=== PATIENT | male | born 1935 | race Caucasian/White ===

== ENCOUNTER 2017-10-12 10:30 | Inpatient (IN) | payer MEDICARE, OTHER, SELFPAY ==
[2017-10-12] VITALS (10 sets, daily range): BP systolic 127–189; BP diastolic 65–103; PULSE 82–114; RESP 14–20; TEMP 36.4–37.7; O2SAT 91–97; BMI 28.0
--- NOTE | 2017-10-12 10:38 | ED.ABDPAIN ---
HPI - Abdominal Pain General Chief Complaint: Abdominal Pain Stated Complaint: STOMACH PAIN Time Seen by Provider: 10/12/17 10:48 Source: patient Mode of arrival: ambulatory Limitations: no limitations History of Present Illness HPI narrative: 82-year-old male with a history of recently diagnosed metastatic prostate cancer now on 2 weeks of hormonal therapy presents with abdominal pain and distention that started last night. The pain has been increasingly worse and when he arrived he rated at a 5/10. He had 2-3 normal bowel movements last night that were not hard or loose/watery. Denies blood in the stool. He feels nauseous but has not vomited. He denies fevers or chills. He has not had troubles like this before. He states that he ate some 1-week-old birthday cake last night which may have contributed. He is a diabetic and has hypertension. He has had an appendectomy when he was 15-year-old but no other previous abdominal surgeries. Related Data Home Medications Medication Instructions Recorded Confirmed bicalutamide 50 mg PO DAILY 10/12/17 10/12/17 brinzolamide [Azopt] 2 drp EYE-LEFT BID 10/12/17 10/12/17 dorzolamide-timolol 22.3 drp EYE-LEFT BEDTIME 10/12/17 10/12/17 erythromycin 1 drp OPHTHALMIC (EYE) BEDTIME 10/12/17 10/12/17 latanoprost 0.005 drp EYE-LEFT BEDTIME 10/12/17 10/12/17 metformin 500 mg PO BID 10/12/17 10/12/17 Previous Rx's Medication Instructions Recorded diltiazem HCl 300 mg PO Q DAY #90 cap 08/06/17 glyburide 5 mg PO TID #270 tab 09/11/17 lisinopril 40 mg PO BID #180 tab 09/11/17 Allergies Allergy/AdvReac Type Severity Reaction Status Date / Time aspirin [ASPIRIN] Allergy Severe gi bleed Verified 10/12/17 10:38 Review of Systems Review of Systems All systems reviewed & are unremarkable except as noted in HPI and below Constitutional Denies chills, Denies fever(s), Denies lethargy and Denies weakness Eyes Denies change in vision, Denies eye discharge, Denies irritation and Denies loss of vision ENT Ears, Nose, Mouth, and Throat: Denies change in voice, Denies neck pain and Denies sore throat Cardiovascular Denies chest pain, Denies irregular heart rhythm, Denies lightheadedness, Denies palpitations, Denies dyspnea, Denies dyspnea on exertion and Denies orthopnea Respiratory Denies cough, Denies dyspnea, Denies dyspnea on exertion and Denies wheezing Gastrointestinal Gastrointestinal: Reports abdominal pain, Denies melena, Reports bloating, Denies change in bowel habits, Denies diarrhea, Denies loose stools, Reports nausea and Denies vomiting Genitourinary Denies hematuria, Denies flank pain, Denies urinary incontinence and Denies urinary urgency Musculoskeletal Denies neck pain Integumentary/Breasts Denies pruritus, Denies erythema, Denies rash and Denies wounds Neurologic Denies confusion, Denies loss of vision and Denies weakness Psychiatric Denies anxiety, Denies confusion, Denies depression, Denies homicidal ideation and Denies suicidal ideation Endocrine Denies palpitations Hematologic/Lymphatic Denies easy bruising Allergic/Immunologic Denies wheezing PFSH Medical History GI bleed (Acute) Glaucoma (Acute) Hypertension (Acute) Surgical History Hx of appendectomy (Acute) Family History Grandfather Diabetes mellitus Mother Diabetes mellitus Cancer Sister Age: 76 Cancer Sister Age: 69 Heart disease Social History household members: spouse Smoking Status: Former smoker alcohol intake: current Exam Initial Vital Signs Initial Vital Signs: Vital Signs Temperature 99.8 F H 10/12/17 10:38 Pulse Rate 114 H 10/12/17 10:38 Respiratory Rate 18 10/12/17 10:38 Blood Pressure 177/91 H 10/12/17 10:38 Pulse Oximetry 97 10/12/17 10:38 Const General: cooperative and well developed Nutritional Appearance: well nourished Orientation: alert, awake, oriented x3 and not confused [facility] Head: normocephalic and atraumatic Ears: external ears normal and TM's normal bilaterally Nose: external nose normal and No nasal discharge Face and sinus: sinuses nontender, face symmetric, no sinus tenderness and No dry mucous membranes Mouth: oral mucosae normal and moist mucous membranes Teeth and gingiva: dentition normal Throat: tonsils normal and uvula midline Eyes General: appearance normal, both eyes and all related structures Eyelids: eyelids normal Conjunctivae: conjunctivae normal Sclera: sclerae normal Pupils: PERRL EOM: EOM intact bilaterally Neck Neck: normal visual inspection, trachea midline, No lymphadenopathy, No midline deformity and No JVD Lymphatic: No lymphedema Chest Chest: normal inspection of the chest Resp Effort & Inspection: normal respiratory effort, able to speak in complete sentences, no respiratory distress and no use of accessory muscles Auscultation: clear to auscultation bilaterally, no rales, no rhonchi and no wheezes Cardio Rate: regular rate Rhythm: regular rhythm Heart Sounds: no click, no gallops, no murmurs and no rubs Pulses: normal peripheral pulses GI Inspection: distended (tympatic) Palpation: soft, No guarding, No pulsatile mass and tender (right upper quadrant with pos murphys sign) Auscultation: normal bowel sounds Back/Spine/Pelvis Back: No CVA tenderness Cervical Spine: cervical ROM normal and No pain with cervical ROM Thoracic/Lumbar Spine: thoracic and lumbar spine normal to inspection Skin General: no rashes or lesions noted, No jaundice and No petechiae Neuro General: alert, oriented x3, gait normal and no focal motor deficits Cranial Nerves: CN's II-XI intact bilaterally Speech: speech normal Motor: strength 5/5 throughout Sensory Exam: no sensory deficits noted Extrem General: full ROM, no clubbing, cyanosis or edema, no pedal edema and no calf tenderness Psych Appearance: well kempt Mental Status: mental status grossly normal Attitude: cooperative Thought Content: normal and suicidality Judgment: judgment good Course Orders Ordered: ED Orders 10/12/17 13:08 US abdomen limited Stat 10/12/17 13:22 Urinalysis and Microscopic Stat 10/12/17 16:47 EKG-12 Lead Stat 10/12/17 16:53 Consult to General Surgery Routine Bicalutamide (Casodex) 50 mg PO 1600 TILA Dextrose (D50w) 25 gm IV PRN PRN; Protocol PRN Reason: Hypoglycemia Piperacillin/Tazobactam/Dextrose (Zosyn) 3.375 gm in 50 mls @ 100 mls/hr IV Q8H [facility] Last Infusion: 10/12/17 20:04 Dose: 0 mls/hr Admin: 10/12/17 19:15 Dose: 100 mls/hr Ondansetron HCl 8 mg/ Sodium (Chloride) 54 mls @ 108 mls/hr IV Q6HR [facility] Last Admin: 10/12/17 20:04 Dose: 108 mls/hr Sodium Chloride (Normal Saline 0.9%) 1,000 mls @ 125 mls/hr IV CONT TILA Last Admin: 10/12/17 18:24 Dose: 125 mls/hr 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 PSYCHOLOGIST EXPERIMENTAL (Dilaudid 6 Mg/30 Ml) 6 mg in 30 mls @ 0 mls/hr IV Q8HR [facility] Last Admin: 10/12/17 20:11 Dose: 0 mls/hr Insulin Aspart (Novolog Flexpen) 0 unit SUBCUT Q6H TILA; Protocol Last Admin: 10/12/17 19:18 Dose: Not Given Lisinopril (Zestril) 40 mg PO BID [facility] Last Admin: 10/12/17 18:22 Dose: 40 mg Naloxone HCl (Narcan) 0.2 mg IV Q2MIN PRN; Protocol PRN Reason: Opiate Reversal Nicotine (Nicoderm) 14 mg TOP DAILY [facility] Discontinued Medications Hydromorphone HCl (Dilaudid) 0.5 mg IV NOW ONE Stop: 10/12/17 10:49 Last Admin: 10/12/17 10:58 Dose: 0.5 mg Hydromorphone HCl (Dilaudid) 0.5 mg IV NOW ONE Stop: 10/12/17 14:43 Last Admin: 10/12/17 13:30 Dose: 0.5 mg Hydromorphone HCl (Dilaudid) 0.5 mg IV Q1H PRN PRN Reason: Pain, Moderate Last Admin: 10/12/17 19:05 Dose: 0.5 mg Sodium Chloride (Normal Saline 0.9%) 1,000 mls @ 1,000 mls/hr IV BOLUS ONE Stop: 10/12/17 11:47 Last Infusion: 10/12/17 12:18 Dose: 0 mls/hr Admin: 10/12/17 10:58 Dose: 1,000 mls/hr Sodium Chloride (Normal Saline 0.9%) 1,000 mls @ 150 mls/hr IV CONT [facility] Last Admin: 10/12/17 12:07 Dose: Not Given Ondansetron HCl (Zofran) 4 mg IV NOW ONE Stop: 10/12/17 10:49 Last Admin: 10/12/17 10:58 Dose: 4 mg Vital Signs - 8 hr 10/12/17 14:15 10/12/17 14:57 10/12/17 16:06 Pulse Rate 91 H 107 H 91 H Respiratory Rate 18 16 16 Blood Pressure Blood Pressure [Right Arm] 171/86 H 165/70 H 156/78 H Pulse Oximetry 96 97 93 10/12/17 16:43 10/12/17 18:22 Pulse Rate 96 H 98 H Respiratory Rate 18 Blood Pressure 182/89 H 189/103 H Blood Pressure [Right Arm] Pulse Oximetry 96 MDM - Abdominal Pain Differential Diagnosis Differential diagnosis: Likely constipation, diverticulitis, gastroenteritis, pancreatitis and small bowel obstruction Medical Records Attestation: I reviewed the patient's medical records. Lab Data Attestation: I reviewed the patient's lab results. Result diagrams: 10/12/17 10:40 10/12/17 10:40 Lab Results 10/12/17 10/12/17 10/12/17 Range/Units 10:40 10:40 13:22 WBC 14.3 H (4.5-11.0) X10^3/uL RBC 4.83 (4.5-5.9) X10^6/uL Hgb 14.6 (13.5-17.5) g/dL Hct 43.7 (41-53) % MCV 90.6 (80-100) fL MCH 30.3 (26-34) PG MCHC 33.4 (30-36) % RDW 13.7 (11.6-14.8) % Plt Count 293 (150-400) X10^3/uL Neut % (Auto) 77.6 H (50-75) % Lymph % (Auto) 14.4 L (25-40) % Arthur % (Auto) 7.6 (3-14) % Eos % (Auto) 0.1 L (2-4) % Baso % (Auto) 0.3 (0-2) % Neut # (Auto) 93198 H (3904-4844) /uL Sodium 137 (137-145) mmol/L Potassium 3.8 (3.4-5.1) mmol/L Chloride 99.0 (98-107) mmol/L Carbon Dioxide 21.0 L (22-32) mmol/L BUN 16.0 (9-20) mg/dL Creatinine 1.00 (0.66-1.25) mg/dL Estimated GFR > 60.0 (>60) mL/min BUN/Creatinine Ratio 16.0 (6-22) Glucose 259 H (80-110) mg/dL Calcium 9.2 (8.4-10.2) mg/dL Total Bilirubin 0.6 (0.2-1.3) mg/dL AST 35 (17-59) IU/L ALT 16 L (21-72) IU/L Alkaline Phosphatase 126 (38-126) U/L Total Protein 7.5 (6.3-8.2) g/dL Albumin 4.4 (3.5-5.0) g/dL Globulin 3.1 (1.7-4.1) g/dL Albumin/Globulin Ratio 1.4 (1.0-2.8) Lipase 39 (23-300) U/L Urine Color Yellow Urine Appearance Clear Urine pH 6.0 (4.5-8.0) Ur Specific Jackson 1.010 (1.000-1.035) Urine Protein 1+ (Negative) Urine Glucose (UA) 1+ (Normal) g/dL Urine Ketones Negative (NEGATIVE) Urine Occult Blood Trace-lysed (Negative) Urine Nitrate Negative (NEGATIVE) Urine Bilirubin Negative (NEGATIVE) Urine Urobilinogen 0.2 (0.2) E.U./dL Ur Leukocyte Esterase Negative (NEGATIVE) Urine Sperm 0-5 present Ur Culture Indicated? Cult not indicated Micro UA Comment Not Reportable Imaging Data US - abdomen: My impression: Per recreation technician patient has cholecystitis with multiple gallstones, thickened gallbladder wall, normal bile duct. Radiologist's impression: PROCEDURE: US ABDOMEN LIMITED INDICATIONS: ruq abd pain TECHNIQUE: Real-time focused scanning was performed of the abdomen, with image documentation. COMPARISON: None. FINDINGS: Cholelithiasis is present. Mild gallbladder wall thickening is present measuring 5 mm. IMPRESSION: 1. Cholelithiasis. 2. Mild gallbladder wall thickening. Early cholecystitis cannot be excluded. Clinical correlation recommended. Dictated by: Suzi Barcenas M.D. on 10/12/2017 at 14:58 Approved by: Suzi Barcenas M.D. on 10/12/2017 at 15:00 CT scan - abdomen: Radiologist's impression: PROCEDURE: CT ABDOMEN PELVIS W CON INDICATIONS: abd pain and distension, h/o metstatic prostate ca TECHNIQUE: After the administration of oral and intravenous contrast, 5 mm thick sections acquired from the diaphragms to the symphysis. 5 mm thick coronal and sagittal reformats were performed. For radiation dose reduction, the following was used: automated exposure control, adjustment of mA and/or kV according to patient size. COMPARISON: [facility], CT, CHEST/ABD/PEL WITH CONTRAST, 09/12/2017, 10:05. FINDINGS: Image quality: Excellent. ABDOMEN: Lung bases: Lung bases are clear. Heart size is normal. Solid organs: Liver is normal in size and enhancement. Gallbladder demonstrates high density material within its lumen. Biliary system is non-dilated. Pancreas enhances normally. Spleen is normal in size and enhancement. No change in left greater than right adrenal nodules. Kidneys are normal in size and enhancement, without hydronephrosis. Peritoneum and bowel: Stomach, small bowel, and colon loops are normal in caliber and wall thickness. No pneumoperitoneum. Small amount of perihepatic ascites is present, new since the prior examination. Nodes and vessels: No retroperitoneal or mesenteric adenopathy. Aorta and inferior vena cava are normal in caliber. Miscellaneous: No ventral hernias. PELVIS: Genitourinary: Bladder wall thickness is normal. Prostate is enlarged. Previously seen mass extending posteriorly from the prostate into the left seminal vesicle base has increased, measuring 27 mm. Miscellaneous: No change in left inguinal lymph node enlargement. Bones: No change in T9 sclerotic focus. No vertebral body compression fractures. IMPRESSION: 1. New small amount of perihepatic ascites. 2. Progressive extraprostatic extension of prostate cancer involving the left seminal vesicle base. 3. No change in mildly enlarged left inguinal lymph node. 4. Appendix not seen. No evidence of appendicitis. 5. Cholelithiasis. 6. No change in left greater than right adrenal nodules, possibly indicating metastatic disease. This could be further assessed with non-emergent adrenal protocol MRI, if clinically indicated.. 7. No change in T9 sclerotic focus, suggestive of metastatic disease. Dictated by: Suzi Barcenas M.D. on 10/12/2017 at 12:46 Approved by: Suzi Barcenas M.D. on 10/12/2017 at 12:52 ECG Data Attestation: I personally reviewed and interpreted this ECG as follows: Prior ECG tracings: available for review Interpretation: EKG performed at 4:37 p.m. shows sinus rhythm with a right bundle branch block. No previous EKG available for comparison. MDM Narrative Medical decision making narrative: disucssed with dr max who will admit, and requests I order SSI, stop home dm meds, pain control, clear liquid diet until midnight, surgery in AM with NPO status, zosyn for abx coverage 82-year-old male with metastatic prostate cancer presenting with acute abdominal pain that started less than 1 day ago and is predominantly in the right upper quadrant. He is tender and has Turner sign. His white blood cell count is elevated. He does have gallstones on CT scan and with his pain I ordered an ultrasound. supervisor microbiology technologists felt his exam was consistent with cholecystitis, and official radiology read states this could be mild and cannot rule out cholecystitis. Clinically the patient does have cholecystitis. Discussed with surgeon who will admit the patient. Discharge Plan Departure Patient Disposition: Admitted As Inpatient Clinical Impression: Abdominal pain, Leukocytosis, Nausea & vomiting, Acute cholecystitis, Malignant neoplasm of prostate metastatic to bone Discharge Date/Time: 10/12/17 16:55 Interventions: ED Discharge Assessment Last Done: 10/12/17 16:43 Admit Date/Time: 10/12/17 16:45 Admit Provider: Jennifer Max
--- NOTE | 2017-10-12 10:49 | DI.CT.S_ITS ---
PROCEDURE: CT ABDOMEN PELVIS W CON INDICATIONS: abd pain and distension, h/o metstatic prostate ca TECHNIQUE: After the administration of oral and intravenous contrast, 5 mm thick sections acquired from the diaphragms to the symphysis. 5 mm thick coronal and sagittal reformats were performed. For radiation dose reduction, the following was used: automated exposure control, adjustment of mA and/or kV according to patient size. COMPARISON: [facility], CT, CHEST/ABD/PEL WITH CONTRAST, 09/12/2017, 10:05. FINDINGS: Image quality: Excellent. ABDOMEN: Lung bases: Lung bases are clear. Heart size is normal. Solid organs: Liver is normal in size and enhancement. Gallbladder demonstrates high density material within its lumen. Biliary system is non-dilated. Pancreas enhances normally. Spleen is normal in size and enhancement. No change in left greater than right adrenal nodules. Kidneys are normal in size and enhancement, without hydronephrosis. Peritoneum and bowel: Stomach, small bowel, and colon loops are normal in caliber and wall thickness. No pneumoperitoneum. Small amount of perihepatic ascites is present, new since the prior examination. Nodes and vessels: No retroperitoneal or mesenteric adenopathy. Aorta and inferior vena cava are normal in caliber. Miscellaneous: No ventral hernias. PELVIS: Genitourinary: Bladder wall thickness is normal. Prostate is enlarged. Previously seen mass extending posteriorly from the prostate into the left seminal vesicle base has increased, measuring 27 mm. Miscellaneous: No change in left inguinal lymph node enlargement. Bones: No change in T9 sclerotic focus. No vertebral body compression fractures. IMPRESSION: 1. New small amount of perihepatic ascites. 2. Progressive extraprostatic extension of prostate cancer involving the left seminal vesicle base. 3. No change in mildly enlarged left inguinal lymph node. 4. Appendix not seen. No evidence of appendicitis. 5. Cholelithiasis. 6. No change in left greater than right adrenal nodules, possibly indicating metastatic disease. This could be further assessed with non-emergent adrenal protocol MRI, if clinically indicated.. 7. No change in T9 sclerotic focus, suggestive of metastatic disease. Dictated by: Suzi Barcenas M.D. on 10/12/2017 at 12:46 Approved by: Suzi Barcenas M.D. on 10/12/2017 at 12:52
--- NOTE | 2017-10-12 10:51 | PC.NURSE ---
pt c/o abd pain started about 8pm yesterday, states since has had 4 bowelmovents. pt reports he is recieving treatment for prostate ca that has mets to bone. pt's abd obviously distented, and firm to touch.
[2017-10-12] MEDS: ONDANSETRON 4 MG/2 ML INJ IV (10:58)
[2017-10-12] MEDS: HYDROMORPHONE 1 MG INJ 0.5 MG IV (10:58)
[2017-10-12] MEDS: SODIUM CHLORIDE 0.9% 1,000 ML 1000 ML IV (10:58)
[2017-10-12 11:08] LABS: Add Manual Diff / Slide Review NO; Basophils Percent Auto 0.3 % (0-2); Eosinophils Percent Auto 0.1 % (2-4); Hematocrit 43.7 % (41-53); Hemoglobin 14.6 g/dL (13.5-17.5); Lymphocytes Percent Auto 14.4 % (25-40); Mean Corpuscular HGB Conc 33.4 % (30-36); Mean Corpuscular Hemoglobin 30.3 PG (26-34); Mean Corpuscular Volume 90.6 fL (80-100); Monocytes Percent Auto 7.6 % (3-14); Neutrophils Absolute Auto 11100 /uL (3000-5900); Neutrophils Percent Auto 77.6 % (50-75); Platelet Count 293 X10^3/uL (150-400); Red Blood Cell Count 4.83 X10^6/uL (4.5-5.9); Red Cell Distribution Width 13.7 % (11.6-14.8); White Blood Cell Count 14.3 X10^3/uL (4.5-11.0)
[2017-10-12 11:13] LABS: Alanine Aminotransferase 16 IU/L (21-72); Albumin 4.4 g/dL (3.5-5.0); Albumin Globulin Ratio 1.4 (1.0-2.8); Alkaline Phosphatase 126 U/L (38-126); Aspartate Aminotransferase 35 IU/L (17-59); Bilirubin Total 0.6 mg/dL (0.2-1.3); Calcium 9.2 mg/dL (8.4-10.2); Estimated Glomerular Filt Rate > 60.0 mL/min (>60); Globulin 3.1 g/dL (1.7-4.1); Glucose 259 mg/dL (80-110); HEMOLYSIS 16 (0-50); Lipase 39 U/L (23-300); Potassium 3.8 mmol/L (3.4-5.1); Sodium 137 mmol/L (137-145); Total Protein 7.5 g/dL (6.3-8.2)
--- NOTE | 2017-10-12 13:08 | DI.US.S_ITS ---
PROCEDURE: US ABDOMEN LIMITED INDICATIONS: ruq abd pain TECHNIQUE: Real-time focused scanning was performed of the abdomen, with image documentation. COMPARISON: None. FINDINGS: Cholelithiasis is present. Mild gallbladder wall thickening is present measuring 5 mm. IMPRESSION: 1. Cholelithiasis. 2. Mild gallbladder wall thickening. Early cholecystitis cannot be excluded. Clinical correlation recommended. Dictated by: Suzi Barcenas M.D. on 10/12/2017 at 14:58 Approved by: Suzi Barcenas M.D. on 10/12/2017 at 15:00
[2017-10-12 13:25] LABS: Appearance Urine UA CLEAR; Bilirubin Urine UA NEGATIVE (NEGATIVE); Color Urine UA YELLOW; Glucose Urine UA 1+ g/dL (Normal); Ketones Urine UA NEGATIVE (NEGATIVE); Leukocyte Esterase Urine UA NEGATIVE (NEGATIVE); Nitrite Urine UA NEGATIVE (NEGATIVE); Occult Blood Urine UA TRACE-LYSED (Negative); Protein Urine UA 1+ (Negative); Urobilinogen Urine UA 0.2 E.U./dL (0.2)
[2017-10-12] MEDS: HYDROMORPHONE 0.5 MG INJ IV ×2 (13:30→19:05)
[2017-10-12 13:33] LABS: Culture Indicated Urine Cult Not Indicated; Sperm Urine 0-5 PRESENT
[2017-10-12] MEDS: LISINOPRIL 20 MG TABLET 40 MG PO (18:22)
[2017-10-12] MEDS: SODIUM CHLORIDE 0.9% 1,000 ML 125 ML IV (18:24)
[2017-10-12] MEDS: PIPERACILLIN-TAZO 3.375 GM/50 ML FROZ.PIGGY IV (19:15)
[2017-10-12] MEDS: ONDANSETRON 8 MG in SODIUM CHLORIDE 0.9% 50 ML 108 ML IV (20:04)
[2017-10-12] MEDS: 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 PCA 6 MG/30 ML PCA.VIAL IV ×2 (20:11→22:33)
[2017-10-12] MEDS: BICALUTAMIDE 50 MG TABLET PO (21:35)
[2017-10-13] VITALS (15 sets, daily range): BP systolic 114–173; BP diastolic 65–93; PULSE 82–114; RESP 16–20; TEMP 36.4–37.7; O2SAT 91–98; BMI 28.0
--- NOTE | 2017-10-13 | PATH_ITS ---
[facility] Accession Number: [id number] . 01 Material submitted: . GALL BLADDER AND CONTENTS . 02 Diagnosis: Gallbladder and Contents, Cholecystectomy: Chronic active cholecystitis with mural suppurative inflammation and serositis. Cholelithiasis. Negative for dysplasia or malignancy. MRV/10/16/2017 . 02 Electronically signed: . Chase Braga MD, PhD, Pathologist NPI- [id number] . 01 Gross description: . Received in formalin, labeled 1-gallbladder + contents, is an opened gallbladder (length-8.7 cm, diameter-4.5 cm) with yepez-brown, smooth, shiny serosa and a patent cystic duct. No lymph nodes are identified. The mucosa is yepez-green, smooth, and flat. The wall is up to 0.1 cm thick. The content is also submitted and consists of a yellow-lyle, smooth, multifaceted, hard calculus (1.6 x 1.5 x 1.2 cm) with a clear crystalline cut surface. No nodules, masses, or lesions are identified. Section code: (A1) cystic duct resection margin and two serial sections from the body; (A2) two longitudinal sections from the fundus. ([id number]) /FRR . 02 Pathologist provided ICD-10: K80.60 . 02 CPT . 161499 Performed at: 01 [facility] [address], [place], [place] [id number] MD Richard Barreto MD Phone: [phone] Performed at: [facility] [address] [place], [place] [id number] MD David Cervantes MD Phone: [phone]
[2017-10-13] MEDS: ONDANSETRON 8 MG in SODIUM CHLORIDE 0.9% 50 ML 108 ML IV (00:05)
[2017-10-13] MEDS: PIPERACILLIN-TAZO 3.375 GM/50 ML FROZ.PIGGY IV ×2 (02:09→09:03)
[2017-10-13] MEDS: SODIUM CHLORIDE 0.9% 1,000 ML 125 ML IV (03:55)
[2017-10-13] MEDS: 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 PCA 6 MG/30 ML PCA.VIAL IV ×2 (06:50→21:06)
[2017-10-13] MEDS: DEXTROSE 50 % IN WATER 25 GM/50 ML SYRINGE IV ×2 (10:34→11:20)
--- NOTE | 2017-10-13 11:04 | PC.NURSE ---
1030: BG 55, PT DENIES S/S OF HYPOGLYCEMIA. DR. BOWEN NOTIFIED. PER DR. BOWEN GIVE 1/2 AMP OF D50 VIA IV PER EMAR. AND RECHECK CBG IN 20 MIN. DIRK-OPERATIVE NURSE ARRIVED AT APPROX 1145 TO TAKE PT FOR SURGERY. BG WILL BE RECHECKED IN SURGICAL DEPT. PT OFF UNIT AT 1100.
[2017-10-13] MEDS: LACTATED RINGERS 1,000 ML 42 ML IV (11:15)
--- NOTE | 2017-10-13 11:43 | PM.HP.1 ---
History of Present Illness Chief complaint: STOMACH PAIN Narrative: Marek Massey is a 82 year old male who presented to the ED yesterday afternoon complaining of abdominal pain and bloating on and off for the past 2 weeks. He reports the bloating became so sever that he was not able to manage it at home and came to the ED. [facility] Medical History GI bleed (Acute) Glaucoma (Acute) Hypertension (Acute) Surgical History Hx of appendectomy (Acute) Family History Grandfather Diabetes mellitus Mother Diabetes mellitus Cancer Sister Age: 76 Cancer Sister Age: 69 Heart disease Social History household members: spouse Smoking Status: Former smoker alcohol intake: current Meds Home Medications Medication Instructions Recorded Confirmed Type bicalutamide 50 mg PO DAILY 10/12/17 10/12/17 History brinzolamide [Azopt] 2 drp EYE-LEFT BID 10/12/17 10/12/17 History dorzolamide-timolol 22.3 drp EYE-LEFT BEDTIME 10/12/17 10/12/17 History erythromycin 1 drp OPHTHALMIC (EYE) BEDTIME 10/12/17 10/12/17 History latanoprost 0.005 drp EYE-LEFT BEDTIME 10/12/17 10/12/17 History metformin 500 mg PO BID 10/12/17 10/12/17 History Generic Name Dose Route Start Last Admin Trade Name Freq PRN Reason Stop Dose Admin Bicalutamide 50 mg 10/12/17 20:00 10/12/17 21:35 Casodex PO 50 mg 1600 TILA Administration Dextrose 25 gm 10/12/17 16:47 10/13/17 11:20 D50w IV 12.5 gm PRN PRN Administration Hypoglycemia Protocol Piperacillin/Tazobactam/Dextrose 3.375 gm in 50 mls @ 100 mls/hr 10/12/17 17:00 10/13/17 10:56 Zosyn IV Infused Q8H TILA Infusion Ondansetron HCl 8 mg/ Sodium 54 mls @ 108 mls/hr 10/12/17 18:00 10/13/17 08:57 Chloride IV Not Given Q6HR TILA Sodium Chloride 1,000 mls @ 125 mls/hr 10/12/17 16:53 10/13/17 03:55 Normal Saline 0.9% IV 125 mls/hr CONT TILA Administration 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 SMALL 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 6 mg in 30 mls @ 0 mls/hr 10/12/17 22:00 10/13/17 06:50 Dilaudid 6 Mg/30 Ml IV 0.2 mls/hr Q8HR TILA Administration Insulin Aspart 0 unit 10/12/17 17:00 10/13/17 12:25 Novolog Flexpen SUBCUT Not Given Q6H [facility] Protocol Lisinopril 40 mg 10/12/17 21:00 10/13/17 08:59 Zestril PO Not Given BID [facility] Naloxone HCl 0.2 mg 10/12/17 19:40 Narcan IV Q2MIN PRN Opiate Reversal Protocol Nicotine 14 mg 10/13/17 09:00 10/13/17 08:59 Nicoderm TOP Not Given DAILY [facility] Non-Formulary Medication 0 each 10/14/17 09:00 Patient's Own Medication PO DAILY [facility] Allergies Allergy/AdvReac Type Severity Reaction Status Date / Time aspirin [ASPIRIN] Allergy Severe gi bleed Verified 10/12/17 10:38 Review of Systems Review of Systems All systems reviewed & are unremarkable except as noted in HPI and below Exam Vital Signs (past 8 hours): Vital Signs - 8 hr 10/13/17 05:52 10/13/17 07:44 10/13/17 11:16 Temperature 98.7 F 99.4 F 99.8 F H Pulse Rate 82 87 86 Respiratory Rate 18 18 16 Blood Pressure 143/65 H 114/66 173/76 H Pulse Oximetry 91 93 94 Pulse Oximetry 94 Oxygen Delivery Method Room Air Oxygen Flow Rate 0 Narrative Exam Narrative: Very pleasant 82-year-old gentleman who just had a birthday. He reports that he feels much less bloated today. HEENT: Normocephalic and atraumatic, pupils equal round reactive to light and accommodation with anicteric sclera Lungs: Essentially clear to auscultation bilaterally. O2 saturation is 93% on room air currently. Denies any shortness of breath Heart: Regular rate and rhythm. Somewhat distant heart sounds. No murmur Abdomen: Soft, distended, tympanic, active bowel sounds. Well-healed McBurney's incision without defect. No umbilical or inguinal hernias appreciated. Tender to palpation in the right upper quadrant and right flank. Somewhat less tenderness to palpation in the midepigastrium. No true rebound. Some voluntary guarding. Extremities: Warm and well perfused. Nonpalpable pulses at the posterior tibial and dorsalis pedis positions Objective Labs Result Diagrams: 10/12/17 10:40 10/12/17 10:40 Labs: Laboratory Results - last 24 hr 10/12/17 13:22 Urine Color Yellow Urine Appearance Clear Urine pH 6.0 Ur Specific [place] 1.010 Urine Protein 1+ Urine Glucose (UA) 1+ Urine Ketones Negative Urine Occult Blood Trace-lysed Urine Nitrate Negative Urine Bilirubin Negative Urine Urobilinogen 0.2 Ur Leukocyte Esterase Negative Urine Sperm 0-5 present Ur Culture Indicated? Cult not indicated Micro UA Comment Not Reportable Assessment & Plan Plan: Plan: Very pleasant 82-year-old gentleman with a new diagnosis of metastatic prostate cancer. Admitted with acute cholecystitis and cholelithiasis. We discussed the risks and benefits of laparoscopic cholecystectomy and the patient expressed a desire to have the procedure.
--- NOTE | 2017-10-13 11:59 | SUR.OPER ---
Supine on padded OR bed, head on pillow, safety belt at thigh, left arm padded and tucked at side. Right arm secured on padded arm oard <90 degrees abduction. Legs uncrossed. Tape over blanket to secure lower legs.
--- NOTE | 2017-10-13 12:34 | P.HP_ITS ---
History of Present Illness Chief complaint: STOMACH PAIN Narrative: Marek Massey is a 82 year old male who presented to the ED yesterday afternoon complaining of abdominal pain and bloating on and off for the past 2 weeks. He reports the bloating became so sever that he was not able to manage it at home and came to the ED. [facility] Medical History GI bleed (Acute) Glaucoma (Acute) Hypertension (Acute) Surgical History Hx of appendectomy (Acute) Family History Grandfather Diabetes mellitus Mother Diabetes mellitus Cancer Sister Age: 76 Cancer Sister Age: 69 Heart disease Social History household members: spouse Smoking Status: Former smoker alcohol intake: current Meds Home Medications Medication Instructions Recorded Confirmed Type bicalutamide 50 mg PO DAILY 10/12/17 10/12/17 History brinzolamide [Azopt] 2 drp EYE-LEFT BID 10/12/17 10/12/17 History dorzolamide-timolol 22.3 drp EYE-LEFT BEDTIME 10/12/17 10/12/17 History erythromycin 1 drp OPHTHALMIC (EYE) BEDTIME 10/12/17 10/12/17 History latanoprost 0.005 drp EYE-LEFT BEDTIME 10/12/17 10/12/17 History metformin 500 mg PO BID 10/12/17 10/12/17 History Generic Name Dose Route Start Last Admin Trade Name Freq PRN Reason Stop Dose Admin Bicalutamide 50 mg 10/12/17 20:00 10/12/17 21:35 Casodex PO 50 mg 1600 TILA Administration Dextrose 25 gm 10/12/17 16:47 10/13/17 11:20 D50w IV 12.5 gm PRN PRN Administration Hypoglycemia Protocol Piperacillin/Tazobactam/Dextrose 3.375 gm in 50 mls @ 100 mls/hr 10/12/17 17: 00 10/13/17 10:56 Zosyn IV Infused Q8H TILA Infusion Ondansetron HCl 8 mg/ Sodium 54 mls @ 108 mls/hr 10/12/17 18:00 10/13/17 08: 57 Chloride IV Not Given Q6HR TILA Sodium Chloride 1,000 mls @ 125 mls/hr 10/12/17 16:53 10/13/17 03:55 Normal Saline 0.9% IV 125 mls/hr CONT TILA Administration 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 6 mg in 30 mls @ 0 mls/hr 10/12/17 22:00 10/13/17 06:50 Dilaudid 6 Mg/30 Ml IV 0.2 mls/hr Q8HR TILA Administration Insulin Aspart 0 unit 10/12/17 17:00 10/13/17 12:25 Novolog Flexpen SUBCUT Not Given Q6H [facility] Protocol Lisinopril 40 mg 10/12/17 21:00 10/13/17 08:59 Zestril PO Not Given BID [facility] Naloxone HCl 0.2 mg 10/12/17 19:40 Narcan IV Q2MIN PRN Opiate Reversal Protocol Nicotine 14 mg 10/13/17 09:00 10/13/17 08:59 Nicoderm TOP Not Given DAILY [facility] Non-Formulary Medication 0 each 10/14/17 09:00 Patient's Own Medication PO DAILY [facility] Allergies Allergy/AdvReac Type Severity Reaction Status Date / Time aspirin [ASPIRIN] Allergy Severe gi bleed Verified 10/12/17 10:38 Review of Systems Review of Systems All systems reviewed & are unremarkable except as noted in HPI and below Exam Vital Signs (past 8 hours): Vital Signs - 8 hr 3 10/13/17 05:52 10/13/17 07:44 10/13/17 11:16 Temperature 98.7 F 99.4 F 99.8 F H Pulse Rate 82 87 86 Respiratory Rate 18 18 16 Blood Pressure 143/65 H 114/66 173/76 H Pulse Oximetry 91 93 94 Pulse Oximetry 94 Oxygen Delivery Method Room Air Oxygen Flow Rate 0 Narrative Exam Narrative: Very pleasant 82-year-old gentleman who just had a birthday. He reports that he feels much less bloated today. HEENT: Normocephalic and atraumatic, pupils equal round reactive to light and accommodation with anicteric sclera Lungs: Essentially clear to auscultation bilaterally. O2 saturation is 93% on room air currently. Denies any shortness of breath Heart: Regular rate and rhythm. Somewhat distant heart sounds. No murmur Abdomen: Soft, distended, tympanic, active bowel sounds. Well-healed McBurney' s incision without defect. No umbilical or inguinal hernias appreciated. Tender to palpation in the right upper quadrant and right flank. Somewhat less tenderness to palpation in the midepigastrium. No true rebound. Some voluntary guarding. Extremities: Warm and well perfused. Nonpalpable pulses at the posterior tibial and dorsalis pedis positions Objective Labs Result Diagrams: 10/12/17 10:40 10/12/17 10:40 Labs: Laboratory Results - last 24 hr 10/12/17 13:22 Urine Color Yellow Urine Appearance Clear Urine pH 6.0 Ur Specific [place] 1.010 Urine Protein 1+ Urine Glucose (UA) 1+ Urine Ketones Negative Urine Occult Blood Trace-lysed Urine Nitrate Negative Urine Bilirubin Negative Urine Urobilinogen 0.2 Ur Leukocyte Esterase Negative Urine Sperm 0-5 present Ur Culture Indicated? Cult not indicated Micro UA Comment Not Reportable Assessment & Plan Plan: Plan: Very pleasant 82-year-old gentleman with a new diagnosis of metastatic prostate cancer. Admitted with acute cholecystitis and cholelithiasis. We discussed the risks and benefits of laparoscopic cholecystectomy and the patient expressed a desire to have the procedure.
[2017-10-13] MEDS: BUPIVACAINE 0.5% (PF) 30 ML VIAL 20 ML INJ (13:05)
[2017-10-13] MEDS: LIDOCAINE 1% W/EPI INJ 20 ML INJ (13:07)
--- NOTE | 2017-10-13 13:27 | CM.DANOTE ---
DCP Initial: Chart review done. Patient admit via the ED w/ abd pain and bloating. Work-up was positive for Cholelithiasis. Plan: To OR today for lap choli. Insur: TITI/ELIZABETH Hx: GI Bleed, met prostate CA Tomorrow: Plan to do the initial assessment. Postponed today due to surgery. Griselda Marie RN
--- NOTE | 2017-10-13 13:34 | P.OP_ITS ---
Operative Date/Time/Diagnoses - Date of procedure: 10/13/17 Time of procedure: 13:30 Pre-op diagnosis: Acute cholecystitis and cholelithiasis Post-op diagnosis: same Procedure & Clinicians Procedure: Laparoscopic cholecystectomy with drain placement Same procedure as scheduled: Yes Indications: Acute cholecystitis and cholelithiasis Surgeon: Jennifer Max Anesthesia Type: General (Bertoni) and Local Operative Notes Findings: Necrotic gallbladder without gross perforation. A stone lodged in the neck of the gallbladder. Closure Type: primary Implants & Drains: Nineteen [place] Jassi drain in the gallbladder fossa Estimated Blood Loss (mL): 100 Procedure in detail: After obtaining informed consent, the patient was brought to the operating room and placed in the supine position on the operating table. Following successful induction of general endotracheal anesthesia, appropriate padding of all bony prominences, and placement of appropriate monitors, the abdomen was prepped and draped in a standard surgical fashion. A timeout was held per SCOAP protocol. Following infiltration with local anesthetic to create a field block, an incision was created superior to the umbilicus and carried down through the skin and subcutaneous tissue to reveal the fascia below. 2-0 Vicryl retention sutures are placed on either side of the midline and the abdomen was entered under direct vision using a 15 blade scalpel. A 10 mm blunt trocar was placed in the abdominal cavity and it was insufflated to 15 mm of Hg pressure. The patient was placed in reverse Trendelenburg position with the left side rotated toward the floor. A second 5 mm trocar was placed in the midepigastrium and 2 more in the right upper quadrant, again after infiltration with local anesthetic and under direct vision with the camera. The gallbladder was grasped in the fundus and elevated up over the liver. This revealed the cholecysto-hepatoduodenal ligament. We noted severe edema in this region. Very careful dissection was undertaken to reveal the cystic duct and artery. As we were able to clearly see the structures and the cholecysto hepato duodenal ligament was so short as to not allow safe proximal dissection, we did not perform a cholangiogram. 3 clips were placed proximally on the cystic duct and one distally. The duct was divided between these clips. 2 clips were placed proximally on the cystic artery and one distally. The artery was divided between these clips. The gallbladder was then liberated from its bed in the liver using Bovie cautery. The fundus of the gallbladder was acutely necrotic and was peeled from the gallbladder fossa without the help of cautery. It was placed in an Endoscopic bag and removed via the umbilical port. The camera was returned to the abdominal cavity and the operative site examined carefully. Hemostasis was obtained with cautery. The abdomen was irrigated copiously with warm saline solution and then aspirated free of all particulate matter and fluid. Due to the severity of the infection, we elected to place a right upper quadrant drain. This was tucked into the gallbladder fossa and brought out through right upper quadrant port. It was sewn into place with nylon suture. Trochars were then removed under direct vision and the abdomen desufflated by giving the patient a Valsalva maneuver. The umbilical incision was closed with interrupted Vicryl suture and Monocryl sutures were placed in the skin. The remaining skin incisions were closed with Monocryl suture. All sponge, needle, and instrument counts were correct at the conclusion of the case. The patient was allowed to awaken from anesthesia without difficulty and taken to the post anesthesia care unit in good condition. Complications: none Condition: stable Disposition: PACU Plan for aftercare: Return to [facility] for continued convalescence, drain placement, and IV antibiotic therapy.
--- NOTE | 2017-10-13 15:19 | PC.NURSE ---
PT ARRIVED FROM PACU AT APPROX 1415. AWAKE, A/OX3. VSS. O2 SATS 93% 4L NC. DESATS ON RA. LAP X4 WELL APPROXIMATED WITH DERMABOND. LATRICIA DRAIN WITH SERO-SANG DRAINAGE. DRSG TO BLACK DRAIN C/D/I. PT DENIES PAIN. DR. 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 ORDERS WRITTEN BY HAND AND WILL BE ENTERED VTO.
[2017-10-13] MEDS: BICALUTAMIDE 50 MG TABLET PO (16:44)
[2017-10-13] MEDS: LISINOPRIL 20 MG TABLET 40 MG PO ×2 (16:45→17:09)
[2017-10-13] MEDS: SODIUM CHLORIDE 0.9% 1,000 ML 50 ML IV (16:52)
[2017-10-13] MEDS: METFORMIN HCL 500 MG TABLET PO (17:10)
[2017-10-13] MEDS: glyBURIDE 5 MG TABLET PO (17:11)
--- NOTE | 2017-10-13 21:12 | PC.NURSE ---
Faustina shift - HEAD OF DESIGN for faustina shift=1.6mg, and left from day shift 0.6mg, total of 2.2mg from 1400 to 5. a change of orders after pt arrived from PACU caused a delay in clinical/medication documentation. Pt weaned from 4L nc to RA for 94% RA. using urinal indep for clear yellow/jacey urine. ABD large round distended firm and tender, 4 lap sites well approximated with dermabond, CDI, yury drain gauze drsg CDI. bed alarm on.
[2017-10-14] VITALS (14 sets, daily range): BP systolic 115–181; BP diastolic 63–104; PULSE 69–155; RESP 14–26; TEMP 36.6–37.4; O2SAT 89–95
--- NOTE | 2017-10-14 | DI.ECHO.S_ITS ---
[facility] +---------+ [facility] +---------+ : : [address] : : : [place], [place] : : : : [id number] : : : : Phone: [phone]+ Echocardiogram Report + + :Name: CHAS WOLFE Study Date: 10/14/2017 Height: 69 in : :[facility] Weight: 190 lb : : Gender: Male BSA: 2.0 m2 : :: 1935 Age: 82 yrs BP: 158/67 mmHg: :Reason For Study: Atrial fibrillation : : Performed By: Mahsa Gómez : :Referring: VINCE SOOD : + + Interpretation Summary Normal sinus rhythm. Normal LV size, wall thickness, wall motion and left ventricular systolic function. Ejection fraction is 60??65 percent. Mild LA enlargement; otherwise normal chamber sizes. No valvular abnormalities. No prior study available for comparison. Procedure: A two-dimensional transthoracic echocardiogram with color flow and Doppler was performed. The study quality was technically adequate. Most of the acoustic windows were suboptimal, but the best imaging was obtained from the subcostal window. Left Ventricle: The left ventricle is normal in size, wall thickness, and systolic function without any focal wall motion abnormalities. The ejection fraction is estimated to be 60-65%. Right Ventricle: The right ventricle grossly appears normal in size with probable normal systolic function. Atria: The left atrium is mildly dilated. Right atrial size is normal. The interatrial septum is intact with no evidence for an atrial septal defect. Mitral Valve: The mitral valve is normal in structure and function. There is no mitral regurgitation noted. Aortic Valve: The aortic valve is trileaflet. Leaflet mobility is minimally reduced. No aortic regurgitation is present. Tricuspid Valve: The tricuspid valve is normal in structure and function. There is trace tricuspid regurgitation. The right ventricular systolic pressure is estimated at 42 mmHg assuming a right atrial pressure of 8 mm Hg. Pulmonic Valve: The pulmonic valve is not well seen, but is grossly normal. There is no pulmonic valvular regurgitation. Great Vessels: The aortic root is normal size. The dimensions of the ascending aorta are normal. The IVC is dilated (diameter is greater than 2.1 cm) yet it collapses greater than 50% with a sniff. This suggests a right atrial pressure of 8 mm Hg. Pericardium/ Pleura There is no pericardial effusion. There is no pleural effusion. MMode/2D Measurements & Calculations LVIDd: 5.0 cm Ao root diam: 3.5 cm LVIDs: 3.1 cm Aortic Jxn: 2.3 cm FS: 38.6 % asc Aorta Diam: 3.0 cm EPSS: 0.68 cm Ao Arch Diam (Prox Trans): 3.5 cm IVSd: 0.88 cm LVPWd: 0.75 cm LV cho. diameter/BSA (cm/m^2): 2.5 LV sys. diameter/BSA (cm/m^2): 1.5 LA dimension: 3.9 cm RA long axis: 4.8 cm LA A2 area: 20.7 cm2 RA area: 20.0 cm2 LA A4 area: 23.1 cm2 RA vol: 71.8 ml LA length (vol): 5.3 cm RA : 35.5 ml/m2 LA vol: 76.3 ml IVC diam: 2.1 cm LA vol index: 37.7 ml/m2 RVDd major: 5.5 cm RVD1 (basal): 4.2 cm RVD2 (mid): 3.2 cm Doppler Measurements & Calculations Ao V2 max: 137.6 cm/sec MV E max akira: 93.8 cm/sec Ao V2 mean: 94.3 cm/sec MV A max akira: 104.4 cm/sec Ao max P.6 mmHg MV E/A: 0.90 Ao mean P.1 mmHg Med Peak E' Akira: 6.5 cm/sec Ao V2 VTI: 31.9 cm E/E' med: 14.5 Lat Peak E' Akira: 6.6 cm/sec E/E' lat: 14.2 E/e' average: 14.4 MV dec time: 0.20 sec MV P1/2t: 59.6 msec TR max akira: 291.0 cm/sec MV P1/2t max akira: 95.4 cm/sec TR max P.9 mmHg MVA(P1/2t): 3.7 cm2 PA V2 max: 77.7 cm/sec PA V2 mean: 53.2 cm/sec PA mean P.3 mmHg PA Accel Time: 0.13 sec Reading Physician:07:15 PM
--- NOTE | 2017-10-14 | DI.RAD.S_ITS ---
PROCEDURE: XR ACUTE ABDOMEN SERIES INDICATIONS: ?sbo TECHNIQUE: One view chest and two views of the abdomen were acquired. COMPARISON: None. FINDINGS: Surgical changes and devices: NG tube in position. Short catheter projects over the right upper quadrant.. Cholecystectomy clips. Chest: Bibasilar atelectasis and probable infiltrate. Small left subpulmonic effusion suspected. Heart size is normal. Aortic calcifications. No pneumoperitoneum. Nasogastric tube is present with tip in the stomach. Abdomen: Bowel gas pattern shows considerable fecal loading in the proximal colon and diffuse large and small bowel gaseous distention. No suspicious calcifications. Visualized solid organ contours appear normal. Bones: No suspicious bony lesions. IMPRESSION: 1. Bilateral lower lobe atelectasis/consolidation suspect for pneumonia. Possible small left subpulmonic effusion. 2. Nasogastric tube is present within the stomach. Short catheter overlies the right upper quadrant. 3. Nonspecific bowel pattern with prominent air-filled large and small intestine. Possible ileus. Possible constipation. Dictated by: Rudy Sandoval M.D. on 10/14/2017 at 14:10 Approved by: Rudy Sandoval M.D. on 10/14/2017 at 14:15
[2017-10-14 05:34] LABS: Add Manual Diff / Slide Review NO; Basophils Percent Auto 0.3 % (0-2); Eosinophils Percent Auto 0.4 % (2-4); Hematocrit 38.9 % (41-53); Lymphocytes Percent Auto 13.5 % (25-40); Mean Corpuscular HGB Conc 33.5 % (30-36); Mean Corpuscular Hemoglobin 30.5 PG (26-34); Mean Corpuscular Volume 91.1 fL (80-100); Monocytes Percent Auto 8.2 % (3-14); Neutrophils Absolute Auto 8900 /uL (3000-5900); Neutrophils Percent Auto 77.6 % (50-75); Platelet Count 214 X10^3/uL (150-400); Red Blood Cell Count 4.27 X10^6/uL (4.5-5.9); Red Cell Distribution Width 13.9 % (11.6-14.8); White Blood Cell Count 11.5 X10^3/uL (4.5-11.0)
[2017-10-14 05:50] LABS: Alanine Aminotransferase 125 IU/L (21-72); Albumin 3.4 g/dL (3.5-5.0); Albumin Globulin Ratio 1.2 (1.0-2.8); Alkaline Phosphatase 118 U/L (38-126); Aspartate Aminotransferase 108 IU/L (17-59); Calcium 8.1 mg/dL (8.4-10.2); Estimated Glomerular Filt Rate > 60.0 mL/min (>60); Globulin 2.9 g/dL (1.7-4.1); Glucose 106 mg/dL (80-110); HEMOLYSIS < 15 (0-50); Potassium 3.4 mmol/L (3.4-5.1); Sodium 137 mmol/L (137-145); Total Protein 6.3 g/dL (6.3-8.2)
[2017-10-14] MEDS: 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 PCA 6 MG/30 ML PCA.VIAL IV ×3 (06:55→21:07)
[2017-10-14] MEDS: LISINOPRIL 20 MG TABLET 40 MG PO (08:57)
[2017-10-14] MEDS: dilTIAZem CD 120 MG CAP PO (08:59)
[2017-10-14] MEDS: dilTIAZem CD 180 MG CAP PO (08:59)
--- NOTE | 2017-10-14 09:19 | CM.DANOTE ---
Addendum entered by Riya Resendiz LPN 10/14/17 09:52: Per RN coordinator: pt is being considered for transfer to ICU setting. Original Note: DCP: assessment: case received, EMR reviewed and met with pt. Pt is found sitting up in bedside chair, drain in place, emesis bag nearby. Pt confirms he has been nauseated. Pt lives with his Liliana in [place]. He had surgery/lap melany yesterday and says he expects to go home at d/c. Discussion interrupted by KIM Green who arrived with [employer] and stated pt needed to get back to bed [place]. Stated his heart rate was very high. Agreed to check in later when pt's is medically more stable and closer to d/c date.
--- NOTE | 2017-10-14 10:14 | PC.NURSE ---
VOIDING SMALL FREQ AMTS W/ URGENCY. BLADDER SCANNED >999 PVR. STOOD AT BEDSIDE TO ATTEMPT VOID, ANOTHER 115 UOP. SITTING UP IN RECLINER WHILE CALL PLACED TO DR. SOOD'S OFFICE. BECAME DIZZY AND NAUSEATED. DR. SOOD CALLED, ORDERED ZOFRAN. DR. BOWEN NOTIFIED OF PVR AND DAWSON ORDERED. ICU CALLED, NOTIFIED THIS RECONCILIATION ANALYST THAT PATIENT HAS TACHYCARDIA W/ WIDE QRS COMPLEXES IN THE 150'S. SCHEDULED PO DILTIAZEM GIVEN. CALL IN TO DR. SOOD'S OFFICE. CHRIS, LINE SERVICE PERSON CAME UP AND ASSESSED PATIENT, PLACED DAWSON PER ORDER AND PATIENT SENT DOWN TO ICU FLOOR CARE STATUS. REPORT GIVEN TO KIM PEREZ AND DR. SOOD CALLED AND GAVE ORDERS TO CHRIS IN ICU.
[2017-10-14] MEDS: dilTIAZem 25 MG/5 ML SDV 10 MG IV (10:24)
[2017-10-14] MEDS: dilTIAZem 125 MG in DEXTROSE 5 % IN WATER 100 ML 10 ML IV (10:25)
[2017-10-14 10:33] LABS: INR 1.2 (0.9-1.3); Prothrombin Time 12.6 SECONDS (10.1-12.7)
[2017-10-14 10:38] LABS: Alanine Aminotransferase 122 IU/L (21-72); Albumin 3.9 g/dL (3.5-5.0); Albumin Globulin Ratio 1.3 (1.0-2.8); Alkaline Phosphatase 142 U/L (38-126); Aspartate Aminotransferase 96 IU/L (17-59); BUN Creatinine Ratio 12.2 (6-22); Bilirubin Total 1.3 mg/dL (0.2-1.3); Calcium 8.5 mg/dL (8.4-10.2); Creatine Kinase 426 U/L (55-170); Estimated Glomerular Filt Rate > 60.0 mL/min (>60); Globulin 3.1 g/dL (1.7-4.1); Glucose 171 mg/dL (80-110); HEMOLYSIS < 15 (0-50); Magnesium 1.7 mg/dL (1.6-2.3); Potassium 3.5 mmol/L (3.4-5.1); Sodium 133 mmol/L (137-145)
[2017-10-14 10:54] LABS: CKMB % Relative Index 0.7 % (1.5-5.0); Creatine Kinase MB 2.95 ng/mL (<2.37)
[2017-10-14] MEDS: ONDANSETRON 8 MG in SODIUM CHLORIDE 0.9% 50 ML 108 ML IV (11:56)
[2017-10-14] MEDS: INSULIN ASPART 100 UNIT/ML INSULN PEN SUBCUT ×2 (12:32→18:43)
[2017-10-14] MEDS: SODIUM CHLORIDE 0.9% 1,000 ML 125 ML IV ×2 (12:46→21:06)
--- NOTE | 2017-10-14 13:08 | PM.CN ---
HPI Date Patient Seen: 10/14/17 Time Patient Seen: 13:11 Chief complaint: STOMACH PAIN Reason for consult: Atrial fibrillation Narrative: Past to see patient by Dr. Max. Patient had onset of atrial fibrillation earlier this morning. Para patient has no known history of atrial fibrillation. He is on diltiazem 300 mg daily he believes this for hypertension he does not recall have been told about atrial fibrillation. That he has had no chest pain no shortness of breath no palpitation. She since surgery has been lightheaded and dizzy yesterday he had problems with vertigo vertigo seemed to have improved today. He still is lightheaded. Additionally complains of nausea and fact has thrown up a couple times. He has not passed gas. He has also had urinary obstruction requiring catheter Has a history of hypertension for which she is on Cardizem. Additionally he has history of diabetes mellitus on 2 medications for that. Being evaluated and treated by urologist for metastatic prostate cancer. This relatively recent diagnosis and treatment. Has no history of cardiac problems in the past.. Initially patient was given Cardizem injection of 10 mg and started on infusion. This had no effect. He was then transferred to the ICU for further monitoring. Because he is vomiting and requiring NG tube he will be placed on IV medications FOR[facility] Medical History GI bleed (Acute) Glaucoma (Acute) Hypertension (Acute) Surgical History Hx of appendectomy (Acute) Family History Grandfather Diabetes mellitus Mother Diabetes mellitus Cancer Sister Age: 76 Cancer Sister Age: 69 Heart disease Social History household members: spouse Smoking Status: Former smoker alcohol intake: current Meds Home Medications Medication Instructions Recorded Confirmed Type bicalutamide 50 mg PO DAILY 10/12/17 10/12/17 History brinzolamide [Azopt] 2 drp EYE-LEFT BID 10/12/17 10/12/17 History dorzolamide-timolol 22.3 drp EYE-LEFT BEDTIME 10/12/17 10/12/17 History erythromycin 1 drp OPHTHALMIC (EYE) BEDTIME 10/12/17 10/12/17 History latanoprost 0.005 drp EYE-LEFT BEDTIME 10/12/17 10/12/17 History metformin 500 mg PO BID 10/12/17 10/12/17 History Generic Name Dose Route Start Last Admin Trade Name Freq PRN Reason Stop Dose Admin Bicalutamide 50 mg 10/12/17 20:00 10/13/17 16:44 Casodex PO 50 mg 1600 TILA Administration Dextrose 25 gm 10/13/17 15:00 D50w IV PRN PRN Hypoglycemia Protocol Diltiazem HCl 180 mg 10/14/17 09:00 10/14/17 08:59 Cardizem Cd PO 180 mg DAILY TILA Administration Diltiazem HCl 120 mg 10/14/17 09:00 10/14/17 08:59 Cardizem Cd PO 120 mg DAILY TILA Administration Glyburide 5 mg 10/13/17 17:00 10/14/17 13:20 Glyburide PO Not Given TIDWM TILA Sodium Chloride 1,000 mls @ 50 mls/hr 10/13/17 15:15 10/13/17 16:52 Normal Saline 0.9% IV 50 mls/hr CONT TILA Administration Ondansetron HCl 8 mg/ Sodium 54 mls @ 108 mls/hr 10/14/17 09:22 10/14/17 11:56 Chloride IV 108 mls/hr Q4H PRN Administration Nausea And Vomiting Diltiazem HCl 125 mg/ Dextrose 125 mls @ 5 mls/hr 10/14/17 10:15 10/14/17 10:25 IV 10 mg/hr TITRATE TILA 10 mls/hr Administration Protocol 5 MG/HR Sodium Chloride 1,000 mls @ 125 mls/hr 10/14/17 12:45 10/14/17 12:46 Normal Saline 0.9% IV 125 mls/hr CONT TILA Administration 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 S[employer]GER 6 mg in 30 mls @ 0 mls/hr 10/12/17 22:00 10/14/17 06:55 Dilaudid 6 Mg/30 Ml IV 0 mls/hr Q8HR TILA Administration Insulin Aspart 0 unit 10/13/17 16:30 10/14/17 12:32 Novolog Flexpen SUBCUT 1 unit ACHS TILA Administration Protocol Lisinopril 40 mg 10/12/17 21:00 10/14/17 08:57 Zestril PO 40 mg BID TILA Administration Metformin HCl 500 mg 10/13/17 17:00 10/14/17 10:08 Glucophage PO Not Given 0800,1700 TILA Metoclopramide HCl 5 mg 10/14/17 12:45 Reglan IV Q6HR PRN Nausea And Vomiting Metoprolol Tartrate 25 mg 10/14/17 12:04 10/14/17 13:21 Lopressor PO Not Given Q6HR TILA Metoprolol Tartrate 5 mg 10/14/17 13:00 Lopressor IV Q6H TILA Naloxone HCl 0.2 mg 10/13/17 14:45 Narcan IV Q2MIN PRN Opiate Reversal Non-Formulary Medication 0 each 10/13/17 16:36 Patient's Own Medication PO Q2HR PRN Nicotine Cravings Non-Formulary Medication 0 each 10/13/17 21:00 10/13/17 21:02 Patient's Own Medication EYE-LEFT Not Given BEDTIME TILA Non-Formulary Medication 0 each 10/13/17 21:00 10/13/17 21:02 Patient's Own Medication EYE-LEFT Not Given BEDTIME TILA Non-Formulary Medication 0 each 10/13/17 21:00 10/14/17 09:01 Patient's Own Medication EYE-LEFT 1 each BID TILA Administration Non-Formulary Medication 0 each 10/14/17 09:00 10/14/17 10:07 Patient's Own Medication PO Not Given DAILY TILA Ondansetron HCl 4 mg 10/14/17 09:10 Zofran IV Q4HR PRN Nausea And Vomiting Allergies Allergy/AdvReac Type Severity Reaction Status Date / Time aspirin [ASPIRIN] Allergy Severe gi bleed Verified 10/12/17 10:38 Review of Systems Review of Systems All systems reviewed & are unremarkable except as noted in HPI and below Exam Vital Signs (past 8 hours): Vital Signs - 8 hr 10/14/17 05:49 10/14/17 07:00 10/14/17 10:24 Temperature 98.6 F 98.3 F Pulse Rate 94 H 90 139 H Respiratory Rate 18 16 Blood Pressure 178/85 H 181/93 H Pulse Oximetry 91 91 10/14/17 10:25 10/14/17 10:37 Temperature 97.9 F Pulse Rate 155 H 155 H Respiratory Rate 17 Blood Pressure 115/68 136/104 H Pulse Oximetry 92 Pulse Oximetry 92 Oxygen Delivery Method Room Air Oxygen Flow Rate 0 Narrative Exam Narrative: His exam is initially this morning and is regular hospital bed appeared in no distress This afternoon seen in the ICU resting quietly in his bed complaining of nausea and lightheadedness when he sits up. Para he has had no significant abdominal discomfort he has not passed gas. He has had no chest pain no shortness of breath no palpitations Cardiac exam irregularly irregular rhythm about 130. Lungs are clear decreased breath sounds does not take a deep breath. Abdominal exam distended no bowel sounds heard. Drainage tube right upper quadrant. Forman catheter present Objective Labs Result Diagrams: 10/14/17 05:10/14/17 10:10 Labs: Laboratory Results - last 24 hr 10/14/17 10/14/17 10/14/17 05:26 05:26 10:10 WBC 11.5 H RBC 4.27 L Hgb 13.0 L Hct 38.9 L MCV 91.1 MCH 30.5 MCHC 33.5 RDW 13.9 Plt Count 214 Neut % (Auto) 77.6 H Lymph % (Auto) 13.5 L [place] % (Auto) 8.2 Eos % (Auto) 0.4 L Baso % (Auto) 0.3 Neut # (Auto) 8900 H PT 12.6 INR 1.2 Sodium 137 Potassium 3.4 Chloride 100.0 Carbon Dioxide 23.0 BUN 11.0 Creatinine 1.00 Estimated GFR > 60.0 BUN/Creatinine Ratio 11.0 Glucose 106 D Calcium 8.1 L Magnesium Total Bilirubin 1.0 AST 108 H ALT 125 H Alkaline Phosphatase 118 Total Creatine Kinase CK-MB (CK-2) CK-MB (CK-2) Rel Index Troponin I Total Protein 6.3 Albumin 3.4 L Globulin 2.9 Albumin/Globulin Ratio 1.2 Prostate Specific Ag Nasal Screen MRSA (PCR) 10/14/17 10/14/17 10:10 10:15 WBC RBC Hgb Hct MCV MCH MCHC RDW Plt Count Neut % (Auto) Lymph % (Auto) [place] % (Auto) Eos % (Auto) Baso % (Auto) Neut # (Auto) PT INR Sodium 133 L Potassium 3.5 Chloride 98.0 Carbon Dioxide 19.0 L BUN 11.0 Creatinine 0.90 Estimated GFR > 60.0 BUN/Creatinine Ratio 12.2 Glucose 171 H Calcium 8.5 Magnesium 1.7 Total Bilirubin 1.3 AST 96 H ALT 122 H Alkaline Phosphatase 142 H Total Creatine Kinase 426 H CK-MB (CK-2) 2.95 H CK-MB (CK-2) Rel Index 0.7 L Troponin I 0.050 H Total Protein 7.0 Albumin 3.9 Globulin 3.1 Albumin/Globulin Ratio 1.3 Prostate Specific Ag 21.200 H D Nasal Screen MRSA (PCR) Negative for mrsa Assessment & Plan (1) A-fib: Problem details: 1. Apparent new onset atrial fibrillation. Qualifiers: Atrial fibrillation type: unspecified Qualified Code(s): I48.91 - Unspecified atrial fibrillation Current visit: Yes Status: Acute 1. New onset atrial fibrillation. 2. Elevated troponin and CK. Concern being postop myocardial infarction. Troponin levels to be rechecked as well as echocardiogram 3. Unresponsive to intravenous Cardizem have switched to metoprolol 5 mg every 6 hr intravenously. With the intent of switching him to p.o.. 4. Presumed postop ileus patient seen by Dr. Max who placed an NG tube. 5. Diabetes mellitus will now be monitored by sliding scale and his insulin as needed.
[2017-10-14] MEDS: METOPROLOL TARTRATE 5 MG/5 ML INJ IV ×2 (13:22→18:43)
[2017-10-14] MEDS: ENOXAPARIN 40 MG/0.4 ML SYRINGE SUBCUT (14:59)
[2017-10-14 15:03] LABS: Troponin I 0.046 ng/mL (0.01-0.034)
--- NOTE | 2017-10-14 15:45 | PC.NURSE ---
Pt rec'd from acute care to room 102 at 1000. Bedside report received. Pt is AO and making needs known. Educated to need for ICU transfer. Called to MD. Reported pt condition, assessment findings, vs (see chart). Orders received and implemented. Updated pt on plan of care. He is anxious, but receptive and easily calms with careful explanation. Dr. Horton and Dr. Max rounded 1245. Discussed pt condition as well as recent emesis x2 unrelieved by anti nausea meds. VO received to place NGT. Pt tolerated well. Verified placement with XR and connected to LIS per verbal order. Pt converted to SR approx 1342. Dilt gtt weaned to off. Family at bedside updated on plan of care.
--- NOTE | 2017-10-14 18:15 | PM.PNPO.1 ---
Subjective Interval history: Mr. Massey is in reasonable spirits considering what he has been through overnight. He developed significant urinary retention and required placement of a Forman catheter. He subsequently developed atrial fibrillation with tachycardia and Dr. Horton has been kind enough to consult and manage that issue. He does not know if he has ever had AFib before and does not recall the reason he was started on diltiazem in the past. He denies any abdominal pain. He says he did not feel nauseated but vomited ???out of the blue???. He is belching quite a bit now but says he still does not feel nauseated. He is sitting up in bed relatively comfortable Date Patient Seen: 10/14/17 Time Patient Seen: 12:15 Exam Vital Signs (past 8 hours): Vital Signs - 8 hr 10/14/17 10:24 10/14/17 10:25 10/14/17 10:37 Temperature 97.9 F Pulse Rate 139 H 155 H 155 H Respiratory Rate 17 Blood Pressure 115/68 136/104 H Pulse Oximetry 92 10/14/17 11:10 10/14/17 13:10 10/14/17 13:30 Temperature Pulse Rate 113 H 118 H 127 H Respiratory Rate 15 20 26 H Blood Pressure 162/86 H 161/74 H 165/83 H Pulse Oximetry 92 89 L 94 10/14/17 14:00 10/14/17 14:30 10/14/17 15:37 Temperature 99.3 F Pulse Rate 69 73 76 Respiratory Rate 21 14 17 Blood Pressure 148/63 H 158/67 H 164/77 H Pulse Oximetry 94 95 95 10/14/17 15:41 Temperature Pulse Rate 74 Respiratory Rate 22 Blood Pressure 146/66 H Pulse Oximetry 94 Pulse Oximetry 94 Oxygen Delivery Method Room Air Oxygen Flow Rate 2 Narrative Exam Narrative: Good spirits. Not particularly ill appearing. Lungs: Somewhat decreased at the bases bilaterally Abdomen: Soft, appropriately tender, few bowel sounds. Right upper quadrant drain is serosanguineous. Extremities: No gross edema Objective Labs Result Diagrams: 10/14/17 05:26 10/14/17 10:10 Labs: Laboratory Results - last 24 hr 10/14/17 10/14/17 10/14/17 05:26 05:26 10:10 WBC 11.5 H RBC 4.27 L Hgb 13.0 L Hct 38.9 L MCV 91.1 MCH 30.5 MCHC 33.5 RDW 13.9 Plt Count 214 Neut % (Auto) 77.6 H Lymph % (Auto) 13.5 L [place] % (Auto) 8.2 Eos % (Auto) 0.4 L Baso % (Auto) 0.3 Neut # (Auto) 8900 H PT 12.6 INR 1.2 Sodium 137 Potassium 3.4 Chloride 100.0 Carbon Dioxide 23.0 BUN 11.0 Creatinine 1.00 Estimated GFR > 60.0 BUN/Creatinine Ratio 11.0 Glucose 106 D Calcium 8.1 L Magnesium Total Bilirubin 1.0 AST 108 H ALT 125 H Alkaline Phosphatase 118 Total Creatine Kinase CK-MB (CK-2) CK-MB (CK-2) Rel Index Troponin I Total Protein 6.3 Albumin 3.4 L Globulin 2.9 Albumin/Globulin Ratio 1.2 Prostate Specific Ag Nasal Screen MRSA (PCR) 10/14/17 10/14/17 10/14/17 10:10 10:15 14:30 WBC RBC Hgb Hct MCV MCH MCHC RDW Plt Count Neut % (Auto) Lymph % (Auto) [place] % (Auto) Eos % (Auto) Baso % (Auto) Neut # (Auto) PT INR Sodium 133 L Potassium 3.5 Chloride 98.0 Carbon Dioxide 19.0 L BUN 11.0 Creatinine 0.90 Estimated GFR > 60.0 BUN/Creatinine Ratio 12.2 Glucose 171 H Calcium 8.5 Magnesium 1.7 Total Bilirubin 1.3 AST 96 H ALT 122 H Alkaline Phosphatase 142 H Total Creatine Kinase 426 H CK-MB (CK-2) 2.95 H CK-MB (CK-2) Rel Index 0.7 L Troponin I 0.050 H 0.046 H Total Protein 7.0 Albumin 3.9 Globulin 3.1 Albumin/Globulin Ratio 1.3 Prostate Specific Ag 21.200 H D Nasal Screen MRSA (PCR) Negative for mrsa Assessment & Plan Post-op Postoperative Procedures One day status post lap choly for necrotizing cholecystitis. Imaging consistent with adynamic ileus. Some concern for bilateral lower lobe pneumonia. I will leave him on Zosyn and leave the drain in place today. Start Lovenox and leave SCDs in place for DVT prophylaxis. Labs and physical exam are reassuring. Continued supportive care and watchful waiting. Very much appreciate Dr. Horton management and assistance. Operation Date: 10/13/17 11:30 Actual Procedures Side Surgeon p Laparoscopic Cholecystectomy Jennifer Max MD Postoperative day: 1 Postoperative status: post-op ileus and urinary retention Time Spent With Patient 25 - 35 minutes
--- NOTE | 2017-10-14 18:20 | P.PN_ITS ---
Subjective Interval history: Mr. Massey is in reasonable spirits considering what he has been through overnight. He developed significant urinary retention and required placement of a Forman catheter. He subsequently developed atrial fibrillation with tachycardia and Dr. Horton has been kind enough to consult and manage that issue. He does not know if he has ever had AFib before and does not recall the reason he was started on diltiazem in the past. He denies any abdominal pain. He says he did not feel nauseated but vomited ?out of the blue?. He is belching quite a bit now but says he still does not feel nauseated. He is sitting up in bed relatively comfortable Date Patient Seen: 10/14/17 Time Patient Seen: 12:15 Exam Vital Signs (past 8 hours): Vital Signs - 8 hr 3 10/14/17 10:24 10/14/17 10:25 10/14/17 10:37 Temperature 97.9 F Pulse Rate 139 H 155 H 155 H Respiratory Rate 17 Blood Pressure 115/68 136/104 H Pulse Oximetry 92 3 10/14/17 11:10 10/14/17 13:10 10/14/17 13:30 Temperature Pulse Rate 113 H 118 H 127 H Respiratory Rate 15 20 26 H Blood Pressure 162/86 H 161/74 H 165/83 H Pulse Oximetry 92 89 L 94 3 10/14/17 14:00 10/14/17 14:30 10/14/17 15:37 Temperature 99.3 F Pulse Rate 69 73 76 Respiratory Rate 21 14 17 Blood Pressure 148/63 H 158/67 H 164/77 H Pulse Oximetry 94 95 95 3 10/14/17 15:41 Temperature Pulse Rate 74 Respiratory Rate 22 Blood Pressure 146/66 H Pulse Oximetry 94 Pulse Oximetry 94 Oxygen Delivery Method Room Air Oxygen Flow Rate 2 Narrative Exam Narrative: Good spirits. Not particularly ill appearing. Lungs: Somewhat decreased at the bases bilaterally Abdomen: Soft, appropriately tender, few bowel sounds. Right upper quadrant drain is serosanguineous. Extremities: No gross edema Objective Labs Result Diagrams: 10/14/17 05:26 10/14/17 10:10 Labs: Laboratory Results - last 24 hr 10/14/17 10/14/17 10/14/17 05:26 05:26 10:10 WBC 11.5 H RBC 4.27 L Hgb 13.0 L Hct 38.9 L MCV 91.1 MCH 30.5 MCHC 33.5 RDW 13.9 Plt Count 214 Neut % (Auto) 77.6 H Lymph % (Auto) 13.5 L [place] % (Auto) 8.2 Eos % (Auto) 0.4 L Baso % (Auto) 0.3 Neut # (Auto) 8900 H PT 12.6 INR 1.2 Sodium 137 Potassium 3.4 Chloride 100.0 Carbon Dioxide 23.0 BUN 11.0 Creatinine 1.00 Estimated GFR > 60.0 BUN/Creatinine Ratio 11.0 Glucose 106 D Calcium 8.1 L Magnesium Total Bilirubin 1.0 AST 108 H ALT 125 H Alkaline Phosphatase 118 Total Creatine Kinase CK-MB (CK-2) CK-MB (CK-2) Rel Index Troponin I Total Protein 6.3 Albumin 3.4 L Globulin 2.9 Albumin/Globulin Ratio 1.2 Prostate Specific Ag Nasal Screen MRSA (PCR) 10/14/17 10/14/17 10/14/17 10:10 10:15 14:30 WBC RBC Hgb Hct MCV MCH MCHC RDW Plt Count Neut % (Auto) Lymph % (Auto) [place] % (Auto) Eos % (Auto) Baso % (Auto) Neut # (Auto) PT INR Sodium 133 L Potassium 3.5 Chloride 98.0 Carbon Dioxide 19.0 L BUN 11.0 Creatinine 0.90 Estimated GFR > 60.0 BUN/Creatinine Ratio 12.2 Glucose 171 H Calcium 8.5 Magnesium 1.7 Total Bilirubin 1.3 AST 96 H ALT 122 H Alkaline Phosphatase 142 H Total Creatine Kinase 426 H CK-MB (CK-2) 2.95 H CK-MB (CK-2) Rel Index 0.7 L Troponin I 0.050 H 0.046 H Total Protein 7.0 Albumin 3.9 Globulin 3.1 Albumin/Globulin Ratio 1.3 Prostate Specific Ag 21.200 H D Nasal Screen MRSA (PCR) Negative for mrsa Assessment & Plan Post-op Postoperative Procedures One day status post lap choly for necrotizing cholecystitis. Imaging consistent with adynamic ileus. Some concern for bilateral lower lobe pneumonia. I will leave him on Zosyn and leave the drain in place today. Start Lovenox and leave SCDs in place for DVT prophylaxis. Labs and physical exam are reassuring. Continued supportive care and watchful waiting. Very much appreciate Dr. Horton management and assistance. Operation Date: 10/13/17 11:30 Actual Procedures Side Surgeon p Laparoscopic Cholecystectomy Jennifer Max MD Postoperative day: 1 Postoperative status: post-op ileus and urinary retention Time Spent With Patient 25 - 35 minutes
[2017-10-14 20:42] LABS: Troponin I 0.055 ng/mL (0.01-0.034)
--- NOTE | 2017-10-14 22:56 | PC.NURSE ---
2245 - Patient states that he is seeing ants on the bed when up to the commode. Remains alert and oriented, but insistent that he sees ants. Dr. Horton notified, see new order for ativan.
[2017-10-15] VITALS (11 sets, daily range): BP systolic 124–176; BP diastolic 53–94; PULSE 53–98; RESP 12–25; TEMP 37–37.6; O2SAT 92–95
[2017-10-15] MEDS: LORazepam 2 MG/ML SYRINGE 1 MG IV (00:13)
[2017-10-15] MEDS: METOPROLOL TARTRATE 5 MG/5 ML INJ IV ×3 (00:13→12:05)
[2017-10-15 04:47] LABS: Add Manual Diff / Slide Review NO; Basophils Percent Auto 0.6 % (0-2); Eosinophils Percent Auto 0.9 % (2-4); Hematocrit 34.7 % (41-53); Hemoglobin 11.8 g/dL (13.5-17.5); Lymphocytes Percent Auto 13.5 % (25-40); Mean Corpuscular Hemoglobin 30.7 PG (26-34); Mean Corpuscular Volume 90.2 fL (80-100); Monocytes Percent Auto 8.4 % (3-14); Neutrophils Absolute Auto 7500 /uL (3000-5900); Neutrophils Percent Auto 76.6 % (50-75); Platelet Count 224 X10^3/uL (150-400); Red Blood Cell Count 3.85 X10^6/uL (4.5-5.9); Red Cell Distribution Width 13.7 % (11.6-14.8); White Blood Cell Count 9.8 X10^3/uL (4.5-11.0)
[2017-10-15 04:56] LABS: BUN Creatinine Ratio 13.3 (6-22); Calcium 7.7 mg/dL (8.4-10.2); Estimated Glomerular Filt Rate > 60.0 mL/min (>60); Glucose 81 mg/dL (80-110); HEMOLYSIS < 15 (0-50); Potassium 3.1 mmol/L (3.4-5.1); Sodium 137 mmol/L (137-145)
[2017-10-15 05:08] LABS: Troponin I 0.058 ng/mL (0.01-0.034)
[2017-10-15] MEDS: SODIUM CHLORIDE 0.9% 1,000 ML 125 ML IV (05:18)
[2017-10-15] MEDS: 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 PCA 6 MG/30 ML PCA.VIAL IV ×2 (05:25→14:24)
[2017-10-15] MEDS: POTASSIUM CHLORIDE 40 MEQ in DEXTROSE 5%-0.9% NS 1,000 ML 150 MEQ IV ×3 (09:15→23:07)
[2017-10-15] MEDS: ENOXAPARIN 40 MG/0.4 ML SYRINGE SUBCUT (09:41)
--- NOTE | 2017-10-15 11:12 | PC.NURSE ---
VERBAL ORDER TAKEN BY DR. BOWEN TO REMOVE NGT- THIS WAS COMPLETED WITHOUT INCIDENT- 100ML DOCUMENTED ON I/O FORM
[2017-10-15] MEDS: METOCLOPRAMIDE 10 MG/2 ML INJ 5 MG IV ×2 (12:05→19:09)
[2017-10-15] MEDS: INSULIN ASPART 100 UNIT/ML INSULN PEN SUBCUT ×2 (12:05→19:09)
--- NOTE | 2017-10-15 12:09 | PT.IIE ---
Physical Therapy Inpatient Evaluation/Re-Eval M1 PT/OT-IP Prior Functional Status Start: 10/15/17 11:46 Freq: NEEDED Status: Active Protocol: Document 10/15/17 11:46 RS (Rec: 10/15/17 12:08 RS [id number]) Medical Review Prior Functional Status Medical History Reviewed Yes Communication no known deficits Mobility and Gait typically completely independent without AD, walks each morning for exercise Activities of Daily Living and IADL's typically is independent with all self care, drives. Social History Household Members spouse Living Arrangements House Number of Floors (Floors) 3 or More Floors Number of Stairs To Enter/Railing? 5STE w/ bilat rails, 12-24 steps inside also with bilat rails Home Environment Standard Height Toilet Tub/Shower Home Equipment Straight Cane Hand Held Shower Employment Status Retired M2 PT-IP Current Condition Start: 10/15/17 11:46 Freq: NEEDED Status: Active Protocol: Document 10/15/17 11:46 RS (Rec: 10/15/17 12:08 RS [id number]) Physical Therapy Current Condition Current Condition Evaluation Date 10/15/17 Treatment Diagnosis decreased activity tolerance s /p lap melany Onset Date 10/13/17 Post Operative Precautions Abdominal Surgery Precautions Log Roll Lifting Restrictions Gait Belt above Incisional Area M3 PT-IP Subjective Start: 10/15/17 11:46 Freq: NEEDED Status: Active Protocol: Document 10/15/17 11:46 RS (Rec: 10/15/17 12:08 RS [id number]) Subjective Physical Therapy Visit Type Type Initial Evaluation Visit Start Time 11:05 Visit Stop Time 11:46 Total Visit Minutes 41 Physical Therapy Visit Comments Patient Comments Pt unsure he wants to trial walking with being attached to so many things, needed encouragement to participate, but ultimately agreeable. Patient/Caregiver Goals go home tomorrow Therapy Pain Assessment Pain When Pain Assessed During Mobility Pain Present Pain Present Denied Pain M4 PT-IP Mobility and Gait Start: 10/15/17 11:46 Freq: NEEDED Status: Active Protocol: Document 10/15/17 11:46 RS (Rec: 10/15/17 12:08 RS [id number]) PT-Transfer Assessment Sit to and From Stand Sit to and from Stand Standby Assistance 1 Person Assistance Use of Upper Extremities Equipment Transfer Assistive Device Gait Belt Transfers Transfer Destination Bed Chair Transfer Technique Stand Step Pivot Transfer Ability Level of Assist Contact Guard Assistance 1 Person Assistance Comments Mobility Comments Pt able to transfer bed<>chair <>BSC without AD with CGA. Gait Assessment Gait Gait Assistance Required: Standby Assistance 1 Person Assist Distance (Feet) (feet) 150 Assistive Devices Assistive Device Gait Belt Front Wheeled Walker Gait Deviations General Gait Pattern Within Normal Limits Comments Gait Comments Pt likely could walk further than he did during this session, but activity was modified to account for this being the first time patient has walked since his surgery and he started with a HR in low 100s. No abnormal reaction to walking at all. PT-Balance Assessment Sitting Balance and Reactions Static Sitting Balance Ability Normal Dynamic Sitting Balance Ability Normal Standing Balance and Reactions Static Standing Balance Ability Normal Dynamic Standing Balance Ability Good Device Used FWW M5 PT-IP Objective Assessments Start: 10/15/17 11:46 Freq: NEEDED Status: Active Protocol: Document 10/15/17 11:46 RS (Rec: 10/15/17 12:08 [id number]) Orientation Orientation/Cognition Level of Alertness Alert Orientation Name Age Birthday Month Date Year Day of Week Place Situation Language Function Ability No Deficits Noted Safety Awareness Understands Safety Issues Memory Description No Deficits Noted Comments The one abnormality is that pt sees ants on his bed and on the floor. He knows they're not there but continues to see them. Gross Range of Motion Upper Extremity ROM Assessment Within Functional Limits Lower Extremity ROM Assessment Within Functional Limits Strength Upper Extremity Strength Assessment Within Functional Limits Lower Extremity Strength Assessment Within Functional Limits Comments Strength Comments strength testing is good, but pt does report feel weak/ fatigued by end of session. M6 PT-IP Treatment Start: 10/15/17 11:46 Freq: NEEDED Status: Active Protocol: Document 10/15/17 11:46 RS (Rec: 10/15/17 12:08 [id number]) Physical Therapy Treatment Education Post-Op Education Precautions Safety M7 PT-IP Assessment and Plan Start: 10/15/17 11:46 Freq: NEEDED Status: Active Protocol: Document 10/15/17 11:46 RS (Rec: 10/15/17 12:08 [id number]) PT Summary Assessment and Plan Potential Rehabilitation Potential Good Status of Condition at Evaluation Stable Summary Impairments Gait Activity Tolerance Goals Bed Mobility Goal Independent Transfer Goal Independent Gait Goal Independent Gait Distance 500 Other Goals ind up/down 24 steps w/ bilat rails Frequency of Treatment Frequency Of Treatment Once a Day Treatment Plan Physical Therapy Treatment Plan Bed Mobility Training Transfer Training Gait Training Other Recommendations and Next Treatment review abdominal precautions Focus and practice bed mobility Recommendations To Nursing Amount of Assist Needed Standby Assistance 1 Person Assist Discharge Recommendations PT Discharge Recommendations Home Visit Care Team Role Provider Type Trey Horton MD Family Provider Physician Other Providers Primary Care Provider Josh Dee DO Emergency Provider Physician Jennifer Max MD Admit Provider Physician Attending Provider Current Diagnoses Unspecified atrial fibrillation (10/12/17) Calculus of gallbladder with acute cholecystitis without obstruction (10/12/17) Medical History (Last Reviewed 10/14/17 @ 13:14 by Trey Horton MD) GI bleed (Acute) Glaucoma (Acute) Hypertension (Acute) Surgery Performed Operation Date: 10/13/17 11:30 Actual Procedures p Laparoscopic Cholecystectomy - Jennifer Max MD Surgical History (Last Reviewed 10/14/17 @ 13:14 by Trey Horton MD) Hx of appendectomy (Acute)
--- NOTE | 2017-10-15 12:15 | PM.PN.1 ---
Subjective Interval history: Much better spirits today. Reports he had 2 bowel movements overnight. One he was able to control and 1 he was not able to control. At any rate, he says his belly feels better. He denies any nausea. Exam Vital Signs (past 8 hours): Vital Signs - 8 hr 10/15/17 06:15 10/15/17 09:15 10/15/17 11:33 Temperature 99.3 F Pulse Rate 65 78 98 H Respiratory Rate 18 12 25 H Blood Pressure 154/64 H 160/79 H 176/92 H Pulse Oximetry 92 95 10/15/17 11:55 Temperature 98.8 F Pulse Rate Respiratory Rate Blood Pressure Pulse Oximetry Pulse Oximetry 95 Oxygen Delivery Method Nasal Cannula Oxygen Flow Rate 0 Narrative Exam Narrative: Elderly gentleman sitting up at the bedside reading and in no distress Abdomen: Distended and tympanic. Minimal tenderness to palpation. Incisions are all clean dry and intact. Right upper quadrant drain is serosanguineous. No bile in the drain. Objective Labs Result Diagrams: 10/15/17 04:30 10/15/17 04:30 Labs: Laboratory Results - last 24 hr 10/14/17 10/14/17 10/15/17 14:30 20:00 04:30 WBC RBC Hgb Hct MCV MCH MCHC RDW Plt Count Neut % (Auto) Lymph % (Auto) [place] % (Auto) Eos % (Auto) Baso % (Auto) Neut # (Auto) Sodium 137 Potassium 3.1 L Chloride 102.0 Carbon Dioxide 23.0 BUN 12.0 Creatinine 0.90 Estimated GFR > 60.0 BUN/Creatinine Ratio 13.3 Glucose 81 Calcium 7.7 L Troponin I 0.046 H 0.055 H 0.058 H 10/15/17 04:30 WBC 9.8 RBC 3.85 L Hgb 11.8 L Hct 34.7 L MCV 90.2 MCH 30.7 MCHC 34.0 RDW 13.7 Plt Count 224 Neut % (Auto) 76.6 H Lymph % (Auto) 13.5 L [place] % (Auto) 8.4 Eos % (Auto) 0.9 L Baso % (Auto) 0.6 Neut # (Auto) 7500 H Sodium Potassium Chloride Carbon Dioxide BUN Creatinine Estimated GFR BUN/Creatinine Ratio Glucose Calcium Troponin I Assessment & Plan Plan: Plan: Postop day 2 after cholecystectomy for necrotic disease. Heart rate is much better controlled and overall he looks much better. 1. Change Reglan to scheduled rather than as needed 2. Remove NG tube 3. Ambulate in the intensive care unit 4. Plan to remove right upper quadrant drain tomorrow if he continues to do well. 5. Appreciate Dr. Kemp help in management.
--- NOTE | 2017-10-15 12:18 | P.PN_ITS ---
Subjective Interval history: Much better spirits today. Reports he had 2 bowel movements overnight. One he was able to control and 1 he was not able to control. At any rate, he says his belly feels better. He denies any nausea. Exam Vital Signs (past 8 hours): Vital Signs - 8 hr 3 10/15/17 06:15 10/15/17 09:15 10/15/17 11:33 Temperature 99.3 F Pulse Rate 65 78 98 H Respiratory Rate 18 12 25 H Blood Pressure 154/64 H 160/79 H 176/92 H Pulse Oximetry 92 95 3 10/15/17 11:55 Temperature 98.8 F Pulse Rate Respiratory Rate Blood Pressure Pulse Oximetry Pulse Oximetry 95 Oxygen Delivery Method Nasal Cannula Oxygen Flow Rate 0 Narrative Exam Narrative: Elderly gentleman sitting up at the bedside reading and in no distress Abdomen: Distended and tympanic. Minimal tenderness to palpation. Incisions are all clean dry and intact. Right upper quadrant drain is serosanguineous. No bile in the drain. Objective Labs Result Diagrams: 10/15/17 04:30 10/15/17 04:30 Labs: Laboratory Results - last 24 hr 10/14/17 10/14/17 10/15/17 14:30 20:00 04:30 WBC RBC Hgb Hct MCV MCH MCHC RDW Plt Count Neut % (Auto) Lymph % (Auto) [place] % (Auto) Eos % (Auto) Baso % (Auto) Neut # (Auto) Sodium 137 Potassium 3.1 L Chloride 102.0 Carbon Dioxide 23.0 BUN 12.0 Creatinine 0.90 Estimated GFR > 60.0 BUN/Creatinine Ratio 13.3 Glucose 81 Calcium 7.7 L Troponin I 0.046 H 0.055 H 0.058 H 10/15/17 04:30 WBC 9.8 RBC 3.85 L Hgb 11.8 L Hct 34.7 L MCV 90.2 MCH 30.7 MCHC 34.0 RDW 13.7 Plt Count 224 Neut % (Auto) 76.6 H Lymph % (Auto) 13.5 L [place] % (Auto) 8.4 Eos % (Auto) 0.9 L Baso % (Auto) 0.6 Neut # (Auto) 7500 H Sodium Potassium Chloride Carbon Dioxide BUN Creatinine Estimated GFR BUN/Creatinine Ratio Glucose Calcium Troponin I Assessment & Plan Plan: Plan: Postop day 2 after cholecystectomy for necrotic disease. Heart rate is much better controlled and overall he looks much better. 1. Change Reglan to scheduled rather than as needed 2. Remove NG tube 3. Ambulate in the intensive care unit 4. Plan to remove right upper quadrant drain tomorrow if he continues to do well. 5. Appreciate Dr. Kemp help in management.
--- NOTE | 2017-10-15 12:45 | PM.PN.1 ---
Subjective Interval history: Much better spirits today. Reports he had 2 bowel movements overnight. One he was able to control and 1 he was not able to control. At any rate, he says his belly feels better. He denies any nausea. Tolerating NG tube No abdominal pain. No chest pain no shortness of breath no palpitation Exam Vital Signs (past 8 hours): Vital Signs - 8 hr 10/15/17 06:15 10/15/17 09:15 10/15/17 11:33 Temperature 99.3 F Pulse Rate 65 78 98 H Respiratory Rate 18 12 25 H Blood Pressure 154/64 H 160/79 H 176/92 H Pulse Oximetry 92 95 10/15/17 11:55 Temperature 98.8 F Pulse Rate Respiratory Rate Blood Pressure Pulse Oximetry Pulse Oximetry 95 Oxygen Delivery Method Nasal Cannula Oxygen Flow Rate 0 Narrative Exam Narrative: Exam today he is sitting up admitted better spirits annoyed with some of the tube discuss sticking out Lungs are clear heart has a regular rhythm no murmur gallop abdomen is benign bowel sounds are present nontender abdominal x-rays yesterday noncontributory Objective Labs Result Diagrams: 10/15/17 04:30 10/15/17 04:30 Labs: Laboratory Results - last 24 hr 10/14/17 10/14/17 10/15/17 14:30 20:00 04:30 WBC RBC Hgb Hct MCV MCH MCHC RDW Plt Count Neut % (Auto) Lymph % (Auto) [place] % (Auto) Eos % (Auto) Baso % (Auto) Neut # (Auto) Sodium 137 Potassium 3.1 L Chloride 102.0 Carbon Dioxide 23.0 BUN 12.0 Creatinine 0.90 Estimated GFR > 60.0 BUN/Creatinine Ratio 13.3 Glucose 81 Calcium 7.7 L Troponin I 0.046 H 0.055 H 0.058 H 10/15/17 04:30 WBC 9.8 RBC 3.85 L Hgb 11.8 L Hct 34.7 L MCV 90.2 MCH 30.7 MCHC 34.0 RDW 13.7 Plt Count 224 Neut % (Auto) 76.6 H Lymph % (Auto) 13.5 L [place] % (Auto) 8.4 Eos % (Auto) 0.9 L Baso % (Auto) 0.6 Neut # (Auto) 7500 H Sodium Potassium Chloride Carbon Dioxide BUN Creatinine Estimated GFR BUN/Creatinine Ratio Glucose Calcium Troponin I troponins have remained had approximately 0.05 Echocardiogram showed no evidence for cardiac disease ejection fraction approximately 65% there was no evidence for a myocardial infarction of any type old or new Assessment & Plan Plan: Plan: 1. Atrial fibrillation has resolved currently in sinus rhythm. Patient has received metoprolol tartrate 25 mg IV every 6 hr. When patient has NG tube pulled we will resume metoprolol but oral version thereof Will discontinue his Cardizem 2. Diabetes management is stable at this time on insulin coverage only presumably will resume oral medication once acute process has resolved. 3. Hypokalemia will be replaced with intravenous potassium as ordered. 4. Presumably continued need for a syn antibiotic nursing staff to discussed with Dr. Max. 5. Treatment for his metastatic prostate cancer then placed on hold again when Lucy NG tube was pulled he will resume his medications for same In ED get an follow-up see his urologist once she recuperated from current process
[2017-10-15] MEDS: LORazepam 2 MG/ML SYRINGE 0.5 MG IV (12:50)
--- NOTE | 2017-10-15 12:51 | P.PN_ITS ---
Subjective Interval history: Much better spirits today. Reports he had 2 bowel movements overnight. One he was able to control and 1 he was not able to control. At any rate, he says his belly feels better. He denies any nausea. Tolerating NG tube No abdominal pain. No chest pain no shortness of breath no palpitation Exam Vital Signs (past 8 hours): Vital Signs - 8 hr 3 10/15/17 06:15 10/15/17 09:15 10/15/17 11:33 Temperature 99.3 F Pulse Rate 65 78 98 H Respiratory Rate 18 12 25 H Blood Pressure 154/64 H 160/79 H 176/92 H Pulse Oximetry 92 95 3 10/15/17 11:55 Temperature 98.8 F Pulse Rate Respiratory Rate Blood Pressure Pulse Oximetry Pulse Oximetry 95 Oxygen Delivery Method Nasal Cannula Oxygen Flow Rate 0 Narrative Exam Narrative: Exam today he is sitting up admitted better spirits annoyed with some of the tube discuss sticking out Lungs are clear heart has a regular rhythm no murmur gallop abdomen is benign bowel sounds are present nontender abdominal x-rays yesterday noncontributory Objective Labs Result Diagrams: 10/15/17 04:30 10/15/17 04:30 Labs: Laboratory Results - last 24 hr 10/14/17 10/14/17 10/15/17 14:30 20:00 04:30 WBC RBC Hgb Hct MCV MCH MCHC RDW Plt Count Neut % (Auto) Lymph % (Auto) [place] % (Auto) Eos % (Auto) Baso % (Auto) Neut # (Auto) Sodium 137 Potassium 3.1 L Chloride 102.0 Carbon Dioxide 23.0 BUN 12.0 Creatinine 0.90 Estimated GFR > 60.0 BUN/Creatinine Ratio 13.3 Glucose 81 Calcium 7.7 L Troponin I 0.046 H 0.055 H 0.058 H 10/15/17 04:30 WBC 9.8 RBC 3.85 L Hgb 11.8 L Hct 34.7 L MCV 90.2 MCH 30.7 MCHC 34.0 RDW 13.7 Plt Count 224 Neut % (Auto) 76.6 H Lymph % (Auto) 13.5 L [place] % (Auto) 8.4 Eos % (Auto) 0.9 L Baso % (Auto) 0.6 Neut # (Auto) 7500 H Sodium Potassium Chloride Carbon Dioxide BUN Creatinine Estimated GFR BUN/Creatinine Ratio Glucose Calcium Troponin I troponins have remained had approximately 0.05 Echocardiogram showed no evidence for cardiac disease ejection fraction approximately 65% there was no evidence for a myocardial infarction of any type old or new Assessment & Plan Plan: Plan: 1. Atrial fibrillation has resolved currently in sinus rhythm. Patient has received metoprolol tartrate 25 mg IV every 6 hr. When patient has NG tube pulled we will resume metoprolol but oral version thereof Will discontinue his Cardizem 2. Diabetes management is stable at this time on insulin coverage only presumably will resume oral medication once acute process has resolved. 3. Hypokalemia will be replaced with intravenous potassium as ordered. 4. Presumably continued need for a Zosyn antibiotic nursing staff to discussed with Dr. Max. 5. Treatment for his metastatic prostate cancer then placed on hold again when Lucy NG tube was pulled he will resume his medications for same In ED get an follow-up see his urologist once she recuperated from current process
[2017-10-15 13:09] LABS: Troponin I 0.038 ng/mL (0.01-0.034)
--- NOTE | 2017-10-15 13:42 | PC.NURSE ---
increasing agitation noted over the course of the day- pt mentioned to PT (saulo) that he was still seeing bugs even tho he knew they weren't real-medicated with 0.5mg iv loraz and pt is resting peacefully at present
[2017-10-15] MEDS: LISINOPRIL 10 MG TABLET PO (19:07)
--- NOTE | 2017-10-15 20:55 | PC.NURSE ---
tiffanie note pt sleepy today. Had not used any pain meds as of 18:00. Lots of bowel tones, small amount of flatus. Abd distended and round.
[2017-10-15] MEDS: METOPROLOL ER 25 MG TABLET PO (22:06)
[2017-10-15] MEDS: LATANOPROST EYE-LEFT (22:08)
[2017-10-16] VITALS (13 sets, daily range): BP systolic 130–195; BP diastolic 88–104; PULSE 77–91; RESP 14–23; TEMP 36.4–37.6; O2SAT 94–97
[2017-10-16] MEDS: METOCLOPRAMIDE 10 MG/2 ML INJ 5 MG IV ×5 (00:33→23:42)
[2017-10-16] MEDS: POTASSIUM CHLORIDE 40 MEQ in DEXTROSE 5%-0.9% NS 1,000 ML 150 MEQ IV ×2 (05:53→16:36)
[2017-10-16] MEDS: INSULIN ASPART 100 UNIT/ML INSULN PEN SUBCUT ×2 (06:16→12:37)
[2017-10-16] MEDS: 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 PCA 6 MG/30 ML PCA.VIAL IV ×2 (07:21→15:22)
[2017-10-16] MEDS: METOPROLOL ER 25 MG TABLET PO ×2 (07:22→20:01)
[2017-10-16] MEDS: LISINOPRIL 10 MG TABLET PO (07:23)
--- NOTE | 2017-10-16 08:46 | P.PN_ITS ---
Subjective Interval history: Much better spirits today. Reports he had 2 bowel movements overnight. One he was able to control and 1 he was not able to control. At any rate, he says his belly feels better. He denies any nausea. Tolerating NG tube No abdominal pain. No chest pain no shortness of breath no palpitation Today on Saturday feeling much better wanting some the drink really has no complaints no nausea tolerating being without the NG tube well. Having some frequent stools mostly is just September. Exam Vital Signs (past 8 hours): Vital Signs - 8 hr 3 10/16/17 04:07 10/16/17 07:22 10/16/17 07:23 Temperature 97.7 F Pulse Rate 78 80 83 Respiratory Rate 14 Blood Pressure 183/88 H 195/100 H 195/100 H Pulse Oximetry 94 3 10/16/17 07:30 Temperature 99.6 F Pulse Rate 85 Respiratory Rate 23 Blood Pressure 195/100 H Pulse Oximetry 95 Pulse Oximetry 95 Oxygen Delivery Method Room Air Oxygen Flow Rate 0 Narrative Exam Narrative: Exam today sitting up in his chair smiling appears his usual self. Lungs clear heart regular rhythm about 80 abdominal exam soft para blood pressures noted and has been persistently elevated Chem BGs have been in the appropriate range requiring very minimal insulin presumably he will need to resume his medications when he start taking oral Objective Labs Result Diagrams: 10/15/17 04:30 10/15/17 04:30 Labs: Laboratory Results - last 24 hr 10/15/17 12:35 Troponin I 0.038 H Today's labs pending Troponin has decreased Echocardiogram is reviewed again and was totally normal Assessment & Plan (1) Hypertension: Current visit: Yes Status: Acute 1. Atrial fibrillation resolved currently on low-dose beta-kayce he will be continued on this as an outpatient. We have discontinued his Cardizem and hopefully control his atrial fibrillation with metoprolol only. 2. Hypertension needs more management we will resume his pre-admission lisinopril dose of 40 mg twice a day anticipating being discharged on this as outpatient. 3. Troponin is decreased echocardiogram normal presumably had stress ischemia side. Really no evidence for any type of myocardial infarction. 4. Status post cholecystectomy doing well white blood cell count is normal he has not been on antibiotics postop. 5. BPH of will going to be pulling his [place] today made need to be resumed yet to be determined 6. Prostate cancer we will resume his oral medications. Apparently has a appointment with urologist next week to resume his Lupron injections details of this are unknown to me 6. Discharge finding forthcoming he needs to be out of bed and move for him go home
[2017-10-16] MEDS: LISINOPRIL 10 MG TABLET 30 MG PO (09:01)
[2017-10-16] MEDS: ENOXAPARIN 40 MG/0.4 ML SYRINGE SUBCUT (09:04)
[2017-10-16 11:14] LABS: Add Manual Diff / Slide Review NO; Basophils Percent Auto 0.5 % (0-2); Eosinophils Percent Auto 1.4 % (2-4); Hematocrit 39.6 % (41-53); Hemoglobin 13.2 g/dL (13.5-17.5); Lymphocytes Percent Auto 18.8 % (25-40); Mean Corpuscular HGB Conc 33.4 % (30-36); Mean Corpuscular Hemoglobin 30.4 PG (26-34); Monocytes Percent Auto 9.4 % (3-14); Neutrophils Absolute Auto 5900 /uL (3000-5900); Neutrophils Percent Auto 69.9 % (50-75); Platelet Count 305 X10^3/uL (150-400); Red Blood Cell Count 4.35 X10^6/uL (4.5-5.9); Red Cell Distribution Width 13.9 % (11.6-14.8); White Blood Cell Count 8.5 X10^3/uL (4.5-11.0)
--- NOTE | 2017-10-16 12:17 | PT.IPTN ---
Current Diagnoses Essential (primary) hypertension (10/12/17) Unspecified atrial fibrillation (10/12/17) Calculus of gallbladder with acute cholecystitis without obstruction (10/12/17) Surgery Performed Operation Date: 10/13/17 11:30 Actual Procedures p Laparoscopic Cholecystectomy - Jennifer Max MD Physical Therapy Treatment Note M2 PT-IP Current Condition Start: 10/15/17 11:46 Freq: NEEDED Status: Active Protocol: Document 10/15/17 11:46 RS (Rec: 10/15/17 12:08 RS [id number]) Physical Therapy Current Condition Current Condition Evaluation Date 10/15/17 Treatment Diagnosis decreased activity tolerance s /p lap melany Onset Date 10/13/17 Post Operative Precautions Abdominal Surgery Precautions Log Roll Lifting Restrictions Gait Belt above Incisional Area M3 PT-IP Subjective Start: 10/15/17 11:46 Freq: NEEDED Status: Active Protocol: Document 10/16/17 12:12 [facility] (Rec: 10/16/17 12:17 [facility] [id number]) Subjective Physical Therapy Visit Type Type Discharge Summary Visit Start Time 10:00 Visit Stop Time 10:20 Total Visit Minutes 20 Number of KNIFE EDGER Visits 0 Physical Therapy Visit Comments Patient Comments Reports he has done a couple walks with nursing today. M4 PT-IP Mobility and Gait Start: 10/15/17 11:46 Freq: NEEDED Status: Active Protocol: Document 10/16/17 12:12 [facility] (Rec: 10/16/17 12:17 [facility] [id number]) PT-Transfer Assessment Sit to and From Stand Sit to and from Stand Standby Assistance Use of Upper Extremities Gait Assessment Gait Gait Assistance Required: Standby Assistance Distance (Feet) (feet) 200 Assistive Devices Assistive Device None Gait Belt Orthotic/Prosthetic Devices or Brace: No Gait Deviations General Gait Pattern Decreased Stride Length Comments Gait Comments Pt improved with gait pattern with inc distance of amb. Slightly dec stride length B but equal strides and no LOB with gait. Stair Climbing Assessment Evaluation Level of Assist On Stairs Standby Assistance Devices Stair Climbing Assistive Devices Left Railing Technique/Endurance Stair Climbing Direction Ascend and Descend Number of Steps Climbed 12 Query Text: Comments Stair Climbing Comments Pt used single step with rail and was able to ascend and descend w/BLEs PT-Balance Assessment Sitting Balance and Reactions Static Sitting Balance Ability Normal Dynamic Sitting Balance Ability Normal Standing Balance and Reactions Static Standing Balance Ability Normal Dynamic Standing Balance Ability Normal M5 PT-IP Objective Assessments Start: 10/15/17 11:46 Freq: NEEDED Status: Active Protocol: Document 10/16/17 12:12 [facility] (Rec: 10/16/17 12:17 [facility] [id number]) Orientation Orientation/Cognition Level of Alertness Alert M6 PT-IP Treatment Start: 10/15/17 11:46 Freq: NEEDED Status: Active Protocol: Document 10/15/17 11:46 RS (Rec: 10/15/17 12:08 RS [id number]) Physical Therapy Treatment Education Post-Op Education Precautions Safety M7 PT-IP Assessment and Plan Start: 10/15/17 11:46 Freq: NEEDED Status: Active Protocol: Document 10/16/17 12:12 [facility] (Rec: 10/16/17 12:17 [facility] [id number]) PT Summary Assessment and Plan Summary Progress Towards Goals Progressing Toward Goals Safe For Discharge Assessment Summary Pt is doing well with his mobility and is SBA. He has been ambulating with nursing and can cont with nursing amb plan. D/C from PT
[2017-10-16 12:20] LABS: Alanine Aminotransferase 67 IU/L (21-72); Albumin 3.5 g/dL (3.5-5.0); Albumin Globulin Ratio 1.3 (1.0-2.8); Alkaline Phosphatase 122 U/L (38-126); Aspartate Aminotransferase 40 IU/L (17-59); Bilirubin Total 0.7 mg/dL (0.2-1.3); Calcium 8.9 mg/dL (8.4-10.2); Estimated Glomerular Filt Rate > 60.0 mL/min (>60); Globulin 2.7 g/dL (1.7-4.1); Glucose 135 mg/dL (80-110); HEMOLYSIS < 15 (0-50); Potassium 4.4 mmol/L (3.4-5.1); Sodium 140 mmol/L (137-145); Total Protein 6.2 g/dL (6.3-8.2)
[2017-10-16] MEDS: BICALUTAMIDE 50 MG TABLET PO (16:35)
--- NOTE | 2017-10-16 17:24 | PM.PN.1 ---
Subjective Interval history: Much better spirits today. Reports he had 2 bowel movements overnight. One he was able to control and 1 he was not able to control. At any rate, he says his belly feels better. He denies any nausea. Tolerating NG tube No abdominal pain. No chest pain no shortness of breath no palpitation Tolerated clear liquids for several without difficulty and drain has been removed Exam Vital Signs (past 8 hours): Vital Signs - 8 hr 10/16/17 12:40 10/16/17 15:47 Temperature 98.6 F 97.6 F Pulse Rate 87 91 H Respiratory Rate 20 20 Blood Pressure 186/98 H 182/104 H Pulse Oximetry 94 97 Pulse Oximetry 97 Oxygen Delivery Method Room Air Oxygen Flow Rate 0 Narrative Exam Narrative: A sitting up talking in no distress Abdomen: Soft, still somewhat distended, active bowel sounds. Incisions are all clean dry and intact. No erythema Objective Labs Result Diagrams: 10/16/17 11:00 10/16/17 11:00 Labs: Laboratory Results - last 24 hr 10/16/17 10/16/17 11:00 11:00 WBC 8.5 RBC 4.35 L Hgb 13.2 L Hct 39.6 L MCV 91.0 MCH 30.4 MCHC 33.4 RDW 13.9 Plt Count 305 Neut % (Auto) 69.9 Lymph % (Auto) 18.8 L [place] % (Auto) 9.4 Eos % (Auto) 1.4 L Baso % (Auto) 0.5 Neut # (Auto) 5900 Sodium 140 Potassium 4.4 D Chloride 102.0 Carbon Dioxide 26.0 BUN 8.0 L Creatinine 1.00 Estimated GFR > 60.0 BUN/Creatinine Ratio 8.0 Glucose 135 H Calcium 8.9 Total Bilirubin 0.7 AST 40 ALT 67 Alkaline Phosphatase 122 Total Protein 6.2 L Albumin 3.5 Globulin 2.7 Albumin/Globulin Ratio 1.3 Assessment & Plan Plan: Plan: Heart rate is controlled and everything else is moving in the right direction. As long as he does not have any nausea tonight, he can have a regular diet in the morning. He will likely be ready for discharge from a surgical perspective in the morning
[2017-10-16] MEDS: LATANOPROST EYE-LEFT (20:00)
[2017-10-16] MEDS: LISINOPRIL 20 MG TABLET 40 MG PO (20:01)
[2017-10-17 00:09] VITALS: BP 154/67; PULSE 59; RESP 18; TEMP 36.7; O2SAT 96
[2017-10-17 05:09] VITALS: BP 169/95; PULSE 67; RESP 18; TEMP 35.9; O2SAT 96
[2017-10-17] MEDS: 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 PCA 6 MG/30 ML PCA.VIAL IV (06:13)
[2017-10-17] MEDS: METOCLOPRAMIDE 10 MG/2 ML INJ 5 MG IV (06:15)
[2017-10-17] MEDS: POTASSIUM CHLORIDE 40 MEQ in DEXTROSE 5%-0.9% NS 1,000 ML 150 MEQ IV (07:16)
[2017-10-17 07:36] VITALS: BP 152/105; PULSE 56; RESP 18; TEMP 37; O2SAT 94
[2017-10-17 08:24] VITALS: BP 183/101
[2017-10-17] MEDS: LISINOPRIL 20 MG TABLET 40 MG PO (08:24)
[2017-10-17] MEDS: ENOXAPARIN 40 MG/0.4 ML SYRINGE SUBCUT (08:24)
[2017-10-17] MEDS: METOPROLOL ER 25 MG TABLET PO (08:25)
--- NOTE | 2017-10-17 08:53 | PM.PN.1 ---
Subjective Interval history: Much better spirits today. Reports he had 2 bowel movements overnight. One he was able to control and 1 he was not able to control. At any rate, he says his belly feels better. He denies any nausea. Tolerating NG tube No abdominal pain. No chest pain no shortness of breath no palpitation Tolerated clear liquids for several without difficulty and drain has been removed Patient feeling much better. Having full meal this morning/much. Having bowel movements normal urine tolerating med of ambulation minimally still somewhat weak to seeing being discharged sometime today Date Patient Seen: 10/17/17 Time Patient Seen: 08:53 Exam Vital Signs (past 8 hours): Vital Signs - 8 hr 10/17/17 05:09 10/17/17 07:36 10/17/17 08:24 Temperature 96.7 F L 98.6 F Pulse Rate 67 56 L Respiratory Rate 18 18 Blood Pressure 169/95 H 152/105 H 183/101 H Pulse Oximetry 96 94 Pulse Oximetry 94 Oxygen Delivery Method Room Air Oxygen Flow Rate 0 Narrative Exam Narrative: Exam today looks well lungs clear heart regular rhythm no murmur gallop Abdominal exam benign. His heart rhythm has been sinus rhythm paragraphs blood pressure better controlled And diabetes management has been well controlled Objective Labs Result Diagrams: 10/16/17 11:00 10/16/17 11:00 Labs: Laboratory Results - last 24 hr 10/16/17 10/16/17 11:00 11:00 WBC 8.5 RBC 4.35 L Hgb 13.2 L Hct 39.6 L MCV 91.0 MCH 30.4 MCHC 33.4 RDW 13.9 Plt Count 305 Neut % (Auto) 69.9 Lymph % (Auto) 18.8 L [place] % (Auto) 9.4 Eos % (Auto) 1.4 L Baso % (Auto) 0.5 Neut # (Auto) 5900 Sodium 140 Potassium 4.4 D Chloride 102.0 Carbon Dioxide 26.0 BUN 8.0 L Creatinine 1.00 Estimated GFR > 60.0 BUN/Creatinine Ratio 8.0 Glucose 135 H Calcium 8.9 Total Bilirubin 0.7 AST 40 ALT 67 Alkaline Phosphatase 122 Total Protein 6.2 L Albumin 3.5 Globulin 2.7 Albumin/Globulin Ratio 1.3 Assessment & Plan (1) Type 2 diabetes mellitus without complication: Current visit: Yes Status: Acute Plan: Plan: 1. Patient medically stable for discharge. 2. Medical issues are 1. Atrial fibrillation patient is on metoprolol succinate 25 mg twice a day has been successful in staying in sinus rhythm he will continue on this indefinitely. 2. Hypertension. Blood pressure is being controlled minimally at this time resuming his lisinopril 40 mg twice a day this was just started yesterday so is too soon to call blood pressure has improved and presumably will improve upon discharge. Para 3. Diabetes mellitus he has not required any of his medications primarily because he has been NPO. Had he had been on 2 medications for his diabetes we will resume glyburide 5 mg at twice a day program as opposed to 3 times a day expecting to resume his baseline medications when he resumes his lifestyle per his usual. 3. Metastatic prostate cancer has resumed his Casodex heel presumably get another injection of Lupron next week when he sees his urologist 4. Postop coli as per Dr. Max
[2017-10-17 09:35] VITALS: PULSE 75
[2017-10-17] MEDS: glyBURIDE 5 MG TABLET PO (10:00)
[2017-10-17 11:53] LABS: Calcium 8.4 mg/dL (8.4-10.2); Estimated Glomerular Filt Rate > 60.0 mL/min (>60); Glucose 171 mg/dL (80-110); HEMOLYSIS < 15 (0-50); Potassium 4.6 mmol/L (3.4-5.1); Sodium 137 mmol/L (137-145)
[2017-10-17 12:22] VITALS: BP 167/107; PULSE 86; RESP 20; TEMP 37.2; O2SAT 95
--- NOTE | 2017-10-17 12:47 | PM.DS.1 ---
History of Present Illness Chief complaint: STOMACH PAIN Narrative: Marek Massey is a 82 year old male who was admitted with acute cholecystitis and cholelithiasis. He was taken to the operating room where he underwent a laparoscopic cholecystectomy. Discharge Providers Date of admission: 10/12/17 16:45 Primary care physician: Trey Horton MD Consults: 10/14/17 10:09 Consult to Physician Routine Comment: Consulting Provider: Trey Horton Reason for consultation: CARDIAC ISSUES Has provider been notified: Yes 10/15/17 08:31 Consult to Physical Therapy Evaluate & Treat Comment: oob Physician Instructions: Evaluate and Treat Discharge provider: Jennifer Max MD Summary Discharge Diagnosis: 1. Necrotizing cholecystitis with cholelithiasis 2. Atrial fibrillation with tachycardia 3. Metastatic prostate cancer 4. Diabetes 5. Hypertension Hospital Course: Approximately 12 hr following operative intervention, the patient was noted to be tachycardic in atrial fibrillation. Dr. Menezes was consulted and he was transferred to the intensive care unit. Laboratory values and films were reassuring. Films were consistent with an ileus pattern and an NG tube was placed for short period of time. Bowel function began to return and Dr. Horton alter the patient's medications to control his rate and rhythm. Today, the patient is eating a regular diet without difficulty. He denies any pain and has not taken any pain medicine in quite some time. He desires discharge so that he can go to his cabin in [facility] [place]. Status at Discharge Functional status at discharge: independent ambulation Overall status at discharge: patient is progressing back to baseline Time Spent with Patient Less than 30 minutes Exam Vital Signs (past 8 hours): Vital Signs - 8 hr 10/17/17 05:09 10/17/17 07:36 10/17/17 08:24 Temperature 96.7 F L 98.6 F Pulse Rate 67 56 L Respiratory Rate 18 18 Blood Pressure 169/95 H 152/105 H 183/101 H Pulse Oximetry 96 94 10/17/17 09:35 10/17/17 12:22 Temperature 98.9 F Pulse Rate 75 86 Respiratory Rate 20 Blood Pressure 167/107 H Pulse Oximetry 95 Pulse Oximetry 95 Oxygen Delivery Method Room Air Oxygen Flow Rate 0 Narrative Exam Narrative: Very pleasant gentleman in no distress. He is eating lunch and denies any discomfort HEENT: Normocephalic and atraumatic, pupils equal round reactive to light and accommodation with anicteric sclera. Lungs: Clear to auscultation bilaterally Heart: Regular rate and rhythm without murmur or gallop. Sinus rhythm currently Abdomen: Soft, minimal tenderness to palpation. All incisions are well approximated without erythema or drainage drain had been removed and the puncture site is closing. Extremities: Warm and well-perfused. No edema Objective Labs Result Diagrams: 10/16/17 11:00 10/17/17 11:05 Labs: Laboratory Results - last 24 hr 10/17/17 11:05 Sodium 137 Potassium 4.6 Chloride 101.0 Carbon Dioxide 27.0 BUN 9.0 Creatinine 1.00 Estimated GFR > 60.0 BUN/Creatinine Ratio 9.0 Glucose 171 H Calcium 8.4 Discharge Plan Discharge Plan Patient Disposition: Home, Self-Care Discharge comment: Patient going to his cabin in [facility]. He is to call the office for any problems or questions Provider Discharge Instructions Diet: Diet as Tolerated Activity: Do not lift more than 15 pounds for at least 3 months. You may shower as desired. Do not soak in water for at least 1 week. Wound Care Report to your healthcare provider any signs of infection, such as:: chills, fever, night sweats, increased pain and unusual drainage Discharge Data Primary Care Provider: Trey Horton Attending Provider: Jennifer Max Admit Date/Time: 10/12/17 16:45
--- NOTE | 2017-10-17 13:42 | PC.NURSE ---
discharge instructions reviewed with pt. pt dc'd home and used [employer].
== END 2017-10-17 13:30 | disposition home or self-care (01) | DRG 418 ==
LOC: ED 16:19 → AC 16:49 → ICU 10-14 11:21
PROVIDERS: Admitting Provider Surgery; Emergency Provider Emergency Medicine; Family Provider Family Medicine; PCP Family Medicine; Visit Provider Surgery
PROC: 0FT44ZZ Resection of Gallbladder, Percutaneous Endoscopic Approach (ICD-10-PCS; CPT 47562; principal; 2017-10-13 11:30)
DX: K80.00 Calculus of gallbladder with acute cholecystitis without obstruction (principal); C79.51 Secondary malignant neoplasm of bone; K56.0 Paralytic ileus; C61 Malignant neoplasm of prostate; Z87.891 Personal history of nicotine dependence; I48.91 Unspecified atrial fibrillation; I10 Essential (primary) hypertension; R33.9 Retention of urine, unspecified; R11.2 Nausea with vomiting, unspecified; E11.9 Type 2 diabetes mellitus without complications; Z79.84 Long term (current) use of oral hypoglycemic drugs; E87.6 Hypokalemia
CPT/HCPCS: 36415; 36591; 74022; 74177; 76705; 80048; 80053; 81001; 82550; 82553; 82962; 83690; 83735; 84153; 84484; 85025; 85610; 87797; 88304; 93005; 93306; 94762; 96361; 96374; 96375; 96376; 97116; 97161; 99283; 99285; J0330; J1170; J1650; J1885; J2060; J2405; J2543; J2704; J2765; J3010; J3480; Q9967

== ENCOUNTER → 2018-04-22 10:46 | Outpatient (CLI) | payer MEDICARE, OTHER, SELFPAY ==
[2017-10-12 17:16] VITALS: BMI 28.0
[2018-04-22 11:12] LABS: Add Manual Diff / Slide Review NO; Basophils Percent Auto 1.4 % (0-2); Hematocrit 39.1 % (41-53); Hemoglobin 13.2 g/dL (13.5-17.5); Lymphocytes Percent Auto 27.9 % (25-40); Mean Corpuscular HGB Conc 33.7 % (30-36); Mean Corpuscular Hemoglobin 31.2 PG (26-34); Mean Corpuscular Volume 92.6 fL (80-100); Monocytes Percent Auto 7.9 % (3-14); Neutrophils Absolute Auto 5900 /uL (3000-5900); Neutrophils Percent Auto 61.8 % (50-75); Platelet Count 310 X10^3/uL (150-400); Red Blood Cell Count 4.22 X10^6/uL (4.5-5.9); Red Cell Distribution Width 13.5 % (11.6-14.8); White Blood Cell Count 9.6 X10^3/uL (4.5-11.0)
[2018-04-22 11:27] LABS: Alanine Aminotransferase 18 IU/L (21-72); Albumin 4.5 g/dL (3.5-5.0); Albumin Globulin Ratio 1.9 (1.0-2.8); Alkaline Phosphatase 54 U/L (38-126); Aspartate Aminotransferase 18 IU/L (17-59); Bilirubin Total 0.5 mg/dL (0.2-1.3); Blood Urea Nitrogen 18 mg/dL (9-20); Calcium 9.1 mg/dL (8.4-10.2); Carbon Dioxide 22 mmol/L (22-32); Chloride 102 mmol/L (98-107); Estimated Glomerular Filt Rate 44.7 mL/min (>60); Globulin 2.4 g/dL (1.7-4.1); Glucose 146 mg/dL (80-110); HEMOLYSIS < 15 (0-50); Potassium 4.5 mmol/L (3.4-5.1); Sodium 140 mmol/L (137-145); Total Protein 6.9 g/dL (6.3-8.2)
[2018-04-22 11:56] LABS: Prostate Specific Antigen 0.113 ng/mL (0.10-4.00)
== END ==
PROVIDERS: Family Provider Family Medicine; PCP Family Medicine; Visit Provider Internal Medicine Hematology & Oncology
DX: C61 Malignant neoplasm of prostate (principal); C79.51 Secondary malignant neoplasm of bone
CPT/HCPCS: 36415; 80053; 84153; 84403; 85025

== ENCOUNTER → 2018-07-14 13:48 | Outpatient (CLI) | payer MEDICARE, OTHER, SELFPAY ==
[2017-10-12 17:16] VITALS: BMI 28.0
[2018-07-14 14:31] LABS: Alanine Aminotransferase 23 IU/L (21-72); Albumin 4.5 g/dL (3.5-5.0); Albumin Globulin Ratio 1.6 (1.0-2.8); Alkaline Phosphatase 66 U/L (38-126); Aspartate Aminotransferase 19 IU/L (17-59); BUN Creatinine Ratio 14.2 (6-22); Bilirubin Total 0.4 mg/dL (0.2-1.3); Blood Urea Nitrogen 17 mg/dL (9-20); Calcium 9.3 mg/dL (8.4-10.2); Carbon Dioxide 24 mmol/L (22-32); Chloride 100 mmol/L (98-107); Estimated Glomerular Filt Rate 57.8 mL/min (>60); Globulin 2.9 g/dL (1.7-4.1); Glucose 154 mg/dL (80-110); HEMOLYSIS < 15 (0-50); Potassium 4.2 mmol/L (3.4-5.1); Sodium 138 mmol/L (137-145); Total Protein 7.4 g/dL (6.3-8.2)
[2018-07-14 15:02] LABS: Prostate Specific Antigen < 0.064 ng/mL (0.10-4.00)
[2018-07-14 15:04] LABS: Testosterone 24.2 ng/dL (71.8-623)
[2018-07-14 15:51] LABS: Add Manual Diff / Slide Review NO; Basophils Absolute Auto 100 /uL (0-100); Basophils Percent Auto 0.5 % (0-2); Eosinophils Absolute Auto 600 /uL (0-450); Eosinophils Percent Auto 6.4 % (2-4); Hematocrit 40.4 % (41-53); Hemoglobin 13.2 g/dL (13.5-17.5); Lymphocytes Absolute Auto 2300 /uL (1100-4500); Mean Corpuscular HGB Conc 32.7 % (30-36); Mean Corpuscular Hemoglobin 30.1 PG (26-34); Mean Corpuscular Volume 92.2 fL (80-100); Monocytes Absolute Auto 1000 /uL (0-900); Monocytes Percent Auto 9.9 % (3-14); Neutrophils Absolute Auto 5900 /uL (1500-7000); Neutrophils Percent Auto 60.2 % (50-75); Platelet Count 307 X10^3/uL (150-400); Red Blood Cell Count 4.39 X10^6/uL (4.5-5.9); Red Cell Distribution Width 13.2 % (11.6-14.8); White Blood Cell Count 9.8 X10^3/uL (4.5-11.0)
--- NOTE | 2018-07-14 16:32 | PC.NURSE ---
labs stable, sees provider 07/17
== END ==
PROVIDERS: Family Provider Family Medicine; PCP Family Medicine; Visit Provider Internal Medicine Hematology & Oncology
DX: C61 Malignant neoplasm of prostate (principal); C79.51 Secondary malignant neoplasm of bone
CPT/HCPCS: 36415; 80053; 84153; 84403; 85025

== ENCOUNTER → 2018-09-01 09:41 | Outpatient (CLI) | payer MEDICARE, OTHER, SELFPAY ==
[2017-10-12 17:16] VITALS: BMI 28.0
--- NOTE | 2018-09-01 09:43 | DI.NM.S_ITS ---
PROCEDURE: CT BONE SCAN WHOLE BODY RADIOPHARMACEUTICAL: 21.3 mCi Tc-99m MDP IV. INDICATIONS: metastatic prostate cancer TECHNIQUE: Delayed whole-body scintigrams were obtained approximately 3-4 hours after intravenous injection of radiotracer. Anterior and posterior views were acquired from vertex to feet. Additional left and right oblique views of the pelvis were obtained. COMPARISON: [place], [place], BONE SCAN WHOLE BODY, 09/12/2017, 13:11. FINDINGS: In the right mastoid region with reference to the prior study from August last year there has been a reduction in isotope asymmetric uptake, potentially a manifestation of resolving metastatic disease or mastoiditis. Odontogenic isotope uptake is noted at the right maxilla and mandible, mild in severity. At the low cervical spine degenerative changes appear stable over time and there is again noted to be asymmetric increased isotope uptake at the sternal clavicular articulations greater on the right than the left. 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 Metastatic disease at the humeral head/neck junction at the left humerus has prominently improved. Posterior imaging shows reduction of isotope uptake at the medial border of the right fourth rib and the posterior border of the right sixth rib at the medial aspect of the left eighth rib a focus of isotope uptake previously present has also markedly improved. A vertebral body area of abnormal uptake, metastatic in appearance, at the ninth vertebral body area has also markedly improved with only a mild degree of residual uptake access. IMPRESSION: Overall there has been a significant interval improvement in the degree of osseous metastatic disease previously present in August. No definite new focus of abnormal isotope deposition is found. Superimposed degenerative changes and asymmetric right mastoid region reduced uptake and right-sided odontogenic increased uptake on is noted. Dictated by: Mynor Browning M.D. on 09/01/2018 at 14:43 Approved by: Mynor Browning M.D. on 09/01/2018 at 15:17
--- NOTE | 2018-09-01 09:43 | DI.MRI.S_ITS ---
PROCEDURE: MR BRAIN (IAC) WWO CON INDICATIONS: Prostate cancer. TECHNIQUE: Noncontrast sagittal T1 spin echo, axial FLAIR, axial gradient echo, axial diffusion and ADC through the brain. Axial thin-slice 3D CISS, coronal TruFISP, axial T1 spin echo with fat saturation through the internal auditory canals. After the administration of contrast, thin slice axial and coronal T1 spin echo with fat saturation through the internal auditory canals, and axial T1 spin echo with fat saturation through the brain. COMPARISON: None. FINDINGS: Image quality: Excellent. Cerebellopontine angles: No cerebellopontine angle masses. Inner ear structures appear normally formed. No suspicious enhancement in the internal auditory canal or along the course of the 7th cranial nerve. CSF spaces: Ventricles are normal in size and shape. No extra-axial fluid collections. Basal cisterns are patent. Brain: No intracranial bleeds or mass effects. Lantigua-white matter interface is intact. No abnormal intracranial enhancement. Diffusion weighted images demonstrate no acute ischemic insults. Brainstem appears normal. Normal intravascular flow voids are present. Skull and face: Calvarial marrow signal is normal. Orbits appear normal. Sinuses: Sinuses and mastoids are clear. IMPRESSION: Mild microvascular atherosclerotic change in the deep white matter of each hemisphere, expected for age. There is no sign of metastatic disease involving the skull base or the brain parenchyma. The cranial nerves visualized appear normal. Dictated by: Mynor Browning M.D. on 09/01/2018 at 12:57 Approved by: Mynor Browning M.D. on 09/01/2018 at 13:01
== END ==
PROVIDERS: Family Provider Family Medicine; PCP Family Medicine; Visit Provider Internal Medicine Hematology & Oncology
DX: C61 Malignant neoplasm of prostate (principal); C79.51 Secondary malignant neoplasm of bone
CPT/HCPCS: 70553; 78306; A9503

== ENCOUNTER → 2019-03-16 10:05 | Outpatient (CLI) | payer MEDICARE, OTHER, SELFPAY ==
[2017-10-12 17:16] VITALS: BMI 28.0
[2019-03-16 12:13] LABS: Add Manual Diff / Slide Review NO; Basophils Absolute Auto 100 /uL (0-100); Basophils Percent Auto 0.7 % (0-2); Eosinophils Absolute Auto 200 /uL (0-450); Hematocrit 41.8 % (41-53); Lymphocytes Absolute Auto 2600 /uL (1100-4500); Lymphocytes Percent Auto 27.6 % (25-40); Mean Corpuscular HGB Conc 33.4 % (30-36); Mean Corpuscular Hemoglobin 30.5 PG (26-34); Mean Corpuscular Volume 91.3 fL (80-100); Monocytes Absolute Auto 800 /uL (0-900); Monocytes Percent Auto 8.8 % (3-14); Neutrophils Absolute Auto 5600 /uL (1500-7000); Neutrophils Percent Auto 60.9 % (50-75); Platelet Count 282 X10^3/uL (150-400); Red Blood Cell Count 4.57 X10^6/uL (4.5-5.9); Red Cell Distribution Width 14.3 % (11.6-14.8); White Blood Cell Count 9.3 X10^3/uL (4.5-11.0)
[2019-03-16 12:34] LABS: Alanine Aminotransferase 17 IU/L (21-72); Albumin 4.5 g/dL (3.5-5.0); Albumin Globulin Ratio 1.8 (1.0-2.8); Alkaline Phosphatase 53 U/L (38-126); Aspartate Aminotransferase 20 IU/L (17-59); BUN Creatinine Ratio 13.8 (6-22); Bilirubin Total 0.6 mg/dL (0.2-1.3); Blood Urea Nitrogen 18 mg/dL (9-20); Calcium 9.4 mg/dL (8.4-10.2); Carbon Dioxide 25 mmol/L (22-32); Chloride 100 mmol/L (98-107); Estimated Glomerular Filt Rate 52.6 mL/min (>60); Globulin 2.5 g/dL (1.7-4.1); Glucose 260 mg/dL (80-110); HEMOLYSIS < 15 (0-50); Potassium 5.3 mmol/L (3.4-5.1); Sodium 138 mmol/L (137-145)
[2019-03-16 13:04] LABS: Prostate Specific Antigen Scrn 0.072 ng/mL (0.1-4.0)
[2019-03-16 13:06] LABS: Testosterone 28.3 ng/dL (71.8-623)
== END ==
PROVIDERS: PCP Family Medicine; Visit Provider Internal Medicine Hematology & Oncology
DX: C61 Malignant neoplasm of prostate (principal); C79.51 Secondary malignant neoplasm of bone
CPT/HCPCS: 36415; 80053; 84153; 84403; 85025; G0103

== ENCOUNTER → 2019-06-10 09:37 | Outpatient (CLI) | payer MEDICARE, OTHER, SELFPAY ==
[2017-10-12 17:16] VITALS: BMI 28.0
[2019-06-10 09:59] LABS: Add Manual Diff / Slide Review NO; Basophils Absolute Auto 0 /uL (0-100); Basophils Percent Auto 0.6 % (0-2); Eosinophils Absolute Auto 100 /uL (0-450); Eosinophils Percent Auto 1.6 % (2-4); Hematocrit 41.3 % (41-53); Hemoglobin 13.7 g/dL (13.5-17.5); Lymphocytes Absolute Auto 2400 /uL (1100-4500); Lymphocytes Percent Auto 28.5 % (25-40); Mean Corpuscular HGB Conc 33.1 % (30-36); Mean Corpuscular Hemoglobin 30.2 PG (26-34); Mean Corpuscular Volume 91.4 fL (80-100); Monocytes Absolute Auto 800 /uL (0-900); Monocytes Percent Auto 9.3 % (3-14); Neutrophils Absolute Auto 5100 /uL (1500-7000); Platelet Count 240 X10^3/uL (150-400); Red Blood Cell Count 4.52 X10^6/uL (4.5-5.9); Red Cell Distribution Width 13.7 % (11.6-14.8); White Blood Cell Count 8.5 X10^3/uL (4.5-11.0)
[2019-06-10 10:07] LABS: Hemoglobin A1C% w Est Avg Glu 9.9 % (4.0-6.0)
[2019-06-10 10:10] LABS: Alanine Aminotransferase 19 IU/L (<50); Albumin 4.4 g/dL (3.5-5.0); Albumin Globulin Ratio 1.6 (1.0-2.8); Alkaline Phosphatase 59 U/L (38-126); Aspartate Aminotransferase 22 IU/L (17-59); BUN Creatinine Ratio 16.9 (6-22); Bilirubin Total 0.6 mg/dL (0.2-1.3); Blood Urea Nitrogen 22 mg/dL (9-20); Calcium 9.4 mg/dL (8.4-10.2); Carbon Dioxide 23 mmol/L (22-32); Chloride 104 mmol/L (98-107); Estimated Glomerular Filt Rate 52.6 mL/min (>60); Globulin 2.8 g/dL (1.7-4.1); Glucose 236 mg/dL (80-110); HEMOLYSIS < 15 (0-50); Potassium 4.2 mmol/L (3.4-5.1); Sodium 137 mmol/L (137-145); Total Protein 7.2 g/dL (6.3-8.2)
[2019-06-10 10:41] LABS: Prostate Specific Antigen Scrn 0.351 ng/mL (0.1-4.0)
[2019-06-10 10:43] LABS: Testosterone 31.2 ng/dL (71.8-623)
== END ==
PROVIDERS: Internal Medicine Hematology & Oncology; PCP Family Medicine; Visit Provider Family Medicine
DX: E11.9 Type 2 diabetes mellitus without complications (principal); C61 Malignant neoplasm of prostate; C79.51 Secondary malignant neoplasm of bone; Z12.5 Encounter for screening for malignant neoplasm of prostate
CPT/HCPCS: 80053; 83036; 84403; 85025; G0103

== ENCOUNTER → 2019-06-22 07:47 | Outpatient (CLI) | payer MEDICARE, OTHER, SELFPAY ==
[2017-10-12 17:16] VITALS: BMI 28.0
[2019-06-22 08:07] LABS: Add Manual Diff / Slide Review NO; Basophils Absolute Auto 0 /uL (0-100); Basophils Percent Auto 0.5 % (0-2); Eosinophils Absolute Auto 200 /uL (0-450); Eosinophils Percent Auto 2.1 % (2-4); Hematocrit 38.9 % (41-53); Hemoglobin 13.1 g/dL (13.5-17.5); Lymphocytes Absolute Auto 2600 /uL (1100-4500); Mean Corpuscular HGB Conc 33.7 % (30-36); Mean Corpuscular Hemoglobin 30.6 PG (26-34); Mean Corpuscular Volume 90.8 fL (80-100); Monocytes Absolute Auto 800 /uL (0-900); Monocytes Percent Auto 8.8 % (3-14); Neutrophils Absolute Auto 5400 /uL (1500-7000); Neutrophils Percent Auto 59.6 % (50-75); Platelet Count 235 X10^3/uL (150-400); Red Blood Cell Count 4.29 X10^6/uL (4.5-5.9); Red Cell Distribution Width 13.7 % (11.6-14.8)
[2019-06-22 08:22] LABS: Alanine Aminotransferase 18 IU/L (<50); Albumin 4.1 g/dL (3.5-5.0); Albumin Globulin Ratio 1.4 (1.0-2.8); Alkaline Phosphatase 57 U/L (38-126); Aspartate Aminotransferase 24 IU/L (17-59); BUN Creatinine Ratio 14.3 (6-22); Bilirubin Total 0.4 mg/dL (0.2-1.3); Blood Urea Nitrogen 20 mg/dL (9-20); Calcium 9.5 mg/dL (8.4-10.2); Carbon Dioxide 22 mmol/L (22-32); Chloride 102 mmol/L (98-107); Estimated Glomerular Filt Rate 48.3 mL/min (>60); Globulin 2.9 g/dL (1.7-4.1); Glucose 239 mg/dL (80-110); HEMOLYSIS < 15 (0-50); Potassium 4.3 mmol/L (3.4-5.1); Sodium 136 mmol/L (137-145)
== END ==
PROVIDERS: PCP Family Medicine; Visit Provider Internal Medicine Hematology & Oncology
DX: C61 Malignant neoplasm of prostate; C79.51 Secondary malignant neoplasm of bone; E11.9 Type 2 diabetes mellitus without complications
CPT/HCPCS: 36415; 80053; 85025

== ENCOUNTER → 2019-06-25 10:25 | Outpatient (CLI) | payer MEDICARE, OTHER, SELFPAY ==
[2017-10-12 17:16] VITALS: BMI 28.0
--- NOTE | 2019-06-25 10:26 | DI.NM.S_ITS ---
PROCEDURE: [place] BONE SCAN WHOLE BODY RADIOPHARMACEUTICAL: 20.5 mCi Tc-99m MDP IV. INDICATIONS: prostate cancer TECHNIQUE: Delayed whole-body scintigrams were obtained approximately 3-4 hours after intravenous injection of radiotracer. Anterior and posterior views were acquired from vertex to feet. Additional left and right oblique views of the pelvis were obtained. COMPARISON: [place], [place], [place] BONE SCAN WHOLE BODY, 09/01/2018, 12:49. FINDINGS: Compared to previous study, again noted is asymmetric increased isotope uptake involving right mastoid region not significantly changed from previous study and may represent metastatic disease versus mastoiditis. Odontogenic isotope uptake in right maxilla and right mandible is again seen, slightly more prominent in right mandible on the current study. Increased isotope uptake involving bilateral sternoclavicular articulation is again seen, more symmetrical on the current study. Bilateral acromioclavicular joint and glenohumeral joint osteoarthritic changes are again seen. Previously described metastatic disease involving proximal left humeral head neck junction is not appreciated on the current study. Moderately increased isotope uptake involving lower cervical spine is again seen, likely represent degenerative disc disease. Similar increased uptake involving thoracic and lumbar spine is also seen. Focal intensely increased uptake involving lower thoracic spine vertebral body at approximately T9 level is again seen, concerning for bony metastasis. This is not significantly changed from prior study. Previously described focal areas of increased isotope uptake involving right posterior fourth rib and left posterior eighth rib are again seen, not significantly changed from previous study. IMPRESSION: 1. Previously described increased isotope uptake involving right mandible is again seen, slightly more prominent on the current study and is concerning for progression of metastatic disease in this area. 2. There is now more symmetric appearing increased isotope uptake in bilateral sternoclavicular joints and more likely to represent osteoarthritic changes rather than bony metastasis. 3. Finding is concerning for focal metastatic disease involving T9 vertebral body not significantly changed from prior study. Previously described left proximal humeral metastatic disease is not well seen. 4. Asymmetric increased uptake in right mastoids are again seen, unchanged from prior study and could represent mastoiditis versus bony metastasis. 5. Stable appearing increased uptake involving bilateral ribs as above, consistent with rib metastases. 6. No new area of abnormal increased radioisotope uptake is noted to suggest additional areas of bony metastasis. Dictated by: Randall Muhammad M.D. on 06/25/2019 at 15:25 Approved by: Randall Muhammad M.D. on 06/25/2019 at 15:40
== END ==
PROVIDERS: PCP Family Medicine; Visit Provider Internal Medicine Hematology & Oncology
DX: C61 Malignant neoplasm of prostate (principal); C79.51 Secondary malignant neoplasm of bone
CPT/HCPCS: 78306; A9503

== ENCOUNTER 2019-08-01 07:27 | Emergency (ER) | payer MEDICARE, OTHER, SELFPAY ==
[2017-10-12 17:16] VITALS: BMI 28.0
[2019-08-01 07:54] VITALS: BP 200/90; PULSE 70; RESP 13; TEMP 36.1; O2SAT 97
--- NOTE | 2019-08-01 07:55 | DI.RAD.S_ITS ---
PROCEDURE: XR RIBS RT MIN 3V W CXR 1V INDICATIONS: fall, right rib pain TECHNIQUE: 4 views of the right ribs were acquired, along with a single view chest. COMPARISON: None. FINDINGS: Surgical changes and devices: None. Bones and chest wall: No fractures or dislocations. No suspicious bony lesions. Overlying soft tissues appear unremarkable. Lungs and pleura: No pleural effusions or pneumothorax. Lungs appear clear. Mediastinum: Mediastinal contours appear normal. Heart size is normal. IMPRESSION: No acute cardiopulmonary findings. No displaced rib fractures. Dictated by: Alba Freed M.D. on 08/01/2019 at 8:07 Approved by: Alba Freed M.D. on 08/01/2019 at 8:07
--- NOTE | 2019-08-01 08:29 | ED.FALL ---
HPI - Fall General Chief Complaint: Fall Stated Complaint: POSS BROKEN RIB RT SIDE Time Seen by Provider: 08/01/19 07:40 Source: patient Mode of arrival: Ambulatory History of Present Illness HPI Narrative: 83-year-old gentleman with stage IV prostate cancer with bony metastases, diabetes, high blood pressure, glaucoma who presents after a fall last night. Apparently a mechanical fall stumbling over a carpet while he was moving a TV landing on his right side. With some assistance he was able to get up. He took some Tylenol p.m. to help with sleep last night. Presents this morning complaining of right-sided/axillary rib pain. He is able to speak in full sentences and take deep breaths. Related Data Home Medications Medication Instructions Recorded Confirmed Azopt 2 drp EYE-LEFT BID 10/12/17 07/16/19 dorzolamide-timolol 22.3 drp EYE-LEFT BEDTIME 10/12/17 07/16/19 erythromycin 1 drp OPHTHALMIC (EYE) BEDTIME 10/12/17 07/16/19 latanoprost 0.005 drp EYE-LEFT BEDTIME 10/12/17 07/16/19 Previous Rx's Medication Instructions Recorded paroxetine HCl 20 mg tablet 20 mg PO DAILY #30 tab 09/16/18 metformin 500 mg tablet 250 mg PO BID #180 tab 06/12/19 bicalutamide [Casodex] 50 mg PO DAILY #90 tab 07/16/19 glyburide 5 mg tablet 5 mg PO TID #270 tab 07/22/19 metoprolol succinate 50 mg 50 mg PO BID #180 tab 07/22/19 tablet,extended release 24 hr diltiazem HCl 300 mg capsule,24 300 mg PO DAILY #90 cap 07/27/19 hr,extended release lisinopril 40 mg tablet See Rx Instructions .ROUTE 07/27/19 .COMPLEX #180 tablet Allergies Allergy/AdvReac Type Severity Reaction Status Date / Time aspirin [ASPIRIN] Allergy Severe gi bleed Verified 04/21/18 15:39 Review of Systems Review of Systems Narrative: His chronic cough and chronic dyspnea are at their baseline Denies ? fever ? cold ? chills ? chest pain ? orthopnea ? wheezing ? abdominal pain ? change to bowel or bladder habits ? nausea vomiting ? skin changes ? rashes Patient History Medical History Ankle pain (Chronic) Carpal tunnel syndrome (Chronic) Chicken pox (Resolved) Chronic back pain (Chronic) Diabetes mellitus (Chronic) Foot pain (Chronic) Fractures (Chronic) GI bleed (Acute) Glaucoma (Acute) Hay fever (Chronic) Hypertension (Acute) Measles (Resolved) Mumps (Resolved) Plantar warts (Chronic) Rosacea (Chronic) Shoulder pain (Chronic) Vision disorder (Chronic) Surgical History Cataract (Resolved ~2011) Hx of appendectomy (Acute) Family History Grandfather Diabetes mellitus Mother Diabetes mellitus Cancer Sister Age: 77 Cancer Sister Age: 70 Heart disease Social History household members: spouse Smoking Status: Former smoker alcohol intake: current Smoking Status: Former smoker alcohol intake frequency: 0-2 drinks per day Substance Use Type: does not use Exam Narrative Exam Narrative: General: Healthy appearing, in no acute distress. Able to give a complete and coherent history. Well-nourished well-developed HEENT: Moist mucous membranes, normal sclera with reactive pupils, Neck: No JVD, supple Respiratory: Lungs are clear to auscultation, no wheezing no rales no rhonchi. Full and symmetrical air movement. There is some minor tenderness in the lower right axillary line but no contusions or abrasions Cardiac: Regular rate and rhythm no murmurs no bruits Abdomen: Soft nontender good bowel tones, no flank pain Skin: Warm and dry, no rashes Neurologic: Grossly neurologically intact with no obvious asymmetries or abnormalities Extremities: No trauma, well perfused Psych: Cooperative, appropriate insight and affect Initial Vital Signs Initial Vital Signs: Vital Signs Temperature 97 F L 08/01/19 07:54 Pulse Rate 70 08/01/19 07:54 Respiratory Rate 13 08/01/19 07:54 Blood Pressure 200/90 H 08/01/19 07:54 Pulse Oximetry 97 08/01/19 07:54 Course Orders Ordered: ED Orders 08/01/19 07:55 XR ribs RT min 3V w CXR1V Stat Vital Signs Vital signs: Vital Signs - 8 hr 08/01/19 07:54 Temperature 97 F L Pulse Rate 70 Respiratory Rate 13 Blood Pressure 200/90 H Pulse Oximetry 97 MDM - Fall Medical Records Attestation: I reviewed the patient's medical records. Imaging Data Chest x-ray: Attestation: I personally reviewed and interpreted this imaging study as follows: Radiologist's Impression: IMPRESSION: No acute cardiopulmonary findings. No displaced rib fractures. Dictated by: Alba Freed M.D. on 08/01/2019 at 8:07 [facility] Narrative Medical decision making narrative: chest x-ray is unremarkable. He has been instructed on use of incentive spirometry as well as given the okay to actually use either Tylenol or ibuprofen to help with pain control and to be able to maintain mobility to avoid complications from atelectasis. Questions are answered and he is safe for home discharge Discharge Plan Departure Patient Disposition: Home Clinical Impression: Fall Qualifiers: Encounter type: initial encounter Qualified Code(s): W19.XXXA - Unspecified fall, initial encounter Contusion of rib Qualifiers: Encounter type: initial encounter Laterality: right Qualified Code(s): S20.211A - Contusion of right front wall of thorax, initial encounter Instructions: DI for Rib Contusion Activity Restrictions/Additional Instructions: Thank you for coming in today Your chest x-ray does not show significant injury. Your lung is fully inflated, there are no obvious rib fractures and there was no blood collecting around her lung. It is okay to use ibuprofen or Tylenol to help with pain control so that you can maintain your mobility. It is also important to continue taking deep breaths using the incentive spirometry(the plastic breathing thing we gave you in the ER) to help keep your lungs fully inflated even though it hurts to take a deep breath. Please make sure you are extra cautious in avoiding falls. You are very archie to not have injured yourself further with your fall yesterday. I hope you heal quickly Prescriptions: No Action metformin 500 mg tablet 250 mg PO BID Qty: 180 RF: 0 metoprolol succinate 50 mg tablet extended release 24 hr 50 mg PO BID Qty: 180 RF: 3 glyburide 5 mg tablet 5 mg PO TID Qty: 270 RF: 1 lisinopril 40 mg tablet See Rx Instructions .ROUTE .COMPLEX Qty: 180 RF: 3 diltiazem HCl 300 mg capsule,extended release 24 hr 300 mg PO DAILY Qty: 90 RF: 3 paroxetine HCl [Paxil] 20 mg tablet 20 mg PO DAILY Qty: 30 RF: 5 bicalutamide [Casodex] 50 mg tablet 50 mg PO DAILY Qty: 90 RF: 3 latanoprost 0.005 % Drops 0.005 drp EYE-LEFT BEDTIME RF: 0 Azopt 1 % Drops,Suspension 2 drp EYE-LEFT BID RF: 0 erythromycin 5 mg/gram (0.5 %) Ointment 1 drp ophthalmic (eye) BEDTIME RF: 0 dorzolamide-timolol 22.3-6.8 mg/mL Drops 22.3 drp EYE-LEFT BEDTIME RF: 0 Referrals: Trey Horton MD [Primary Care Provider] -
--- NOTE | 2019-08-01 09:17 | PC.NURSE ---
rt to instruct on Incentative spirometer
== END 2019-08-01 09:57 | disposition home or self-care (01) ==
PROVIDERS: Emergency Provider Emergency Medicine; PCP Family Medicine
DX: S20.211A Contusion of right front wall of thorax, initial encounter (principal); W19.XXXA Unspecified fall, initial encounter
CPT/HCPCS: 71101; 99283

== ENCOUNTER → 2020-04-06 10:14 | Outpatient (CLI) | payer MEDICARE, OTHER, SELFPAY ==
[2017-10-12 17:16] VITALS: BMI 28.0
--- NOTE | 2020-04-06 10:17 | DI.NM.S_ITS ---
PROCEDURE: [place] BONE SCAN WHOLE BODY RADIOPHARMACEUTICAL: 20.6 mCi Tc-99m MDP IV. INDICATIONS: metastaic prostate cancer TECHNIQUE: Delayed whole-body scintigrams were obtained approximately 3-4 hours after intravenous injection of radiotracer. Anterior and posterior views were acquired from vertex to feet. COMPARISON: [place], [place], BONE SCAN WHOLE BODY, 09/12/2017, 13:11. [place], [place] BONE SCAN WHOLE BODY, 06/25/2019, 13:52. [place], [place] BONE SCAN WHOLE BODY, 09/01/2018, 12:49. FINDINGS: The right mandibular isotope uptake has slowly at increased over time, and by appearance and sales and service change leader time may represent odontogenic inflammatory change rather than metastatic disease. Prior metastatic lesions have improved, including the T9 vertebral body area. A focal finding of new isotope uptake at the right lower rib, likely rib 10 or 11, and not present 06/25/19. This could represent a new metastatic focus or sequela of trauma. There is a mild degree of facet region isotope uptake that has developed at the L3-4 level on the right, also potentially degenerative or metastatic in origin. IMPRESSION: Please correlate clinically for presence or absence of odontogenic disease involving the right mandible. As discussed above there has been improvement in the presumed metastatic focus at the T9 vertebral body but interval worsening at the right mandible, a new lesion at the right lower 10th or 11th lateral rib, and a focus of facet region L3-L4 isotope deposition considered more likely degenerative than metastatic in origin. Dictated by: Mynor Browning M.D. on 04/06/2020 at 16:48 Approved by: Mynor Browning M.D. on 04/06/2020 at 17:39
--- NOTE | 2020-04-06 10:17 | DI.CT.S_ITS ---
PROCEDURE: CT CHEST ABD PEL W CON INDICATIONS: prostate cancer TECHNIQUE: After the administration of oral and intravenous contrast, 5 mm thick sections acquired from the lung apices to the symphysis. 5 mm coronal and sagittal reformats were performed, with additional 7 mm coronal MIP reformats through the lungs. For radiation dose reduction, the following was used: automated exposure control, adjustment of mA and/or kV according to patient size. COMPARISON: [facility], CT, CHEST/ABD/PEL WITH CONTRAST, 09/12/2017, 10:05. FINDINGS: Image quality: Excellent. CHEST: Lungs and pleura: No acute airspace opacities. No pleural effusions or pneumothorax. Central and peripheral airways appear patent and normal in caliber. Mediastinum: Heart size is normal. No pericardial effusion. No mediastinal or hilar adenopathy by size criteria. Thoracic aorta and central pulmonary arteries are normal in size. Esophagus is normal in caliber. No hiatal hernia. Chest wall: No axillary or supraclavicular adenopathy by size criteria. Thyroid gland appears normal where well seen. ABDOMEN: Solid organs: Liver is normal in size and enhancement. Gallbladder appears previously resected. Biliary system is non dilated. Pancreas enhances normally. Spleen is normal in size and enhancement. No adrenal nodules. Kidneys demonstrate normal size and enhancement, without hydronephrosis. Peritoneum and bowel: Bowel loops demonstrate normal wall thickness and caliber. No free fluid or air. Nodes and vessels: No retroperitoneal or mesenteric adenopathy by size criteria. Aorta and inferior vena cava are normal in size. Miscellaneous: No ventral hernias. PELVIS: Genitourinary: Bladder wall thickness is normal. Miscellaneous: No inguinal hernias or enlarging adenopathy. There is a mildly prominent left groin node previously measuring 1.1 cm in maximal short axis dimension. This again measures 1.1 cm transversely and 1.7 cm AP. Bones: No suspicious bony lesions. No vertebral body compression fractures. IMPRESSION: No osseous metastatic disease found. Note is made of a mildly prominent left groin node previously identified, measuring 1.1 x 1.7 cm in maximal dimension. This was previously present in August of 2017 and has not enlarged. Dictated by: Mynor Browning M.D. on 04/06/2020 at 17:40 Approved by: Mynor Browning M.D. on 04/06/2020 at 17:44
== END ==
PROVIDERS: PCP Family Medicine; Referring Provider Internal Medicine Hematology & Oncology; Visit Provider Internal Medicine Hematology & Oncology
DX: C61 Malignant neoplasm of prostate (principal); C79.51 Secondary malignant neoplasm of bone
CPT/HCPCS: 71260; 74177; 78306; A9503; Q9967

== ENCOUNTER → 2020-04-16 10:24 | Outpatient (CLI) | payer MEDICARE, OTHER, SELFPAY ==
[2017-10-12 17:16] VITALS: BMI 28.0
[2020-04-16 10:54] LABS: HEMOLYSIS < 15 (0-50)
[2020-04-16 10:59] LABS: Alanine Aminotransferase 17 IU/L (<50); Albumin 4.3 g/dL (3.5-5.0); Albumin Globulin Ratio 1.4 (1.0-2.8); Alkaline Phosphatase 62 U/L (38-126); Aspartate Aminotransferase 22 IU/L (17-59); BUN Creatinine Ratio 13.8 (6-22); Bilirubin Total 0.6 mg/dL (0.2-1.3); Blood Urea Nitrogen 20 mg/dL (9-20); Carbon Dioxide 26 mmol/L (22-32); Chloride 102 mmol/L (98-107); Estimated Glomerular Filt Rate 46.3 mL/min (>60); Glucose 245 mg/dL (80-110); Potassium 4.5 mmol/L (3.4-5.1); Sodium 134 mmol/L (137-145); Total Protein 7.3 g/dL (6.3-8.2)
[2020-04-16 11:43] LABS: Prostate Specific Antigen 15.8 ng/mL (0.10-4.00)
[2020-04-16 11:45] LABS: Testosterone 22.7 ng/dL (71.8-623)
== END ==
PROVIDERS: PCP Family Medicine; Referring Provider Internal Medicine Hematology & Oncology; Visit Provider Internal Medicine Hematology & Oncology
DX: C61 Malignant neoplasm of prostate (principal); C79.51 Secondary malignant neoplasm of bone
CPT/HCPCS: 36415; 80053; 84153; 84403

== ENCOUNTER → 2020-06-25 10:55 | Outpatient (CLI) | payer MEDICARE, OTHER, SELFPAY ==
[2017-10-12 17:16] VITALS: BMI 28.0
[2020-06-25 11:54] LABS: Add Manual Diff / Slide Review NO; Basophils Absolute Auto 100 /uL (0-100); Basophils Percent Auto 0.9 % (0-2); Eosinophils Absolute Auto 0 /uL (0-450); Eosinophils Percent Auto 0.4 % (2-4); Hematocrit 40.9 % (41-53); Hemoglobin 13.3 g/dL (13.5-17.5); Lymphocytes Absolute Auto 2300 /uL (1100-4500); Lymphocytes Percent Auto 22.2 % (25-40); Mean Corpuscular HGB Conc 32.6 % (30-36); Mean Corpuscular Hemoglobin 30.9 PG (26-34); Mean Corpuscular Volume 94.6 fL (80-100); Monocytes Absolute Auto 600 /uL (0-900); Monocytes Percent Auto 5.9 % (3-14); Neutrophils Absolute Auto 7400 /uL (1500-7000); Neutrophils Percent Auto 70.6 % (50-75); Platelet Count 284 X10^3/uL (150-400); Red Blood Cell Count 4.32 X10^6/uL (4.5-5.9); Red Cell Distribution Width 13.6 % (11.6-14.8); White Blood Cell Count 10.4 X10^3/uL (4.5-11.0)
[2020-06-25 12:09] LABS: Alanine Aminotransferase 19 IU/L (<50); Albumin 4.3 g/dL (3.5-5.0); Albumin Globulin Ratio 1.6 (1.0-2.8); Alkaline Phosphatase 67 U/L (38-126); Aspartate Aminotransferase 24 IU/L (17-59); BUN Creatinine Ratio 15.7 (6-22); Bilirubin Total 0.5 mg/dL (0.2-1.3); Blood Urea Nitrogen 20 mg/dL (9-20); Carbon Dioxide 25 mmol/L (22-32); Chloride 100 mmol/L (98-107); Estimated Glomerular Filt Rate 53.9 mL/min (>60); Globulin 2.7 g/dL (1.7-4.1); Glucose 363 mg/dL (80-110); HEMOLYSIS < 15 (0-50); Potassium 4.3 mmol/L (3.4-5.1); Sodium 134 mmol/L (137-145)
[2020-06-25 12:40] LABS: Prostate Specific Antigen 27.5 ng/mL (0.10-4.00)
== END ==
PROVIDERS: PCP Family Medicine; Referring Provider Internal Medicine Hematology & Oncology; Visit Provider Internal Medicine Hematology & Oncology
DX: C61 Malignant neoplasm of prostate (principal); C79.51 Secondary malignant neoplasm of bone
CPT/HCPCS: 36415; 80053; 84153; 85025

== ENCOUNTER → 2020-08-26 08:51 | Outpatient (CLI) | payer MEDICARE, OTHER, SELFPAY ==
[2017-10-12 17:16] VITALS: BMI 28.0
--- NOTE | 2020-08-26 08:53 | DI.NM.S_ITS ---
PROCEDURE: [place] BONE SCAN WHOLE BODY RADIOPHARMACEUTICAL: 21.6 mCi Tc-99m MDP IV. INDICATIONS: prostate cancer TECHNIQUE: Delayed whole-body scintigrams were obtained approximately 3-4 hours after intravenous injection of radiotracer. Anterior and posterior views were acquired from vertex to feet. COMPARISON: [facility], CT, CT CHEST ABD PEL W CON, 04/06/2020, 11:29. [facility], CT, CT CHEST ABD PEL W CON, 08/26/2020, 9:47. [place], [place], [place] BONE SCAN WHOLE BODY, 04/06/2020, 14:10. FINDINGS: There is focal tracer activity involving the right anterior 11th rib, which corresponds to a subacute or chronic appearing mildly displaced rib fracture. Additional tracer activity involving the right mandible, right L4 facet joint, and at approximately T9. On the comparison CT there is focal sclerosis involving the T9 vertebral body image 46/2 which is grossly unchanged. All of these areas demonstrated tracer uptake on the prior study. No definite new focal tracer activity is seen. Bilateral tracer uptake about the knees is probably arthritic. Mildly prominent tracer activity involving the 5th or 6th rib on the right is grossly unchanged although no definite CT correlate is seen. IMPRESSION: Overall, grossly unchanged examination since 04/06/20 as detailed above. Dictated by: Robson Aguilar M.D. on 08/26/2020 at 13:43 Approved by: Robson gAuilar M.D. on 08/26/2020 at 13:52
--- NOTE | 2020-08-26 10:08 | DI.CT.S_ITS ---
PROCEDURE: CT CHEST ABD PEL W CON INDICATIONS: prostate cancer TECHNIQUE: After the administration of oral and intravenous contrast, 5 mm thick sections acquired from the lung apices to the symphysis. 5 mm coronal and sagittal reformats were performed, with additional 7 mm coronal MIP reformats through the lungs. For radiation dose reduction, the following was used: automated exposure control, adjustment of mA and/or kV according to patient size. COMPARISON: [place], [place], BONE SCAN WHOLE BODY, 09/12/2017, 13:11. MR, L-SPINE WITHOUT CONTRAST, 07/16/2011, 7:10. [facility], CT, CHEST/ABD/PEL WITH CONTRAST, 09/12/2017, 10:05. [facility], CT, CT ABDOMEN PELVIS W CON, 10/12/2017, 12:15. [place], [place] BONE SCAN WHOLE BODY, 04/06/2020, 14:10. [place] BONE SCAN WHOLE BODY, 08/26/2020, 12:30. [facility], CT, CT CHEST ABD PEL W CON, 04/06/2020, 11:29. FINDINGS: Image quality: Excellent. CHEST: Lungs and pleura: There is left hemidiaphragm elevation. There is a 1 cm nodular density in the lingula, unchanged, most likely scar and round atelectasis. No acute airspace opacities. No pleural effusions or pneumothorax. Central and peripheral airways appear patent and normal in caliber. Mediastinum: Heart size is normal. Trace pericardial effusion. There is severe coronary artery calcification. No mediastinal or hilar adenopathy by size criteria. Thoracic aorta and central pulmonary arteries are normal in size. Severe aortic atherosclerosis. Esophagus is normal in caliber. Small hiatal hernia. Chest wall: No axillary or supraclavicular adenopathy by size criteria. Thyroid gland is normal. There is gynecomastia. ABDOMEN: Solid organs: Liver is normal in size and enhancement. Gallbladder is surgically absent . Biliary system is non dilated. Pancreas enhances normally. Spleen is normal in size and enhancement. There is a 1.7 cm left adrenal nodule, unchanged, most likely a adrenal adenoma. Kidneys demonstrate normal size and enhancement, without hydronephrosis. Peritoneum and bowel: Bowel loops demonstrate normal wall thickness and caliber. There are scattered colonic diverticula. A large amount of stool in colon. No free fluid or air. Nodes and vessels: No retroperitoneal or mesenteric adenopathy by size criteria. Aorta and inferior vena cava are normal in size. Severe atherosclerosis. Miscellaneous: No ventral hernias. PELVIS: Genitourinary: Bladder wall thickness is normal. Miscellaneous: Bilateral fat containing inguinal hernias are present, left greater than right. There is a 1.0 x 1.4 cm left inguinal lymph node, stable. Bones: Sclerotic lesion in T9 vertebral body is unchanged. Degenerative changes in thoracic and lumbar spine. No vertebral body compression fractures. IMPRESSION: Stable exam. 1. No change in sclerotic lesion in T9 vertebral body, consistent with treated metastasis. 2. Stable borderline enlarged left inguinal lymph node. 3. A lingular nodule is most likely scars or atelectasis. 4. Stable left adrenal nodule. Dictated by: David Pantoja M.D. on 08/26/2020 at 13:35 Approved by: David Pantoja M.D. on 08/26/2020 at 13:53
== END ==
PROVIDERS: Referring Provider Internal Medicine Hematology & Oncology; Visit Provider Internal Medicine Hematology & Oncology
DX: C61 Malignant neoplasm of prostate (principal); C79.51 Secondary malignant neoplasm of bone; R59.0 Localized enlarged lymph nodes
CPT/HCPCS: 71260; 74177; 78306; A9503

== ENCOUNTER 2021-03-03 15:28 | Observation (INO) | payer MEDICARE, OTHER, SELFPAY ==
[2020-11-04 14:43] VITALS: BMI 28.0
[2021-03-03] VITALS (18 sets, daily range): BP systolic 140–177; BP diastolic 74–115; PULSE 49–63; RESP 16–25; TEMP 35.9–37.1; O2SAT 93–99; BMI 28.1
--- NOTE | 2021-03-03 15:33 | DI.RAD.S_ITS ---
PROCEDURE: XR CHEST 1V INDICATIONS: Possible stroke TECHNIQUE: One view of the chest was acquired. COMPARISON: None. FINDINGS: Surgical changes and devices: None. Lungs and pleura: Lungs are clear. No pleural effusions or pneumothorax. Mediastinum: Mediastinal contours appear normal. Heart size is normal. Bones and chest wall: No suspicious bony lesions. Overlying soft tissues appear unremarkable. IMPRESSION: No acute process. Dictated by: Suzi Barcenas M.D. on 03/03/2021 at 16:26 Approved by: Suzi Barcenas M.D. on 03/03/2021 at 16:26
[2021-03-03 15:53] LABS: Alanine Aminotransferase 17 IU/L (<50); Albumin 4.2 g/dL (3.5-5.0); Albumin Globulin Ratio 1.6 (1.0-2.8); Alkaline Phosphatase 64 U/L (38-126); Aspartate Aminotransferase 21 IU/L (17-59); Bilirubin Total 0.5 mg/dL (0.2-1.3); Blood Urea Nitrogen 16 mg/dL (9-20); Calcium 9.2 mg/dL (8.4-10.2); Carbon Dioxide 26 mmol/L (22-32); Chloride 100 mmol/L (98-107); Creatine Kinase 55 U/L (55-170); Globulin 2.6 g/dL (1.7-4.1); Glucose 314 mg/dL (80-110); HEMOLYSIS < 15 (0-50); Potassium 3.7 mmol/L (3.4-5.1); Sodium 136 mmol/L (137-145); Total Protein 6.8 g/dL (6.3-8.2)
--- NOTE | 2021-03-03 15:57 | DI.CT.S_ITS ---
PROCEDURE: CT STROKE INDICATIONS: right leg weakness, right sensation difficulty, word searchi TECHNIQUE: Noncontrast 4.5 mm thick angled axial sections acquired from the foramen magnum to the vertex, with coronal reformats. For radiation dose reduction, the following was used: automated exposure control, adjustment of mA and/or kV according to patient size. COMPARISON: None. FINDINGS: Image quality: Excellent. CSF spaces: Basal cisterns are patent. No extra-axial fluid collections. The ventricles are symmetric in size and shape. Brain: No intracranial bleeds or masses. There is cerebral volume loss for age, with resultant ventricular and sulcal prominence. There are periventricular and deep white matter chronic small vessel ischemic changes. There is intracranial internal carotid artery atherosclerosis. Skull and face: Calvarium and visualized facial bones appear intact, without suspicious lesions. Sinuses: Visualized sinuses and mastoids are clear. IMPRESSION: No acute intracranial abnormality. Findings discussed with Dr. Dela Cruz on 03/03/2021 at 16:14 hours. This study fulfills neurological imaging criteria for inclusion or exclusion of acute stroke therapies based on available published neurological guidelines. Dictated by: Suzi Barcenas M.D. on 03/03/2021 at 16:13 Approved by: Suzi Barcenas M.D. on 03/03/2021 at 16:14
[2021-03-03 16:00] LABS: Add Manual Diff / Slide Review NO; Basophils Absolute Auto 0 /uL (0-100); Basophils Percent Auto 0.2 % (0-2); Eosinophils Absolute Auto 100 /uL (0-450); Eosinophils Percent Auto 0.5 % (2-4); Hematocrit 38.8 % (41-53); Hemoglobin 12.8 g/dL (13.5-17.5); Lymphocytes Absolute Auto 4400 /uL (1100-4500); Lymphocytes Percent Auto 34.6 % (25-40); Mean Corpuscular Hemoglobin 30.7 PG (26-34); Mean Corpuscular Volume 93.2 fL (80-100); Monocytes Absolute Auto 900 /uL (0-900); Neutrophils Absolute Auto 7300 /uL (1500-7000); Neutrophils Percent Auto 57.7 % (50-75); Platelet Count 294 X10^3/uL (150-400); Red Blood Cell Count 4.16 X10^6/uL (4.5-5.9); Red Cell Distribution Width 13.7 % (11.6-14.8); White Blood Cell Count 12.7 X10^3/uL (4.5-11.0)
[2021-03-03 16:04] LABS: Troponin I < 0.012 ng/mL (0.01-0.034)
--- NOTE | 2021-03-03 16:04 | DI.CT.S_ITS ---
PROCEDURE: CT ANGIO HEAD AND NECK INDICATIONS: ? stroke, weakness TECHNIQUE: After the administration of intravenous contrast, 1 mm thick sections acquired from the aortic arch through the [place]. Post-contrast 4.5 mm thick sections then re-acquired from the foramen magnum to the vertex. 3-dimensional gyprwaa-qbzgilozo-flfakvdtoi (MIP) and/or volume rendering reformats were acquired of the central intracranial vasculature and neck separately. COMPARISON: [facility], CT, CT STROKE, 03/03/2021, 16:06. FINDINGS: Image quality: Excellent. BRAIN: The ventricular system and cortical sulci demonstrate atrophy, consistent for the patient's stated age. There are areas of hypodensity within the periventricular and subcortical white matter. There is no acute intra-or extra axial fluid collection. No acute hemorrhage, mass lesion or midline shift. Brainstem is unremarkable. Globes are symmetrical. Sinuses are aerated. Osseous structures are intact. HEAD CT ANGIOGRAPHY: Anterior circulation: Intracranial internal carotid arteries are normal in size and flow. The flow within the paired anterior cerebral arteries is normal and symmetric. The flow within the middle cerebral arteries is normal and symmetric. The anterior communicating artery is seen. No aneurysms are seen. Posterior circulation: Visualized portions of the vertebral arteries demonstrate normal caliber, and join to form a normal appearing basilar artery. Flow within the posterior cerebral arteries is normal and symmetric. No aneurysms are seen. NECK CT ANGIOGRAPHY: The origins of the left and right common, and right external carotid arteries demonstrate no areas of hemodynamically significant stenosis, vascular occlusion or aneurysmal dilation. There is approximate 40% narrowing at the origin of the right internal carotid artery. There is approximate 30-40% narrowing at the origin of the left internal carotid artery. There is a short segment focus of narrowing at the origin of the left external carotid artery measuring approximately 55%. Origins of the left and right vertebral arteries demonstrate no areas of hemodynamically significant stenosis, vascular occlusion or aneurysmal dilation. Aortic arch demonstrates conventional anatomy. Limited, visualized portions of the subclavian vasculature are unremarkable. IMPRESSION: 1. No acute intracranial process. 2. Moderate atrophy and chronic microvascular ischemic changes. 3. No areas of hemodynamically significant stenosis, vascular occlusion or aneurysmal dilation within the anterior or posterior circulation. 4. 30-40% narrowing at the origin of the internal carotid arteries bilaterally. 5. Short-segment stenosis at the origin of the left internal carotid artery measuring approximately 55%. Any quantitative measurements of stenosis were performed using NASCET criteria. Dictated by: Kenzie Zheng M.D. on 03/03/2021 at 16:49 Approved by: Kenzie Zheng M.D. on 03/03/2021 at 16:57
--- NOTE | 2021-03-03 16:20 | ED_ITS ---
HPI - Neuro Symptoms/Deficit General Chief Complaint: Neuro Symptoms/Deficit Stated Complaint: Weakness Time Seen by Provider: 03/03/21 15:59 Source: patient and EMS Mode of arrival: EMS Limitations: no limitations History of Present Illness HPI Narrative: This is an 85-year-old male comes emergency department with complaint of weakness. Patient and his state he was normal earlier today. After multiple conversations back and forth his can not pin down is 10:00 a.m. this his last name normal. Possibly around noon today he was normal but they can not really confirm this timing. Patient appreciates weakness in his right lower extremity. He appreciates speech changes. History describes his speech is being more quite. And not so much slurred. Patient at this time states his speech is still off although his states it seems not completely. He denies headache, no chest pain or shortness of breath. He appreciates some mild sensation changes in his right lower extremity. He does not really appreciate any his face or upper extremity at this time. Patient has a history of diabetes and hypertension, he is on metoprolol, diltiazem as well as metformin and glyburide and has known prostate cancer and is on Zytiga. He is not anticoagulated. He denies any allergies to medications. Patient lives at home with his . Related Data Previous Rx's Medication Instructions Recorded abiraterone 250 mg tablet (Zytiga) 250 mg PO DAILY #30 tab 07/14/20 lisinopril 40 mg tablet See Rx Instructions .ROUTE 08/22/20 .COMPLEX #180 tablet diltiazem HCl 300 mg capsule,24 300 mg PO DAILY #90 cap 09/06/20 hr,extended release glyburide 5 mg tablet 5 mg PO TID #270 tab 11/04/20 metformin 500 mg tablet 1,000 mg PO BID #360 tab 11/07/20 metoprolol succinate 100 mg 100 mg PO DAILY #90 tab 11/07/20 tablet,extended release 24 hr Allergies Allergy/AdvReac Type Severity Reaction Status Date / Time aspirin [ASPIRIN] AdvReac Severe gi bleed Verified 03/03/21 16:40 Review of Systems Review of Systems ROS Unobtainable: All systems reviewed & are unremarkable except as noted in HPI and below Patient History Medical History Abdominal pain Acute cholecystitis Ankle pain Carpal tunnel syndrome Chicken pox Chronic back pain Diabetes mellitus Foot pain Fractures Frequent urination at night GI bleed Glaucoma Hay fever Hypertension Leukocytosis Measles Mumps Plantar warts Rosacea Shoulder pain Vision disorder Surgical History Cataract (~2011) Hx of appendectomy Family History Grandfather Diabetes mellitus Mother Diabetes mellitus Cancer Sister Age: 79 Cancer Sister Age: 72 Heart disease Social History household members: spouse Smoking Status: Former smoker alcohol intake: current Smoking Status: Former smoker alcohol intake frequency: 0-2 drinks per day Substance Use Type: does not use Exam Narrative Exam Narrative: GEN: well nourished, well appearing male, alert and oriented x 3, patient appears to be in mild distress. HEENT: Atraumatic, pupils are equal round reactive to light, extraocular movements are intact, nares are clear, TMs are clear with no fluid, there is no conjunctival pallor. Throat is clear without any exudates, erythema, tonsillar enlargement or uvular deviation, no facial droop. HEART: Regular rate and rhythm without murmur, clicks, rubs. Pulses are equal in upper and lower extremities LUNGS:Lungs clear to auscultation, no wheezes, rales, crackles, chest moves symmetrically ABD:bowel sounds normal, soft, non-tender, no guarding, rebound, rigidity, no masses noted, no hepatosplenomegaly :No CVA tenderness MSCL: Non-tender, no muscle atrophy. Patient has equal muscle strength in upper extremities and is able to hold for count of 10, patient is unable to lift his right leg off the bed but is with his left although some difficulty. NEURO:CN 2-12 intact, sensation normal, reflexes 2/4 upper and lower extremities. finger nose finger test normal bilaterally, heel galindo test normal with right leg, unable with left leg, + dysarthria. SKIN: No obvious rash or skin changes. Initial Vital Signs Initial Vital Signs: Vital Signs Temperature 98.7 F 03/03/21 15:29 Pulse Rate 54 L 03/03/21 15:29 Respiratory Rate 18 03/03/21 15:29 Blood Pressure 177/74 H 03/03/21 15:29 Pulse Oximetry 99 03/03/21 15:29 Scores NIH Stroke Scale Level of Conciousness: Alert, keenly responsive Ask month/age: Answers both questions correctly. Open/close eyes, close hand: Performs both tasks correctly Best gaze horizontal: Normal Visual juárez: No visual loss Facial palsy: Normal symetrical movement Left arm drift: No drift for full 10 sec Right arm drift: No drift for full 10 sec Left leg drift: No drift for full 5 sec Right leg drift: Some effort against gravity, cannot maintain, drifts down to bed Limb ataxia: Present in one limb Sensory on face/arms/legs: Mild to moderate sensory loss, can tell touch Best language: Mild to moderate, slurs some words Dysarthria: Mild to mod,some slurring Extinction or inattention: No abnormality Total NIH Stroke scale score: 6 Course Orders Ordered: ED Orders 03/03/21 15:30 Complete Blood Count AUTO DIFF Stat Comprehensive Metabolic Panel Stat Troponin & CK Cardiac Panel Stat 03/03/21 15:33 XR chest 1V Stat 03/03/21 15:56 EKG-12 Lead Stat 03/03/21 15:57 CT Stroke Stat 03/03/21 16:04 CT angio head and neck Stat 03/03/21 16:47 COVID19 - ADMIT ([employer] swab/PCR) Stat 03/03/21 19:21 Urine Drug Screen, Rapid Stat Acetaminophen (Acetaminophen 325 Mg Tablet) 650 mg PO Q6HR PRN PRN Reason: Fever/Mild Pain (1-3) Aspirin (Aspirin Ec 81 Mg Tablet) 81 mg PO DAILY [facility] Atorvastatin Calcium (Atorvastatin 20 Mg Tablet) 80 mg PO BEDTIME [facility] Clopidogrel Bisulfate (Clopidogrel 75 Mg Tablet) 75 mg PO DAILY [facility] Enoxaparin Sodium (Enoxaparin 40 Mg/0.4 Ml Syringe) 40 mg SUBCUT DAILY [facility] Sodium Chloride (Normal Saline 0.9%) 1,000 mls @ 150 mls/hr IV CONT TILA Last Admin: 03/03/21 19:23 Dose: 150 mls/hr Documented by: Infusion: 03/03/21 18:05 Dose: 0 mls/hr Documented by: Admin: 03/03/21 16:24 Dose: 150 mls/hr Documented by: PARI Sodium Chloride (Normal Saline 0.9%) 1,000 mls @ 100 mls/hr IV CONT TILA Discontinued Medications Aspirin (Aspirin 81 Mg Chew Tab) 324 mg PO NOW ONE Stop: 03/03/21 16:36 Last Admin: 03/03/21 16:44 Dose: 324 mg Documented by: PARI Clopidogrel Bisulfate (Clopidogrel 75 Mg Tablet) 300 mg PO NOW ONE Stop: 03/03/21 17:18 Last Admin: 03/03/21 17:29 Dose: 300 mg Documented by: PARI Reevaluation(s) Reevaluation #1: Patient I reviewed his exam he has better movement his right lower extremity but still not full strength and in comparison to his left is still different. His speech does seem a little bit better. Reviewed recommendations from Neurology, plan for dual platelet therapy which includes 2 medications including Plavix and aspirin and plan for admission. Patient and are agreeable all questions answered. Consultations Consultation #1: Dr. Shrestha, CT negative. Angio-pending. Call back with results. Called back with CT angio results. Recommends 300 mg loading dose of Plavix. Followed by Plavix 75 mg and aspirin 81 mg. No additional intervention at this time. Consultation #2: Dr. Luu, accepts patient for admission. I would we did note that patient's right lower extremity weakness has improved it is not completely resolved but he cannot lift it off the bed although still with difficulty. Vital Signs Vital signs: Vital Signs - 8 hr 03/03/21 15:29 03/03/21 15:37 03/03/21 15:45 Temperature 98.7 F Pulse Rate 54 L 52 L 52 L Respiratory Rate 18 22 23 Blood Pressure 177/74 H Pulse Oximetry 99 98 98 03/03/21 16:00 03/03/21 16:19 03/03/21 16:30 Temperature Pulse Rate 53 L 51 L 51 L Respiratory Rate 21 22 Blood Pressure Pulse Oximetry 98 98 98 03/03/21 16:45 03/03/21 17:00 03/03/21 17:15 Temperature Pulse Rate 49 L 50 L 51 L Respiratory Rate 19 23 25 H Blood Pressure Pulse Oximetry 98 99 99 03/03/21 17:30 03/03/21 17:33 03/03/21 17:45 Temperature Pulse Rate 52 L 52 L 53 L Respiratory Rate 22 21 23 Blood Pressure 173/115 H Pulse Oximetry 99 98 98 MDM - Neuro Symptoms/Deficit Lab Data Result diagrams: 03/03/21 15:30 03/03/21 15:30 Labs: Lab Results 03/03/21 03/03/21 03/03/21 Range/Units 15:30 15:30 16:47 WBC 12.7 H (4.5-11.0) X10^3/uL RBC 4.16 L (4.5-5.9) X10^6/uL Hgb 12.8 L (13.5-17.5) g/dL Hct 38.8 L (41-53) % MCV 93.2 (80-100) fL MCH 30.7 (26-34) PG MCHC 33.0 (30-36) % RDW 13.7 (11.6-14.8) % Plt Count 294 (150-400) X10^3/uL Neut % (Auto) 57.7 (50-75) % Lymph % (Auto) 34.6 (25-40) % [place] % (Auto) 7.0 (3-14) % Eos % (Auto) 0.5 L (2-4) % Baso % (Auto) 0.2 (0-2) % Neut # (Auto) 7300 H (1393-4625) /uL Lymph # (Auto) 4400 (8655-8051) /uL [place] # (Auto) 900 (0-900) /uL Eos # (Auto) 100 (0-450) /uL Baso # (Auto) 0 (0-100) /uL Sodium 136 L (137-145) mmol/L Potassium 3.7 (3.4-5.1) mmol/L Chloride 100 (98-107) mmol/L Carbon Dioxide 26 (22-32) mmol/L BUN 16 (9-20) mg/dL Creatinine 1.33 H (0.66-1.25) mg/dL Estimated GFR 51.0 L (>60) mL/min BUN/Creatinine Ratio 12.0 (6-22) Glucose 314 H (80-110) mg/dL Calcium 9.2 (8.4-10.2) mg/dL Total Bilirubin 0.5 (0.2-1.3) mg/dL AST 21 (17-59) IU/L ALT 17 (<50) IU/L Alkaline Phosphatase 64 (38-126) U/L Total Creatine Kinase 55 (55-170) U/L CK-MB (CK-2) TNP CK-MB (CK-2) Rel Index TNP Troponin I < 0.012 (0.01-0.034) ng/mL Total Protein 6.8 (6.3-8.2) g/dL Albumin 4.2 (3.5-5.0) g/dL Globulin 2.6 (1.7-4.1) g/dL Albumin/Globulin Ratio 1.6 (1.0-2.8) SARS-CoV-2 (PCR) Negative (Negative) Point of Care Testing Glucose POC [address] scan - head: Radiologist's Impression: Marek Massey??85??M??1935 ? Allergy/Adv: aspirin Close Brain CT (Signed) Suzi Barcenas - 03/03/21 Chest X-Ray (Signed) Suzi Barcenas - 03/03/21 Chest/Abdomen/Pelvis CT (Signed) Jenna Pantoja - 08/26/20 Bone Scan Nuclear Medicine (Signed) Robson Aguilar - 08/26/20 Chest/Abdomen/Pelvis CT (Signed) Mynor Browning - 04/06/20 Bone Scan Nuclear Medicine (Signed) Mynor Browning - 04/06/20 Ribs X-Ray (Signed) Alba Freed - 08/01/19 Bone Scan Nuclear Medicine (Signed) Randall Muhammad - 06/25/19 MRI Orbit/Face/Neck/IAC (Signed) Mynor Browning - 09/01/18 Bone Scan Nuclear Medicine (Signed) Mynor Browning - 09/01/18 Echocardiogram Ultrasound (Signed) Carmen Bianchi - 10/14/17 Chest/Abdomen X-ray (Signed) Rudy Sandoval - 10/14/17 Telemetry Strips 10/12/17 Abdomen Ultrasound (Signed) Suzi Barcenas - 10/12/17 Abdomen/Pelvis CT (Signed) Suzi Barcenas - 10/12/17 Launch?[address] [address] [address] Scan Report Signed Patient: Marek Massey MR#: [id number] : 1935 Acct:[id number] Age/Sex: 85 / M Date of Service: 03/03/21 Loc: ED Accession Number: [id number] ?? Procedure: CT Stroke Ordering Provider: Uzma Dela Cruz D.O. PROCEDURE:? CT STROKE ? INDICATIONS:? right leg weakness, right sensation difficulty, word searchi ? TECHNIQUE:? Noncontrast 4.5 mm thick angled axial sections acquired from the foramen magnum to the vertex, with coronal reformats.? For radiation dose reduction, the following was used:? automated exposure control, adjustment of mA and/or kV according to patient size.? ? COMPARISON:? None. ? FINDINGS:? Image quality:? Excellent.? ? CSF spaces:? Basal cisterns are patent.? No extra-axial fluid collections.? The ventricles are symmetric in size and shape.? ? Brain:? No intracranial bleeds or masses.? There is cerebral volume loss for age, with resultant ventricular and sulcal prominence.? There are periventricular and deep white matter chronic small vessel ischemic changes.? There is intracranial internal carotid artery atherosclerosis.? ? Skull and face:? Calvarium and visualized facial bones appear intact, without suspicious lesions.? ? Sinuses:? Visualized sinuses and mastoids are clear.? ? IMPRESSION:? No acute intracranial abnormality.? Findings discussed with Dr. Dela Cruz on 03/03/2021 at 16:14 hours. ? This study fulfills neurological imaging criteria for inclusion or exclusion of acute stroke therapies based on available published neurological guidelines.? ? ? Dictated by: Suzi Barcenas M.D. on 03/03/2021 at 16:13 ? ? Approved by: Suzi Barcenas M.D. on 03/03/2021 at 16:14?? CTA - brain/neck: Radiologist's Impression: [address] [address]PM Scan ReportSigned Patient: Marek Massey JMR#: [id number]: 5Acct:[id number]/Sex: 85 / MDate of Service: 03/03/21Loc: EDAccession Number: [id number]? ? Procedure: CT angio head and neck Ordering Provider: Uzma Dela Cruz D.O. PROCEDURE:? CT ANGIO HEAD AND NECK ? INDICATIONS:? ? stroke, weakness ? TECHNIQUE:? After the administration of intravenous contrast, 1 mm thick sections acquired from the aortic arch through the [place] of [place].? Post-contrast 4.5 mm thick sections then re-acquired from the foramen magnum to the vertex.? 3-dimensional rngsmbb-wukklluxa-reakxvoshx (MIP) and/or volume rendering reformats were acquired of the central intracranial vasculature and neck separately. ? COMPARISON:? [facility], CT, CT STROKE, 03/03/2021, 16:06. ? FINDINGS:? Image quality:? Excellent.? ? BRAIN:? The ventricular system and cortical sulci demonstrate atrophy, consistent for the patient's stated age. There are areas of hypodensity within the periventricular and subcortical white matter.? There is no acute intra-or extra axial fluid collection. No acute hemorrhage, mass lesion or midline shift. Brainstem is unremarkable. Globes are symmetrical. Sinuses are aerated. Osseous structures are intact. ? HEAD CT ANGIOGRAPHY:? Anterior circulation:? Intracranial internal carotid arteries are normal in size and flow.? The flow within the paired anterior cerebral arteries is normal and symmetric.? The flow within the middle cerebral arteries is normal and symmetric.? The anterior communicating artery is seen.? No aneurysms are seen.? ? Posterior circulation:? Visualized portions of the vertebral arteries demonstrate normal caliber, and join to form a normal appearing basilar artery.? Flow within the posterior cerebral arteries is normal and symmetric.? No aneurysms are seen.? ? NECK CT ANGIOGRAPHY:? The origins of the left and right common, and right external carotid arteries demonstrate no areas of hemodynamically significant stenosis, vascular occlusion or aneurysmal dilation.? There is approximate 40% narrowing at the origin of the right i nternal carotid artery.? There is approximate 30-40% narrowing at the origin of the left internal carotid artery.? There is a short segment focus of narrowing at the origin of the left external carotid artery measuring approximately 55%.? Origins of the left and right vertebral arteries demonstrate no areas of hemodynamically significant stenosis, vascular occlusion or aneurysmal dilation. Aortic arch demonstrates conventional anatomy. Limited, visualized portions of the subclavian vasculature are unremarkable. ? ? IMPRESSION:? ? 1. No acute intracranial process. ? 2. Moderate atrophy and chronic microvascular ischemic changes. ? 3. No areas of hemodynamically significant stenosis, vascular occlusion or aneurysmal dilation within the anterior or posterior circulation.? ? 4. 30-40% narrowing at the origin of the internal carotid arteries bilaterally. ? 5. Short-segment stenosis at the origin of the left internal carotid artery measuring approximately 55%. ? Any quantitative measurements of stenosis were performed using NASCET criteria.? ? ? Dictated by: Kenzie Zheng M.D. on 03/03/2021 at 16:49? ?? Approved by: Kenzie Zheng M.D. on 03/03/2021 at 16:57?? ECG Data Attestation: I personally reviewed and interpreted this ECG as follows: Prior ECG tracings: available for review Interpretation: Rate of 53 QRS of 152 QTC 471. Right bundle branch clear nonspecific change. Prior from 10/14/20 had atrial tachycardia but similar ST segments as today. MDM Narrative Medical decision making narrative: This is an 85-year-old male who comes emergency department with complaint of weakness. Patient has dysarthria small amount of aphasia. He has significant weakness with his right lower extremity unable to lift it off the bed or perform heel-galindo. And notes some mild changes to sensation. Both patient and his have difficulty giving in an exact onset and the only clearly last known normal I can establish is 10:00 a.m. today putting patient outside the window for tPA. While here in the department his symptoms were improving. He received aspirin, loading dose of Plavix after cons ultation with telestroke in reviewing his CT angiography findings. Patient's case was discussed with our hospitalist who accepts for admission. Stroke Core Measures Exclusion Criteria TPA in CVA: Symptom Onset >3 or 4.5 Hours Discharge Plan Departure Patient Disposition: Admitted As Inpatient Clinical Impression: Acute CVA (cerebrovascular accident) Admit Date/Time: 03/03/21 17:50 Admit Provider: Jason Luu
[2021-03-03] MEDS: SODIUM CHLORIDE 0.9% 1,000 ML 150 ML IV ×2 (16:24→19:23)
[2021-03-03] MEDS: ASPIRIN 81 MG CHEW TAB 324 MG PO (16:44)
[2021-03-03] MEDS: CLOPIDOGREL 75 MG TABLET 300 MG PO (17:29)
[2021-03-03 18:01] LABS: COVID19 - ADMIT (NP swab/PCR) Negative (Negative)
--- NOTE | 2021-03-03 18:33 | DI.MRI.S_ITS ---
PROCEDURE: MR STROKE Pre- and post-contrast brain MRI, non-contrast brain MR angiogram, pre- and postcontrast neck MR angiogram INDICATIONS: CVA TECHNIQUE: Brain: Noncontrast axial T1 spin echo, axial T2 fast spin echo, sagittal and axial FLAIR, coronal T2 fast spin echo, axial gradient echo, axial diffusion and ADC through the brain. After the administration of contrast, axial 3D VIBE of the cranial vasculature and brain. Brain MRA: Non-contrast 3-D time of flight MR angiogram, with multiple vebbrzs-xiybjgqmk-wdmzauydgq (MIP) reformats performed. Neck MRA: Axial and sagittal TruFISP through the neck. Coronal dynamic MR angiogram during administration of contrast in the arterial and venous phases, with 3-dimenstional hrcwwlk-hfbvzcxeg-sfrauafzhj (MIP) reformats constructed from subtraction images. COMPARISON: [facility], CT, CT ANGIO HEAD AND NECK, 03/03/2021, 16:12. [facility], CT, CT STROKE, 03/03/2021, 16:06. FINDINGS: Image quality: This examination is limited by involuntary motion artifact. BRAIN: CSF spaces: Ventricles are normal in size and shape. Basal cisterns are patent. No extra-axial fluid collections. Brain: No intracranial bleeds or mass effects. [place]-white matter interface is normal. Diffusion weighted images show no acute ischemic insults. Brainstem appears normal. Normal intravascular flow voids are present. No abnormal intracranial enhancement. Note is made of age-appropriate brain parenchymal volume loss and chronic small vessel ischemic changes. Skull and face: Calvarial marrow signal is normal. Orbits appear normal. A left lens replacement can be seen. Sinuses: Sinuses and mastoids are clear. BRAIN MR ANGIOGRAM: Anterior circulation: Intracranial internal carotid arteries are normal in size and enhancement. The flow within the paired anterior cerebral arteries is normal and symmetric. The flow within the middle cerebral arteries is normal and symmetric. The anterior communicating artery is seen. No stenoses, occlusions, or aneurysms. Posterior circulation: The visualized portions of the vertebral arteries demonstrate normal caliber, and join to form a normal appearing basilar artery. The flow within the posterior cerebral arteries is normal and symmetric. No stenoses, occlusions, or aneurysms. NECK MR ANGIOGRAM: Carotids: Great vessels demonstrate a conventional anatomy as they arise from the aortic arch. The origins of the common carotid arteries appear patent. The calibers and courses of both common carotid arteries are normal. The bifurcation regions demonstrate atherosclerotic irregularity. There is 30-40% narrowing seen involving the origins of both the left and the right internal carotid arteries. There is approximately 50% stenosis seen involving the origin of the left external carotid artery. The more distal internal carotid arteries demonstrate normal course and caliber. Posterior circulation: The origins of the vertebral arteries appear patent. More superior portions of both vertebral arteries demonstrate normal course and caliber, and join to form a normal appearing basilar artery. Miscellaneous: Subclavian arteries appear patent. Pre-contrast images through the neck show no soft tissue abnormalities. IMPRESSION: BRAIN MRI: No findings of acute or subacute infarction can be seen. Note is made of age-appropriate brain parenchymal volume loss and chronic small vessel ischemic changes. No masses or abnormal enhancement can be seen. BRAIN MR ANGIOGRAM: No significant intracranial arterial abnormality is seen. NECK MR ANGIOGRAM: 30-40% narrowing can be seen involving the origins of each INTERNAL carotid artery. There is approximately 50% stenosis seen involving the origin of the left EXTERNAL carotid artery. No significant vertebral artery abnormality is seen. Dictated by: Raman Connolly M.D. on 03/04/2021 at 10:11 Approved by: Raman Connolly M.D. on 03/04/2021 at 10:18
[2021-03-03 19:37] LABS: UR Morphine/Opiate cutoff 300 Negative (Negative); Ur Creatinine Normal (Normal); Ur Specific Gravity Normal (Normal); Urine Amphetamines Negative (Negative); Urine Barbiturates Negative (Negative); Urine Benzodiazepines Negative (Negative); Urine Cocaine Negative (Negative); Urine MDMA Negative (Negative); Urine Methadone Negative (Negative); Urine Methamphetamines Negative (Negative); Urine Oxycodone Negative (Negative); Urine Phencyclidine Negative (Negative); Urine Tetrahydrocannabinol Negative (Negative); Urine Tricyclic Antidepressant Negative (Negative); Urine pH Normal (Normal)
[2021-03-03] MEDS: SODIUM CHLORIDE 0.9% 1,000 ML 100 ML IV (19:57)
[2021-03-03] MEDS: ATORVASTATIN 20 MG TABLET 80 MG PO (20:04)
[2021-03-03] MEDS: lisinopriL 20 MG TABLET 40 MG PO (22:23)
[2021-03-03] MEDS: METFORMIN HCL 500 MG TABLET 1000 MG PO (22:23)
--- NOTE | 2021-03-03 23:28 | PC.ADMIT ---
Addendum entered by Mena Richardson R.N. 03/03/21 23:32: Dressing to back saturated with blood through to reid-pad. Re-inforced with ABD pad and tape. Dr. Mohamud aware and stated she will see him tomorrow. Original Note: [email or web address] Admission Note: Patient arrived to floor from PACU @ 16:55, oriented to room and shown how to use call light, breaks on bed are locked. The patient,Marek Massey,85 y/o, was given written information regarding hospital policies, unit procedures and contact persons. Patient's smoking status: Former smoker. Vital Signs - 8 hr 03/03/21 15:29 03/03/21 15:37 03/03/21 15:45 Temperature 98.7 F Pulse Rate 54 L 52 L 52 L Respiratory Rate 18 22 23 Blood Pressure 177/74 H Pulse Oximetry 99 98 98 03/03/21 16:00 03/03/21 16:19 03/03/21 16:30 Temperature Pulse Rate 53 L 51 L 51 L Respiratory Rate 21 22 Blood Pressure Pulse Oximetry 98 98 98 03/03/21 16:45 03/03/21 17:00 03/03/21 17:15 Temperature Pulse Rate 49 L 50 L 51 L Respiratory Rate 19 23 25 H Blood Pressure Pulse Oximetry 98 99 99 03/03/21 17:30 03/03/21 17:33 03/03/21 17:45 Temperature Pulse Rate 52 L 52 L 53 L Respiratory Rate 22 21 23 Blood Pressure 173/115 H Pulse Oximetry 99 98 98 03/03/21 18:28 03/03/21 18:32 03/03/21 18:57 Temperature 96.7 F L 96.7 F L Pulse Rate 60 60 Respiratory Rate 16 17 Blood Pressure 140/74 140/74 Pulse Oximetry 95 95 95 03/03/21 22:08 03/03/21 22:23 Temperature Pulse Rate 63 Respiratory Rate Blood Pressure 146/74 H Pulse Oximetry 94
[2021-03-04 02:00] VITALS: O2SAT 97
--- NOTE | 2021-03-04 02:03 | PC.NURSE ---
patient urinating ~100mL multiple times throughout shift. bladder scan showed 700mL +. straight cath resulted in 750mL output per verbal order from Dr. Paredes. rescanning in 1 hour to determine need for indwelling langford catheter.
--- NOTE | 2021-03-04 02:14 | PM.HP.1 ---
History of Present Illness History of Present Illness Date Patient Seen: 03/03/21 Time Patient Seen: 20:30 Chief complaint: Weakness Narrative: Patient is a 85-year-old male Marek Massey with a medical history of invasive adenocarcinoma of prostate Bethany score 8, essential hypertension, atrial fibrillation, chronic edema, and non insulin-dependent type 2 diabetes who came into the ED with complaint of weakness of the right leg, and speech difficulties. Patient and his stated his last known normal was at 10am ealier today.?Patient demonstrated weakness in his right lower extremity and speech changes in the ED, initial NIH :6. He is not anticoagulated.? He denies any allergies to medications.? Patient lives at home with his . Upon admit to the floor patient continues to have mild speech difficulties and confusion with an NIH score of 1 but extremity weakness has resolved. Currently patient denies chest pain, shortness of breath, numbness, tingling, weakness, headache, changes in vision, difficulty swallowing, abdominal pain, nausea, vomiting, fever, body aches, chills, recent illness injury or trauma. Upon admit initial labs demonstrate WBC 12.7, neutrophils 7300, HGB 12.8, HCT 38.8, creatinine 1.33, last 1.24 no YASMEEN, GFR 51. SOFA:2, NIH:1. Patient's initial troponin WNL and tox screen is negative. Brain CT is negative for any acute intracranial abnormalities, and chest x-ray is negative for any acute cardiopulmonary processes. Patient's EKG had a rate of 53 with a right bundle-branch block, clear nonspecific changes as compared with EKG on 10/14/2020 that had atrial tachycardia but similar ST segment changes. Head/Neck CTA demonstrated no acute intracranial process,moderate atrophy and chronic microvascular ischemic changes.There are no areas of hemodynamically significant stenosis, vascular occlusion or aneurysmal dilation within the anterior or posterior circulation.?There is noted 30-40% narrowing at the origin of the internal carotid arteries bilaterally, and short-segment stenosis at the origin of the left internal carotid artery measuring approximately 55%. Patient's last echo 2018 normal LV, with mild LA enlargement, EF 60-65%. ED consulted Dr. Shrestha Tele-Stroke neurologist who recommended dual platelet therapy 300 mg loading dose of Plavix.? Followed by Plavix 75 mg and aspirin 81 mg.? No further additional intervention at this time.? Patient admitted for acute CVA, neurological deficit and Sepsis without septic shock. Patient History Medical History (Updated 03/04/21 @ 02:41 by JAKE Mcdermott) Abdominal pain Acute cholecystitis Adenocarcinoma of prostate with Bethany score X Ankle pain Atrial fibrillation Carpal tunnel syndrome Chicken pox Chronic back pain Diabetes mellitus Foot pain Fractures Frequent urination at night GI bleed Glaucoma Hay fever Hypertension Leukocytosis Measles Mumps Non-insulin dependent type 2 diabetes mellitus Plantar warts Rosacea Shoulder pain Vision disorder Surgical History Cataract (~2011) Hx of appendectomy Family & Social History Family History Grandfather Diabetes mellitus Mother Diabetes mellitus Cancer Sister Age: 79 Cancer Sister Age: 72 Heart disease Social History: household members spouse Prior Living Arrangements House Safety & Behavioral: Feels Safe in Current Yes Environment Been Physically Hurt or No Threatened By a Person Suicidal Ideation Description None Suicide Plan Description No Plan Tobacco & Substance use: Tobacco type cigarettes Smoking Status Former smoker alcohol intake current alcohol intake frequency 0-2 drinks per day Substance Use Type does not use Meds Home Medications and Allergies Home Medications Medication Instructions Recorded Confirmed Type abiraterone 250 mg tablet (Zytiga) 250 mg PO DAILY #30 tab 07/14/20 03/03/21 Rx lisinopril 40 mg tablet See Rx Instructions .ROUTE 08/22/20 03/03/21 Rx .COMPLEX #180 tablet diltiazem HCl 300 mg capsule,24 300 mg PO DAILY #90 cap 09/06/20 03/03/21 Rx hr,extended release glyburide 5 mg tablet 5 mg PO TID #270 tab 11/04/20 03/03/21 Rx metformin 500 mg tablet 1,000 mg PO BID #360 tab 11/07/20 03/03/21 Rx metoprolol succinate 100 mg 100 mg PO DAILY #90 tab 11/07/20 03/03/21 Rx tablet,extended release 24 hr Allergies Allergy/AdvReac Type Severity Reaction Status Date / Time aspirin [ASPIRIN] AdvReac Severe gi bleed Verified 03/03/21 16:40 Review of Systems Review of Systems Narrative: All 12 point systems reviewed with the patient and are negative except otherwise documented. Exam Vital Signs (past 8 hours): - 03/03/21 18:28 03/03/21 18:32 03/03/21 18:57 Temperature 96.7 F L 96.7 F L Pulse Rate 60 60 Respiratory Rate 16 17 Blood Pressure 140/74 140/74 Pulse Oximetry 95 95 95 03/03/21 22:08 03/03/21 22:23 03/03/21 23:28 Temperature 98.4 F Pulse Rate 63 60 Respiratory Rate 16 Blood Pressure 146/74 H 165/93 H Pulse Oximetry 94 93 03/04/21 02:00 Temperature Pulse Rate Respiratory Rate Blood Pressure Pulse Oximetry 97 Oxygen Delivery Method Room Air Oxygen Flow Rate 0 Narrative Exam Narrative: GEN: well nourished, well appearing male, in no distress at this time. HEENT: Atraumatic, pupils are equal round reactive to light, extraocular movements are intact, nares are clear, TMs are clear with no fluid, there is no conjunctival pallor.? Throat is clear without any exudates, erythema, tonsillar enlargement or uvular deviation, no facial droop.? HEART: Regular rate and rhythm without murmur, clicks, rubs.? Pulses are equal in upper and lower extremities LUNGS:Lungs clear in all juárez auscultation, no wheezes, rales, crackles, chest moves symmetrically ABD:bowel sounds normal x4 soft, non-tender, no guarding, rebound, rigidity, no masses noted, no hepatosplenomegaly :No CVA tenderness MSCL: Non-tender, no muscle atrophy.? Patient has equal muscle strength in upper & lower extremities and is able to hold for count of 10, bilateral equal nonpitting +2 edema NEURO: sensation normal with the exception slight decrease to medial calfs bilaterally but equal, + dysarthria. SKIN:? No obvious rash or skin changes. Psych: Patient able to answer simple question but unable to extrapolate or navigate a multilayer or complex questions. Noted word-finding difficulties. Patient express's that this is his baseline. Objective Labs Result Diagrams: 03/03/21 15:30 03/03/21 15:30 Labs: Laboratory Results - last 24 hr 03/03/21 03/03/21 03/03/21 15:30 15:30 16:47 WBC 12.7 H RBC 4.16 L Hgb 12.8 L Hct 38.8 L MCV 93.2 MCH 30.7 MCHC 33.0 RDW 13.7 Plt Count 294 Neut % (Auto) 57.7 Lymph % (Auto) 34.6 Carbon % (Auto) 7.0 Eos % (Auto) 0.5 L Baso % (Auto) 0.2 Neut # (Auto) 7300 H Lymph # (Auto) 4400 Carbon # (Auto) 900 Eos # (Auto) 100 Baso # (Auto) 0 Sodium 136 L Potassium 3.7 Chloride 100 Carbon Dioxide 26 BUN 16 Creatinine 1.33 H Estimated GFR 51.0 L BUN/Creatinine Ratio 12.0 Glucose 314 H Calcium 9.2 Total Bilirubin 0.5 AST 21 ALT 17 Alkaline Phosphatase 64 Total Creatine Kinase 55 CK-MB (CK-2) TNP CK-MB (CK-2) Rel Index TNP Troponin I < 0.012 Total Protein 6.8 Albumin 4.2 Globulin 2.6 Albumin/Globulin Ratio 1.6 U Opiates 300ng/mL cut Ur Oxycodone Screen Urine Methadone Screen Ur Barbiturates Screen U Tricyclic Antidepress Ur Phencyclidine Scrn Ur Amphetamines Screen U Methamphetamines Scrn Ur MDMA Scrn (Ecstasy) U Benzodiazepines Scrn Urine Cocaine Screen U Marijuana (THC) Screen SARS-CoV-2 (PCR) Negative 03/03/21 19:21 WBC RBC Hgb Hct MCV MCH MCHC RDW Plt Count Neut % (Auto) Lymph % (Auto) Carbon % (Auto) Eos % (Auto) Baso % (Auto) Neut # (Auto) Lymph # (Auto) Carbon # (Auto) Eos # (Auto) Baso # (Auto) Sodium Potassium Chloride Carbon Dioxide BUN Creatinine Estimated GFR BUN/Creatinine Ratio Glucose Calcium Total Bilirubin AST ALT Alkaline Phosphatase Total Creatine Kinase CK-MB (CK-2) CK-MB (CK-2) Rel Index Troponin I Total Protein Albumin Globulin Albumin/Globulin Ratio U Opiates 300ng/mL cut Negative Ur Oxycodone Screen Negative Urine Methadone Screen Negative Ur Barbiturates Screen Negative U Tricyclic Antidepress Negative Ur Phencyclidine Scrn Negative Ur Amphetamines Screen Negative U Methamphetamines Scrn Negative Ur MDMA Scrn (Ecstasy) Negative U Benzodiazepines Scrn Negative Urine Cocaine Screen Negative U Marijuana (THC) Screen Negative SARS-CoV-2 (PCR) Assessment & Plan Assessment & Plan narrative: Patient is a 85-year-old male Marek Massey with a medical history of invasive adenocarcinoma of prostate Bethany score 8, essential hypertension, atrial fibrillation, chronic edema, and non insulin-dependent type 2 diabetes who came into the ED with complaint of weakness of the right leg, and speech difficulties.With an initial NIH Score:6. Patient admitted for acute CVA, neurological deficit, with sepsis without septic shock. 1. Acute CVA, neurological deficit (right leg extremity weakness, speech difficulties, slurred speech), acute, present on admission -ED:NIH:6, Initial on admit:NIH:1 (this may be patient's base line) -Head/Neck CTA demonstrated no acute intracranial process,moderate atrophy and chronic microvascular ischemic changes.There are no areas of hemodynamically significant stenosis, vascular occlusion or aneurysmal dilation within the anterior or posterior circulation.?There is noted 30-40% narrowing at the origin of the internal carotid arteries bilaterally, and short-segment stenosis at the origin of the left internal carotid artery measuring approximately 55%. -ED consulted Dr. Shrestha Tele-Stroke neurologist who recommended dual platelet therapy 300 mg loading dose of Plavix.? Followed by Plavix 75 mg and aspirin 81 mg.? No further additional intervention at this time.? -differential diagnosis TIA, stroke symptoms lasting greater than 24 hours, ischemic stroke, intracranial hemorrhage, subdural hematoma, epidural hematoma, seizure, brain tumor, migraine, vertigo, hypoglycemia, [place] syndrome, multiple sclerosis, aortic dissection -risk stratification- Labs:A1C, Lipids, CRP, ESR, TSH, CBC, BNP -echo and MR ordered for tomorrow 2. Essential hypertension, Acute on chronic, in the setting of atrial fibrillation (no chronic anticoagulation),chronic, present on admission -Initial 173/115, 165/93, 140/74-patient stable, asymptomatic, no atrial fibrillation demonstrated on telemetry -Place on telemed -continue patient's metoprolol, lisinopril, diltiazem -last echo 2018 normal LV, mildly enlarged LA, EF 60-65% 3.Sepsis with Leukocytosis-left shift, acute, without septic shock, present on admission- Unknown Etiology -initial WBC 12.7, Neut# 7300, SOFA score:2 -chest x-ray is negative, May be UTI due to urinary retention -Blood cultures, urine cultures, CRP, ESR, Procalc ordered 4. Invasive and no carcinoma of prostate, acute on chronic, present on admission -patient experiencing urinary retention, will place Forman catheter if urinary retention greater than 500 per bladder scan -u/a ordered. -managed by Dr. Blank oncology -continue patient's Lupron, prednisone, Flomax, and Zytiga 5. Peripheral edema chronic , chronic, present on admission -Monitor for fluid overload 6. Non insulin-dependent type 2 diabetes, acute on chronic, present on admission- uncontrolled -A1C ordered -initial BS 314 -patient placed on diabetic protocol, with low-dose sliding scale ACHS blood sugar checks, monitor for hypoglycemia Code status:DNR Surrogate decision maker: Spouse Liliana Massey COVID PCR:Negative COVID vaccination: Covid-19 2020 DVT/VTE prophylaxis:Lovenox 40 & SCD's Disposition: Patient admitted for observation, acute CVA, estimated length of stay less than 2 midnights I have utilized all available immediate resources to obtain, update, or review the patient's current medications. I confirmed that the patient's advanced care plan is present, Code status is documented and/or surrogate decision maker is listed in the patient's medical record. Time Spent With Patient Critical Care time: I spent a total of [] minutes of critical care time on this patient's care today; this time is exclusive of procedural time. Scores GCS [place] coma scale eye opening: Spontaneous [place] coma scale verbal response: Orientated [place] coma scale motor response: Obey commands [place] coma scale total score: 15 NIHSS Level of Conciousness: Alert, keenly responsive Ask month/age: Answers both questions correctly. Open/close eyes, close hand: Performs both tasks correctly Best gaze horizontal: Normal Visual juárez: No visual loss Facial palsy: Normal symetrical movement Left arm drift: No drift for full 10 sec Right arm drift: No drift for full 10 sec Left leg drift: No drift for full 5 sec Right leg drift: No drift for full 5 sec Limb ataxia: Absent Sensory on face/arms/legs: Normal, no sensory loss Best language: No aphasia, normal Dysarthria: Mild to mod,some slurring Extinction or inattention: No abnormality Total NIH Stroke scale score: 1 Quality VTE Deep Vein Thrombosis/Pulmonary Embolism Present on Admission: No
[2021-03-04 03:29] VITALS: BP 144/66; PULSE 63; RESP 16; TEMP 37.1; O2SAT 94
--- NOTE | 2021-03-04 03:36 | PC.NURSE ---
14 fr coude catheter placed secondary to urinary retention of > 500mL in one hour per verbal order from Reggie. immediate return of 625 mL, no evidence of traumatic pain during insertion. UA send to lab. patient resting comfortably.
[2021-03-04] MEDS: SODIUM CHLORIDE 0.9% 1,000 ML 100 ML IV (04:55)
[2021-03-04 05:22] LABS: Appearance Urine UA CLEAR; Bilirubin Urine UA NEGATIVE (NEGATIVE); Color Urine UA YELLOW; Glucose Urine UA NEGATIVE (Negative); Ketones Urine UA NEGATIVE (NEGATIVE); Leukocyte Esterase Urine UA NEGATIVE (NEGATIVE); Nitrite Urine UA NEGATIVE (Negative); Occult Blood Urine UA 2+ (Negative); Protein Urine UA NEGATIVE (Negative); Specific Gravity Urine UA 1.015 (1.000-1.035); Urobilinogen Urine UA 0.2 E.U./dL (0.2); pH Urine UA 7.5 (4.5-8.0)
[2021-03-04 06:00] VITALS: O2SAT 94
[2021-03-04 06:10] LABS: RBC Urine 1-5/HPF (0-5/HPF)
[2021-03-04 06:11] LABS: Bacteria Urine None Seen; WBC Urine None Seen (0-5/HPF)
[2021-03-04 07:15] VITALS: BP 169/94; PULSE 79; RESP 16; TEMP 36.1; O2SAT 94
[2021-03-04] MEDS: CLOTRIMAZOLE 1% CRM 30 GM 1 APPLIC TOP (08:20)
[2021-03-04] MEDS: ENOXAPARIN 40 MG/0.4 ML SYRINGE SUBCUT (08:20)
[2021-03-04] MEDS: dilTIAZem CD 180 MG CAP PO (08:21)
[2021-03-04] MEDS: dilTIAZem CD 120 MG CAP PO (08:21)
[2021-03-04] MEDS: METOPROLOL ER 50 MG TABLET 100 MG PO (08:21)
[2021-03-04] MEDS: lisinopriL 20 MG TABLET 40 MG PO (08:21)
[2021-03-04] MEDS: CLOPIDOGREL 75 MG TABLET PO (08:21)
[2021-03-04] MEDS: METFORMIN HCL 500 MG TABLET 1000 MG PO (08:21)
[2021-03-04] MEDS: ASPIRIN EC 81 MG TABLET PO (08:21)
[2021-03-04] MEDS: glyBURIDE 2.5 MG TABLET 5 MG PO (08:22)
[2021-03-04 09:31] LABS: Add Manual Diff / Slide Review NO; Basophils Absolute Auto 0 /uL (0-100); Basophils Percent Auto 0.4 % (0-2); Eosinophils Absolute Auto 100 /uL (0-450); Eosinophils Percent Auto 1.1 % (2-4); Hematocrit 36.7 % (41-53); Hemoglobin 12.2 g/dL (13.5-17.5); Lymphocytes Absolute Auto 1900 /uL (1100-4500); Lymphocytes Percent Auto 16.8 % (25-40); Mean Corpuscular HGB Conc 33.3 % (30-36); Mean Corpuscular Hemoglobin 30.7 PG (26-34); Mean Corpuscular Volume 92.1 fL (80-100); Monocytes Absolute Auto 800 /uL (0-900); Monocytes Percent Auto 6.8 % (3-14); Neutrophils Absolute Auto 8600 /uL (1500-7000); Neutrophils Percent Auto 74.9 % (50-75); Platelet Count 256 X10^3/uL (150-400); Red Blood Cell Count 3.98 X10^6/uL (4.5-5.9); Red Cell Distribution Width 13.7 % (11.6-14.8); White Blood Cell Count 11.5 X10^3/uL (4.5-11.0)
[2021-03-04 09:44] LABS: Hemoglobin A1C% w Est Avg Glu 8.3 % (4.0-6.0)
[2021-03-04 09:46] LABS: BUN Creatinine Ratio 10.4 (6-22); Blood Urea Nitrogen 10 mg/dL (9-20); C-Reactive Protein Quant 1.6 mg/dL (<1.0); Calcium 8.5 mg/dL (8.4-10.2); Carbon Dioxide 27 mmol/L (22-32); Chloride 103 mmol/L (98-107); Cholesterol 138 mg/dL (140-199); Estimated Glomerular Filt Rate > 60.0 mL/min (>60); Glucose 141 mg/dL (80-110); HDL Cholesterol 27 mg/dL (40-60); HEMOLYSIS < 15 (0-50); LDL Cholesterol Calculated 64 mg/dL (<100); Sodium 138 mmol/L (137-145); Triglycerides 237 mg/dL (35-150)
[2021-03-04 09:59] LABS: Procalcitonin 0.05 ng/mL (<0.5)
[2021-03-04 10:04] LABS: Culture Indicated Urine Cult Not Indicated; Urine Comments Microscopic Normal
[2021-03-04 10:08] LABS: Potassium 2.7 mmol/L (3.4-5.1)
[2021-03-04 10:10] LABS: Erythrocyte Sedimentation Rate 15 MM/HR (0-15)
[2021-03-04 10:26] LABS: TSH w/ Reflex to FT4 1.77 uIU/mL (0.47-4.68)
--- NOTE | 2021-03-04 10:45 | PT.IIE ---
Surgical History (Last Reviewed 03/04/21 @ 02:41 [facility]) Cataract (~2011) Medical History (Last Updated 03/04/21 @ 02:41 by [facility]) Abdominal pain Acute cholecystitis 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 Ankle pain Atrial fibrillation Carpal tunnel syndrome Chicken pox Chronic back pain Diabetes mellitus Foot pain Fractures Frequent urination at night GI bleed Glaucoma Hay fever Hypertension Leukocytosis Measles Mumps Non-insulin dependent type 2 diabetes mellitus Plantar warts Rosacea Shoulder pain Vision disorder Physical Therapy Inpatient Evaluation/Re-Eval M1 PT/OT-IP Prior Functional Status Start: 03/04/21 12:02 Freq: NEEDED Status: Active Protocol: Document 03/04/21 10:45 AB (Rec: 03/04/21 12:14 AB [id number]) Medical Review Prior Functional Status Medical History Reviewed Yes Communication able to make needs known Mobility and Gait pt stated that he is independent with all mobilities and ambulation without AD Social History Household Members spouse Living Arrangements House Number of Floors (Floors) 3 or More Floors Number of Stairs To Enter/Railing? 4 steps to enter with L rail 13 steps L rail to bedroom level Home Environment Standard Height Toilet,Walk in Shower Home Equipment Hand Held Shower Employment Status Retired M2 PT-IP Current Condition Start: 03/04/21 12:02 Freq: NEEDED Status: Active Protocol: Document 03/04/21 10:45 AB (Rec: 03/04/21 12:14 AB [id number]) Physical Therapy Current Condition Current Condition Evaluation Date 03/04/21 Treatment Diagnosis r/o CVA; difficulty in walking Onset Date 03/03/21 Precautions Other Precautions falls M3 PT-IP Subjective Start: 03/04/21 12:02 Freq: NEEDED Status: Active Protocol: Document 03/04/21 10:45 AB (Rec: 03/04/21 12:14 AB [id number]) Subjective Physical Therapy Visit Type Type Initial Evaluation Visit Start Time 10:45 Visit Stop Time 11:15 Total Visit Minutes 30 Number of LABORER MINE Visits 0 Physical Therapy Visit Comments Patient Comments agreeable to do PT Therapy Pain Assessment Pain Present Pain Present Denied Pain M4 PT-IP Mobility and Gait Start: 03/04/21 12:02 Freq: NEEDED Status: Active Protocol: Document 03/04/21 10:45 AB (Rec: 03/04/21 12:14 AB [id number]) PT-Bed Mobility Assessment Supine to Sit Supine to Sit Maximum Assistance,1 Person Assistance Sit to Supine Sit to Supine Minimal Assistance PT-Transfer Assessment Sit to and From Stand Sit to and from Stand Maximum Assistance,1 Person Assistance,Use of Upper Extremities Equipment Transfer Assistive Device Gait Belt,Front Wheeled Walker Orthotic/Prosthetic Devices or Brace: No Transfers Transfer Destination Bed Transfer Technique ambulated Transfer Ability Level of Assist Moderate Assistance,1 Person Assistance,Use of Upper Extremities Comments Mobility Comments pt sitting on chair and agreed to do PT. required repeated instructions. completed sit < >stand x 4 attempts and required max A and cues. ambulated in room using FWW 25 ft mod A and cues. presents with increase forward flexion, lateral trunk lean to the R, decrease step elevation and step length. pt ambulated to the bed. completed sit to supine x 2 attempts to elevate LE requiring min A and cues. completed supine to sit x 2 attempts requiring max A and max cues. initially increase posterior trunk LOB requiring max A for steadiness. completed sit to stand from bed max A and cues and step transfer to chair mod A and cues. positioned pt on chair. call light and table placed within reach. Pt stated that he might has a walker at home but is not sure. Gait Assessment Gait Gait Assistance Required: Moderate Assistance,1 Person Assist Distance (Feet) 25 Able to Maintain Weight Bearing Status Yes During Gait Assistive Devices Assistive Device Gait Belt,Front Wheeled Walker Orthotic/Prosthetic Devices or Brace: No Gait Deviations General Gait Pattern Antalgic,Decreased Stride Length,Decreased Feet Clearance,Flexed Trunk,Step-to Gait Factors Limiting Gait Function Factors Limiting Gait Function Decreased Activity Tolerance, Decreased Strength,Difficulty Following Directions,Limited Range of Motion,Poor Balance, Poor Safety Awareness PT-Balance Assessment Sitting Balance and Reactions Static Sitting Balance Ability Fair Dynamic Sitting Balance Ability Fair Standing Balance and Reactions Static Standing Balance Ability Poor Dynamic Standing Balance Ability Poor Device Used FWW M5 PT-IP Objective Assessments Start: 03/04/21 12:02 Freq: NEEDED Status: Active Protocol: Document 03/04/21 10:45 AB (Rec: 03/04/21 12:14 AB [id number]) Orientation Orientation/Cognition Level of Alertness Alert Orientation Name,Place,Situation Language Function Ability No Deficits Noted Safety Awareness Decreased Safety Awareness Memory Description Short Term Impaired Gross Range of Motion Lower Extremity ROM Assessment Within Functional Limits Strength Lower Extremity Strength Assessment Right Impaired Comments Strength Comments LLE: 4-/5 RLE 3+/5 Coordination Assessment Gross Coordination Gross Coordination WNL Sensation Assessment Sensation Gross Sensation WNL Muscle Tone Muscle Tone WNL Yes M6 PT-IP Treatment Start: 03/04/21 12:02 Freq: NEEDED Status: Active Protocol: Document 03/04/21 10:45 AB (Rec: 03/04/21 12:14 AB [id number]) Physical Therapy Treatment Education Education Provided Safety M7 PT-IP Assessment and Plan Start: 03/04/21 12:02 Freq: NEEDED Status: Active Protocol: Document 03/04/21 10:45 AB (Rec: 03/04/21 12:14 AB [id number]) PT Summary Assessment and Plan Potential Rehabilitation Potential Fair Status of Condition at Evaluation Evolving Summary Impairments Pain,ROM,Strength,Balance, Coordination,Sensation,Tone, Cognition,Bed Mobility, Transfers,Gait,Activity Tolerance Assessment Summary pt requiring mod to max A for mobility and ambulation using FWW. d/c plan depending on progress but at this time, may require SNF rehab. will conduct caregiver training when appropriate as well as complete stair climbing training. will continue to assess progress for safe d/c plan. Goals Bed Mobility Goal Standby Assistance Transfer Goal Standby Assistance,Front Wheeled Walker Gait Goal Standby Assistance,Front Wheel Walker Gait Distance 125 Other Goals up/down 13 steps L rail ascending SBA Frequency of Treatment Frequency Of Treatment Once a Day Treatment Plan Physical Therapy Treatment Plan Bed Mobility Training,Transfer Training,Gait Training, Therapeutic Exercise,Balance Retraining,Discharge Planning, Neuromuscular Re-ed, Coordination Retraining,Manual Therapy Precautions Other Precautions falls Recommendations To Nursing Amount of Assist Needed 1 Person Assist Discharge Recommendations PT Discharge Recommendations Home with 17/12 Assist Available,Home Health,SNF Rehab,Home vs SNF Equipment Needed for Home Before FWW Discharge Transportation Needs at Discharge Private Vehicle,Wheelchair/ Cabulance
[2021-03-04 10:55] VITALS: O2SAT 96
--- NOTE | 2021-03-04 11:18 | ST.IPIE ---
Visit Care Team Role Provider Type CHELSI Lopez Primary Care Provider Advanced Sinter Press Operator Specialty: Family Practice Address: [address] [place] [address], [id number] Email: [email or web address] Uzma Dela Cruz DO Emergency Provider Physician Referring Provider Specialty: Emergency Medicine Address: [address] [place] [address], [id number] Email: [email or web address] Jason Luu MD Admit Provider Physician Attending Provider Specialty: Hospitalist Address: [address] [place] [address], [id number] Fax: Email: [email or web address] Medical History (Last Updated 03/04/21 @ 02:41 by Vicki Paredes [facility]) Abdominal pain (Medical) Acute cholecystitis (Medical) 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 (Medical) [place] score:8 Ankle pain (Medical) Atrial fibrillation (Medical) Carpal tunnel syndrome (Medical) Chicken pox (Medical) Chronic back pain (Medical) [id number] Diabetes mellitus (Medical) In the Foot pain (Medical) Fractures (Medical) Frequent urination at night (Medical) GI bleed (Medical) Glaucoma (Medical) Hay fever (Medical) When young Hx of appendectomy (Medical) Hypertension (Medical) Leukocytosis (Medical) Measles (Medical) Mumps (Medical) Non-insulin dependent type 2 diabetes mellitus (Medical) Plantar warts (Medical) Rosacea (Medical) Shoulder pain (Medical) Vision disorder (Medical) ST IP Initial Evaluation Report CHARTING CLERK Motor Speech Evaluation Start: 03/04/21 11:03 Freq: Status: Active Protocol: Document 03/04/21 11:03 MG (Rec: 03/04/21 11:18 MG [id number]) Motor Speech Evaluation Session Time Visit Start Time 09:15 Visit Stop Time 09:35 Total Visit Minutes 20 Visit Information Visit Number 1 Setting Setting Acute Care Next Note Type Next Note Type Treatment Note Patient History Source: [employer] ([facility]). 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 Patient and his stated his last known normal was at 10am earlier yesterday.?Patient demonstrated weakness in his right lower extremity and speech changes in the ED, initial NIH :6. Patient lives at home with his . Upon admit to the floor patient continues to have mild speech difficulties and confusion with an NIH score of 1 but extremity weakness has resolved. Currently patient denies chest pain, shortness of breath, numbness, tingling, weakness, headache, changes in vision, difficulty swallowing, abdominal pain, nausea, vomiting, fever, body aches, chills, recent illness injury or trauma. Mental Status Mental Status Alert,Responsive,Cooperative Subjective Observations Subjective Pt was sitting upright in bed when CHARTING CLERK entered the room. Pt was agreeable to speech therapy entering and doing initial assessment. Per nurse, pt has some garbled speech, but consumed breakfast with no difficulties. Pt reported to this CHARTING CLERK that he has not noticed a change in his speech pattern, but that he is having difficulty finding words. Oral Motor Lips Function WFL Tongue Function WFL Jaw Function WFL Soft Palate Function WFL Respiration/Phonation Conversation Quality WFL Duration WFL Function WFL Loudness WFL Diadochokinetic Rates P^ Quality WFL T^ Quality WFL K^ Quality WFL P^T^K^ Quality WFL Speech Intelligibility Awareness/Strategy Use Description Type of awareness/use Uses consistently Findings Details Motor Speech Function WFL Type of Impairment No impairment noted at this time Assessment Details Assessment Per assessment finding, pt demonstrates oral motor movements that are WFL for consumption of solids/liquids and speaking. Laryngeal palpation indicated WFL movement of the larynx and hyoid bone. CHARTING CLERK and pt discussed word finding strategies to try as pt currently has word finding difficulties that are new to him. Prognosis Rehabilitation Potential Good Recommendations Treatment Recommended Yes Frequency x1-x2 Therapy Recommendations Treatment should focus on word finding strategies and diet tolerance. Short Term Goals Pt will participate in further education re: word finding strategies. Service Secretary Goals Pt will utilize word finding strategies independently in moments where he is experiencing difficulty. Pt will tolerate least restrictive diet and not demonstrate any overt s/sx of aspiration. Patient/Family Education Education Described results of evaluation,Patient Understanding,Patient Demonstration,Patient Needs More Info
[2021-03-04 11:26] VITALS: BP 178/68; PULSE 77; RESP 17; TEMP 36.2; O2SAT 97
[2021-03-04] MEDS: TAMSULOSIN 0.4 MG CAPSULE PO (11:29)
[2021-03-04] MEDS: POTASSIUM CHLORIDE 20 MEQ TAB 60 MEQ PO (11:29)
--- NOTE | 2021-03-04 11:54 | CM.DANOTE ---
Addendum entered by Huong Parrish R.N. 03/04/21 14:43: This casework specialist was informed that patient discharged, and son was upset about plan. Patient was home, son concerned about some of his care needs. Jamila, DISPLAY DIRECTOR, had originally spoken to son as this menu planner was unavailable. He had been given discharge instructions already by the nurse, Catalina. Jamila indicated that home health could be ordered if patient was having increased weakness. He also went home with a langford catheter. This casework specialist had briefly spoken to patient here at the hospital, confirmed briefly with him that he resided with his , Liliana. Son was not mentioned, and then, he worked with P.T. P.T. notes indicated that patient would benefit with home health, and should have 24/ care. , Liliana, does live with patient. Called son to follow up, discussed home health services. Asked him about patient's , and if she could help patient, as son lives a few blocks away. He indicated, they weren't really talking. Let him know that this casework specialist can order home health, but would not be able to be there between 24-48 hours. He also stated, can't you make him a urology appointment, that's one thing you can do for him so he wouldn't have to. He stated, can't you pretend that he's still a patient there? Let him know that case management can't make appointment, he will need to follow up with primary care provider at [facility], as he is already discharged. Spoke to nurse, Catalina, who stated that she had already explained this to son. Son also asked this menu planner if his medications, Flomax, were ordered at the pharmacy. Confirmed with Catalina that she had already told son that they were ordered at [facility]. In the conversation, let son know that he was not listed as the main garbage person, was his . Did order [facility] for patient, including nursing, for patient has urinary obstruction and now has a langford, and ordered P.T, and O.T. Spoke to Rima at [facility] and she indicated that the team should be able to review referral tomorrow, and see him between 24-48 hours. Faxed over face sheet, signed face to face, orders, DC Summary, H&P, P.T. notes. Let son know that patient will need to call primary care provider Saturday. Original Note: DCP: Case received, EMR reviewed and met with patient. Introduced self and role. Was able to obtain some information from patient regarding his baseline activity status and current living situation, but he was getting ready to work with P.T, and information was brief. Patient is an 85 year old male who admitted yesterday afternoon to the care of the hospitalist team. PCP: Millie GAGNON. Payer: confirmed: Medicare/[employer] Patient came to the hospital via private vehicle secondary to having some weakness to his right extremity, as well as speech difficulties. Most of patient's symptoms had resolved. He is here for CVA work up, and having MRI today. Patient has history of Diabetes. Met briefly with patient. [place] Physical Therapist was getting ready to work with him. He is alert and oriented. Confirmed that he resides in [place] with his spouse, Liliana. He also indicated that he drives short distances. P: DCP to continue to follow closely for any needs. Will see how he does with P.T. MRI notes no acute infarctions. He may benefit with home health. Huong Parrish RN/City Editor Discharge Planning/Care Management Advanced directive, confirm from FAMILY Start: 03/03/21 18:46 Freq: Q24H Status: Active Protocol: Document 03/03/21 18:46 (Rec: 03/03/21 19:56 [id number]) Advance Directive, confirm on record Time 19:50 Person contacted Marek Massey Copy received No CM Discharge Assessment Start: 03/04/21 11:48 Freq: Status: Active Protocol: Document 03/04/21 11:48 (Rec: 03/04/21 11:50 [id number]) Discharge Planning Assessment Assigned Manager Floral Huong Parrish RN/City Editor Advance Directives? No Advance Directives on File No History Provided By Patient,Medical Record Prior Living Arrangements House Household Members spouse Type of transporation used prior to Drives own vehicle admit Independent with ADL's Yes Is patient alert and oriented? Yes Needs Assistance With Home Chores / Shopping Caregiver for Another No DME Already Rented / Owned Cane Comment Will see how he does with P.T, as far as his mobility. He may benefit with home health. Barriers to Discharge No Discharge Plan Home Transportation Arrangement Family Referrals Initiated None needed Additional Comment Will see how he does with P.T. before making determination. Whiteboard Updated in Patient Room with Yes name and ext. # of Manager Floral Review Status In Process Next Review Type Continued Stay Review
--- NOTE | 2021-03-04 11:55 | PM.DS.1 ---
History of Present Illness History of Present Illness Date Patient Seen: 03/04/21 Time Patient Seen: 11:55 Chief complaint: Weakness Narrative: Per Vicki Paredes, NAUMKEAG OPERATOR-BC: Patient is a 85-year-old male Marek Massey with a medical history of invasive adenocarcinoma of prostate Nipton score 8, essential hypertension, atrial fibrillation, chronic edema, and non insulin-dependent type 2 diabetes who came into the ED with complaint of weakness of the right leg, and speech difficulties. Patient and his stated his last known normal was at 10am ealier today.?Patient demonstrated weakness in his right lower extremity and speech changes in the ED, initial NIH :6. He is not anticoagulated.? He denies any allergies to medications.? Patient lives at home with his .? Upon admit to the floor patient continues to have mild speech difficulties and confusion with an NIH score of 1 but extremity weakness has resolved.? Currently patient denies chest pain, shortness of breath, numbness, tingling, weakness, headache, changes in vision, difficulty swallowing, abdominal pain, nausea, vomiting, fever, body aches, chills, recent illness injury or trauma. Upon admit initial labs demonstrate WBC 12.7, neutrophils 7300, HGB 12.8, HCT 38.8, creatinine 1.33, last 1.24 no YASMEEN, GFR 51. SOFA:2, NIH:1. Patient's initial troponin WNL and tox screen is negative.? Brain CT is negative for any acute intracranial abnormalities, and chest x-ray is negative for any acute cardiopulmonary processes.? Patient's EKG had a rate of 53 with a right bundle-branch block, clear nonspecific changes as compared with EKG on 10/14/2020 that had atrial tachycardia but similar ST segment changes.? Head/Neck CTA demonstrated no acute intracranial process,moderate atrophy and chronic microvascular ischemic changes.There are no areas of hemodynamically significant stenosis, vascular occlusion or aneurysmal dilation within the anterior or posterior circulation.?There is noted 30-40% narrowing at the origin of the internal carotid arteries bilaterally, and short-segment stenosis at the origin of the left internal carotid artery measuring approximately 55%.? Patient's last echo 2018 normal LV, with mild LA enlargement, EF 60-65%.? ED consulted Dr. Shrestha Tele-Stroke neurologist who recommended dual platelet therapy 300 mg loading dose of Plavix.? Followed by Plavix 75 mg and aspirin 81 mg.? No further additional intervention at this time.? Patient admitted for acute CVA, neurological deficit and Sepsis without septic shock. Discharge Providers Provider Date of admission: 03/03/21 17:50 Discharge Date: 03/04/21 Primary care physician: CHELSI Lopez Consults: 03/03/21 18:33 Consult to Discharge Planning Routine Comment: Consult to Occupational Therapy Evaluate & Treat Comment: Physician Instructions: Evaluate and treat Consult to Physical Therapy Evaluate & Treat Comment: Physician Instructions: Evaluate and Treat Consult to Speech Therapy Evaluate & Treat Comment: Physician Instructions: Evaluate and treat Discharge provider: Narciso Brice DO Summary Hospital Course Discharge Diagnosis: 1. TIA. acute, improved. 2. Essential hypertension, Acute on chronic, in the setting of 3. chronic atrial fibrillation (no chronic anticoagulation),chronic, present on admission 4. history of prostate cancer, with LUTS symptoms and acute urinary obstruction. 5. Peripheral edema chronic , chronic, present on admission 6. Non insulin-dependent type 2 diabetes, acute on chronic, present on admission- uncontrolled Exam Vital Signs (past 8 hours): - 03/04/21 06:00 03/04/21 07:15 03/04/21 10:55 Temperature 96.9 F L Pulse Rate 79 Respiratory Rate 16 Blood Pressure 169/94 H Pulse Oximetry 94 94 96 03/04/21 11:26 Temperature 97.2 F L Pulse Rate 77 Respiratory Rate 17 Blood Pressure 178/68 H Pulse Oximetry 97 Oxygen Delivery Method Room Air Oxygen Flow Rate 0 Narrative Exam Narrative: GEN: well nourished, well appearing male, in no distress at this time. HEENT: Atraumatic, pupils are equal round reactive to light, extraocular movements are intact, nares are clear, TMs are clear with no fluid, there is no conjunctival pallor.? Throat is clear without any exudates, erythema, tonsillar enlargement or uvular deviation, no facial droop.? HEART: Regular rate and rhythm without murmur, clicks, rubs.? Pulses are equal in upper and lower extremities LUNGS:Lungs clear in all juárez auscultation, no wheezes, rales, crackles, chest moves symmetrically ABD:bowel sounds normal x4? soft, non-tender, no guarding, rebound, rigidity, no masses noted, no hepatosplenomegaly :No CVA tenderness MSCL: Non-tender, no muscle atrophy.? Patient has equal muscle strength in upper & lower extremities and is able to hold for count of 10, bilateral equal nonpitting +2 edema NEURO: sensation normal with the exception slight decrease to medial calfs bilaterally but equal, + dysarthria. SKIN:? No obvious rash or skin changes. Psych:? Patient able to answer simple question but unable to extrapolate or navigate a multilayer or complex questions.? Noted word-finding difficulties.? Patient express's that this is his baseline. Objective Labs Result Diagrams: 03/04/21 09:15 03/04/21 09:15 Labs: Laboratory Results - last 24 hr 03/03/21 03/03/21 03/03/21 15:30 15:30 16:47 WBC 12.7 H RBC 4.16 L Hgb 12.8 L Hct 38.8 L MCV 93.2 MCH 30.7 MCHC 33.0 RDW 13.7 Plt Count 294 Neut % (Auto) 57.7 Lymph % (Auto) 34.6 [place] % (Auto) 7.0 Eos % (Auto) 0.5 L Baso % (Auto) 0.2 Neut # (Auto) 7300 H Lymph # (Auto) 4400 [place] # (Auto) 900 Eos # (Auto) 100 Baso # (Auto) 0 ESR Sodium 136 L Potassium 3.7 Chloride 100 Carbon Dioxide 26 BUN 16 Creatinine 1.33 H Estimated GFR 51.0 L BUN/Creatinine Ratio 12.0 Glucose 314 H Hemoglobin A1c Calcium 9.2 Total Bilirubin 0.5 AST 21 ALT 17 Alkaline Phosphatase 64 Total Creatine Kinase 55 CK-MB (CK-2) TNP CK-MB (CK-2) Rel Index TNP Troponin I < 0.012 C-Reactive Protein Total Protein 6.8 Albumin 4.2 Globulin 2.6 Albumin/Globulin Ratio 1.6 Triglycerides Cholesterol LDL Cholesterol, Calc HDL Cholesterol Procalcitonin TSH Urine Color Urine Appearance Urine pH Ur Specific [place] Urine Protein Urine Glucose (UA) Urine Ketones Urine Occult Blood Urine Nitrate Urine Bilirubin Urine Urobilinogen Ur Leukocyte Esterase Urine RBC Urine WBC Urine Bacteria Ur Culture Indicated? Micro UA Comment U Opiates 300ng/mL cut Ur Oxycodone Screen Urine Methadone Screen Ur Barbiturates Screen U Tricyclic Antidepress Ur Phencyclidine Scrn Ur Amphetamines Screen U Methamphetamines Scrn Ur MDMA Scrn (Ecstasy) U Benzodiazepines Scrn Urine Cocaine Screen U Marijuana (THC) Screen SARS-CoV-2 (PCR) Negative 03/03/21 03/04/21 03/04/21 19:21 03:30 09:15 WBC RBC Hgb Hct MCV MCH MCHC RDW Plt Count Neut % (Auto) Lymph % (Auto) [place] % (Auto) Eos % (Auto) Baso % (Auto) Neut # (Auto) Lymph # (Auto) [place] # (Auto) Eos # (Auto) Baso # (Auto) ESR Sodium Potassium Chloride Carbon Dioxide BUN Creatinine Estimated GFR BUN/Creatinine Ratio Glucose Hemoglobin A1c 8.3 H Calcium Total Bilirubin AST ALT Alkaline Phosphatase Total Creatine Kinase CK-MB (CK-2) CK-MB (CK-2) Rel Index Troponin I C-Reactive Protein Total Protein Albumin Globulin Albumin/Globulin Ratio Triglycerides Cholesterol LDL Cholesterol, Calc HDL Cholesterol Procalcitonin TSH Urine Color Yellow Urine Appearance Clear Urine pH 7.5 Ur Specific [place] 1.015 Urine Protein Negative Urine Glucose (UA) Negative Urine Ketones Negative Urine Occult Blood 2+ H Urine Nitrate Negative Urine Bilirubin Negative Urine Urobilinogen 0.2 Ur Leukocyte Esterase Negative Urine RBC 1-5/hpf Urine WBC None seen Urine Bacteria None seen Ur Culture Indicated? Cult not indicated Micro UA Comment Microscopic normal U Opiates 300ng/mL cut Negative Ur Oxycodone Screen Negative Urine Methadone Screen Negative Ur Barbiturates Screen Negative U Tricyclic Antidepress Negative Ur Phencyclidine Scrn Negative Ur Amphetamines Screen Negative U Methamphetamines Scrn Negative Ur MDMA Scrn (Ecstasy) Negative U Benzodiazepines Scrn Negative Urine Cocaine Screen Negative U Marijuana (THC) Screen Negative SARS-CoV-2 (PCR) 03/04/21 03/04/21 03/04/21 09:15 09:15 09:15 WBC 11.5 H RBC 3.98 L Hgb 12.2 L Hct 36.7 L MCV 92.1 MCH 30.7 MCHC 33.3 RDW 13.7 Plt Count 256 Neut % (Auto) 74.9 Lymph % (Auto) 16.8 L [place] % (Auto) 6.8 Eos % (Auto) 1.1 L Baso % (Auto) 0.4 Neut # (Auto) 8600 H Lymph # (Auto) 1900 [place] # (Auto) 800 Eos # (Auto) 100 Baso # (Auto) 0 ESR Sodium 138 Potassium 2.7 L* Chloride 103 Carbon Dioxide 27 BUN 10 Creatinine 0.96 Estimated GFR > 60.0 BUN/Creatinine Ratio 10.4 Glucose 141 H D Hemoglobin A1c Calcium 8.5 Total Bilirubin AST ALT Alkaline Phosphatase Total Creatine Kinase CK-MB (CK-2) CK-MB (CK-2) Rel Index Troponin I C-Reactive Protein 1.6 H Total Protein Albumin Globulin Albumin/Globulin Ratio Triglycerides Cancelled 237 H Cholesterol Cancelled 138 L LDL Cholesterol, Calc Cancelled 64 HDL Cholesterol Cancelled 27 L Procalcitonin 0.05 TSH Urine Color Urine Appearance Urine pH Ur Specific [place] Urine Protein Urine Glucose (UA) Urine Ketones Urine Occult Blood Urine Nitrate Urine Bilirubin Urine Urobilinogen Ur Leukocyte Esterase Urine RBC Urine WBC Urine Bacteria Ur Culture Indicated? Micro UA Comment U Opiates 300ng/mL cut Ur Oxycodone Screen Urine Methadone Screen Ur Barbiturates Screen U Tricyclic Antidepress Ur Phencyclidine Scrn Ur Amphetamines Screen U Methamphetamines Scrn Ur MDMA Scrn (Ecstasy) U Benzodiazepines Scrn Urine Cocaine Screen U Marijuana (THC) Screen SARS-CoV-2 (PCR) 03/04/21 03/04/21 03/04/21 09:15 09:15 09:15 WBC RBC Hgb Hct MCV MCH MCHC RDW Plt Count Neut % (Auto) Lymph % (Auto) [place] % (Auto) Eos % (Auto) Baso % (Auto) Neut # (Auto) Lymph # (Auto) [place] # (Auto) Eos # (Auto) Baso # (Auto) ESR 15 Sodium Potassium Chloride Carbon Dioxide BUN Creatinine Estimated GFR BUN/Creatinine Ratio Glucose Hemoglobin A1c Calcium Total Bilirubin AST ALT Alkaline Phosphatase Total Creatine Kinase CK-MB (CK-2) CK-MB (CK-2) Rel Index Troponin I C-Reactive Protein Cancelled Total Protein Albumin Globulin Albumin/Globulin Ratio Triglycerides Cholesterol LDL Cholesterol, Calc HDL Cholesterol Procalcitonin TSH 1.77 Urine Color Urine Appearance Urine pH Ur Specific [place] Urine Protein Urine Glucose (UA) Urine Ketones Urine Occult Blood Urine Nitrate Urine Bilirubin Urine Urobilinogen Ur Leukocyte Esterase Urine RBC Urine WBC Urine Bacteria Ur Culture Indicated? Micro UA Comment U Opiates 300ng/mL cut Ur Oxycodone Screen Urine Methadone Screen Ur Barbiturates Screen U Tricyclic Antidepress Ur Phencyclidine Scrn Ur Amphetamines Screen U Methamphetamines Scrn Ur MDMA Scrn (Ecstasy) U Benzodiazepines Scrn Urine Cocaine Screen U Marijuana (THC) Screen SARS-CoV-2 (PCR) 03/04/21 09:15 WBC RBC Hgb Hct MCV MCH MCHC RDW Plt Count Neut % (Auto) Lymph % (Auto) [place] % (Auto) Eos % (Auto) Baso % (Auto) Neut # (Auto) Lymph # (Auto) [place] # (Auto) Eos # (Auto) Baso # (Auto) ESR Sodium Potassium Chloride Carbon Dioxide BUN Creatinine Estimated GFR BUN/Creatinine Ratio Glucose Hemoglobin A1c Calcium Total Bilirubin AST ALT Alkaline Phosphatase Total Creatine Kinase CK-MB (CK-2) CK-MB (CK-2) Rel Index Troponin I C-Reactive Protein Total Protein Albumin Globulin Albumin/Globulin Ratio Triglycerides Cholesterol LDL Cholesterol, Calc HDL Cholesterol Procalcitonin Cancelled TSH Urine Color Urine Appearance Urine pH Ur Specific [place] Urine Protein Urine Glucose (UA) Urine Ketones Urine Occult Blood Urine Nitrate Urine Bilirubin Urine Urobilinogen Ur Leukocyte Esterase Urine RBC Urine WBC Urine Bacteria Ur Culture Indicated? Micro UA Comment U Opiates 300ng/mL cut Ur Oxycodone Screen Urine Methadone Screen Ur Barbiturates Screen U Tricyclic Antidepress Ur Phencyclidine Scrn Ur Amphetamines Screen U Methamphetamines Scrn Ur MDMA Scrn (Ecstasy) U Benzodiazepines Scrn Urine Cocaine Screen U Marijuana (THC) Screen SARS-CoV-2 (PCR) [facility] Medical History (Updated 03/04/21 @ 02:41 by SALOME Mcdermott-DILIP) Abdominal pain Acute cholecystitis 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 Ankle pain Atrial fibrillation Carpal tunnel syndrome Chicken pox Chronic back pain Diabetes mellitus Foot pain Fractures Frequent urination at night GI bleed Glaucoma Hay fever Hypertension Leukocytosis Measles Mumps Non-insulin dependent type 2 diabetes mellitus Plantar warts Rosacea Shoulder pain Vision disorder Surgical History Cataract (~2011) Hx of appendectomy Family History Grandfather Diabetes mellitus Mother Diabetes mellitus Cancer Sister Age: 79 Cancer Sister Age: 72 Heart disease Social History household members: spouse Smoking Status: Former smoker alcohol intake: current Discharge Plan Discharge Plan Patient Disposition: Home Provider Discharge Comment: You were admitted to the hospital after a TIA. This is treated much like a stroke even though your MRI did not show evidence of a stroke. This is treated with a baby aspirin and statin medication for life, and a medication called plavix for 20 days. You also appeared to have urinary obstruction and a langford catheter was placed. There did not appear to be an infection of your urine. Please follow up with your PCP office next week and possibly your oncology office as well, you will need to see a urologist as soon as possible to assess ability to remove the catheter. Started on flomax (had been recommended by oncology office previously). Discharge orders & Medications Prescriptions: New aspirin 81 mg Tablet,Delayed Release (Dr/Ec) 81 mg PO DAILY 90 Days Qty: 90 RF: 0 atorvastatin [Lipitor] 20 mg Tablet 80 mg PO BEDTIME 30 Days Qty: 30 RF: 0 clopidogrel 75 mg Tablet 75 mg PO DAILY 20 Days Qty: 20 RF: 0 tamsulosin [Flomax] 0.4 mg Capsule 0.4 mg PO DAILY 30 Days Qty: 30 RF: 0 Continued diltiazem HCl 300 mg capsule,extended release 24 hr 300 mg PO DAILY Qty: 90 RF: 3 lisinopril 40 mg tablet See Rx Instructions .ROUTE .COMPLEX Qty: 180 RF: 3 metoprolol succinate 100 mg tablet extended release 24 hr 100 mg PO DAILY Qty: 90 RF: 3 metformin 500 mg tablet 1,000 mg PO BID Qty: 360 RF: 3 glyburide 5 mg tablet 5 mg PO TID Qty: 270 RF: 3 abiraterone [Zytiga] 250 mg Tablet 250 mg PO DAILY Qty: 30 RF: 11 Follow up/Referrals: Millie Pittman ARNP [Primary Care Provider] - 3-5 Days Diet/Activity/Treatments Diet: Diet as Tolerated and Low-sodium Catheter: 2-way Langford Catheter comment: Please continue catheter at home, recommend outpatient urology. Visit Report/Discharge Packet Instructions: How to Care for Your Langford Catheter -- Male, Statin Drugs Discharge Data Primary Care Provider: Millie Pittman Quality VTE Deep Vein Thrombosis/Pulmonary Embolism Present on Admission: No
--- NOTE | 2021-03-04 13:11 | CM.DANOTE ---
Addendum entered by Catalina Pittman R.N. 03/04/21 14:11: RN approached Jamila with case management, regarding son's concerns of his dad's discharge. Jamila spoke with son and told him she would work with Huong regarding setting up home health. Original Note: Patient discharged to home, accompanied down via wheelchair to private vehicle to son, Puma, by Angel [employer]. All discharge instructions and education given to patient. He verbalized understanding and denied any further questions. Education given regarding langford catheter and that patient must followup with outpatient urology. Puma, patient's son, also discussed this via the phone. Education handouts given on stroke, plavix, flomax, lipitor, and catheter information.
--- NOTE | 2021-03-04 14:09 | PC.NURSE ---
Puma here to pick patient up at 1200. Patient just received discharge orders, heating unit mechanic told Puma that patient was not ready to be discharged. KIM Arnold, called Puma back and explained patient would be going home with urinary catheter, Puma responded with, So be it, and denied any further questions. RN spoke with Puma about patient's new medications and followup appointments. Denied any further questions.
--- NOTE | 2021-03-04 19:21 | PM.DS.1 ---
History of Present Illness History of Present Illness Date Patient Seen: 03/04/21 Time Patient Seen: 11:55 Chief complaint: Weakness Narrative: Per Vicki Paredes, SPINDLE TESTER-BC: Patient is a 85-year-old male Marek Massey with a medical history of invasive adenocarcinoma of prostate [place] score 8, essential hypertension, atrial fibrillation, chronic edema, and non insulin-dependent type 2 diabetes who came into the ED with complaint of weakness of the right leg, and speech difficulties. Patient and his stated his last known normal was at 10am ealier today.?Patient demonstrated weakness in his right lower extremity and speech changes in the ED, initial NIH :6. He is not anticoagulated.? He denies any allergies to medications.? Patient lives at home with his .? Upon admit to the floor patient continues to have mild speech difficulties and confusion with an NIH score of 1 but extremity weakness has resolved.? Currently patient denies chest pain, shortness of breath, numbness, tingling, weakness, headache, changes in vision, difficulty swallowing, abdominal pain, nausea, vomiting, fever, body aches, chills, recent illness injury or trauma. Upon admit initial labs demonstrate WBC 12.7, neutrophils 7300, HGB 12.8, HCT 38.8, creatinine 1.33, last 1.24 no YASMEEN, GFR 51. SOFA:2, NIH:1. Patient's initial troponin WNL and tox screen is negative.? Brain CT is negative for any acute intracranial abnormalities, and chest x-ray is negative for any acute cardiopulmonary processes.? Patient's EKG had a rate of 53 with a right bundle-branch block, clear nonspecific changes as compared with EKG on 10/14/2020 that had atrial tachycardia but similar ST segment changes.? Head/Neck CTA demonstrated no acute intracranial process,moderate atrophy and chronic microvascular ischemic changes.There are no areas of hemodynamically significant stenosis, vascular occlusion or aneurysmal dilation within the anterior or posterior circulation.?There is noted 30-40% narrowing at the origin of the internal carotid arteries bilaterally, and short-segment stenosis at the origin of the left internal carotid artery measuring approximately 55%.? Patient's last echo 2018 normal LV, with mild LA enlargement, EF 60-65%.? ED consulted Dr. Shrestha Tele-Stroke neurologist who recommended dual platelet therapy 300 mg loading dose of Plavix.? Followed by Plavix 75 mg and aspirin 81 mg.? No further additional intervention at this time.? Patient admitted for acute CVA, neurological deficit and Sepsis without septic shock. Discharge Providers Provider Date of admission: 03/03/21 17:50 Discharge Date: 03/04/21 Primary care physician: CHELSI Lopez Consults: 03/03/21 18:33 Consult to Discharge Planning Routine Comment: Consult to Occupational Therapy Evaluate & Treat Comment: Physician Instructions: Evaluate and treat Consult to Physical Therapy Evaluate & Treat Comment: Physician Instructions: Evaluate and Treat Consult to Speech Therapy Evaluate & Treat Comment: Physician Instructions: Evaluate and treat 03/04/21 14:33 Consult to Home Health Routine Comment: Reason For Exam: Home Health RN, P.T, O.T. Discharge provider: Narciso Brice DO Summary Hospital Course Discharge Diagnosis: 1. TIA. acute, improved. 2. Essential hypertension, Acute on chronic, in the setting of 3. chronic atrial fibrillation (no chronic anticoagulation),chronic, present on admission 4. history of prostate cancer, with LUTS symptoms and acute urinary obstruction. 5. Peripheral edema chronic , chronic, present on admission 6. Non insulin-dependent type 2 diabetes, acute on chronic, present on admission- uncontrolled. 7. hypokalemia Hospital Course: This is an 85-year-old male with a past medical history of hypertension, chronic atrial fibrillation, prostate cancer, chronic peripheral edema, and non-insulin dependent type 2 diabetes who was admitted for further evaluation of transient right lower extremity weakness and difficulty speaking. Symptoms had largely resolved by the following morning. He is having no speech difficulty and no right lower extremity weakness. He was seen by Physical therapy and was slightly weak but could be discharged home with home health. His MRI showed no acute infarcts. Echocardiogram was unable to be obtained during his observation stay, but given lack of symptoms and a negative MRI this is not felt to be urgently needed. Patient was treated as a TIA, discharged on aspirin, statin, and will also complete 75 mg of Plavix for 20 days. Patient was also noted to have acute urinary retention, with straight catheterization performed obtaining 700 cc of urine. Upon review of his chart he appears to have had some lower urinary tract symptoms recently and was supposed to start Flomax a month ago but this does not appear to have been started. Urinalysis was checked and was negative for infection. Langford catheter was placed. At this time I recommend continued Langford as an outpatient, and outpatient urology follow-up (previously saw Dr. Mcgarry per EMR scanned notes). He should follow-up with his oncologist as previously scheduled and ideally his primary care provider early next week. Patient was also mildly hypokalemic at 2.7, there was no EKG changes noted, or no events noted on telemetry. He was given 60 mEq of oral repletion. His diabetes showed likely adequate control with an A1c of 8.3% which is fine for his age. Other than Flomax, and treatment for probable TIA no other medication changes are recommended at this time. Exam Vital Signs (past 8 hours): - 03/04/21 11:26 Temperature 97.2 F L Pulse Rate 77 Respiratory Rate 17 Blood Pressure 178/68 H Pulse Oximetry 97 Oxygen Delivery Method Room Air Oxygen Flow Rate 0 Narrative Exam Narrative: GEN: well nourished, well appearing male, in no distress at this time. HEART: Regular rate and rhythm without murmur, clicks, rubs.? Pulses are equal in upper and lower extremities LUNGS:Lungs clear in all juárez auscultation, no wheezes, rales, crackles, chest moves symmetrically ABD:bowel sounds normal x4? soft, non-tender, no guarding, rebound, rigidity, no masses noted, no hepatosplenomegaly :No CVA tenderness MSCL: Non-tender, no muscle atrophy.? Patient has equal muscle strength in upper & lower extremities and is able to hold for count of 10, bilateral equal nonpitting , minimal. NEURO: sensation normal with the exception slight decrease to medial calfs bilaterally but equal, no dysarthria. SKIN:? No obvious rash or skin changes. Objective Labs Result Diagrams: 03/04/21 09:15 03/04/21 09:15 Labs: Laboratory Results - last 24 hr 03/03/21 03/04/21 03/04/21 19:21 03:30 09:15 WBC RBC Hgb Hct MCV MCH MCHC RDW Plt Count Neut % (Auto) Lymph % (Auto) [place] % (Auto) Eos % (Auto) Baso % (Auto) Neut # (Auto) Lymph # (Auto) [place] # (Auto) Eos # (Auto) Baso # (Auto) ESR Sodium Potassium Chloride Carbon Dioxide BUN Creatinine Estimated GFR BUN/Creatinine Ratio Glucose Hemoglobin A1c 8.3 H Calcium C-Reactive Protein Triglycerides Cholesterol LDL Cholesterol, Calc HDL Cholesterol Procalcitonin TSH Urine Color Yellow Urine Appearance Clear Urine pH 7.5 Ur Specific [place] 1.015 Urine Protein Negative Urine Glucose (UA) Negative Urine Ketones Negative Urine Occult Blood 2+ H Urine Nitrate Negative Urine Bilirubin Negative Urine Urobilinogen 0.2 Ur Leukocyte Esterase Negative Urine RBC 1-5/hpf Urine WBC None seen Urine Bacteria None seen Ur Culture Indicated? Cult not indicated Micro UA Comment Microscopic normal U Opiates 300ng/mL cut Negative Ur Oxycodone Screen Negative Urine Methadone Screen Negative Ur Barbiturates Screen Negative U Tricyclic Antidepress Negative Ur Phencyclidine Scrn Negative Ur Amphetamines Screen Negative U Methamphetamines Scrn Negative Ur MDMA Scrn (Ecstasy) Negative U Benzodiazepines Scrn Negative Urine Cocaine Screen Negative U Marijuana (THC) Screen Negative 03/04/21 03/04/21 03/04/21 09:15 09:15 09:15 WBC 11.5 H RBC 3.98 L Hgb 12.2 L Hct 36.7 L MCV 92.1 MCH 30.7 MCHC 33.3 RDW 13.7 Plt Count 256 Neut % (Auto) 74.9 Lymph % (Auto) 16.8 L [place] % (Auto) 6.8 Eos % (Auto) 1.1 L Baso % (Auto) 0.4 Neut # (Auto) 8600 H Lymph # (Auto) 1900 [place] # (Auto) 800 Eos # (Auto) 100 Baso # (Auto) 0 ESR Sodium 138 Potassium 2.7 L* Chloride 103 Carbon Dioxide 27 BUN 10 Creatinine 0.96 Estimated GFR > 60.0 BUN/Creatinine Ratio 10.4 Glucose 141 H D Hemoglobin A1c Calcium 8.5 C-Reactive Protein 1.6 H Triglycerides Cancelled 237 H Cholesterol Cancelled 138 L LDL Cholesterol, Calc Cancelled 64 HDL Cholesterol Cancelled 27 L Procalcitonin 0.05 TSH Urine Color Urine Appearance Urine pH Ur Specific [place] Urine Protein Urine Glucose (UA) Urine Ketones Urine Occult Blood Urine Nitrate Urine Bilirubin Urine Urobilinogen Ur Leukocyte Esterase Urine RBC Urine WBC Urine Bacteria Ur Culture Indicated? Micro UA Comment U Opiates 300ng/mL cut Ur Oxycodone Screen Urine Methadone Screen Ur Barbiturates Screen U Tricyclic Antidepress Ur Phencyclidine Scrn Ur Amphetamines Screen U Methamphetamines Scrn Ur MDMA Scrn (Ecstasy) U Benzodiazepines Scrn Urine Cocaine Screen U Marijuana (THC) Screen 03/04/21 03/04/21 03/04/21 09:15 09:15 09:15 WBC RBC Hgb Hct MCV MCH MCHC RDW Plt Count Neut % (Auto) Lymph % (Auto) [place] % (Auto) Eos % (Auto) Baso % (Auto) Neut # (Auto) Lymph # (Auto) [place] # (Auto) Eos # (Auto) Baso # (Auto) ESR 15 Sodium Potassium Chloride Carbon Dioxide BUN Creatinine Estimated GFR BUN/Creatinine Ratio Glucose Hemoglobin A1c Calcium C-Reactive Protein Cancelled Triglycerides Cholesterol LDL Cholesterol, Calc HDL Cholesterol Procalcitonin TSH 1.77 Urine Color Urine Appearance Urine pH Ur Specific [place] Urine Protein Urine Glucose (UA) Urine Ketones Urine Occult Blood Urine Nitrate Urine Bilirubin Urine Urobilinogen Ur Leukocyte Esterase Urine RBC Urine WBC Urine Bacteria Ur Culture Indicated? Micro UA Comment U Opiates 300ng/mL cut Ur Oxycodone Screen Urine Methadone Screen Ur Barbiturates Screen U Tricyclic Antidepress Ur Phencyclidine Scrn Ur Amphetamines Screen U Methamphetamines Scrn Ur MDMA Scrn (Ecstasy) U Benzodiazepines Scrn Urine Cocaine Screen U Marijuana (THC) Screen 03/04/21 09:15 WBC RBC Hgb Hct MCV MCH MCHC RDW Plt Count Neut % (Auto) Lymph % (Auto) [place] % (Auto) Eos % (Auto) Baso % (Auto) Neut # (Auto) Lymph # (Auto) [place] # (Auto) Eos # (Auto) Baso # (Auto) ESR Sodium Potassium Chloride Carbon Dioxide BUN Creatinine Estimated GFR BUN/Creatinine Ratio Glucose Hemoglobin A1c Calcium C-Reactive Protein Triglycerides Cholesterol LDL Cholesterol, Calc HDL Cholesterol Procalcitonin Cancelled TSH Urine Color Urine Appearance Urine pH Ur Specific [place] Urine Protein Urine Glucose (UA) Urine Ketones Urine Occult Blood Urine Nitrate Urine Bilirubin Urine Urobilinogen Ur Leukocyte Esterase Urine RBC Urine WBC Urine Bacteria Ur Culture Indicated? Micro UA Comment U Opiates 300ng/mL cut Ur Oxycodone Screen Urine Methadone Screen Ur Barbiturates Screen U Tricyclic Antidepress Ur Phencyclidine Scrn Ur Amphetamines Screen U Methamphetamines Scrn Ur MDMA Scrn (Ecstasy) U Benzodiazepines Scrn Urine Cocaine Screen U Marijuana (THC) Screen [facility] Medical History (Updated 03/04/21 @ 02:41 by JAKE Mcdermott) Abdominal pain Acute cholecystitis Adenocarcinoma of prostate with [place] score X Ankle pain Atrial fibrillation Carpal tunnel syndrome Chicken pox Chronic back pain Diabetes mellitus Foot pain Fractures Frequent urination at night GI bleed Glaucoma Hay fever Hypertension Leukocytosis Measles Mumps Non-insulin dependent type 2 diabetes mellitus Plantar warts Rosacea Shoulder pain Vision disorder Surgical History Cataract (~2011) Hx of appendectomy Family History Grandfather Diabetes mellitus Mother Diabetes mellitus Cancer Sister Age: 79 Cancer Sister Age: 72 Heart disease Social History household members: spouse Smoking Status: Former smoker alcohol intake: current Discharge Plan Discharge Plan Patient Disposition: Home Provider Discharge Comment: You were admitted to the hospital after a TIA. This is treated much like a stroke even though your MRI did not show evidence of a stroke. This is treated with a baby aspirin and statin medication for life, and a medication called plavix for 20 days. You also appeared to have urinary obstruction and a langford catheter was placed. There did not appear to be an infection of your urine. Please follow up with your PCP office next week and possibly your oncology office as well, you will need to see a urologist as soon as possible to assess ability to remove the catheter. Started on flomax (had been recommended by oncology office previously). Discharge orders & Medications Prescriptions: New aspirin 81 mg Tablet,Delayed Release (Dr/Ec) 81 mg PO DAILY 90 Days Qty: 90 RF: 0 atorvastatin [Lipitor] 20 mg Tablet 80 mg PO BEDTIME 30 Days Qty: 30 RF: 0 clopidogrel 75 mg Tablet 75 mg PO DAILY 20 Days Qty: 20 RF: 0 tamsulosin [Flomax] 0.4 mg Capsule 0.4 mg PO DAILY 30 Days Qty: 30 RF: 0 Continued diltiazem HCl 300 mg capsule,extended release 24 hr 300 mg PO DAILY Qty: 90 RF: 3 lisinopril 40 mg tablet See Rx Instructions .ROUTE .COMPLEX Qty: 180 RF: 3 metoprolol succinate 100 mg tablet extended release 24 hr 100 mg PO DAILY Qty: 90 RF: 3 metformin 500 mg tablet 1,000 mg PO BID Qty: 360 RF: 3 glyburide 5 mg tablet 5 mg PO TID Qty: 270 RF: 3 abiraterone [Zytiga] 250 mg Tablet 250 mg PO DAILY Qty: 30 RF: 11 Follow up/Referrals: Millie Pittman ARNP [Primary Care Provider] - 3-5 Days Diet/Activity/Treatments Diet: Diet as Tolerated and Low-sodium Catheter: 2-way Langford Catheter comment: Please continue catheter at home, recommend outpatient urology. Visit Report/Discharge Packet Instructions: How to Care for Your Langford Catheter -- Male, Statin Drugs Discharge Data Primary Care Provider: Millie Pittman Quality VTE Deep Vein Thrombosis/Pulmonary Embolism Present on Admission: No
== END 2021-03-04 13:10 | disposition home or self-care (01) ==
LOC: ED 17:48 → AC 18:30
PROVIDERS: Nurse Practitioner Family; Admitting Provider Internal Medicine; Emergency Provider Emergency Medicine; PCP Nurse Practitioner; Referring Provider Emergency Medicine; Visit Provider Internal Medicine
DX: G45.9 Transient cerebral ischemic attack, unspecified (principal); I48.20 Chronic atrial fibrillation, unspecified; I10 Essential (primary) hypertension; E11.9 Type 2 diabetes mellitus without complications; C61 Malignant neoplasm of prostate; E87.6 Hypokalemia; N13.9 Obstructive and reflux uropathy, unspecified; Z87.891 Personal history of nicotine dependence; Z66 Do not resuscitate; Z79.84 Long term (current) use of oral hypoglycemic drugs; Z20.822 Contact with and (suspected) exposure to COVID-19
CPT/HCPCS: 36415; 70450; 70496; 70498; 70548; 70553; 71045; 80048; 80053; 80061; 80305; 81001; 82550; 82962; 83036; 84145; 84443; 84484; 85025; 85651; 86140; 87040; 87086; 87635; 92522; 93005; 96360; 96361; 96372; 97162; 99285; C9803; G0378; J1650; J1815; Q9967

== ENCOUNTER 2021-03-06 14:11 | Inpatient (IN) | payer MEDICARE, OTHER, SELFPAY ==
[2021-03-06] VITALS (9 sets, daily range): BP systolic 147–195; BP diastolic 79–94; PULSE 82–108; RESP 16–27; TEMP 36.4–37.3; O2SAT 96–97; BMI 28.1; BMI 25.9
--- NOTE | 2021-03-06 | DI.ECHO.S_ITS ---
[facility] +---------+ [facility] +---------+ : : [address] : : : : [id number] : : : : Phone: [phone] Echocardiogram Report + + :Name: CHAS WOLFE Study Date: 03/07/2021 Height: 69 in : :[facility] ReadingLocation: Weight: 190 lb: : Gender: Male BSA: 2.0 m2 : :: 1935 Age: 85 yrs : :Reason For Study: Acute CVA : : Performed By: TONYA MAN : :Referring: YARELY BEARD : + + Interpretation Summary The ejection fraction is estimated to be 50-55%. Basal inferoseptal hypokinesis The right ventricle is mildly dilated. There is no Doppler evidence for an interatrial shunt. The aortic valve is slightly calcified. There is trace tricuspid regurgitation. The right ventricular systolic pressure is estimated to be at least 23 mmHg based on an estimated right atrial pressure of 3 mm Hg. Procedure: A two-dimensional transthoracic echocardiogram with color flow and Doppler was performed. The study quality was technically adequate. Fair image quality despite patient being supine. The patient was in normal sinus rhythm during the exam. The patient had occasional PVCs during the exam. Left Ventricle: The left ventricle is normal in size. There is mild proximal septal thickening noted. The ejection fraction is estimated to be 50-55%. There is a mild dyssynchronous contraction pattern, consistent with a conduction abnormality. Basal inferoseptal hypokinesis. Right Ventricle: The right ventricle is mildly dilated. The right ventricular systolic function is normal. Atria: Borderline left atrial enlargement. The right atrium is mild to moderately dilated. There is no Doppler evidence for an interatrial shunt. Mitral Valve: There is mild mitral annular calcification. There is trace mitral regurgitation. Aortic Valve: The aortic valve is trileaflet. The aortic valve opens well. The aortic valve is slightly calcified. No aortic regurgitation is present. Tricuspid Valve: The tricuspid valve is normal. There is trace tricuspid regurgitation. The right ventricular systolic pressure is estimated to be at least 23 mmHg based on an estimated right atrial pressure of 3 mm Hg. Pulmonic Valve: The pulmonic valve leaflets are thin and pliable; valve motion is normal. There is a trace or physiologic amount of pulmonic regurgitation. Great Vessels: The aortic root is normal size. The ascending aorta is normal in size. The aortic arch is normal in size. The IVC is of normal diameter and collapses greater than 50% with a sniff. This suggests a low right atrial pressure of 3 mm Hg. Pericardium/ Pleura There is no pericardial effusion. There is an anterior echo-free space consistent with a fat pad. There is no pleural effusion. MMode/2D Measurements & Calculations LVIDd: 4.2 cm LVOT diam: 2.2 cm LVIDs: 3.1 cm Ao root diam: 3.3 cm FS: 26.1 % asc Aorta Diam: 3.1 cm IVSd: 1.3 cm Ao Arch Diam (Prox Trans): 2.9 cm LVPWd: 1.2 cm LV cho. diameter/BSA (cm/m^2): 2.1 LV sys. diameter/BSA (cm/m^2): 1.5 LA A2 area: 24.6 cm2 RA long axis: 5.0 cm LA A4 area: 20.1 cm2 RA area: 18.1 cm2 LA length (vol): 5.9 cm RA vol: 55.6 ml LA vol: 71.5 ml RA : 27.5 ml/m2 LA vol index: 35.4 ml/m2 IVC diam: 1.7 cm RVD1 (basal): 4.7 cm TAPSE: 2.1 cm Doppler Measurements & Calculations Ao V2 max: 138.5 cm/sec LVOT Max Akira: 78.4 cm/sec Ao V2 mean: 99.3 cm/sec LV V1 max P.5 mmHg Ao max P.7 mmHg LV V1 VTI: 16.9 cm Ao mean P.2 mmHg EFREM(I,D): 2.2 cm2 Ao V2 VTI: 29.7 cm EFREM(V,D): 2.1 cm2 sev ratio: 0.57 EFREM indexed to BSA (cm^2/m^2): 1.1 MV E max akira: 81.0 cm/sec TR max akira: 224.6 cm/sec MV A max akira: 99.7 cm/sec TR max P.2 mmHg MV E/A: 0.81 PA V2 max: 79.8 cm/sec Med Peak E' Akira: 5.9 cm/sec PA V2 mean: 62.7 cm/sec E/E' med: 13.7 PA mean P.6 mmHg Lat Peak E' Akira: 6.0 cm/sec PA pr(Accel): 36.2 mmHg E/E' lat: 13.5 E/e' average: 13.6 MV dec time: 0.16 sec SV(LVOT): 64.0 ml Reading Physician:02:17 PM
--- NOTE | 2021-03-06 14:26 | DI.RAD.S_ITS ---
PROCEDURE: XR CHEST 1V INDICATIONS: chest pain TECHNIQUE: One view of the chest was acquired. COMPARISON: [facility], CR, XR CHEST 1V, 03/03/2021, 16:15. FINDINGS: Surgical changes and devices: None. Lungs and pleura: Lungs are clear. No pleural effusions or pneumothorax. Mediastinum: Aortic arch calcifications are seen. Heart size is enlarged. Bones and chest wall: No suspicious bony lesions. Overlying soft tissues appear unremarkable. IMPRESSION: No acute cardiopulmonary pathology. Dictated by: Randall Muhammad M.D. on 03/06/2021 at 15:02 Approved by: Randall Muhammad M.D. on 03/06/2021 at 15:07
[2021-03-06 14:42] LABS: Add Manual Diff / Slide Review NO; Basophils Absolute Auto 100 /uL (0-100); Eosinophils Absolute Auto 100 /uL (0-450); Hematocrit 37.6 % (41-53); Hemoglobin 12.9 g/dL (13.5-17.5); Lymphocytes Absolute Auto 2700 /uL (1100-4500); Lymphocytes Percent Auto 24.7 % (25-40); Mean Corpuscular HGB Conc 34.3 % (30-36); Mean Corpuscular Hemoglobin 31.5 PG (26-34); Mean Corpuscular Volume 91.9 fL (80-100); Monocytes Absolute Auto 800 /uL (0-900); Monocytes Percent Auto 7.8 % (3-14); Neutrophils Absolute Auto 7100 /uL (1500-7000); Neutrophils Percent Auto 65.5 % (50-75); Platelet Count 272 X10^3/uL (150-400); Red Blood Cell Count 4.09 X10^6/uL (4.5-5.9); Red Cell Distribution Width 13.5 % (11.6-14.8); White Blood Cell Count 10.8 X10^3/uL (4.5-11.0)
[2021-03-06 14:52] LABS: INR 1.1 (0.9-1.3); Prothrombin Time 12.5 SECONDS (10.1-12.7)
[2021-03-06 14:54] LABS: PTT Partial Thromboplastin Tim 29 SECONDS (26.4-36.2)
[2021-03-06 14:57] LABS: Alanine Aminotransferase 19 IU/L (<50); Albumin 3.8 g/dL (3.5-5.0); Albumin Globulin Ratio 1.5 (1.0-2.8); Alkaline Phosphatase 65 U/L (38-126); Aspartate Aminotransferase 50 IU/L (17-59); BUN Creatinine Ratio 12.2 (6-22); Bilirubin Total 0.9 mg/dL (0.2-1.3); Blood Urea Nitrogen 16 mg/dL (9-20); Calcium 8.8 mg/dL (8.4-10.2); Carbon Dioxide 25 mmol/L (22-32); Chloride 102 mmol/L (98-107); Creatine Kinase 733 U/L (55-170); Estimated Glomerular Filt Rate 51.9 mL/min (>60); Globulin 2.6 g/dL (1.7-4.1); Glucose 158 mg/dL (80-110); HEMOLYSIS < 15 (0-50); Lipase 39 U/L (23-300); Magnesium 1.6 mg/dL (1.6-2.3); Potassium 2.9 mmol/L (3.4-5.1); Sodium 137 mmol/L (137-145); Total Protein 6.4 g/dL (6.3-8.2)
[2021-03-06 15:09] LABS: NT-proBNP (BNP-Adult 18+) 2880 pg/mL (<450); Troponin I 0.057 ng/mL (0.01-0.034)
[2021-03-06 15:12] LABS: CKMB % Relative Index 0.5 % (1.5-5.0); Creatine Kinase MB 3.79 ng/mL (<2.37)
--- NOTE | 2021-03-06 15:14 | ED_ITS ---
HPI - General Adult General Chief complaint: Weakness Stated complaint: Sent by Millie Pittman Time Seen by Provider: 03/06/21 14:42 Source: patient Mode of arrival: Wheelchair History of Present Illness HPI narrative: Patient is a 85-year-old male. Is brought in by his son for evaluation of weakness. Patient was seen here in the emergency department approximately 5 days ago for problems with speaking and right lower extremity weakness. He was diagnosed with a CVA. He stayed overnight. According to the discharge summary it appears that his right lower extremity weakness had improved in his speaking had improved as well. Had an MRI that was unremarkable. Social work evaluated the patient. Physical therapy evaluated the patient. Was deemed safe to discharge him home. He also had urinary retention. Forman catheter was placed. He is here with his son today stating that he receive no information on how to take care the urinary catheter. He states that the patient is still having right lower extremity weakness and this still having some problems speaking. The patient and the son state that this really has not changed since his admission to the hospital which is somewhat contradictory to with the discharge summary states. Patient did have a fall at home however it appears that this was more of a slumping to the ground. He did not hit his head. There was no loss of consciousness. The patient's son is concerned about his safety at home. The patient denied chest pain. Denied shortness of breath. No abdominal pain. Denied nausea vomiting. Denies urinary symptoms although he does have Forman catheter in place. He is having some upper extremity weakness but it does not seem to localize like his lower extremities which he describes right lower extremity weakness. No headache. No vision changes. Patient states he has not have any problems speaking but his son states that he is speaking slower than normal. He is on aspirin and Plavix. Related Data Previous Rx's Medication Instructions Recorded abiraterone 250 mg tablet (Zytiga) 250 mg PO DAILY #30 tab 07/14/20 lisinopril 40 mg tablet See Rx Instructions .ROUTE 08/22/20 .COMPLEX #180 tablet diltiazem HCl 300 mg capsule,24 300 mg PO DAILY #90 cap 09/06/20 hr,extended release glyburide 5 mg tablet 5 mg PO TID #270 tab 11/04/20 metformin 500 mg tablet 1,000 mg PO BID #360 tab 11/07/20 metoprolol succinate 100 mg 100 mg PO DAILY #90 tab 11/07/20 tablet,extended release 24 hr aspirin 81 mg tablet,delayed 81 mg PO DAILY 90 Days #90 tab 03/04/21 release atorvastatin 20 mg tablet (Lipitor) 80 mg PO BEDTIME 30 Days #30 tab 03/04/21 clopidogrel 75 mg tablet 75 mg PO DAILY 20 Days #20 tab 03/04/21 tamsulosin 0.4 mg capsule (Flomax) 0.4 mg PO DAILY 30 Days #30 cap 03/04/21 Allergies Allergy/AdvReac Type Severity Reaction Status Date / Time aspirin [ASPIRIN] AdvReac Severe gi bleed Verified 03/06/21 14:24 Review of Systems Constitutional Constitutional: Denies fever(s) and Denies headache(s) Eyes Eyes: Reports as per HPI and Reports system reviewed and no additional complaints, except as documented ENT Ears, Nose, Mouth, and Throat: Denies vertigo, Denies dizziness and Denies headache(s) Cardiovascular Cardiovascular: Denies chest pain and Denies dyspnea Respiratory Respiratory: Denies cough and Denies dyspnea Gastrointestinal Gastrointestinal: Denies abdominal pain, Denies nausea and Denies vomiting Genitourinary Comments: Forman catheter in place however denies other symptoms Musculoskeletal Musculoskeletal: Reports system reviewed and no additional complaints, except as documented and Reports as per HPI Integumentary/Breasts Skin/Breast: Reports system reviewed and no additional complaints, except as documented Neurologic Neurologic: Denies vertigo, Denies dizziness and Denies headache(s) Psychiatric Psychiatric: Reports system reviewed and no additional complaints, except as documented Hematologic/Lymphatic Comments: On aspirin and Plavix Patient History Medical History Abdominal pain Acute cholecystitis Adenocarcinoma of prostate with [place] score X Ankle pain Atrial fibrillation Carpal tunnel syndrome Chicken pox Chronic back pain Diabetes mellitus Foot pain Fractures Frequent urination at night GI bleed Glaucoma Hay fever Hypertension Leukocytosis Measles Mumps Non-insulin dependent type 2 diabetes mellitus Plantar warts Rosacea Shoulder pain Vision disorder Surgical History Cataract (~2011) Hx of appendectomy Family History Grandfather Diabetes mellitus Mother Diabetes mellitus Cancer Sister Age: 79 Cancer Sister Age: 72 Heart disease Social History household members: spouse Smoking Status: Former smoker alcohol intake: current Smoking Status: Former smoker alcohol intake frequency: 0-2 drinks per day Substance Use Type: does not use Exam Initial Vital Signs Initial Vital Signs: Vital Signs Temperature 97.6 F 03/06/21 14:17 Pulse Rate 108 H 03/06/21 14:17 Respiratory Rate 20 03/06/21 14:17 Blood Pressure 157/86 H 03/06/21 14:17 Pulse Oximetry 97 03/06/21 14:17 Const General: cooperative, comfortable, well developed and well groomed HENLA Head: normal to inspection and normocephalic Mouth: oral mucosae normal Eyes General: appearance normal, both eyes and all related structures Pupils: PERRL Resp Effort & Inspection: normal respiratory effort Auscultation: clear to auscultation bilaterally Cardio Rate: regular rate Rhythm: regular rhythm GI Inspection: normal to inspection Palpation: soft and No tender Other: Forman catheter in place Skin General: no rashes or lesions noted Neuro General: patient alert, patient awake, patient oriented x3 and moves all extremities Cranial Nerves: CN's II-XI intact bilaterally Cognition: normal cognition Speech: other (Clear speech but is somewhat slow) Motor: other (4-5 bilateral upper extremities equal 4-5 left lower extremity, 1/5 RLE) Sensory Exam: no sensory deficits noted Extrem General: normal to inspection and capillary refill normal Psych Appearance: grossly normal and well kempt Course Orders Ordered: ED Orders 03/06/21 14:26 XR chest 1V Stat 03/06/21 14:28 EKG-12 Lead Stat 03/06/21 14:36 Complete Blood Count AUTO DIFF Stat Comprehensive Metabolic Panel Stat Lipase Stat Magnesium Stat NT-proBNP (BNP-Adult 18+) Stat Partial Thromboplastin Time Stat Prothrombin Time INR Stat Troponin & CK Cardiac Panel Stat 03/06/21 16:12 MR stroke Stat Acetaminophen (Acetaminophen 325 Mg Tablet) 650 mg PO Q6HR PRN PRN Reason: Fever/Mild Pain (1-3) Aspirin (Aspirin Ec 81 Mg Tablet) 81 mg PO DAILY [facility] Atorvastatin Calcium (Atorvastatin 20 Mg Tablet) 20 mg PO BEDTIME [facility]IL[facility] Bisacodyl (Bisacodyl 10 Mg Supp) 10 mg [place] DAILY PRN PRN Reason: Constipation Clopidogrel Bisulfate (Clopidogrel 75 Mg Tablet) 75 mg PO DAILY [facility] Diltiazem HCl (Diltiazem Cd 240 Mg Cap) 240 mg PO DAILY [facility] Docusate Sodium (Docusate 100 Mg Capsule) 100 mg PO BID [facility] Enoxaparin Sodium (Enoxaparin 40 Mg/0.4 Ml Syringe) 40 mg SUBCUT DAILY [facility] Sodium Chloride (Normal Saline 0.9%) 1,000 mls @ 150 mls/hr IV CONT [facility] POTASSIUM CHLORIDE IN WATER (Potassium Cl 10 Meq/100 Ml Swetha) 10 meq in 100 mls @ 100 mls/hr IV Q1H [facility] Stop: 03/06/21 20:14 Insulin Human Lispro (Insulin Lispro 100 Unit/Ml 3ml Vial) 0 unit SUBCUT ACHS [facility]ILA; Protocol Labetalol HCl (Labetalol 20 Mg/4 Ml Syringe) 5 mg IV Q4HR PRN PRN Reason: sbp over 200 Lisinopril (Lisinopril 20 Mg Tablet) 40 mg PO DAILY [facility] Magnesium Hydroxide (Magnesium Hydroxide 30 Ml Udc) 30 ml PO DAILY PRN PRN Reason: Constipation Metoprolol Succinate (Metoprolol Er 50 Mg Tablet) 100 mg PO DAILY [facility] Naloxone HCl (Naloxone 0.4 Mg/Ml Vial) 0.2 mg IV Q2MIN PRN PRN Reason: Opiate Reversal Ondansetron HCl (Ondansetron 4 Mg/2 Ml Inj) 4 mg IV Q8HR PRN PRN Reason: Nausea And Vomiting Tamsulosin HCl (Tamsulosin 0.4 Mg Capsule) 0.4 mg PO DAILY [facility] Vital Signs Vital signs: Vital Signs - 8 hr 03/06/21 14:17 03/06/21 14:32 03/06/21 15:00 Temperature 97.6 F Pulse Rate 108 H 105 H 100 H Respiratory Rate 20 23 26 H Blood Pressure 157/86 H 147/87 H Pulse Oximetry 97 97 96 03/06/21 15:30 03/06/21 15:35 03/06/21 16:00 Temperature Pulse Rate 98 H 94 H 91 H Respiratory Rate 27 H 25 H 17 Blood Pressure 195/92 H Pulse Oximetry 97 96 96 Medical Decision Making Lab Data Lab results reviewed: Yes I reviewed the patient's lab results. Result diagrams: 03/06/21 14:36 03/06/21 14:36 Labs: Lab Results 03/06/21 03/06/21 03/06/21 Range/Units 14:36 14:36 14:36 WBC 10.8 (4.5-11.0) X10^3/uL RBC 4.09 L (4.5-5.9) X10^6/uL Hgb 12.9 L (13.5-17.5) g/dL Hct 37.6 L (41-53) % MCV 91.9 (80-100) fL MCH 31.5 (26-34) PG MCHC 34.3 (30-36) % RDW 13.5 (11.6-14.8) % Plt Count 272 (150-400) X10^3/uL Neut % (Auto) 65.5 (50-75) % Lymph % (Auto) 24.7 L (25-40) % Moody % (Auto) 7.8 (3-14) % Eos % (Auto) 1.0 L (2-4) % Baso % (Auto) 1.0 (0-2) % Neut # (Auto) 7100 H (7448-7644) /uL Lymph # (Auto) 2700 (7678-9008) /uL Moody # (Auto) 800 (0-900) /uL Eos # (Auto) 100 (0-450) /uL Baso # (Auto) 100 (0-100) /uL PT 12.5 (10.1-12.7) SECONDS INR 1.1 (0.9-1.3) APTT 29 (26.4-36.2) SECONDS Sodium 137 (137-145) mmol/L Potassium 2.9 L (3.4-5.1) mmol/L Chloride 102 (98-107) mmol/L Carbon Dioxide 25 (22-32) mmol/L BUN 16 (9-20) mg/dL Creatinine 1.31 H (0.66-1.25) mg/dL Estimated GFR 51.9 L (>60) mL/min BUN/Creatinine Ratio 12.2 (6-22) Glucose 158 H (80-110) mg/dL Calcium 8.8 (8.4-10.2) mg/dL Magnesium 1.6 (1.6-2.3) mg/dL Total Bilirubin 0.9 (0.2-1.3) mg/dL AST 50 (17-59) IU/L ALT 19 (<50) IU/L Alkaline Phosphatase 65 (38-126) U/L Total Creatine Kinase 733 H D (55-170) U/L CK-MB (CK-2) 3.79 H (<2.37) ng/mL CK-MB (CK-2) Rel Index 0.5 L (1.5-5.0) % Troponin I 0.057 H (0.01-0.034) ng/mL NT-Pro-B Natriuret Pep 2880 H (<450) pg/mL Total Protein 6.4 (6.3-8.2) g/dL Albumin 3.8 (3.5-5.0) g/dL Globulin 2.6 (1.7-4.1) g/dL Albumin/Globulin Ratio 1.5 (1.0-2.8) Lipase 39 (23-300) U/L Imaging Data Chest x-ray: Radiologist's Impression: [address] [id number] ReportSigned Patient: Marek Massey NORA#: [id number]: 5Acct:[id number]/Sex: 85 / MDate of Service: 03/06/21Loc: EDAccession Number: [id number] Procedure: XR chest 1V Ordering Provider: Ricardo Morelos D.O. PROCEDURE: XR CHEST 1V INDICATIONS: chest pain TECHNIQUE: One view of the chest was acquired. COMPARISON: [facility], , XR CHEST 1V, 03/03/2021, 16:15. FINDINGS: Surgical changes and devices: None. Lungs and pleura: Lungs are clear. No pleural effusions or pneumothorax. Mediastinum: Aortic arch calcifications are seen. Heart size is enlarged. Bones and chest wall: No suspicious bony lesions. Overlying soft tissues appear unremarkable. IMPRESSION: No acute cardiopulmonary pathology. Dictated by: Randall Muhammad M.D. on 03/06/2021 at 15:02 Approved by: Randall Muhammad M.D. on 03/06/2021 at 15:07 MR stroke: Radiologist's Impression: [address] [id number] Resonance ReportSigned Patient: Marek Massey NORA#: [id number]: 5Acct:[id number]/Sex: 85 / MDate of Service: 03/06/21[facility] [place]: [id number] Number: [id number] Procedure: MR stroke Ordering Provider: Ricardo Morelos D.O. PROCEDURE: MR STROKE Pre- and post-contrast brain MRI, non-contrast brain MR angiogram, pre- and post contrast neck MR angiogram INDICATIONS: stroke TECHNIQUE: Brain: Noncontrast axial T1 spin echo, axial T2 fast spin echo, sagittal and axial FLAIR, coronal T2 fast spin echo, axial gradient echo, axial diffusion and ADC through the brain. After the administration of contrast, axial 3D VIBE of the cranial vasculature and brain. Brain MRA: Non-contrast 3-D time of flight MR angiogram, with multiple xsrwrob-kiugwmecu-xcclehpqkp (MIP) reformats performed. Neck MRA: Axial and sagittal TruFISP through the neck. Coronal dynamic MR angiogram during administration of contrast in the arterial and venous phases, with 3- dimenstional efysmto-ylejdvasi-pusyyasyyr (MIP) reformats constructed from subtraction images. COMPARISON: [facility], , MR STROKE, 03/04/2021, 9:58. FINDINGS: Image quality: Excellent. BRAIN: CSF spaces: Ventricles are normal in size and shape. Basal cisterns are patent. No extra-axial fluid collections. Brain: There is now multifocal restricted diffusion in the left chary shruthi consistent with acute infarct. No mass effect or midline shift No intracranial bleeds or mass effects. [place]ig[place]-white matter interface is normal. Normal intravascular flow voids are present. No abnormal intracranial enhancement. Skull and face: Calvarial marrow signal is normal. Orbits appear normal. Sinuses: Sinuses and mastoids are clear. BRAIN MR ANGIOGRAM: Anterior circulation: Intracranial internal carotid arteries are normal in size and enhancement. The flow within the paired anterior cerebral arteries is normal and symmetric. The flow within the middle cerebral arteries is normal and symmetric. The anterior communicating artery is seen. No stenoses, occlusions, or aneurysms. Posterior circulation: The visualized portions of the vertebral arteries demonstrate normal caliber, and join to form a normal appearing basilar artery. The flow within the posterior cerebral arteries is normal and symmetric. No stenoses, occlusions, or aneurysms. NECK MR ANGIOGRAM: Carotids: Great vessels demonstrate a conventional anatomy as they arise from the aortic arch. The origins of the common carotid arteries appear patent. The calibers and courses of both common carotid arteries are normal. There is 30-40% stenosis at the origins of both internal carotid arteries as well as 50% stenosis at the origin of the left external carotid artery again noted unchanged. The internal carotid arteries demonstrate normal course and caliber. Posterior circulation: The origins of the vertebral arteries appear patent. More superior portions of both vertebral arteries demonstrate normal course and caliber, and join to form a normal appearing basilar artery. Miscellaneous: Subclavian arteries appear patent. Pre-contrast images through the neck show no soft tissue abnormalities. IMPRESSION: 1. Acute infarct in the left aspect of the shruthi. No intracranial hemorrhage or midline shift. 2. 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 3. Moderate atrophy and white matter chronic ischemic change. Approved by: Jeet Langley M.D. on 03/06/2021 at 16:46 ECG Data Attestation: I personally reviewed and interpreted this ECG as follows: Interpretation: Sinus tachycardia Ventricular rate 104 Frequent PVCs QRS 150 milliseconds Normal axis Right bundle-branch block No ST T wave changes MDM Narrative Medical decision making narrative: Somewhat difficult to tell whether not the patient's symptoms today are new or continuous from his last admission to the hospital. According to the patient and his son at bedside his right lower extremity weakness in his speech have not changed from when he was admitted to the hospital however it is clearly stated in his discharge summary that his right lower extremity weakness has improved. Long discussion with the patient and the son. The ?fall? that he had earlier today was more like a slumping to the ground. He did not hit his head. No loss of consciousness. He certainly has right lower extremity weakness compared to his left lower extremity. He can barely lift it off the bed. He has no objective upper extremity weakness. The rest of his neurologic exam is fairly unremarkable except he is somewhat slow to speak but does have clear speech. Patient has a unremarkable EKG. His troponin today is elevated compared to his last admission a couple days ago. He denies chest pain or shortness of breath. I do have low suspicion for ACS. He does have an elevation in his creatinine. He states that he has not been eating and drinking well since being discharged from the hospital. I discussed the case with Dr. mclaughlin. I do feel the patient needs admitted for further e valuation. He does need his troponins trended. He does need to see physical therapy. I do have concern about his safety at home with getting around. We discussed further radiologic studies. We both felt that obtaining an MRI would be best for the patient. I received a call from radiologist stating that he did have what appeared to be a stroke in the left shruthi. This would explain his symptoms today. Patient is not a candidate for tPA. We are unsure as to whether not his symptoms are new or have continued since his last admission. I did relay this information to the admitting provider. The patient and son were agreeable to admission to the hospital. Discharge Plan Departure Patient Disposition: Admitted as Observation Clinical Impression: Right leg weakness, Hypokalemia, Acute kidney injury Admit Date/Time: 03/06/21 16:14 Admit Provider: Marycruz Mclaughlin
--- NOTE | 2021-03-06 15:38 | PC.NURSE ---
Pt had langford catheter upon arrival, leg bag switched to larger bag, education offered to family member at bedside.
--- NOTE | 2021-03-06 16:12 | DI.MRI.S_ITS ---
PROCEDURE: MR STROKE Pre- and post-contrast brain MRI, non-contrast brain MR angiogram, pre- and postcontrast neck MR angiogram INDICATIONS: stroke TECHNIQUE: Brain: Noncontrast axial T1 spin echo, axial T2 fast spin echo, sagittal and axial FLAIR, coronal T2 fast spin echo, axial gradient echo, axial diffusion and ADC through the brain. After the administration of contrast, axial 3D VIBE of the cranial vasculature and brain. Brain MRA: Non-contrast 3-D time of flight MR angiogram, with multiple dxkense-aquutzdjf-ypjbdlagyp (MIP) reformats performed. Neck MRA: Axial and sagittal TruFISP through the neck. Coronal dynamic MR angiogram during administration of contrast in the arterial and venous phases, with 3-dimenstional iljebgp-ciflbniyu-ypepsdslqn (MIP) reformats constructed from subtraction images. COMPARISON: [facility], , MR STROKE, 03/04/2021, 9:58. FINDINGS: Image quality: Excellent. BRAIN: CSF spaces: Ventricles are normal in size and shape. Basal cisterns are patent. No extra-axial fluid collections. Brain: There is now multifocal restricted diffusion in the left chary shruthi consistent with acute infarct. No mass effect or midline shift No intracranial bleeds or mass effects. [place]-white matter interface is normal. Normal intravascular flow voids are present. No abnormal intracranial enhancement. Skull and face: Calvarial marrow signal is normal. Orbits appear normal. Sinuses: Sinuses and mastoids are clear. BRAIN MR ANGIOGRAM: Anterior circulation: Intracranial internal carotid arteries are normal in size and enhancement. The flow within the paired anterior cerebral arteries is normal and symmetric. The flow within the middle cerebral arteries is normal and symmetric. The anterior communicating artery is seen. No stenoses, occlusions, or aneurysms. Posterior circulation: The visualized portions of the vertebral arteries demonstrate normal caliber, and join to form a normal appearing basilar artery. The flow within the posterior cerebral arteries is normal and symmetric. No stenoses, occlusions, or aneurysms. NECK MR ANGIOGRAM: Carotids: Great vessels demonstrate a conventional anatomy as they arise from the aortic arch. The origins of the common carotid arteries appear patent. The calibers and courses of both common carotid arteries are normal. There is 30-40% stenosis at the origins of both internal carotid arteries as well as 50% stenosis at the origin of the left external carotid artery again noted unchanged. The internal carotid arteries demonstrate normal course and caliber. Posterior circulation: The origins of the vertebral arteries appear patent. More superior portions of both vertebral arteries demonstrate normal course and caliber, and join to form a normal appearing basilar artery. Miscellaneous: Subclavian arteries appear patent. Pre-contrast images through the neck show no soft tissue abnormalities. IMPRESSION: 1. Acute infarct in the left aspect of the shruthi. No intracranial hemorrhage or midline shift. 2. 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 3. Moderate atrophy and white matter chronic ischemic change. Approved by: Jeet Lagnley M.D. on 03/06/2021 at 16:46
[2021-03-06 17:28] LABS: COVID19 - ADMIT (NP swab/PCR) Negative (Negative)
--- NOTE | 2021-03-06 18:16 | PM.HP.1 ---
History of Present Illness History of Present Illness Date Patient Seen: 03/06/21 Time Patient Seen: 18:16 Chief complaint: Sent by Millie Pittman Narrative: The patient is an 85-year-old male with a history of invasive adenocarcinoma the prostate, hypertension, persistent atrial fibrillation, chronic edema, type 2 diabetes who was admitted to the hospital 10 through 9 for weakness. The patient's initial NIH score was 6. He was not anticoagulated. He was admitted to the hospital with some mild speech difficulty and confusion. However subsequent NIH score was 1. His weakness by report resolved. The patient had a CT of the head neck which showed no acute intracranial process with moderate atrophy and chronic microvascular changes. There were no significant hemodynamically significant stenosis occlusion or aneurysmal dilatation. There was a 30-40% narrowing at the origin of the internal carotid arteries bilaterally. Telestroke was consulted and they recommended platelet therapy at 300 mg loading dose followed by [address] Plavix and aspirin at 81 mg. The patient underwent a head MRI which by report was negative for acute stroke. He was discharged back home. The patient was brought back to the emergency room because he continued to have weakness of the left leg. He he fell at home. He is unable to be cared for by his family at home. The patient was also found to have a potassium of 2.9. In addition his troponin was elevated at 0.57 although he has no complaints of chest pain. His EKG shows PVCs but no acute ST T wave abnormalities. The patient was taken directly to MRI from the emergency department. MRI confirmed a left pontine stroke. Patient is admitted to the hospital for inpatient treatment of an acute stroke. Patient History Medical History Abdominal pain Acute cholecystitis Adenocarcinoma of prostate with Tracy score X Ankle pain Atrial fibrillation Carpal tunnel syndrome Chicken pox Chronic back pain Diabetes mellitus Foot pain Fractures Frequent urination at night GI bleed Glaucoma Hay fever Hypertension Leukocytosis Measles Mumps Non-insulin dependent type 2 diabetes mellitus Plantar warts Rosacea Shoulder pain Vision disorder Surgical History Cataract (~2011) Hx of appendectomy Family & Social History Family History Grandfather Diabetes mellitus Mother Diabetes mellitus Cancer Sister Age: 79 Cancer Sister Age: 72 Heart disease Social History: household members spouse Safety & Behavioral: Feels Safe in Current Yes Environment Been Physically Hurt or No Threatened By a Person Tobacco & Substance use: Tobacco type cigarettes Smoking Status Former smoker alcohol intake current alcohol intake frequency 0-2 drinks per day Substance Use Type does not use Meds Home Medications and Allergies Home Medications Medication Instructions Recorded Confirmed Type abiraterone 250 mg tablet (Zytiga) 250 mg PO DAILY #30 tab 07/14/20 03/03/21 Rx lisinopril 40 mg tablet See Rx Instructions .ROUTE 08/22/20 03/03/21 Rx .COMPLEX #180 tablet diltiazem HCl 300 mg capsule,24 300 mg PO DAILY #90 cap 09/06/20 03/03/21 Rx hr,extended release glyburide 5 mg tablet 5 mg PO TID #270 tab 11/04/20 03/03/21 Rx metformin 500 mg tablet 1,000 mg PO BID #360 tab 11/07/20 03/03/21 Rx metoprolol succinate 100 mg 100 mg PO DAILY #90 tab 11/07/20 03/03/21 Rx tablet,extended release 24 hr aspirin 81 mg tablet,delayed 81 mg PO DAILY 90 Days #90 tab 03/04/21 Rx release atorvastatin 20 mg tablet (Lipitor) 80 mg PO BEDTIME 30 Days #30 tab 03/04/21 Rx clopidogrel 75 mg tablet 75 mg PO DAILY 20 Days #20 tab 03/04/21 Rx tamsulosin 0.4 mg capsule (Flomax) 0.4 mg PO DAILY 30 Days #30 cap 03/04/21 Rx Allergies Allergy/AdvReac Type Severity Reaction Status Date / Time aspirin [ASPIRIN] AdvReac Severe gi bleed Verified 03/06/21 14:24 Review of Systems Review of Systems Narrative: Ten point review of systems is negative except as above Patient reports poor appetite, he had food earlier today and currently does not feel hungry he states that his appears to meals Exam Vital Signs (past 8 hours): - 03/06/21 14:17 03/06/21 14:32 03/06/21 15:00 Temperature 97.6 F Pulse Rate 108 H 105 H 100 H Respiratory Rate 20 23 26 H Blood Pressure 157/86 H 147/87 H Pulse Oximetry 97 97 96 03/06/21 15:30 03/06/21 15:35 03/06/21 16:00 Temperature Pulse Rate 98 H 94 H 91 H Respiratory Rate 27 H 25 H 17 Blood Pressure 195/92 H Pulse Oximetry 97 96 96 Oxygen Delivery Method Room Air Narrative Exam Narrative: Delightful elderly male lying in bed in no obvious distress [facility] Other: HEENT: Normocephalic atraumatic, extraocular muscles are intact, oropharynx is clear, there are moist mucous membranes, neck is supple without adenopathy Eyes Other: Extraocular muscles are intact Visual juárez are intact to confrontation Neck Other: Supple no adenopathy Resp Other: Lungs clear to auscultation Cardio Other: Cardiac exam: Regular rate and rhythm normal S1-S2 GI Other: Abdomen: Soft nontender nondistended Skin Other: Multiple actinic keratoses on the back of the hands bilaterally Neuro Other: NIH score of 3 Patient is alert and responsive, he knows what month it is, does not know his age, he is able to open and close his hands and closes eyes, he has normal horizontal gaze, he has no visual field loss, he has no facial palsy, he is able to lift both arms were full 10 seconds, he is able to lift both legs for full 5 seconds, he has no limb ataxia, he has normal sensation, he has no aphasia, he has mild dysarthria. He has no abnormality of extinction, Extrem Other: No edema Psych Other: Patient is awake and alert, thought process is good, he knows he is in the hospital, he knows what year it is. He is not hallucinating Objective Labs Result Diagrams: 03/06/21 14:36 03/06/21 14:36 Labs: Laboratory Results - last 24 hr 03/06/21 03/06/21 03/06/21 14:36 14:36 14:36 WBC 10.8 RBC 4.09 L Hgb 12.9 L Hct 37.6 L MCV 91.9 MCH 31.5 MCHC 34.3 RDW 13.5 Plt Count 272 Neut % (Auto) 65.5 Lymph % (Auto) 24.7 L [place] % (Auto) 7.8 Eos % (Auto) 1.0 L Baso % (Auto) 1.0 Neut # (Auto) 7100 H Lymph # (Auto) 2700 [place] # (Auto) 800 Eos # (Auto) 100 Baso # (Auto) 100 PT 12.5 INR 1.1 APTT 29 Sodium 137 Potassium 2.9 L Chloride 102 Carbon Dioxide 25 BUN 16 Creatinine 1.31 H Estimated GFR 51.9 L BUN/Creatinine Ratio 12.2 Glucose 158 H Calcium 8.8 Magnesium 1.6 Total Bilirubin 0.9 AST 50 ALT 19 Alkaline Phosphatase 65 Total Creatine Kinase 733 H D CK-MB (CK-2) 3.79 H CK-MB (CK-2) Rel Index 0.5 L Troponin I 0.057 H NT-Pro-B Natriuret Pep 2880 H Total Protein 6.4 Albumin 3.8 Globulin 2.6 Albumin/Globulin Ratio 1.5 Lipase 39 SARS-CoV-2 (PCR) 03/06/21 16:21 WBC RBC Hgb Hct MCV MCH MCHC RDW Plt Count Neut % (Auto) Lymph % (Auto) [place] % (Auto) Eos % (Auto) Baso % (Auto) Neut # (Auto) Lymph # (Auto) [place] # (Auto) Eos # (Auto) Baso # (Auto) PT INR APTT Sodium Potassium Chloride Carbon Dioxide BUN Creatinine Estimated GFR BUN/Creatinine Ratio Glucose Calcium Magnesium Total Bilirubin AST ALT Alkaline Phosphatase Total Creatine Kinase CK-MB (CK-2) CK-MB (CK-2) Rel Index Troponin I NT-Pro-B Natriuret Pep Total Protein Albumin Globulin Albumin/Globulin Ratio Lipase SARS-CoV-2 (PCR) Negative Assessment & Plan Assessment & Plan narrative: 85-year-old male admitted to the hospital with a chief complaint of right leg weakness, fall, after recent hospitalization for presumed TIA 1. Acute CVA, -head MRI confirms a left pontine stroke -will obtain cardiac echo, given history of atrial fibrillation, to rule out an acute PFO or embolic focus -will continue aspirin 81 mg, Plavix 75 mg, and atorvastatin, decreased to 40 mg daily given his advanced age of 85 -patient will need PT OT and speech, -given the patient's fall and right leg weakness he very likely will need acute versus subacute rehab at discharge -no further head imaging needed at this time -given patient's stroke and history of AFib, need to consider full anticoagulation, will discuss with the patient tomorrow 2. Essential hypertension, -continue his usual home medications to include metoprolol, lisinopril, and Cardizem -no need for permissive hypertension as the patient is greater than 48 hours after his acute stroke event -will aggressively treat blood pressure with a goal of systolic less than 180 3. Invasive and no carcinoma of prostate, acute on chronic, present on admission -patient experiencing urinary retention, will place Forman catheter if urinary retention greater than 500 per bladder scan -u/a ordered. -managed by Dr. Blank oncology -continue patient's Lupron, prednisone, Flomax, and Zytiga 5. Peripheral edema chronic , chronic, present on admission -Monitor for fluid overload 6. Type 2 diabetes -will obtain glycohemoglobin -discontinue metformin and glyburide -sliding scale insulin while in the hospital Code status:DNR Surrogate decision maker: Spouse Liliana Massey COVID PCR:Negative COVID vaccination: Covid-19 2020 DVT/VTE prophylaxis:Lovenox 40 & SCD's Disposition:? Patient admitted for inpatient, acute CVA, estimated length of stay less than 2 midnights I have utilized all available immediate resources to obtain, update, or review the patient's current medications. I confirmed that the patient's advanced care plan is present, Code status is documented and/or surrogate decision maker is listed in the patient's medical record.P Time Spent With Patient Critical Care time: I spent a total of [] minutes of critical care time on this patient's care today; this time is exclusive of procedural time.
[2021-03-06] MEDS: POTASSIUM CHLORIDE IN WATER 10 MEQ/100 ML PIGGYBACK 100 MEQ IV ×4 (18:55→22:34)
[2021-03-06 19:59] LABS: Add Manual Diff / Slide Review NO; Basophils Absolute Auto 100 /uL (0-100); Basophils Percent Auto 1.1 % (0-2); Eosinophils Absolute Auto 100 /uL (0-450); Eosinophils Percent Auto 1.3 % (2-4); Hematocrit 34.6 % (41-53); Hemoglobin 11.9 g/dL (13.5-17.5); Lymphocytes Absolute Auto 1900 /uL (1100-4500); Lymphocytes Percent Auto 21.7 % (25-40); Mean Corpuscular HGB Conc 34.4 % (30-36); Mean Corpuscular Hemoglobin 31.7 PG (26-34); Mean Corpuscular Volume 92.1 fL (80-100); Monocytes Absolute Auto 700 /uL (0-900); Monocytes Percent Auto 8.6 % (3-14); Neutrophils Absolute Auto 5800 /uL (1500-7000); Neutrophils Percent Auto 67.3 % (50-75); Platelet Count 238 X10^3/uL (150-400); Red Blood Cell Count 3.76 X10^6/uL (4.5-5.9); Red Cell Distribution Width 13.3 % (11.6-14.8); White Blood Cell Count 8.6 X10^3/uL (4.5-11.0)
[2021-03-06 20:07] LABS: Hemoglobin A1C% w Est Avg Glu 8.2 % (4.0-6.0)
[2021-03-06 20:14] LABS: BUN Creatinine Ratio 12.3 (6-22); Blood Urea Nitrogen 16 mg/dL (9-20); Calcium 8.5 mg/dL (8.4-10.2); Carbon Dioxide 28 mmol/L (22-32); Chloride 103 mmol/L (98-107); Creatine Kinase 606 U/L (55-170); Estimated Glomerular Filt Rate 52.3 mL/min (>60); Glucose 114 mg/dL (80-110); HEMOLYSIS < 15 (0-50); Potassium 2.8 mmol/L (3.4-5.1); Sodium 137 mmol/L (137-145)
[2021-03-06 20:26] LABS: Troponin I 0.053 ng/mL (0.01-0.034)
[2021-03-06 20:30] LABS: CKMB % Relative Index 0.5 % (1.5-5.0); Creatine Kinase MB 2.74 ng/mL (<2.37)
[2021-03-06] MEDS: DOCUSATE 100 MG CAPSULE PO (21:16)
[2021-03-06] MEDS: ATORVASTATIN 20 MG TABLET PO (21:16)
[2021-03-07] VITALS (8 sets, daily range): BP systolic 154–185; BP diastolic 73–98; PULSE 67–94; RESP 16–18; TEMP 35.6–36.8; O2SAT 93–98
--- NOTE | 2021-03-07 02:16 | PC.NURSE ---
Addendum entered by Niurka Vance R.N. 03/07/21 06:47: Weight up 4.8kg but patient currently asleep so not able to rezero bed at this time. Requested day shift rezero bed when patient up and reweigh to determine accuracy of weight. Original Note: Patient oriented only to self, birthdate and place. Speech is slurred and has some delay in responses and difficulty with word finding at times. NIH was 4. Breath sounds diminished but CTA with RA sat of 96%. HRR w/elevated BP of 162/79. 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 Denied nausea. BT present and abdomen is soft. Indwelling catheter is patent. Is able to move self in bed although generalized weakness. Gait not assessed at this time. Denied pain. Bilateral calf SCD's applied at shift changed. Fall risk score is high and bed alarm is activated.
[2021-03-07] MEDS: CLOPIDOGREL 75 MG TABLET PO (08:32)
[2021-03-07] MEDS: DOCUSATE 100 MG CAPSULE PO (08:32)
[2021-03-07] MEDS: METOPROLOL ER 50 MG TABLET 100 MG PO (08:33)
[2021-03-07] MEDS: TAMSULOSIN 0.4 MG CAPSULE PO (08:33)
[2021-03-07] MEDS: lisinopriL 20 MG TABLET 40 MG PO (08:33)
[2021-03-07] MEDS: ASPIRIN EC 81 MG TABLET PO (08:33)
[2021-03-07] MEDS: ENOXAPARIN 40 MG/0.4 ML SYRINGE SUBCUT (08:34)
[2021-03-07] MEDS: SODIUM CHLORIDE 0.9% FLUSH 10 ML IV ×2 (08:34→21:46)
[2021-03-07] MEDS: dilTIAZem CD 240 MG CAP PO (08:34)
[2021-03-07 08:41] LABS: Blood Urea Nitrogen 14 mg/dL (9-20); Calcium 8.5 mg/dL (8.4-10.2); Carbon Dioxide 26 mmol/L (22-32); Chloride 103 mmol/L (98-107); Estimated Glomerular Filt Rate 59.1 mL/min (>60); Glucose 54 mg/dL (80-110); HEMOLYSIS < 15 (0-50); Magnesium 1.6 mg/dL (1.6-2.3); Potassium 2.8 mmol/L (3.4-5.1); Sodium 138 mmol/L (137-145)
--- NOTE | 2021-03-07 10:12 | OT.IP.EVAL ---
Past Medical History (Last Reviewed 03/06/21 @ 18:46 by Ricardo Morelos DO) Abdominal pain Acute cholecystitis 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 Ankle pain Atrial fibrillation Carpal tunnel syndrome Chicken pox Chronic back pain Diabetes mellitus Foot pain Fractures Frequent urination at night GI bleed Glaucoma Hay fever Hx of appendectomy Hypertension Leukocytosis Measles Mumps Non-insulin dependent type 2 diabetes mellitus Plantar warts Rosacea Shoulder pain Vision disorder Surgical History (Last Reviewed 03/06/21 @ 18:22 by Marycruz Mclaughlin MD) Cataract (~2011) Hx of appendectomy Occupational Therapy Inpatient Evaluation/Re-Eval M1 PT/OT-IP Prior Functional Status Start: 03/07/21 13:12 Freq: NEEDED Status: Active Protocol: Document 03/07/21 13:12 [facility] (Rec: 03/07/21 13:45 [facility] [id number]) Medical Review Prior Functional Status Communication Independent Mobility and Gait Did not use a device prior to TIA on 03/03/21. Activities of Daily Living and IADL's Prior to 03/03/21 TIA pt was completely independent with all his ADL and IADl needs. Prior Functional Level (Other details) Pt had a TIA on last hospital stay from 03/03-03/04/2021. Pt was discharged from the hospital prior to OT being able to assess the pt. Social History Household Members spouse Number of Floors (Floors) 3 or More Floors Number of Stairs To Enter/Railing? 4 steps with left rail going up to the main level. Pt's son has set up his bed on the main level. Otherwise pt has 13 steps and left hand rail to get to his bedroom. Home Environment Standard Height Toilet,Tub/ Shower Home Equipment Front Wheel Walker,Straight Cane,Hand Held Shower M2 OT-IP Current Condition Start: 03/07/21 13:12 Freq: Status: Active Protocol: Document 03/07/21 13:12 [facility] (Rec: 03/07/21 13:45 [facility] [id number]) Occupational Therapy Current Condition Current Condition Evaluation Date 03/07/21 Treatment Diagnosis CVA, Left Pontine, decreased mobility Diagnosis Onset Date 03/06/21 M3 OT- IP Subjective and Pain Start: 03/07/21 13:12 Freq: Status: Active Protocol: Document 03/07/21 13:12 [facility] (Rec: 03/07/21 13:45 [facility] [id number]) OT- Subjective Occupational Therapy Visit Type Type Initial Evaluation Visit Start Time 10:12 Visit Stop Time 11:08 Total Visit Minutes 56 Occupational Therapy Visit Comments Patient Comments Pt wanting to try to use the commode. Patient/Caregiver Goals To get better. OT Pain Assessment Pain When Pain Assessed At Rest Pain Present Pain Present Denied Pain M4 OT- IP ADL's Start: 03/07/21 13:12 Freq: Status: Active Protocol: Document 03/07/21 13:12 [facility] (Rec: 03/07/21 13:45 [facility] [id number]) OT CTO-Btua-Acgedvy Comments OT Self-Feeding Comments NOt at meal time. OT ADL-Grooming General Evaluation Areas Needing Assistance Retrieving/Set-up of Grooming Items OT ADL-Oral Care General Eval Oral Care Ability Independent OT ADL-Dressing General Eval Lower Body Dressing Ability Maximum Assistance Areas Needing Assistance Underpants/Brief,Socks Comments OT Dressing Comments Assist to help gwyn his socks and get thread his feet into the pull up brief. OT ADL-Toileting General Evaluation Toileting Ability Total Assistance Comments OT Toileting Comments Forman in place. Pt dependent for hygiene and MAX A for brief management needs at this time. OT ADL-Bathing Comments OT Bathing Comments Not performed, to try tomorrow if appropriate. M5 OT- IP IADL's Start: 03/07/21 13:12 Freq: Status: Active Protocol: Document 03/07/21 13:12 [facility] (Rec: 03/07/21 13:45 [facility] [id number]) OT-Instrumental Activities of Daily Living Home Safety Awareness Awareness of Need for Assistance at Home Decreased Awareness Ability to Problem Solve Emergency Unable to Problem Solve Situations Home Safety Comments Pt likes to joke around and therefore hard to fully assess his cognitive needs. Pt is aware to not give out his credit card if someone calls to ask. Pt not able to state what to do if he runs out of medications or if a stranger comes to the door. Medication Management Medication Management Comments At this time due to pt's increased time to process and having difficulty with problem solving, best for pt to have assist for his needs. Money Management Money Management Comments At this time due to pt's increased time to process and having difficulty with problem solving, best for pt to have assist for his needs. Meal Preparation Meal Preparation Comments At this time due to pt's increased time to process and having difficulty with problem solving, best for pt to have assist for his needs. Retinal Angiographer Retinal Angiographer Comments At this time due to pt's increased time to process and having difficulty with problem solving, best for pt to have assist for his needs. M6 OT- IP Functional Cognition Start: 03/07/21 13:12 Freq: Status: Active Protocol: Document 03/07/21 13:12 [facility] (Rec: 03/07/21 13:45 [facility] [id number]) Cognitive Factors Limiting Selfcare Function Cognitive Ability Level of Alertness Alert,Confusional State Patient Orientation Name Attention Span Ability Capable of Focused Attention, Capable of Sustained Attention Ability to Follow Commands Able to Follow One Step Commands with Increased Time, Able to Follow One Step Commands with Repetition Memory Description Short Term Impaired,Working Impaired Problem Solving Ability Needs Assist to Identify Solutions Cognitive Comments Cognitive Assessment Comments Pt able to recall his year but did not remember what month and date that he was born. Pt needing step by step directions to follow. Pt needing increased time to process and follow commands. Pt is very pleasant and cooperative. OT- Vision and Hearing OT- Vision Assessment Visual Hand WF Vision Assessment Comments Pt able to read the clock accurately. Pt decreased occular pursuits with his left eye, right eye intact. Mildly decreased for left peripheral vision. Will continue to assess visual needs. M7 OT- IP Mobility and Balance Start: 03/07/21 13:12 Freq: Status: Active Protocol: Document 03/07/21 13:12 [facility] (Rec: 03/07/21 13:45 [facility] [id number]) OT- Bed Mobility Assessment Rolling Type of Rolling Roll to Left Level of Assistance Moderate Assistance Supine to Sit Supine to Sit Assist Maximum Assistance,1 Person Assistance Scooting Scooting to Edge of Bed Minimal Assistance OT-Transfer Assessment Sit to and From Stand Sit to and from Stand Moderate Assistance,2 Person Assistance Transfers Transfer Ability Moderate Assistance,2 Person Assistance Technique Transfer Destination Bed,Bedside Commode,Chair Transfer Technique Stand Step Pivot Devices Transfer Assistive Devices Gait Belt,Front Wheeled Walker Comments Mobility Comments Pt MAX A for bed mobility and mainly needing assist form side lying to sitting upright. Pt tends to lean a little to the left. Pt able to sit at the edge fo the bed with SBA once his feet were on the floor. Sit to stand MOD X 1-2 depending on the height of the surface standing from, MODA X 1 with FWW to transfer, assists with FWW management and for pt's balance. Pt having more difficulty to transfer to the right as his RUE and RLE are weaker. OT- Gait Assessment Comments Gait Ability Comments Transfer only at this time. OT- Balance Assessment Sitting Balance and Reactions Static Sitting Balance Ability Fair Dynamic Sitting Balance Ability Fair Standing Balance and Reactions Static Standing Balance Ability Poor Dynamic Standing Balance Ability Poor M8 OT- IP Objective Assessments Start: 03/07/21 13:12 Freq: Status: Active Protocol: Document 03/07/21 13:12 [facility] (Rec: 03/07/21 13:45 [facility] [id number]) OT Gross Range of Motion Upper Extremity Range of Motion Assessment Right Impaired ROM Impairments Decreased at end range. OT Strength Upper Extremity Strength Assessment Right Impaired Shoulder 3-/5 Elbow 4-/5 Forearm 4-/5 Wrist 4-/5 Hand 4-/5 Comments Strength Comments LUE 4/5 throughout OT- Coordination Assessment Upper Extremity Finger to Nose Test Within Functional Limits Comments Coordination Comments Pt having difficulty to use right hand for set-up from grooming needs due to decreased strength, coordination, and control. OT-Muscle Tone Assessment Muscle Tone WNL Yes OT Sensation Assessment Comments Summary Comments Pt intact for light touch but pt feel the right side feels off. M9 OT- IP Assessment and Plan Start: 03/07/21 13:12 Freq: Status: Active Protocol: Document 03/07/21 13:12 [facility] (Rec: 03/07/21 13:45 [facility] [id number]) OT Summary Assessment and Plan Potential Rehabilitation Potential Good Analytic Complexity at Evaluation Moderate Summary OT Impairments Strength,Balance,Coordination, Functional Cognition, Functional Mobility,Self- Feeding,Grooming,Dressing, Toileting,Bathing,Toilet Transfers,Shower Transfers, Activity Tolerance Progress Towards Goals Slow Progress due to Medical Issues,Slow Progress due to Activity Tolerance,Slow Progress due to Cognition Assessment Summary Pt MOD complexity , was here on 03/03/21 due to TIA and now here due to CVA. Pt prior was completely independent with all needs and now barriers are steps, needing two person assist for mobility and ADL needs, and needing increased time to process and initite movement and has RUE and RLE weakness. Pending progress pt would benefit from inpt rehab versus skilled rehab. Goals Self-Feeding Goal Independent Grooming Goal Independent Dressing Goal Independent Bathing Goal Independent Toilet Transfer Goal Independent Shower Transfer Goal Independent Days to Meet Goals 45 Frequency of Treatment Frequency Of Treatment Once a Day Treatment Plan OT Treatment Plan ADL Training,Functional Cognition Training,Functional Mobility,Patient/Family Education,Discharge Planning Other Treatment Recommendations and Next Transfer to [facility] [place] [place] with MODA X 1 Treatment Focus with FWW. Discharge Recommendations OT Discharge Recommendations SNF vs Acute Rehab Transportation Needs at Discharge Wheelchair/Cabulance
--- NOTE | 2021-03-07 12:05 | PT.IIE ---
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 Ankle pain Atrial fibrillation Carpal tunnel syndrome Chicken pox Chronic back pain Diabetes mellitus Foot pain Fractures Frequent urination at night GI bleed Glaucoma Hay fever Hypertension Leukocytosis Measles Mumps Non-insulin dependent type 2 diabetes mellitus Plantar warts Rosacea Shoulder pain Vision disorder Physical Therapy Inpatient Evaluation/Re-Eval M1 PT/OT-IP Prior Functional Status Start: 03/07/21 13:12 Freq: NEEDED Status: Active Protocol: Document 03/07/21 12:05 AB (Rec: 03/07/21 13:32 AB [id number]) Medical Review Prior Functional Status Medical History Reviewed Yes Communication with confusion; able to answer questions but requires repetitions Mobility and Gait pt was just admitted in the hosital 03/03/21 and went home 03/04/21. pt was admitted to r/o CVA. pt was evaluated for PT 03/04/21 and at that time, pt was requiring mod to max A for transfers and ambulation using FWW. pt stated that his son was assisting him at home when he went home after first hospitalization and set up a bed on the first level of the house. Prior to first hospitalization , pt was modified independent with all mobilities and ambulation without AD Social History Household Members spouse Living Arrangements House Number of Floors (Floors) 3 or More Floors Number of Stairs To Enter/Railing? 4 steps with L rail to enter 13 steps L rail to bedroom level Home Environment Standard Height Toilet,Walk in Shower Home Equipment Hand Held Shower M2 PT-IP Current Condition Start: 03/07/21 13:19 Freq: NEEDED Status: Active Protocol: Document 03/07/21 12:05 AB (Rec: 03/07/21 13:32 AB [email or web address]) Physical Therapy Current Condition Current Condition Evaluation Date 03/07/21 Treatment Diagnosis L CVA; difficulty in walking Onset Date 03/06/21 Precautions Other Precautions falls M3 PT-IP Subjective Start: 03/07/21 13:19 Freq: NEEDED Status: Active Protocol: Document 03/07/21 12:05 AB (Rec: 03/07/21 13:32 AB [email or web address]) Subjective Physical Therapy Visit Type Type Initial Evaluation Visit Start Time 12:05 Visit Stop Time 12:25 Total Visit Minutes 20 Number of SUPERVISOR SEL[employer]ICE STORE Visits 0 Physical Therapy Visit Comments Patient Comments requesting to go back to bed M4 PT-IP Mobility and Gait Start: 03/07/21 13:19 Freq: NEEDED Status: Active Protocol: Document 03/07/21 12:05 AB (Rec: 03/07/21 13:32 AB [email or web address]) PT-Bed Mobility Assessment Sit to Supine Sit to Supine Moderate Assistance,1 Person Assistance PT-Transfer Assessment Sit to and From Stand Sit to and from Stand Maximum Assistance,1 Person Assistance,Use of Upper Extremities Equipment Transfer Assistive Device Gait Belt,Front Wheeled Walker Orthotic/Prosthetic Devices or Brace: No Transfers Transfer Destination Bed Transfer Technique Stand Step Pivot Transfer Ability Level of Assist Maximum Assistance,1 Person Assistance,Use of Upper Extremities Comments Mobility Comments pt sitting on chair. NAC in room and stated that pt wants to go back to bed. PT took over pt's care. pt completed sit to stand max A and max cues x 2 attemptes. pt refused to ambulate and completed step pivot to bed using FWW max A and max cues. completed sit to supine mod A with LE elevation to bed. max A for positioning in bed. call light and table placed within reach. Bed alarm on. Gait Assessment Comments Gait Comments pt refused PT-Balance Assessment Sitting Balance and Reactions Static Sitting Balance Ability Good Dynamic Sitting Balance Ability Fair Standing Balance and Reactions Static Standing Balance Ability Poor Dynamic Standing Balance Ability Poor Device Used FWW M5 PT-IP Objective Assessments Start: 03/07/21 13:19 Freq: NEEDED Status: Active Protocol: Document 03/07/21 12:05 AB (Rec: 03/07/21 13:32 AB [id number]) Orientation Orientation/Cognition Level of Alertness Confusional State Orientation Name Safety Awareness Decreased Safety Awareness Memory Description Short Term Impaired Gross Range of Motion Lower Extremity ROM Assessment Within Functional Limits Strength Lower Extremity Strength Assessment Right Impaired Hip 3+/5 Knee 3+/5 Coordination Assessment Gross Coordination Gross Coordination WNL Muscle Tone Muscle Tone WNL Yes M6 PT-IP Treatment Start: 03/07/21 13:19 Freq: NEEDED Status: Active Protocol: Document 03/07/21 12:05 AB (Rec: 03/07/21 13:32 AB [email or web address]) Physical Therapy Treatment Education Education Provided Safety M7 PT-IP Assessment and Plan Start: 03/07/21 13:19 Freq: NEEDED Status: Active Protocol: Document 03/07/21 12:05 (Rec: 03/07/21 13:32 AB [id number]) PT Summary Assessment and Plan Potential Status of Condition at Evaluation Evolving Summary Impairments Pain,ROM,Strength,Balance, Coordination,Sensation,Tone, Cognition,Bed Mobility, Transfers,Gait,Activity Tolerance Assessment Summary pt requiring max A with transfers and unable to tolerate much activity and refused ambulation. stated that he is just tired. pt will require SNF rehab to improve strength and mobility. Goals Bed Mobility Goal Standby Assistance Transfer Goal Standby Assistance,Front Wheeled Walker Gait Goal Standby Assistance,Front Wheel Walker Gait Distance 100 Other Goals up/down 4 steps L rail min A Days to Meet Goals 10 Frequency of Treatment Frequency Of Treatment Once a Day Treatment Plan Physical Therapy Treatment Plan Bed Mobility Training,Transfer Training,Gait Training, Therapeutic Exercise,Balance Retraining,Discharge Planning, Hot or Cold Pack,Neuromuscular Re-ed,Coordination Retraining Precautions Other Precautions falls Recommendations To Nursing Amount of Assist Needed 2 Person Assist Discharge Recommendations PT Discharge Recommendations SNF Rehab Transportation Needs at Discharge Wheelchair/Cabulance
[2021-03-07] MEDS: METOPROLOL IR 50 MG TABLET PO (12:28)
[2021-03-07] MEDS: APIXABAN 5 MG TABLET PO (12:29)
[2021-03-07] MEDS: POTASSIUM CHLORIDE 20 MEQ TAB 40 MEQ PO ×2 (12:29→17:22)
[2021-03-07] MEDS: MAGNESIUM CHLORIDE 64 MG TABLET 128 MG PO (12:30)
--- NOTE | 2021-03-07 14:21 | ST.IPIE ---
Visit Care Team Role Provider Type CHELSI Lopez Primary Care Provider Advanced Bridge/Structure Inspection Team Leader Specialty: Family Practice Address: [address] [place] [address], [id number] Email: [email or web address] Ricardo Morelos DO Emergency Provider Physician Referring Provider Specialty: Emergency Medicine Address: [address] [place] [address], [address] Email: [email or web address] Marycruz Mclaughlin MD Admit Provider Physician Attending Provider Specialty: Internal Medicine Address: [address] [place] [address], [address] Email: [email or web address] Past Medical History (Last Reviewed 03/06/21 @ 18:46 by Ricardo Morelos DO) Abdominal pain (Medical) Acute cholecystitis (Medical) 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 (Medical) [place] score:8 Ankle pain (Medical) Atrial fibrillation (Medical) Carpal tunnel syndrome (Medical) Chicken pox (Medical) Chronic back pain (Medical) [id number] Diabetes mellitus (Medical) In the Foot pain (Medical) Fractures (Medical) Frequent urination at night (Medical) GI bleed (Medical) Glaucoma (Medical) Hay fever (Medical) When young Hx of appendectomy (Medical) Hypertension (Medical) Leukocytosis (Medical) Measles (Medical) Mumps (Medical) Non-insulin dependent type 2 diabetes mellitus (Medical) Plantar warts (Medical) Rosacea (Medical) Shoulder pain (Medical) Vision disorder (Medical) ST IP Initial Evaluation Report CONCERT PROMOTER Adult Cognitive Linguistic Eval Start: 03/07/21 14:00 Freq: Status: Active Protocol: Document 03/07/21 14:00 JUSTINE (Rec: 03/07/21 14:19 ZS [id number]) Adult Cognitive Linguistic Evaluation Session Time Visit Start Time 11:50 Visit Stop Time 12:10 Total Visit Minutes 20 Setting Assessment Location Acute Care Visit Type Note Type Initial evaluation Next Note Type Next Note Type Treatment Note Patient Information Identification Type Name,ID Card Medical History Per medical history, the patient is an 85-year-old male with a history of invasive adenocarcinoma the prostate, hypertension, persistent atrial fibrillation, chronic edema, type 2 diabetes who was admitted to the hospital 03 03 through 03 04 for weakness. His weakness by report resolved. The patient had a CT of the head neck which showed no acute intracranial process with moderate atrophy and chronic microvascular changes. There were no significant hemodynamically significant stenosis occlusion or aneurysmal dilatation. There was a 30-40% narrowing at the origin of the internal carotid arteries bilaterally. Telestroke was consulted and they recommended platelet therapy at 300 mg loading dose followed by [address] Plavix and aspirin at 81 mg. The patient underwent a head MRI which by report was negative for acute stroke. He was discharged back home. The patient was brought back to the emergency room because he continued to have weakness of the left leg. He he fell at home. He is unable to be cared for by his family at home. The patient was also found to have a potassium of 2 .9. In addition his troponin was elevated at 0.57 although he has no complaints of chest pain. His EKG shows PVCs but no acute ST T wave abnormalities. The patient was taken directly to MRI from the emergency department. MRI confirmed a left pontine stroke. Patient is admitted to the hospital for inpatient treatment of an acute stroke. Language(s) Spoken in the Home Khmer Hearing Hearing Level Normal Subjective Patient Report Marek was seated upright in a chair when clinician arrived . He reported other people have difficulty understanding him and he has difficulty with word finding. Initially, Marek reported no difficulty with swallowing, though when asked later, he reported coughing while drinking water on every third drink and coughing while eating foods as well. Mental Status Alert,Responsive,Cooperative Assessment Oral Motor Examination Completed Yes Results Oral motor exam completed. Marek presented with symmetrical features at rest, though left sided weakness and incoordination present when smiling and puckering. Reduced strength and ROM of tongue on protrusion, elevation, lateralization, and depression . Tongue deviated to left during protrusion. He maintained a labial seal and demonstrated hyolaryngeal elevation and excursion WNL. Jaw opening and closing was WNL. Dentition present though decay noted on multiple teeth. Color, structure, and function of soft palate were WNL. Swallow screen completed with water in straw cup. Marek exhibited a strong cough following both trials of water in straw cup and red watery eyes following coughing . When straw was removed, coughing was eliminated. Recommend small sips with an open cup and no straws at this time to reduce risk of aspiration. Did not complete full swallow assessment as Marek refused to eat food. Due to reported difficulty with coughing during meals, it is recommended Marek participate in a swallow assessment to determine if he is safe for a regular diet. Informal Assessment Receptive Language Normal Yes Expressive Language Normal No: Difficulty with word finding. Pragmatic Language Normal Yes Speech Normal No Speech Impairment(s) Imprecise articulation,Slow speech rate Cognition Normal Yes Findings/Results Findings Marek presents with slurred speech/imprecise articulation and word finding difficulties, which negatively impact his intelligibility. When experiencing a word finding difficulty, Marek was observed to use a different word or eliminates the word entirely, pausing and continuing with the next word if he is unable to come up with the word. Provided handout with strength and ROM exercises for tongue and practiced exercises during session. Prognosis Prognosis Fair Based on Cognitive status,Comorbidities ,Duration of symptoms/severity ,Time since onset Plan of Care Speech-Language Treatment Yes Frequency 1-2x/day Patient/Caregiver Education Described results of evaluation Short Term Goals 1. Marek will participate in a swallow assessment to determine if he is safe for a regular solids diet. 2. Marek will perform safe swallow strategies with oral intake independently to reduce risk of aspiration. 3. Marek will perform exercises to increase strength , coordination, and ROM of speech and swallow musculature independently to increase intelligibility and swallow safety. Fpc Goals 1. Marek will safely tolerate least restrictive diet to meet his nutrition and hydration needs. 2. Marek will demonstrate 100% intelligible speech when speaking with familiar and unfamiliar listeners.
--- NOTE | 2021-03-07 14:31 | DIET.PN1 ---
Dietary Progress Note Assessment: 85y M c hx invasive adenocarcinoma of prostate (2018, stable) admitted for weakness found to have pontine stroke referred to nutrition for poor appetite. FLASH DRIER OPERATOR zero'd bed scale this morning when pt was sitting in chair, weight 88.5kg WNL for pt x3y. Pts A1c has dropped from 9.2 to 8.2 since October 2020, TG elevated 237. Pt either refusing POs or consuming 100%. Room service to assist pt in ordering meals to his liking within Heart Healthy diet reccs. Ht: 177.8 cm Wt: 88.5 kg BMI: 25.9 UBW: 88-93kg x3y Last BM: 03/07/21 (03/07/21 11:06) Holden Score: 15 Diet: 03/06/21 14:26 NPO Diet Diet Modifications: NPO Type: Strict 03/07/21 Breakfast Heart Healthy Diet Diet Modifications: Nutrition Percent Meal Consumed 100% 03/07/21 14:31 Percent Meal Consumed refused lunch and snack 03/07/21 14:20 Labs: RBC 3.76 X10^6/uL (4.5-5.9) L 03/06/21 19:50 Hgb 11.9 g/dL (13.5-17.5) L 03/06/21 19:50 Hct 34.6 % (41-53) L 03/06/21 19:50 Creatinine 1.17 mg/dL (0.66-1.25) 03/07/21 08:21 Hemoglobin A1c 8.2 % (4.0-6.0) H 03/06/21 19:50 NT-Pro-B Natriuret Pep 2880 pg/mL (<450) H 03/06/21 14:36 Nutrition Diagnosis: none at this time Interventions: 1. Room Service from kitchen to assist pt ordering nourishments per his liking while hospitalized. Monitoring/Evaluations: consult FABI damico Electronically Signed by: Roseline Quiles 03/07/21 14:31 Clinical Dietitian [address] [address]
--- NOTE | 2021-03-07 14:36 | P.PN_ITS ---
Subjective Subjective Date Patient Seen: 03/07/21 Interval history: The Patient is an 85 y/o man admittted for a subacute Left pontine CVA. He reports his right leg feels better today. He feels stronger with moving. He is able to state his age definitively. Patient went into rapid atrial fibrillation today. After one additional dose of metoprolol his heart rate was well controlled. Exam Vital Signs (past 8 hours): - 03/07/21 08:00 03/07/21 08:33 03/07/21 12:00 Temperature 96.1 F L 96.4 F L Pulse Rate 82 94 H Respiratory Rate 16 16 Blood Pressure 185/79 H 185/79 H 172/98 H Pulse Oximetry 96 96 Oxygen Delivery Method Room Air Oxygen Flow Rate 0 Narrative Exam Narrative: elderly gentleman in no acute distress HENMT Other: NC/AT, EOMI, no facial droop Resp Other: Lungs: clear to auscultation Cardio Other: Irregularly irregular, nl Sl S2 3/6 JOSÉ LUIS GI Other: ABdomen: soft/ non tender/ non distended Extrem Other: No edema Objective Labs Result Diagrams: 03/06/21 19:50 03/07/21 08:21 Labs: Laboratory Results - last 24 hr 03/06/21 03/06/21 03/06/21 14:36 14:36 14:36 WBC 10.8 RBC 4.09 L Hgb 12.9 L Hct 37.6 L MCV 91.9 MCH 31.5 MCHC 34.3 RDW 13.5 Plt Count 272 Neut % (Auto) 65.5 Lymph % (Auto) 24.7 L [place] % (Auto) 7.8 Eos % (Auto) 1.0 L Baso % (Auto) 1.0 Neut # (Auto) 7100 H Lymph # (Auto) 2700 [place] # (Auto) 800 Eos # (Auto) 100 Baso # (Auto) 100 PT 12.5 INR 1.1 APTT 29 Sodium 137 Potassium 2.9 L Chloride 102 Carbon Dioxide 25 BUN 16 Creatinine 1.31 H Estimated GFR 51.9 L BUN/Creatinine Ratio 12.2 Glucose 158 H Hemoglobin A1c Calcium 8.8 Magnesium 1.6 Total Bilirubin 0.9 AST 50 ALT 19 Alkaline Phosphatase 65 Total Creatine Kinase 733 H D CK-MB (CK-2) 3.79 H CK-MB (CK-2) Rel Index 0.5 L Troponin I 0.057 H NT-Pro-B Natriuret Pep 2880 H Total Protein 6.4 Albumin 3.8 Globulin 2.6 Albumin/Globulin Ratio 1.5 Lipase 39 SARS-CoV-2 (PCR) 03/06/21 03/06/21 03/06/21 16:21 19:50 19:50 WBC 8.6 RBC 3.76 L Hgb 11.9 L Hct 34.6 L MCV 92.1 MCH 31.7 MCHC 34.4 RDW 13.3 Plt Count 238 Neut % (Auto) 67.3 Lymph % (Auto) 21.7 L [place] % (Auto) 8.6 Eos % (Auto) 1.3 L Baso % (Auto) 1.1 Neut # (Auto) 5800 Lymph # (Auto) 1900 [place] # (Auto) 700 Eos # (Auto) 100 Baso # (Auto) 100 PT INR APTT Sodium 137 Potassium 2.8 L Chloride 103 Carbon Dioxide 28 BUN 16 Creatinine 1.30 H Estimated GFR 52.3 L BUN/Creatinine Ratio 12.3 Glucose 114 H Hemoglobin A1c Calcium 8.5 Magnesium Total Bilirubin AST ALT Alkaline Phosphatase Total Creatine Kinase CK-MB (CK-2) CK-MB (CK-2) Rel Index Troponin I NT-Pro-B Natriuret Pep Total Protein Albumin Globulin Albumin/Globulin Ratio Lipase SARS-CoV-2 (PCR) Negative 03/06/21 03/06/21 03/07/21 19:50 19:50 08:21 WBC RBC Hgb Hct MCV MCH MCHC RDW Plt Count Neut % (Auto) Lymph % (Auto) [place] % (Auto) Eos % (Auto) Baso % (Auto) Neut # (Auto) Lymph # (Auto) [place] # (Auto) Eos # (Auto) Baso # (Auto) PT INR APTT Sodium 138 Potassium 2.8 L Chloride 103 Carbon Dioxide 26 BUN 14 Creatinine 1.17 Estimated GFR 59.1 L BUN/Creatinine Ratio 12.0 Glucose 54 L Hemoglobin A1c 8.2 H Calcium 8.5 Magnesium 1.6 Total Bilirubin AST ALT Alkaline Phosphatase Total Creatine Kinase 606 H CK-MB (CK-2) 2.74 H CK-MB (CK-2) Rel Index 0.5 L Troponin I 0.053 H NT-Pro-B Natriuret Pep Total Protein Albumin Globulin Albumin/Globulin Ratio Lipase SARS-CoV-2 (PCR) [facility] Medical History Abdominal pain Acute cholecystitis 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 Ankle pain Atrial fibrillation Carpal tunnel syndrome Chicken pox Chronic back pain Diabetes mellitus Foot pain Fractures Frequent urination at night GI bleed Glaucoma Hay fever Hypertension Leukocytosis Measles Mumps Non-insulin dependent type 2 diabetes mellitus Plantar warts Rosacea Shoulder pain Vision disorder Surgical History Cataract (~2011) Hx of appendectomy Family History Grandfather Diabetes mellitus Mother Diabetes mellitus Cancer Sister Age: 79 Cancer Sister Age: 72 Heart disease Social History household members: spouse Smoking Status: Former smoker alcohol intake: current Assessment & Plan Assessment & Plan narrative: Acute CVA, -head MRI confirms a left pontine stroke -will obtain cardiac echo, given history of atrial fibrillation, to rule out an acute PFO or embolic focus -will continue aspirin 81 mg, Plavix 75 mg, and atorvastatin, decreased to 40 mg daily given his advanced age of 85 -patient will need PT OT and speech, -given the patient's fall and right leg weakness he very likely will need acute versus subacute rehab at discharge -no further head imaging needed at this time -eliquis started, continue baby asa, stop plavix -continue PT/ OT, need to determine if he is a candidate for acute vs subacute reahb 2. Essential hypertension, -continue his usual home medications to include metoprolol, lisinopril, and Cardizem -no need for permissive hypertension as the patient is greater than 48 hours after his acute stroke event -will aggressively treat blood pressure with a goal of systolic less than 180 - will increase metoprolol as heart rate and blood pressure remain elevated 3. Type 2 OK -Patient has elevated troponins, echo reveals inferoseptal hypokinesis -no intervention given recent stroke, will add baby asa but no heparin given stroke -continue eliquis 4. Paroxsymal Atrial Fibrillation -continue eliquis -increase metoprolol 5. Invasive and no carcinoma of prostate, acute on chronic, present on admission -patient experiencing urinary retention, will place Forman catheter if urinary retention greater than 500 per bladder scan -u/a ordered. -managed by Dr. Blank oncology -continue patient's Lupron, prednisone, Flomax, and Zytiga 6. Peripheral edema chronic , chronic, present on admission -Monitor for fluid overload 7 . Type 2 diabetes -will obtain glycohemoglobin -discontinue metformin and glyburide -sliding scale insulin while in the hospital Code status:DNR Time Spent With Patient Critical Care time: I spent a total of [] minutes of critical care time on this patient's care today; this time is exclusive of procedural time. Quality VTE Deep Vein Thrombosis/Pulmonary Embolism Present on Admission: No
--- NOTE | 2021-03-07 15:29 | CM.DANOTE ---
DCP assessment: patient is 85 yr old male who presented her for Stroke. Positive MRI, Cm met with patient at the bedside and explained role patient was alert and oriented at time of CM Visit. patient is independent and drives at baseline. Patient lives in a two story house with his . Currently there is a bedroom on the ground floor next to the bathroom for him to use when he goes home. CM talked with patient about Acute rehab options and he was open to that plan. per OT notes patient would benefit from Inpatient rehab. MARIAH Huerta sent clinicals to both [place] acute rehab and [facility] [place]hab to review. Love at [facility] called and says she is reviewing but doesn't think it will be a problem to accept. Cm will check back in with her tomorrow to verify patient acceptance. I: Medicare and Plan: DC to Acute rehab. Either at [facility] or [place]. If that doesn't work Litzy at [facility] is reviewing for possible admission to SNF... as a third option is home with [facility] who has already accepted patient for care at [place]. Ranjana Quintanilla RN Discharge Planning/Care Management CM Discharge Assessment Start: 03/07/21 15:26 Freq: Status: Active Protocol: Document 03/07/21 15:27 HS (Rec: 03/07/21 15:29 HS [id number]) Discharge Planning Assessment Assigned Ocular Care Technician Liliana Massey (Spouse) DPOA/Assigned Designee Name Advance Directives? No Advance Directives on File No History Provided By Patient,Medical Record Prior Living Arrangements House Household Members spouse Type of transporation used prior to Drives own vehicle admit Independent with ADL's Yes Is patient alert and oriented? Yes Caregiver for Another No DME Already Rented / Owned FWW / Walker,Cane Barriers to Discharge No Discharge Plan Inpatient Rehab Unit Transportation Arrangement Inpatient rehab Referrals Initiated Other Additional Comment Inpatient rehab Whiteboard Updated in Patient Room with Yes name and ext. # of Ocular Care Technician Review Status In Process Next Review Type Continued Stay Review
--- NOTE | 2021-03-07 15:55 | CM.DPNOTE ---
Faxed referral packet to [facility] per Ranjana and received fax confirmations. Deanna Still CM Asst.
--- NOTE | 2021-03-07 16:27 | ST.IPCSEOM ---
Visit Care Team Role Provider Type CHELSI Lopez Primary Care Provider Advanced Tool Engineer Specialty: Family Practice Address: [address] [place] [address], [id number] Email: [email or web address] Ricardo Morelos DO Emergency Provider Physician Referring Provider Specialty: Emergency Medicine Address: [address] [place] [address], [address] Email: [email or web address] [email or web address] Provider Physician Attending Provider Specialty: Internal Medicine Address: [address] [place] [address], [id number] Email: [email or web address] Medical History (Last Reviewed 03/06/21 @ 18:46 by Ricardo Morelos DO) Abdominal pain (Medical) Acute cholecystitis (Medical) 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 (Medical) Narberth score:8 Ankle pain (Medical) Atrial fibrillation (Medical) Carpal tunnel syndrome (Medical) Chicken pox (Medical) Chronic back pain (Medical) [id number] Diabetes mellitus (Medical) In the Foot pain (Medical) Fractures (Medical) Frequent urination at night (Medical) GI bleed (Medical) Glaucoma (Medical) Hay fever (Medical) When young Hx of appendectomy (Medical) Hypertension (Medical) Leukocytosis (Medical) Measles (Medical) Mumps (Medical) Non-insulin dependent type 2 diabetes mellitus (Medical) Plantar warts (Medical) Rosacea (Medical) Shoulder pain (Medical) Vision disorder (Medical) Speech-Language Pathology Swallow Evaluation CHAIR Clinical Swallow Evaluation Start: 03/07/21 16:04 Freq: Status: Active Protocol: Document 03/07/21 16:04 JUSTINE (Rec: 03/07/21 16:26 ZS [id number]) Clinical Swallow Evaluation Session Time Visit Start Time 15:40 Visit Stop Time 15:55 Total Visit Minutes 15 Setting Assessment Location Acute Care Visit Type Note Type Initial evaluation Next Note Type Next Note Type Treatment Note Patient Information Identification Type Name,ID Card History Per medical history, the patient is an 85-year-old male with a history of invasive adenocarcinoma the prostate, hypertension, persistent atrial fibrillation, chronic edema, type 2 diabetes who was admitted to the hospital 03 03 through 03 04 for weakness. His weakness by report resolved. The patient had a CT of the head neck which showed no acute intracranial process with moderate atrophy and chronic microvascular changes. There were no significant hemodynamically significant stenosis occlusion or aneurysmal dilatation. There was a 30-40% narrowing at the origin of the internal carotid arteries bilaterally. Telestroke was consulted and they recommended platelet therapy at 300 mg loading dose followed by [address] Plavix and aspirin at 81 mg. The patient underwent a head MRI which by report was negative for acute stroke. He was discharged back home. The patient was brought back to the emergency room because he continued to have weakness of the left leg. He he fell at home. He is unable to be cared for by his family at home. The patient was also found to have a potassium of 2 .9. In addition his troponin was elevated at 0.57 although he has no complaints of chest pain. His EKG shows PVCs but no acute ST T wave abnormalities. The patient was taken directly to MRI from the emergency department. MRI confirmed a left pontine stroke. Patient is admitted to the hospital for inpatient treatment of an acute stroke. Subjective Observations Marek was laying in his bed when clinician arrived. He indicated he was willing to try some food and clinician raised his bed to an upright position for food trials. Reported by Patient Other Symptoms Coughing Comment Marek reported he coughs frequently when eating and drinking when clinician visited earlier today, though he was unwilling to eat anything at that time. Clinician returned for food trials later the same day. Current Diet Regular,Thin liquids Baseline Feeding Method Independent in self-feeding Objective Assessment Mental Status Alert,Responsive,Cooperative Oral Integrity WFL Dentition Decay Lip Function Moderate impairment Observation of Lips at Rest Symmetrical Pucker Reduced range of motion, Reduced strength,Left sided weakness/drooping Alternating Pucker/Lip Retraction Reduced range of motion, Incoordination Tongue Function Moderate impairment Observations of Tongue at Rest Within normal limits Tongue Protrusion Deviates to the left Tongue Lateralization Reduced range of motion, Reduced strength, Incoordination Jaw Function Within normal limits Observations of Jaw at Rest Within normal limits Jaw Opening Within normal limits Jaw Closing Within normal limits Hard/Soft Palate Function Within normal limits Observations of Hard/Soft Palate Within normal limits Comment Oral mechanism exam completed during assessment earlier today and results were as follows: Marek presented with symmetrical features at rest, though left sided weakness and incoordination present when smiling and puckering. Reduced strength and ROM of tongue on protrusion, elevation, lateralization, and depression . tongue deviated to left during protrusion. He maintained a labial seal with clinician applying pressure to cheeks and demonstrated hyolaryngeal elevation and excursion WNL. Jaw opening and closing was WNl. Dentition present though decay noted on multiple teeth. Color, structure, and function of soft palate were WNL. Food and Liquid Trials Position During Assessment Upright (90 degrees),In bed Solids Trialed Regular Administration Type Tea spoon,Self-feeding Oral Impairment Within functional limits Oral Phase Comments Marek ate applesauce (2 trials via teaspoon), peaches (3 trials via teaspoon), egg salad (1 trial via teaspoon), egg salad sandwich (1 trial using fingers), and a zbigniew cracker (1 trial using fingers ). Marek demonstrated good anterior posterior movement of bolus. He exhibited prolonged mastication, though he indicated no difficulty with chewing on all trials except the zbigniew cracker. Marek had minimal oral residue following trials. Pharyngeal Impairment Within normal limits Pharyngeal Phase Comments No overt signs or symptoms of aspiration observed. Hyolaryngeal elevation and excursion was WNL. Marek reported no difficulty swallowing any of the textures presented. Fatigue/Endurance Mild fatigue Comment Marek appeared mildly fatigued when eating (e.g., chewing became more prolonged and Marek slowed down when taking bites) and stated no more after this when he was done eating. Due to self- regulation and rejection of food when he is fatigued, endurance is not a concern at this time. Results Marek presents with slow mastication and mild fatigue when eating, though self- regulates by refusing to eat more when he feels tired. Due to self-regulation surrounding fatigue, Marek is considered safe for a regular diet at this time. Findings Swallowing Function Within functional limits Severity of Swallow Impairment Within functional limits Contributing Factors to Swallow Reduced alertness or attention Impairment ,Reduced oral strength/ coordination/sensation, Mastication inefficiency Prognosis Good Based on Cognitive status,Comorbidities ,Duration of symptoms/severity Impact on Safety and Functioning No limitations Recommendations Instrumental Assessment No Swallowing Treatment No Recommended Solids Regular Recommended Liquids Thin Safety Precautions/Swallowing Feed only when alert,Reduce Recommendations distractions,Remain upright ( 90 degrees) during all oral intake,Upright position at least 30 minutes after meals, Small bites and sips when eating,Slow rate; swallow between bites,No straw Medication Recommendations As Tolerated Education Patient/Caregiver Education Described results of evaluation,Patient expressed understanding of evaluation, Patient expressed agreement with goals & treatment plans, Patient expressed understanding of safety precautions,Patient expressed understanding of feeding recommendations Goals Short-term Goals 1. Marek will perform safe swallow strategies (e.g., no straws) with oral intake independently to reduce risk of aspiration. 2. Marek will perform exercises to increase strength , coordination, and ROM of speech and swallow musculature independently to increase intelligibility and swallow safety. Long-term Goals 1. Marek will demonstrate 100% intelligible speech when speaking with familiar and unfamiliar listeners.
[2021-03-07] MEDS: INSULIN LISPRO 100 UNIT/ML 3ML VIAL SUBCUT (17:21)
[2021-03-07 21:48] LABS: HEMOLYSIS < 15 (0-50)
[2021-03-07 21:50] LABS: Magnesium 1.7 mg/dL (1.6-2.3)
[2021-03-08] VITALS (7 sets, daily range): BP systolic 142–172; BP diastolic 69–105; PULSE 76–90; RESP 16–21; TEMP 35.5–36.8; O2SAT 93–98
[2021-03-08 06:19] LABS: Add Manual Diff / Slide Review NO; Basophils Absolute Auto 0 /uL (0-100); Basophils Percent Auto 0.4 % (0-2); Eosinophils Absolute Auto 200 /uL (0-450); Eosinophils Percent Auto 1.6 % (2-4); Hematocrit 36.5 % (41-53); Hemoglobin 12.1 g/dL (13.5-17.5); Lymphocytes Absolute Auto 2000 /uL (1100-4500); Lymphocytes Percent Auto 20.2 % (25-40); Mean Corpuscular HGB Conc 33.2 % (30-36); Mean Corpuscular Hemoglobin 30.9 PG (26-34); Monocytes Absolute Auto 900 /uL (0-900); Monocytes Percent Auto 8.8 % (3-14); Neutrophils Absolute Auto 7000 /uL (1500-7000); Platelet Count 251 X10^3/uL (150-400); Red Blood Cell Count 3.93 X10^6/uL (4.5-5.9); Red Cell Distribution Width 13.4 % (11.6-14.8); White Blood Cell Count 10.1 X10^3/uL (4.5-11.0)
[2021-03-08 06:24] LABS: Magnesium 1.6 mg/dL (1.6-2.3)
[2021-03-08 06:30] LABS: BUN Creatinine Ratio 10.7 (6-22); Blood Urea Nitrogen 12 mg/dL (9-20); Calcium 8.4 mg/dL (8.4-10.2); Carbon Dioxide 23 mmol/L (22-32); Chloride 102 mmol/L (98-107); Estimated Glomerular Filt Rate > 60.0 mL/min (>60); Glucose 140 mg/dL (80-110); HEMOLYSIS < 15 (0-50); Potassium 2.8 mmol/L (3.4-5.1); Sodium 136 mmol/L (137-145)
[2021-03-08 06:39] LABS: Troponin I 0.021 ng/mL (0.01-0.034)
[2021-03-08] MEDS: INSULIN LISPRO 100 UNIT/ML 3ML VIAL SUBCUT ×3 (09:14→17:00)
[2021-03-08] MEDS: METOPROLOL ER 50 MG TABLET 100 MG PO ×2 (09:14→20:43)
[2021-03-08] MEDS: TAMSULOSIN 0.4 MG CAPSULE PO (09:15)
[2021-03-08] MEDS: lisinopriL 20 MG TABLET 40 MG PO (09:15)
[2021-03-08] MEDS: DOCUSATE 100 MG CAPSULE PO (09:15)
[2021-03-08] MEDS: SODIUM CHLORIDE 0.9% FLUSH 10 ML IV ×2 (09:18→20:44)
--- NOTE | 2021-03-08 09:42 | OT.IP.TRT ---
Current Diagnoses Cerebral infarction, unspecified (03/06/21) Occupational Therapy Treatment Note M2 OT-IP Current Condition Start: 03/07/21 13:12 Freq: Status: Active Protocol: Document 03/07/21 13:12 [facility] (Rec: 03/07/21 13:45 [facility] [id number]) Occupational Therapy Current Condition Current Condition Evaluation Date 03/07/21 Treatment Diagnosis CVA, Left Pontine, decreased mobility Diagnosis Onset Date 03/06/21 M3 OT- IP Subjective and Pain Start: 03/07/21 13:12 Freq: Status: Active Protocol: Document 03/08/21 09:03 [facility] (Rec: 03/08/21 13:39 [facility] [id number]) OT- Subjective Occupational Therapy Visit Type Type Treatment Note Visit Start Time 09:03 Visit Stop Time 09:42 Total Visit Minutes 39 Occupational Therapy Visit Comments Patient Comments Pt states that he is soiled and needing assist to be cleaned up. Patient/Caregiver Goals To get better. OT Pain Assessment Pain When Pain Assessed At Rest Pain Present Pain Present Denied Pain M4 OT- IP ADL's Start: 03/07/21 13:12 Freq: Status: Active Protocol: Document 03/08/21 09:03 [facility] (Rec: 03/08/21 13:39 [facility] [id number]) OT [id number] Comments OT Self-Feeding Comments NOt at meal time. OT ADL-Grooming Comments OT Grooming Comments Not performed. OT ADL-Oral Care Comments Oral Care Comments Not performed. OT ADL-Dressing General Eval Lower Body Dressing Ability Maximum Assistance Areas Needing Assistance Underpants/Brief,Socks Comments OT Dressing Comments Assist for brief and socks while in bed. OT ADL-Toileting General Evaluation Toileting Ability Total Assistance Comments OT Toileting Comments Forman in place and pt requested to be cleaned in bed versus trying to get to the BSC. Pt states that he did not sleep well and is very tired. Per nursing aid pt had diarrhea last night as well. OT ADL-Bathing Bathing Type Bathing Type Bed Bath General Evaluation Bathing Ability Maximal Assistance Comments OT Bathing Comments Pt dependent for hygiene needs for pericare needs but able to assist to roll from side to side with MODA. M6 OT- IP Functional Cognition Start: 03/07/21 13:12 Freq: Status: Active Protocol: Document 03/08/21 09:03 [facility] (Rec: 03/08/21 13:39 [facility] [id number]) Cognitive Factors Limiting Selfcare Function Cognitive Ability Level of Alertness Alert Patient Orientation Name Attention Span Ability Capable of Focused Attention, Capable of Sustained Attention Ability to Follow Commands Able to Follow One Step Commands with Increased Time, Able to Follow One Step Commands with Repetition Cognitive Comments Cognitive Assessment Comments Pt seems more clear today and realizes orly he had a CVA. Pt however needs some encouragement to participate in therapy as pt is very tired. M7 OT- IP Mobility and Balance Start: 03/07/21 13:12 Freq: Status: Active Protocol: Document 03/08/21 09:03 [facility] (Rec: 03/08/21 13:39 [facility] [id number]) OT- Bed Mobility Assessment Rolling Type of Rolling Bilateral Level of Assistance Moderate Assistance,1 Person Assistance Supine to Sit Supine to Sit Assist Maximum Assistance,1 Person Assistance OT-Transfer Assessment Sit to and From Stand Sit to and from Stand Maximum Assistance,1 Person Assistance Transfers Transfer Ability Maximum Assistance,1 Person Assistance Technique Transfer Destination Bed,Chair Transfer Technique Stand Pivot Devices Transfer Assistive Devices Gait Belt Comments Mobility Comments Able to stand pt with MOD/MAX A and needing assist to help pivot to the recliner. Able to assist pt to call his . OT- Gait Assessment Comments Gait Ability Comments Transfer only at this time. OT- Balance Assessment Sitting Balance and Reactions Static Sitting Balance Ability Fair Dynamic Sitting Balance Ability Fair Standing Balance and Reactions Static Standing Balance Ability Poor Dynamic Standing Balance Ability Poor M8 OT- IP Objective Assessments Start: 03/07/21 13:12 Freq: Status: Active Protocol: Document 03/07/21 13:12 [facility] (Rec: 03/07/21 13:45 [facility] [id number]) OT Gross Range of Motion Upper Extremity Range of Motion Assessment Right Impaired ROM Impairments Decreased at end range. OT Strength Upper Extremity Strength Assessment Right Impaired Shoulder 3-/5 Elbow 4-/5 Forearm 4-/5 Wrist 4-/5 Hand 4-/5 Comments Strength Comments LUE 4/5 throughout OT- Coordination Assessment Upper Extremity Finger to Nose Test Within Functional Limits Comments Coordination Comments Pt having difficulty to use right hand for set-up from grooming needs due to decreased strength, coordination, and control. OT-Muscle Tone Assessment Muscle Tone WNL Yes OT Sensation Assessment Comments Summary Comments Pt intact for light touch but pt feel the right side feels off. M9 OT- IP Assessment and Plan Start: 03/07/21 13:12 Freq: Status: Active Protocol: Document 03/08/21 09:03 [facility] (Rec: 03/08/21 13:39 [facility] [id number]) OT Summary Assessment and Plan Potential Rehabilitation Potential Good Analytic Complexity at Evaluation Moderate Summary OT Impairments Strength,Balance,Coordination, Functional Cognition, Functional Mobility,Self- Feeding,Grooming,Dressing, Toileting,Bathing,Toilet Transfers,Shower Transfers, Activity Tolerance Progress Towards Goals Slow Progress due to Medical Issues,Slow Progress due to Activity Tolerance,Slow Progress due to Cognition Assessment Summary Pt decreased activity tolerance and still needing extensive assist for all ADL and transfer needs. Pt would benefit form skilled rehab however not sure if appropriate for acute rehab at this time due to pt not able to tolerate much therapy at this time. However pt states did not sleep well which may also be affecting his activity tolerance today. Goals Self-Feeding Goal Independent Grooming Goal Independent Dressing Goal Independent Bathing Goal Independent Toilet Transfer Goal Independent Shower Transfer Goal Independent Days to Meet Goals 45 Frequency of Treatment Frequency Of Treatment Once a Day Treatment Plan OT Treatment Plan ADL Training,Functional Cognition Training,Functional Mobility,Patient/Family Education,Discharge Planning Other Treatment Recommendations and Next Transfer to [facility] with MODA X 1 Treatment Focus with FWW. Discharge Recommendations OT Discharge Recommendations SNF vs Acute Rehab Transportation Needs at Discharge Wheelchair/Cabulance
[2021-03-08] MEDS: APIXABAN 5 MG TABLET PO ×2 (10:11→20:43)
[2021-03-08] MEDS: dilTIAZem CD 240 MG CAP PO (10:11)
--- NOTE | 2021-03-08 11:16 | CM.DPC ---
Addendum entered by Huong Parrish R.N. 03/08/21 15:56: Spoke to patient's son, Puma. He was inquiring upon the cost of [employer] to go to [facility], since he never was able to get the answer. Let him know that this c4 planner will call [employer] back and attempt to get a quote. Called Magdalena at [facility] and left her a message, that patient was not discharged at the last minute, and how much the cost will be for him to transfer to [facility], if he goes tomorrow. Addendum entered by Huong Parrish R.N. 03/08/21 15:22: [employer] had arrived to milk pickup driver patient, and son was here, but nurse, Kenya, indicated that discharge was being cancelled. Have no updated information at this time, called hospitalist, who stated would update care management. Patient had been originally running low on his potassium. Original Note: DCP Cont: Spoke to Devi at [facility] in [place]. She indicated, they should be able to take patient today. Patient's potassium was low, and will need some dosing before he goes there. Son, Puma, has been here and is designated visitor. Discussed transportation, for [facility] will not allow family members to transport. Called [facility] and spoke to Magdalena, who indicated that they should be able to milk pickup driver patient between [phone]. Asked her how much the cost would be, and she indicated that she would need to run it through to see. Spoke to son, Puma, who indicated, he can pay bolanos depending upon how much it is. Magdalena at [facility] will call him and let him know how much the transportation will be. As soon as orders are in, will fax them over to [facility]. Updated Devi on the time of milk pickup driver. P: DCP to continue to follow. Patient should be able to discharge today as long as his potassium is stable. Have updated patient's , Liliana, and patient is updated. Huong Parrish RN/Package Pick Up
[2021-03-08] MEDS: POTASSIUM CHLORIDE 20 MEQ TAB 40 MEQ PO ×2 (11:17→14:31)
[2021-03-08] MEDS: MAGNESIUM OXIDE 400 MG TABLET PO ×2 (11:17→20:42)
--- NOTE | 2021-03-08 12:00 | PT.IPTN ---
Current Diagnoses Cerebral infarction, unspecified (03/06/21) Physical Therapy Treatment Note M2 PT-IP Current Condition Start: 03/07/21 13:19 Freq: NEEDED Status: Active Protocol: Document 03/07/21 12:05 AB (Rec: 03/07/21 13:32 AB [id number]) Physical Therapy Current Condition Current Condition Evaluation Date 03/07/21 Treatment Diagnosis L CVA; difficulty in walking Onset Date 03/06/21 Precautions Other Precautions falls M3 PT-IP Subjective Start: 03/07/21 13:19 Freq: NEEDED Status: Active Protocol: Document 03/08/21 12:00 AW (Rec: 03/08/21 12:12 AW [id number]) Subjective Physical Therapy Visit Type Type Treatment Note Visit Start Time 11:35 Visit Stop Time 12:00 Total Visit Minutes 25 Number of MOLDER MACHINE Visits 0 Physical Therapy Visit Comments Patient Comments Pt is conversant but struggles with word finding and speech production. M4 PT-IP Mobility and Gait Start: 03/07/21 13:19 Freq: NEEDED Status: Active Protocol: Document 03/08/21 12:00 AW (Rec: 03/08/21 12:12 AW [id number]) PT-Transfer Assessment Sit to and From Stand Sit to and from Stand Moderate Assistance,2 Person Assistance Equipment Transfer Assistive Device Gait Belt,Front Wheeled Walker Orthotic/Prosthetic Devices or Brace: No Transfers Transfer Destination Chair Transfer Technique pt ambulated with FWW Transfer Ability Level of Assist Maximum Assistance,1 Person Assistance,Use of Upper Extremities Comments Mobility Comments Pt was sitting up in chair as PT arrived. BP 159/85 HR 86. He agreed to get up and try walking. He needed max A x 1 and max cues for sequencing to stand. He tends to stand with weight posteriorly distributed but responds well to cues to redistribute. Flexed trunk posture is likely habitual. Pt used FWW to ambulate 15 feet, turning to his right twice to return to the chair, requiring max A x 1 for transfer. After a short rest break, pt agreed to walk again and walked 20 feet with FWW mod/max A x 1 before transferring back to chair max assist. BP was 162/83 HR 88 after activity. Pt was positioned in chair with call light and tray table in reach, chair alarm on for safety. Gait Assessment Gait Gait Assistance Required: Moderate Assistance,Maximum Assistance,1 Person Assist Distance (Feet) 20 Assistive Devices Assistive Device Front Wheeled Walker Orthotic/Prosthetic Devices or Brace: No Gait Deviations General Gait Pattern Decreased Stride Length, Decreased Feet Clearance, Flexed Trunk,Lateral Trunk Lean,Step-to Gait Factors Limiting Gait Function Factors Limiting Gait Function Decreased Activity Tolerance, Decreased Strength,Poor Balance,Poor Safety Awareness Comments Gait Comments Pt ambulated 15 and 20 feet this session with FWW max A x 1. He needed frequent cues to keep walker closer to trunk for optimal support. He self- selected right turns x 4 during treatment and needed assist for walker management each time. PT-Balance Assessment Sitting Balance and Reactions Static Sitting Balance Ability Fair Dynamic Sitting Balance Ability Fair Standing Balance and Reactions Static Standing Balance Ability Poor Dynamic Standing Balance Ability Poor Device Used FWW M5 PT-IP Objective Assessments Start: 03/07/21 13:19 Freq: NEEDED Status: Active Protocol: Document 03/07/21 12:05 AB (Rec: 03/07/21 13:32 AB [id number]) Orientation Orientation/Cognition Level of Alertness Confusional State Orientation Name Safety Awareness Decreased Safety Awareness Memory Description Short Term Impaired Gross Range of Motion Lower Extremity ROM Assessment Within Functional Limits Strength Lower Extremity Strength Assessment Right Impaired Hip 3+/5 Knee 3+/5 Coordination Assessment Gross Coordination Gross Coordination WNL Muscle Tone Muscle Tone WNL Yes M6 PT-IP Treatment Start: 03/07/21 13:19 Freq: NEEDED Status: Active Protocol: Document 03/08/21 12:00 AW (Rec: 03/08/21 12:12 AW [id number]) Physical Therapy Treatment Education Education Provided Safety M7 PT-IP Assessment and Plan Start: 03/07/21 13:19 Freq: NEEDED Status: Active Protocol: Document 03/08/21 12:00 AW (Rec: 03/08/21 12:12 AW [id number]) PT Summary Assessment and Plan Summary Progress Towards Goals Progressing Toward Goals,Slow Progress due to Activity Tolerance Assessment Summary Pt was ultimately agreeable to work with PT today but did require some encouragement. He completed TUG x 2 with times >2 minutes each attempt, max assist, and FWW. Pt will require SNF vs acute rehab to improve strength and mobility independence. Goals Bed Mobility Goal Standby Assistance Transfer Goal Standby Assistance,Front Wheeled Walker Gait Goal Standby Assistance,Front Wheel Walker Gait Distance 100 Other Goals up/down 4 steps L rail min A Days to Meet Goals 10 Frequency of Treatment Frequency Of Treatment Once a Day Treatment Plan Physical Therapy Treatment Plan Bed Mobility Training,Transfer Training,Gait Training, Therapeutic Exercise,Balance Retraining,Discharge Planning, Hot or Cold Pack,Neuromuscular Re-ed,Coordination Retraining Other Recommendations and Next Treatment transfers, continue gait Focus training with FWW Precautions Other Precautions falls Recommendations To Nursing Amount of Assist Needed 1 Person Assist,2 Person Assist Discharge Recommendations PT Discharge Recommendations SNF vs Acute Rehab Transportation Needs at Discharge Wheelchair/Cabulance
--- NOTE | 2021-03-08 12:17 | P.DS_ITS ---
History of Present Illness History of Present Illness Chief complaint: Sent by Millie Pittman Narrative: The patient is an 85-year-old male with a history of invasive adenocarcinoma the prostate, hypertension, persistent atrial fibrillation, chronic edema, type 2 diabetes who was admitted to the hospital for weakness. The patient's initial NIH score was 6. He was not anticoagulated. He was admitted to the hospital with some mild speech difficulty and confusion. However subsequent NIH score was 1. His weakness by report resolved. The patient had a CT of the head neck which showed no acute intracranial process with moderate atrophy and chronic microvascular changes. There were no significant hemodynamically significant stenosis occlusion or aneurysmal dilatation. There was a 30-40% narrowing at the origin of the internal carotid arteries bilaterally. Telestroke was consulted and they recommended platelet therapy at 300 mg loading dose followed by [address] Plavix and aspirin at 81 mg. The patient underwent a head MRI which by report was negative for acute stroke. He was discharged back home. The patient was brought back to the emergency room because he continued to have weakness of the left leg. He he fell at home. He is unable to be cared for by his family at home. The patient was also found to have a potassium of 2.9. In addition his troponin was elevated at 0.57 although he has no complaints of chest pain. His EKG shows PVCs but no acute ST T wave abnormalities. The patient was taken directly to MRI from the emergency department. MRI confirmed a left pontine stroke. Patient is admitted to the hospital for inpatient treatment of an acute stroke. Discharge Providers Provider Date of admission: 03/06/21 16:14 Discharge Date: 03/08/21 Primary care physician: CHELSI Lopez Consults: 03/06/21 17:54 Consult to Dietitian, Adult Routine Comment: poor appetite Reason For Exam: poor appetite Consult to Discharge Planning Routine Comment: Consult to Occupational Therapy Evaluate & Treat Comment: Physician Instructions: Evaluate and treat Consult to Physical Therapy Evaluate & Treat Comment: Physician Instructions: Evaluate and Treat 03/06/21 17:55 Consult to Discharge Planning Routine Comment: Consult to Occupational Therapy Evaluate & Treat Comment: Physician Instructions: Evaluate and treat Consult to Physical Therapy Evaluate & Treat Comment: Physician Instructions: Evaluate and Treat Consult to Speech Therapy Evaluate & Treat Comment: Physician Instructions: Evaluate and treat Discharge provider: Marycruz Mclaughlin MD Summary Hospital Course Discharge Diagnosis: 1. Left Pontine Stroke 2. Hypertension 3. Persistant Atrial Fibrillation 4.Type 2 diabetes 5. urinary retention with indwelling langford catheter 6. Invasive AdenoCa of the prostate 7. Hypokalemia Hospital Course: The patient is an 85 y/o male admitted with right leg weakeness. He presented 2 days prior with similar symptoms. The patient returned home but fell quickly. He returned and MRI confirmed a right pontine infarct. The patient also developed atrial fibrillation. His rate was controlled. He was started on eliquis for the afib. The patient was seen by PT/OT. He had some improvement in his leg weakness but was too weak to ambulate independently. The patient was transferred to [facility] for ongoing care. Patient has no complaints and was discharged accordingly. Status at Discharge Cognitive/behavioral status at discharge: confused Functional status at discharge: uses cane/walker Overall status at discharge: patient is not back to baseline Exam Vital Signs (past 8 hours): - 03/08/21 08:00 Temperature 96.7 F L Pulse Rate 88 Respiratory Rate 21 Blood Pressure 172/73 H Pulse Oximetry 97 Oxygen Delivery Method Room Air Oxygen Flow Rate 0 Narrative Exam Narrative: pleasant male sitting in a chair Eyes Other: EOMI Resp Other: Lungs: clear to auscultation Cardio Other: irregularly irregular, nl Sl S2 2/6 JOSÉ LUIS GI Other: Abd: soft/ non tender Skin Other: no edema Objective Labs Result Diagrams: 03/08/21 05:35 03/08/21 05:35 Labs: Laboratory Results - last 24 hr 03/07/21 03/07/21 03/08/21 21:35 21:35 05:35 WBC 10.1 RBC 3.93 L Hgb 12.1 L Hct 36.5 L MCV 93.0 MCH 30.9 MCHC 33.2 RDW 13.4 Plt Count 251 Neut % (Auto) 69.0 Lymph % (Auto) 20.2 L Geary % (Auto) 8.8 Eos % (Auto) 1.6 L Baso % (Auto) 0.4 Neut # (Auto) 7000 Lymph # (Auto) 2000 Geary # (Auto) 900 Eos # (Auto) 200 Baso # (Auto) 0 Sodium Potassium 3.0 L Chloride Carbon Dioxide BUN Creatinine Estimated GFR BUN/Creatinine Ratio Glucose Calcium Magnesium 1.7 Troponin I 03/08/21 03/08/21 05:35 05:35 WBC RBC Hgb Hct MCV MCH MCHC RDW Plt Count Neut % (Auto) Lymph % (Auto) Geary % (Auto) Eos % (Auto) Baso % (Auto) Neut # (Auto) Lymph # (Auto) Geary # (Auto) Eos # (Auto) Baso # (Auto) Sodium 136 L Potassium 2.8 L Chloride 102 Carbon Dioxide 23 BUN 12 Creatinine 1.12 Estimated GFR > 60.0 BUN/Creatinine Ratio 10.7 Glucose 140 H Calcium 8.4 Magnesium 1.6 Troponin I 0.021 [facility] Medical History Abdominal pain Acute cholecystitis Adenocarcinoma of prostate with Ephraim score X Ankle pain Atrial fibrillation Carpal tunnel syndrome Chicken pox Chronic back pain Diabetes mellitus Foot pain Fractures Frequent urination at night GI bleed Glaucoma Hay fever Hypertension Leukocytosis Measles Mumps Non-insulin dependent type 2 diabetes mellitus Plantar warts Rosacea Shoulder pain Vision disorder Surgical History Cataract (~2011) Hx of appendectomy Family History Grandfather Diabetes mellitus Mother Diabetes mellitus Cancer Sister Age: 79 Cancer Sister Age: 72 Heart disease Social History household members: spouse Smoking Status: Former smoker alcohol intake: current Discharge Assessment & Plan Assessment and Plan Assessment: 1. Left Pontine Infarct 2. Hypertension 3. Urinary Retention 4. Hypokalemia Plan of Treatment: To [facility] Discharge Plan Discharge Plan Patient Disposition: Xfer Inpatient Rehab Other facility: [facility] Consult as needed: Dental, Hearing, Mental health, Podiatry and Vision Discharge orders & Medications Discharge Orders: Discharge (Order); Ordered 03/08/21 Ordered By: Marycruz Mclaughlin Prescriptions: New Eliquis 5 mg Tablet 5 mg PO BID Qty: 30 RF: 0 magnesium oxide 400 mg (241.3 mg magnesium) Tablet 400 mg PO BID Qty: 30 RF: 0 potassium chloride 20 mEq tablet extended release 20 meq PO DAILY Qty: 14 RF: 0 atorvastatin 40 mg tablet 40 mg PO BEDTIME Qty: 30 RF: 0 Continued diltiazem HCl 300 mg capsule,extended release 24 hr 300 mg PO DAILY Qty: 90 RF: 3 lisinopril 40 mg tablet See Rx Instructions .ROUTE .COMPLEX Qty: 180 RF: 3 metoprolol succinate 100 mg tablet extended release 24 hr 100 mg PO DAILY Qty: 90 RF: 3 metformin 500 mg tablet 1,000 mg PO BID Qty: 360 RF: 3 glyburide 5 mg tablet 5 mg PO TID Qty: 270 RF: 3 abiraterone [Zytiga] 250 mg Tablet 250 mg PO DAILY Qty: 30 RF: 11 tamsulosin [Flomax] 0.4 mg Capsule 0.4 mg PO DAILY 30 Days Qty: 30 RF: 0 Discontinued aspirin 81 mg Tablet,Delayed Release (Dr/Ec) 81 mg PO DAILY 90 Days Qty: 90 RF: 0 atorvastatin [Lipitor] 20 mg Tablet 80 mg PO BEDTIME 30 Days Qty: 30 RF: 0 clopidogrel 75 mg Tablet 75 mg PO DAILY 20 Days Qty: 20 RF: 0 Follow up/Referrals: Millie Pittman ARNP [Primary Care Provider] - Discharge Health Status Multidrug resistant organism: No MDRO Diet/Activity/Treatments Diet: Low-sodium Liquid consistency: Normal/Thin Food texture: Regular Catheter: 2-way Langford Catheter comment: urinary retention, would try to remove before discharge Other treatments: please check potassium levels until stable. Patient has had low potassium during the hospital stay Skin/Wound/Dressing Care Report to your healthcare provider any signs of infection, such as:: chills, fever Special Rehabilitation Services Reason for rehabilitation: Therapy following stroke Rehab type: Physical therapy, Occupational therapy and Speech therapy Discharge Data Primary Care Provider: Millie Pittman VTE Deep Vein Thrombosis/Pulmonary Embolism Present on Admission: No
[2021-03-08 13:42] LABS: COVID19 -Nasal RAPID Negative (Negative)
--- NOTE | 2021-03-08 14:27 | ST.IPDYTX ---
Visit Care Team Role Provider Type CHELSI Lopez Primary Care Provider Advanced Computer Patternmaker Specialty: Family Practice Address: [address] [place] [address], [id number] Email: [email or web address] Ricardo Morelos DO Emergency Provider Physician Referring Provider Specialty: Emergency Medicine Address: [address] [place] [address], [address] Email: [email or web address] Marycruz Mclaughlin MD Admit Provider Physician Attending Provider Specialty: Internal Medicine Address: [address] [place] [address], [address] Email: [email or web address] TEACHER Dysphagia Treatment ELEMENTARY SCHOOL SCIENCE TEACHER Dysphagia Treatment Start: 03/08/21 14:16 Freq: Status: Active Protocol: Document 03/08/21 14:16 JUSTINE (Rec: 03/08/21 14:27 ZS [id number]) Dysphagia Treatment Session Time Visit Start Time 12:30 Visit Stop Time 12:45 Total Visit Minutes 15 Setting Assessment Location Acute Care Visit Type Note Type Treatment Note Next Note Type Next Note Type Treatment Note Patient Information Identification Type Name,ID Wristband Subjective Observations Marek was sitting upright in a chair drinking tea when the clinician arrived. His noon meal was on the table in front of it and it appeared Marek ate a few bites of macaroni and cheese but nothing else. Treatment Liquids Trialed Thin Solids Trialed Regular Administration Type Tea Spoon,Cup Single Sip,Self- Feeding Oral Strategies Upright at 90 degrees Pharyngeal Strategies Sitting Upright (90 deg),Small Bites and Sips Treatment Activities Observed Marek drink hot tea from an open cup and eat a bite of macaroni and cheese from a spoon. Discussed possible change of diet if Marek would like softer foods that would be easier to chew. Discussed swallow safety strategies observed. Assessment Patient Response to Treatment Good Rehab Potential Good Assessment of Improvement Marek exhibited a cough response on 1/5 drinks of hot tea from the open cup. When he started coughing, Marek spontaneously cleared his throat and re-swallowed. Marek reported he had coughed while eating his macaroni and cheese and that is why he stopped eating. Clinician discussed option of switching to a softer diet if Marek felt it would help with eating. Marek indicated he was not hungry anymore and was not interested in a softer diet at this time. He did not cough when eating macaroni and cheese for clinician, though limited trials were completed due to Marek not wanting to eat more. Recommend continuing Marek's current diet due to consistent and spontaneous use of swallow safety strategies and his preference to maintain his current diet. Diet Recommendations Recommendations Continue Current Diet Liquids Order Thin Diet Order Regular Medication Recommendations As Tolerated Additional Dietary Needs No Straws Aspiration Precautions Recommended Precautions Upright at 90 Degrees,Small Bites/Sips Treatment Plan Appropriate for Continued Therapy Yes Therapy Recommendations Continue exercises to increase strength, coordination, and ROM of speech and swallow musculature. Handout with tongue exercises provided at previous visit. Dysphagia Goals 1. Marek will perform safe swallow strategies (e.g., no straws, small bites, stopping if coughing and waiting 1 minute to resume, etc.) with oral intake independently to reduce risk of aspiration. 2. Marek will perform exercises to increase strength , coordination, and ROM of speech and swallow musculature independently to increase intelligibility and swallow safety. 3. Marek will demonstrate 100% intelligible speech with speaking with familiar and unfamiliar listeners.
--- NOTE | 2021-03-08 16:01 | PC.NURSE ---
Pt has had 2 episodes of liquid stools today. Had 2 episodes on the noc shift, and a couple of more. Has had a low k+ and needed replacement. Pt had been making jokes about Having the shits. Not aware of number until getting ready to give report. Called Dr. Mclaughlin. See new order. Called facility. They didn't feel comfortable taking patient until the cause could be determined for the loose stools. Transfer cancelled per Dr. Lovell order. Next shift aware pt needs stool spec.
--- NOTE | 2021-03-08 19:20 | PC.NURSE ---
Addendum entered by Rose Bradford R.N. 03/08/21 22:56: Two assist with walker and verbal cueing to transfer from recliner to bed. BL calf scd's replaced. Bed alarm in place. Pt denies pain. Weakness RLE with transfer. No stools this evening shift. Original Note: Pt up in recliner @ beginning of shift. Chair alarm in place. Pt denies pain. Speech is thick sounding with some slurring of words. Is able to identify words on NIH pictorial assessment tool. Follows commands appropriately. Awaiting stool for c-diff. Poor appetite for evening meal. Forman with small amount dark yellow urine.
[2021-03-08] MEDS: ATORVASTATIN 20 MG TABLET PO (20:42)
[2021-03-09] VITALS: BP 136/78; PULSE 88; RESP 18; TEMP 36.7; O2SAT 96
[2021-03-09 04:00] VITALS: BP 151/74; PULSE 77; RESP 18; TEMP 36.8; O2SAT 95
[2021-03-09 07:20] VITALS: BP 167/73; PULSE 80; RESP 18; TEMP 36.3; O2SAT 94
[2021-03-09] MEDS: TAMSULOSIN 0.4 MG CAPSULE PO (09:49)
[2021-03-09] MEDS: APIXABAN 5 MG TABLET PO (09:49)
[2021-03-09] MEDS: MAGNESIUM OXIDE 400 MG TABLET PO (09:49)
[2021-03-09] MEDS: lisinopriL 20 MG TABLET 40 MG PO (09:49)
[2021-03-09] MEDS: DOCUSATE 100 MG CAPSULE PO (09:49)
[2021-03-09] MEDS: METOPROLOL ER 50 MG TABLET 100 MG PO (09:49)
[2021-03-09] MEDS: dilTIAZem CD 240 MG CAP PO (09:50)
[2021-03-09] MEDS: SODIUM CHLORIDE 0.9% FLUSH 10 ML IV (09:51)
--- NOTE | 2021-03-09 10:30 | PT.IPTN ---
Current Diagnoses Cerebral infarction, unspecified (03/06/21) Physical Therapy Treatment Note M2 PT-IP Current Condition Start: 03/07/21 13:19 Freq: NEEDED Status: Active Protocol: Document 03/07/21 12:05 AB (Rec: 03/07/21 13:32 AB [id number]) Physical Therapy Current Condition Current Condition Evaluation Date 03/07/21 Treatment Diagnosis L CVA; difficulty in walking Onset Date 03/06/21 Precautions Other Precautions falls M3 PT-IP Subjective Start: 03/07/21 13:19 Freq: NEEDED Status: Active Protocol: Document 03/09/21 10:30 AW (Rec: 03/09/21 10:46 AW [id number]) Subjective Physical Therapy Visit Type Type Treatment Note Visit Start Time 10:06 Visit Stop Time 10:30 Total Visit Minutes 24 Number of SWEET GOODS MACHINE OPERATOR Visits 0 Physical Therapy Visit Comments Patient Comments Pt requests to use the commode . M4 PT-IP Mobility and Gait Start: 03/07/21 13:19 Freq: NEEDED Status: Active Protocol: Document 03/09/21 10:30 AW (Rec: 03/09/21 10:46 AW [id number]) PT-Transfer Assessment Sit to and From Stand Sit to and from Stand Maximum Assistance,1 Person Assistance,Use of Upper Extremities Equipment Transfer Assistive Device Gait Belt,Front Wheeled Walker Orthotic/Prosthetic Devices or Brace: No Transfers Transfer Destination Chair,Bedside Commode Transfer Technique pt ambulated with FWW Transfer Ability Level of Assist Maximum Assistance,1 Person Assistance,Use of Upper Extremities Comments Mobility Comments Pt was sitting up in chair as PT arrived. I think I might have pooped. Pt required max assist to stand and max cues for sequencing. In static stance, pt leans to the right. He ambulated 10 feet to the [facility], transferring max A x 1. Pt required total assist to manage soiled briefs. While pt was sitting, STONE RUBBER arrived to assist with clean up. He stood from the commode max A x 1 using FWW for support as STONE RUBBER provided all pericare. Pt ambulated back to the chair and transferred with poor safety awareness and poor control of descent max A x 1. Pt refused further activity and was left in the chair with alarm on, call light and tray table in reach. Gait Assessment Gait Gait Assistance Required: Moderate Assistance,Maximum Assistance,1 Person Assist Distance (Feet) 10 Assistive Devices Assistive Device Gait Belt,Front Wheeled Walker Orthotic/Prosthetic Devices or Brace: No Gait Deviations General Gait Pattern Decreased Stride Length, Decreased Feet Clearance, Flexed Trunk,Lateral Trunk Lean,Step-to Gait Factors Limiting Gait Function Factors Limiting Gait Function Decreased Activity Tolerance, Decreased Strength,Poor Balance,Poor Safety Awareness Comments Gait Comments Pt ambulated 10 feet x 2 to transfer to and from [facility]. He leans to the right during gait and requires constant cues and assist for walker management, tending to step outside the frame. PT-Balance Assessment Sitting Balance and Reactions Static Sitting Balance Ability Fair Dynamic Sitting Balance Ability Fair Standing Balance and Reactions Static Standing Balance Ability Poor Dynamic Standing Balance Ability Poor Device Used FWW M5 PT-IP Objective Assessments Start: 03/07/21 13:19 Freq: NEEDED Status: Active Protocol: Document 03/07/21 12:05 AB (Rec: 03/07/21 13:32 AB [id number]) Orientation Orientation/Cognition Level of Alertness Confusional State Orientation Name Safety Awareness Decreased Safety Awareness Memory Description Short Term Impaired Gross Range of Motion Lower Extremity ROM Assessment Within Functional Limits Strength Lower Extremity Strength Assessment Right Impaired Hip 3+/5 Knee 3+/5 Coordination Assessment Gross Coordination Gross Coordination WNL Muscle Tone Muscle Tone WNL Yes M6 PT-IP Treatment Start: 03/07/21 13:19 Freq: NEEDED Status: Active Protocol: Document 03/09/21 10:30 AW (Rec: 03/09/21 10:46 AW [id number]) Physical Therapy Treatment Education Education Provided Safety M7 PT-IP Assessment and Plan Start: 03/07/21 13:19 Freq: NEEDED Status: Active Protocol: Document 03/09/21 10:30 AW (Rec: 03/09/21 10:46 AW [id number]) PT Summary Assessment and Plan Summary Progress Towards Goals Progressing Toward Goals,Slow Progress due to Medical Issues ,Slow Progress due to Activity Tolerance Assessment Summary Pt is quite limited in activity tolerance, possibly owing to diarrhea. He would benefit from continued rehab but this PT questions his ability to tolerate high volume and high intensity at acute rehab. Will continue to assess as pt condition evolves . Goals Bed Mobility Goal Standby Assistance Transfer Goal Standby Assistance,Front Wheeled Walker Gait Goal Standby Assistance,Front Wheel Walker Gait Distance 100 Other Goals up/down 4 steps L rail min A Days to Meet Goals 10 Frequency of Treatment Frequency Of Treatment Once a Day Treatment Plan Physical Therapy Treatment Plan Bed Mobility Training,Transfer Training,Gait Training, Therapeutic Exercise,Balance Retraining,Discharge Planning, Hot or Cold Pack,Neuromuscular Re-ed,Coordination Retraining Other Recommendations and Next Treatment transfers, continue gait Focus training with FWW Precautions Other Precautions falls Recommendations To Nursing Amount of Assist Needed 2 Person Assist Discharge Recommendations PT Discharge Recommendations SNF vs Acute Rehab Other Discharge Recommendations SNF more likely due to low activity tolerance Transportation Needs at Discharge Wheelchair/Cabulance
[2021-03-09 11:13] LABS: Alanine Aminotransferase 19 IU/L (<50); Albumin 3.6 g/dL (3.5-5.0); Albumin Globulin Ratio 1.4 (1.0-2.8); Alkaline Phosphatase 58 U/L (38-126); Aspartate Aminotransferase 39 IU/L (17-59); BUN Creatinine Ratio 12.6 (6-22); Bilirubin Total 1.3 mg/dL (0.2-1.3); Blood Urea Nitrogen 15 mg/dL (9-20); Calcium 8.3 mg/dL (8.4-10.2); Carbon Dioxide 18 mmol/L (22-32); Chloride 100 mmol/L (98-107); Globulin 2.5 g/dL (1.7-4.1); Glucose 169 mg/dL (80-110); Magnesium 1.7 mg/dL (1.6-2.3); Phosphorous 3.2 mg/dL (2.3-3.7); Sodium 131 mmol/L (137-145); Total Protein 6.1 g/dL (6.3-8.2)
[2021-03-09 11:14] LABS: HEMOLYSIS 89 (0-50)
[2021-03-09 11:15] VITALS: BP 124/57; PULSE 85; RESP 16; TEMP 36.1; O2SAT 94
[2021-03-09 11:15] LABS: Potassium 3.9 mmol/L (3.4-5.1)
--- NOTE | 2021-03-09 12:11 | ST.IPDYTX ---
Visit Care Team Role Provider Type CHELSI Lopez Primary Care Provider Advanced Chassis Mechanic Specialty: Family Practice Address: [address] [place] [address], [address] Email: [email or web address] Ricardo Morelos DO Emergency Provider Physician Referring Provider Specialty: Emergency Medicine Address: [address] [place] [address], [address] Email: [email or web address] Marycruz Mclaughlin MD Admit Provider Physician Attending Provider Specialty: Internal Medicine Address: [address] [place] [address], [address] Email: [email or web address] CLERK Dysphagia Treatment INSURANCE CLERK Dysphagia Treatment Start: 03/08/21 14:16 Freq: Status: Active Protocol: Document 03/09/21 12:06 JUSTINE (Rec: 03/09/21 12:11 ZS [id number]) Dysphagia Treatment Session Time Visit Start Time 10:40 Visit Stop Time 10:55 Total Visit Minutes 15 Setting Assessment Location Acute Care Visit Type Note Type Treatment Note Next Note Type Next Note Type Treatment Note Patient Information Identification Type Name,ID Wristband Subjective Observations Marek was sitting upright in a chair when clinician arrived. He had just missed a call from his and has trouble dialing on his phone. Treatment Liquids Trialed Thin Solids Trialed Regular Administration Type Tea Spoon,Cup Single Sip,Self- Feeding Oral Strategies Upright at 90 degrees Pharyngeal Strategies Sitting Upright (90 deg),Small Bites and Sips Treatment Activities Practiced tongue exercises from home practice worksheet provided in previous session. Provided patient education regarding purpose of exercises . Assessment Patient Response to Treatment Good Rehab Potential Good Assessment of Improvement Marek completed 10 tongue protrusions of 5 seconds each. He required reminders about every other trial to stick his tongue straight out and hold rather than move it side to side. Completed 3 tongue lateralization exercises with 5 seconds on each side. Marek had difficulty tracking which exercise he was doing and required multiple reminders to hold his tongue in a particular position. Following 3 repetitions of tongue lateralization exercise , Marek said he was done and wanted to call his . Clinician provided assistance in dialing. Diet Recommendations Recommendations Continue Current Diet Liquids Order Thin Diet Order Regular Medication Recommendations As Tolerated Additional Dietary Needs No Straws Aspiration Precautions Recommended Precautions Upright at 90 Degrees,Small Bites/Sips Treatment Plan Appropriate for Continued Therapy Yes Therapy Recommendations Continue exercises to increase strength, coordination, and ROM of speech and swallow musculature. Handout with tongue exercises provided at previous visit. Dysphagia Goals 1. Marek will perform safe swallow strategies (e.g., no straws, small bites, stopping if coughing and waiting 1 minute to resume, etc.) with oral intake independently to reduce risk of aspiration. 2. Marek will perform exercises to increase strength , coordination, and ROM of speech and swallow musculature independently to increase intelligibility and swallow safety. 3. Marek will demonstrate 100% intelligible speech with speaking with familiar and unfamiliar listeners.
--- NOTE | 2021-03-09 12:15 | CM.DPC ---
Addendum entered by Huong Parrish R.N. 03/09/21 13:47: Patient was negative for C-diff. His potassium level is up. He is deemed medically ready for discharge per Dr. Brice. Had clinical education assistant, Deanna, assist in transportation. This behavioral health case manager had called [facility], and had no response. Deanna was able to reach them, and they have no availabilities for transport. Deanna kindly called [employer], and was able to set up transport for order picker/assembler at 1530. She was able to get a one way cost of $142.00. Updated son, Puma, who is at bedside, and prepared to pay for transport. He was frustrated that the facility could not provide transportation, and that he had to pay for it. Apologized to son, as this has been their policy since the COVID situation, and they don't want families to transport. Updated Devi at [facility], and she is aware. Faxed over patient's COVID results, as well as C-diff results. Original Note: DCP Cont: Patient was supposed to discharge yesterday, but he was having increased loose stools, and his potassium level was low. Found out that the cost of [facility] for transport is $120.00. Left a message with Magdalena at [facility] if a time can be set up for this afternoon to go to [place], since there is a chance that he can potentially be discharged. Have not yet heard back from her. Currently, C-diff results are pending, and another potassium level was supposed to be drawn. P: DCP to continue to follow. Have updated Devi at [facility], and they are stating that they can accept today. Have a message out to [facility] transport as well. Huong Parrish RN/Boom Crane Operator
[2021-03-09 12:28] LABS: Clostridium Difficile Tox PCR Negative for C. diff (Negative)
[2021-03-09] MEDS: INSULIN LISPRO 100 UNIT/ML 3ML VIAL SUBCUT (12:55)
--- NOTE | 2021-03-09 13:04 | P.DS_ITS ---
History of Present Illness History of Present Illness Date Patient Seen: 03/09/21 Time Patient Seen: 13:04 Chief complaint: Sent by Millie Pittman Narrative: Per Dr. Mclaughlin, The patient is an 85-year-old male with a history of invasive adenocarcinoma the prostate, hypertension, persistent atrial fibrillation, chronic edema, type 2 diabetes who was admitted to the hospital 10 8 through 10 9 for weakness.? The patient's initial NIH score was 6.? He was not anticoagulated.? He was admitted to the hospital with some mild speech difficulty and confusion.? However subsequent NIH score was 1.? His weakness by report resolved.? The patient had a CT of the head neck which showed no acute intracranial process with moderate atrophy and chronic microvascular changes.? There were no significant hemodynamically significant stenosis occlusion or aneurysmal dilatation.? There was a 30-40% narrowing at the origin of the internal carotid arteries bilaterally.? Telestroke was consulted and they recommended platelet therapy at 300 mg loading dose followed by [address] Plavix and aspirin at 81 mg.? The patient underwent a head MRI which by report was negative for acute stroke.? He was discharged back home. The patient was brought back to the emergency room because he continued to have weakness of the left leg.? He he fell at home.? He is unable to be cared for by his family at home.? The patient was also found to have a potassium of 2.9.? In addition his troponin was elevated at 0.57 although he has no complaints of chest pain.? His EKG shows PVCs but no acute ST T wave abnormalities.? The patient was taken directly to MRI from the emergency department.? MRI confirmed a left pontine stroke.? Patient is admitted to the hospital for inpatient treatment of an acute stroke. Discharge Providers Provider Date of admission: 03/06/21 16:14 Discharge Date: 03/09/21 Primary care physician: CHELSI Lopez Consults: 03/06/21 17:54 Consult to Dietitian, Adult Routine Comment: poor appetite Reason For Exam: poor appetite Consult to Discharge Planning Routine Comment: Consult to Occupational Therapy Evaluate & Treat Comment: Physician Instructions: Evaluate and treat Consult to Physical Therapy Evaluate & Treat Comment: Physician Instructions: Evaluate and Treat 03/06/21 17:55 Consult to Discharge Planning Routine Comment: Consult to Occupational Therapy Evaluate & Treat Comment: Physician Instructions: Evaluate and treat Consult to Physical Therapy Evaluate & Treat Comment: Physician Instructions: Evaluate and Treat Consult to Speech Therapy Evaluate & Treat Comment: Physician Instructions: Evaluate and treat Discharge provider: Narciso Brice DO Summary Hospital Course Discharge Diagnosis: 1. Left Pontine Stroke 2. Hypertension 3. Persistant Atrial Fibrillation 4.Type 2 diabetes 5. urinary retention with indwelling langford catheter 6. 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 Hypokalemia Hospital Course: The patient is an 85 y/o male admitted with right leg weakeness. He presented 2 days prior with similar symptoms but had negative imaging at that time. The patient returned home but fell quickly.? He returned and MRI confirmed a right pontine infarct. The patient also developed atrial fibrillation. His rate was controlled. He was started on eliquis for the afib.? The patient was seen by PT/OT. He had some improvement in his leg weakness but was too weak to ambulate independently. The patient was [facility].? Patient has no complaints and was discharged accordingly. His discharge was held briefly for diarrhea, which a c. diff study was checked and was negative. Diarrhea can be controlled with as needed loperamide at acute rehab. No changes to his other chronic conditions were recommended. Potassium was within normal limits on the day of discharge after repletion for hypokalemia. Status at Discharge Cognitive/behavioral status at discharge: confused Functional status at discharge: uses cane/walker Overall status at discharge: patient is not back to baseline Time Spent with Patient Time spent: Greater than 30 minutes Exam Vital Signs (past 8 hours): - 03/09/21 07:20 03/09/21 11:15 Temperature 97.4 F L 97.0 F L Pulse Rate 80 85 Respiratory Rate 18 16 Blood Pressure 167/73 H 124/57 L Pulse Oximetry 94 94 Oxygen Delivery Method Room Air Oxygen Flow Rate 0 Narrative Exam Narrative: pleasant male sitting in a chair Eyes Other:?EOMI Resp Other:?Lungs: clear to auscultation Cardio Other:?irregularly irregular, nl Sl S2 2/6 JOSÉ LUIS GI Other:?Abd: soft/ non tender Skin Other:?no edema Objective Labs Result Diagrams: 03/08/21 05:35 03/09/21 10:40 Labs: Laboratory Results - last 24 hr 03/08/21 03/09/21 03/09/21 13:24 09:37 10:40 Sodium 131 L Potassium 3.9 Chloride 100 Carbon Dioxide 18 L BUN 15 Creatinine 1.19 Estimated GFR 58.0 L BUN/Creatinine Ratio 12.6 Glucose 169 H Calcium 8.3 L Phosphorus 3.2 Magnesium 1.7 Total Bilirubin 1.3 AST 39 ALT 19 Alkaline Phosphatase 58 Total Protein 6.1 L Albumin 3.6 Globulin 2.5 Albumin/Globulin Ratio 1.4 C. difficile Tox (PCR) Negative for c. diff SARS-CoV-2 (PCR) Negative PFSH Medical History Abdominal pain Acute cholecystitis 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 Ankle pain Atrial fibrillation Carpal tunnel syndrome Chicken pox Chronic back pain Diabetes mellitus Foot pain Fractures Frequent urination at night GI bleed Glaucoma Hay fever Hypertension Leukocytosis Measles Mumps Non-insulin dependent type 2 diabetes mellitus Plantar warts Rosacea Shoulder pain Vision disorder Surgical History Cataract (~2011) Hx of appendectomy Family History Grandfather Diabetes mellitus Mother Diabetes mellitus Cancer Sister Age: 79 Cancer Sister Age: 72 Heart disease Social History household members: spouse Smoking Status: Former smoker alcohol intake: current Discharge Assessment & Plan Assessment and Plan Assessment: 1. Left Pontine Infarct 2. Hypertension 3. Urinary Retention 4. Hypokalemia Plan of Treatment: To [facility] Discharge Plan Discharge Plan Patient Disposition: Xfer Inpatient Rehab Other facility: [facility] Consult as needed: Dental, Hearing, Mental health, Podiatry and Vision Provider Discharge Comment: Admitted after L pontine stroke. Transfer to acute rehab. Discharge orders & Medications Discharge Orders: Discharge (Order); Ordered 03/09/21 Ordered By: Narciso Brice Prescriptions: New loperamide 2 mg Capsule 2 mg PO QID PRN (Reason: Diarrhea) Qty: 14 RF: 0 Eliquis 5 mg Tablet 5 mg PO BID Qty: 30 RF: 0 magnesium oxide 400 mg (241.3 mg magnesium) Tablet 400 mg PO BID Qty: 30 RF: 0 potassium chloride 20 mEq tablet extended release 20 meq PO DAILY Qty: 14 RF: 0 atorvastatin 40 mg tablet 40 mg PO BEDTIME Qty: 30 RF: 0 Continued diltiazem HCl 300 mg capsule,extended release 24 hr 300 mg PO DAILY Qty: 90 RF: 3 lisinopril 40 mg tablet See Rx Instructions .ROUTE .COMPLEX Qty: 180 RF: 3 metoprolol succinate 100 mg tablet extended release 24 hr 100 mg PO DAILY Qty: 90 RF: 3 metformin 500 mg tablet 1,000 mg PO BID Qty: 360 RF: 3 glyburide 5 mg tablet 5 mg PO TID Qty: 270 RF: 3 abiraterone [Zytiga] 250 mg Tablet 250 mg PO DAILY Qty: 30 RF: 11 tamsulosin [Flomax] 0.4 mg Capsule 0.4 mg PO DAILY 30 Days Qty: 30 RF: 0 Discontinued aspirin 81 mg Tablet,Delayed Release (Dr/Ec) 81 mg PO DAILY 90 Days Qty: 90 RF: 0 atorvastatin [Lipitor] 20 mg Tablet 80 mg PO BEDTIME 30 Days Qty: 30 RF: 0 clopidogrel 75 mg Tablet 75 mg PO DAILY 20 Days Qty: 20 RF: 0 Follow up/Referrals: Millie Pittman ARNP [Primary Care Provider] - Discharge Health Status Multidrug resistant organism: No MDRO Diet/Activity/Treatments Diet: Low-sodium Liquid consistency: Normal/Thin Food texture: Regular Catheter: 2-way Langford Catheter comment: urinary retention, would try to remove before discharge Other treatments: please check potassium levels until stable. Patient has had low potassium during the hospital stay Skin/Wound/Dressing Care Report to your healthcare provider any signs of infection, such as:: chills, fever Special Rehabilitation Services Reason for rehabilitation: Therapy following stroke Rehab type: Physical therapy, Occupational therapy and Speech therapy Discharge Data Primary Care Provider: Millie Pittman Quality VTE Deep Vein Thrombosis/Pulmonary Embolism Present on Admission: No
--- NOTE | 2021-03-09 13:30 | CM.DPNOTE ---
Called August at [facility] [place] [address] [facility] at approx 1325 to arrange wc transport; they can pick pt. up at 1530. Estimate danielle $142.97. I passed this information onto MACKENZIE Palacios.
[2021-03-09] MEDS: ACETAMINOPHEN 325 MG TABLET 650 MG PO (14:00)
[2021-03-09] MEDS: LOPERAMIDE 2 MG CAPSULE PO (14:00)
--- NOTE | 2021-03-09 14:07 | CM.DPNOTE ---
Called and spoke to Mena at [facility] and told her pt. is being discharged to [facility] 03/09/21. Deanna Still CM Asst.
--- NOTE | 2021-03-09 15:38 | PC.NURSE ---
Transfer: Stool obtained and sent, negative. Pt ready to transfer to [facility] [place] for rehab. Marizol called w/report. Reviewed hospital course, pt's NIH, mobility issues and speach diff at times. Has been followed by PT/OT/ST. Pt's diarrhea and neg results, given immodium and tylenol prior to transfer. Pt is a diabetic and reviewed blood sugars, ssc. Pt's son asking about visiting hours and at this time they are not allowing visitors but can do a window visit. Pt is being transfered w/primitivo for retention. Discussed past hx of prostate cancer. MD will eval when langford can come out. Questions answered for Marizol. At [employer] discharge packet was given to city driver. Son paid for transport. Pt d/c to facility via carry me transport services.
== END 2021-03-09 15:30 | DRG 65 ==
LOC: ED 16:15 → AC 03-07 08:37
PROVIDERS: Internal Medicine; Admitting Provider Internal Medicine; Emergency Provider Emergency Medicine; PCP Nurse Practitioner; Referring Provider Emergency Medicine; Visit Provider Internal Medicine
DX: I63.9 Cerebral infarction, unspecified (principal); C79.51 Secondary malignant neoplasm of bone; G45.9 Transient cerebral ischemic attack, unspecified; I48.20 Chronic atrial fibrillation, unspecified; R53.1 Weakness; E87.6 Hypokalemia; I48.0 Paroxysmal atrial fibrillation; R33.9 Retention of urine, unspecified; C61 Malignant neoplasm of prostate; I10 Essential (primary) hypertension; E11.9 Type 2 diabetes mellitus without complications; R19.7 Diarrhea, unspecified; R29.705 NIHSS score 5; R29.710 NIHSS score 10; Z66 Do not resuscitate; Z87.891 Personal history of nicotine dependence; Z20.822 Contact with and (suspected) exposure to COVID-19; Z79.84 Long term (current) use of oral hypoglycemic drugs; N13.9 Obstructive and reflux uropathy, unspecified
CPT/HCPCS: 36415; 70450; 70496; 70498; 70548; 70553; 71045; 80048; 80053; 80061; 80305; 81001; 82550; 82553; 82962; 83036; 83690; 83735; 83880; 84100; 84132; 84145; 84443; 84484; 85025; 85610; 85651; 85730; 86140; 87040; 87086; 87493; 87635; 92522; 92526; 92610; 93005; 93010; 93306; 96360; 96361; 96372; 97116; 97162; 97166; 97530; 97535; 99284; 99285; C9803; G0378; J1650; J1815; Q9967